=== PATIENT | male | born 1970 | race Caucasian/White ===

== ENCOUNTER 2024-02-18 14:27 | Outpatient (AMB) | payer OTHER, SELFPAY ==
--- NOTE | 2024-02-18 14:19 | A.OFFPC_ITS ---
Vital Signs 02/18/24 14:37 02/18/24 15:03 Height 5 ft 11.5 in Weight 210 lb BMI 28.9 BP 156/88 H 124/80 Blood Pressure Location Lt brachial Lt brachial Position Sitting Sitting Respiration 16 Pulse 65 Pulse Source Pulse Oximeter Pulse Oximetry (%) 99 Oxygen Delivery Method Room Air Intake Visit Reasons: Est. Care / Needs a new provider Intake Note: New patient visit Allergies No Known Allergies Allergy (Verified 02/18/24 14:19) Medication List - Last Reconciled 02/18/24 by Abbie Ayala PA-C amlodipine 5 mg PO DAILY atorvastatin 40 mg PO DAILY metformin ER 750 mg PO DAILY metoprolol succinate ER 50 mg PO DAILY olmesartan 40 mg PO DAILY omeprazole 40 mg PO DAILY ropinirole 4 mg PO sildenafil mg PO valacyclovir 1,000 mg PO DAILY Tobacco use date assessed: 02/18/24 Dental Screening Dental Screen Date: 02/18/24 Did you have a dental visit in the last 12 months?: Yes Did you have a dental problem in the last 6 months where you did not have access to dental care?: No Was dental information given to patient?: Patient has dentist HPI Est. Care / Needs a new provider HPI Details Patient is a 53-year-old male with a significant past medical history of hypertension, hyperlipidemia, GERD, diabetes, SEE with cpap, erectile dysfunction, herpes virus, ckd is presenting today to establish care from [facility]. General: Feels tired all the time. Has sleep apnea but does not use CPAP machine. Does not tolerate it. States that he struggles falling asleep and staying asleep. His legs are always restless. He does endorse study drinks alcohol at night and that this maybe contributing somewhat but he has had a longstanding history of insomnia since childhood. He is wondering what his testosterone is. He has taken it in the past prescribed and not prescribed. CV: Blood pressure today in the office is 156/88. He is on olmesartan 40 mg, metoprolol 50 mg daily and amlodipine 5 mg daily. Cholesterol has been controlled with atorvastatin 40 mg. He just started amlodipine yesterday by his 1st pressman Nephro: following with Dr. Martínez and seeing him in 3 months. Endo: His last A1c was 9. He is overdue for an A1c. Does not check his blood sugars at home as the lancets do not seem to work for him. He would be interested in a [employer]. He was diagnosed with diabetes about 5 years ago. No family history of diabetes. He is not sure if he is a type 2 or type 1. He is currently on metformin 750 mg daily. -jardiance in the past but it was too ex pensive. 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 How often do you have a drink containing alcohol?: 4 or more times a week 2. How many drinks containing alcohol do you have on a typical day when you are drinking?: 5 or 6 3. How often do you have six or more drinks on one occasion?: Weekly Total Score: 9 Physical exam (Primary Care) Vital Signs: Last Vital Signs Pulse 65 02/18/24 14:37 Resp 16 02/18/24 14:37 BP 156/88 H 02/18/24 14:37 Pulse Ox 99 02/18/24 14:37 Oxygen Delivery Method Room Air 02/18/24 14:37 BMI result Body Mass Index 28.9 Tobacco/Smoking Status: Tobacco use Status Tobacco use date assessed 02/18/24 02/18/24 14:21 Patient Tobacco Use Status Never used Tobacco 02/18/24 14:21 e-Cigarette/Vaping Use Never Used 02/18/24 14:21 Const Orientation/consciousness: patient oriented x3 HENMT Ears: hearing grossly normal bilaterally Neck Thyroid: Thyroid normal Lymphatic: no lymphadenopathy noted Resp Auscultation: clear to auscultation bilaterally Cardio Rate: regular rate Rhythm: regular rhythm Heart sounds: S1 normal heart sound present and S2 normal heart sound present GI Inspection: Yes normal to inspection Palpation (GI): Soft to palpation and Other GI palpation findings present (nontender, no cva tenderness) Auscultation: normoactive bowel sounds Rectal Exam - Male: Yes deferred Skin General skin exam: no rashes or lesions noted Neuro General: patient oriented x3, gait normal and no focal motor deficits Coding Level of Care Code New Pt Level 5 (03021) Complex EM visit Add On G2211 Diagnoses SEE on CPAP G47.33 Restless leg syndrome G25.81 Fatigue R53.83 Low testosterone R79.89 Uncontrolled diabetes mellitus with hyperglycemia E11.65 Hypertension I10 CKD stage 3a, GFR 45-59 ml/min N18.31 Dyslipidemia E78.5 Assessment & Plan Assessment & Plan (1) SEE on CPAP: Code(s): G47.33 - Obstructive sleep apnea (adult) (pediatric) Category: Medical Plan: Advised to follow up with sleep medicine as he is noncompliant with the CPAP machine. He states it is very difficult to use. He is going to follow up to figure out a way to make it work (2) Restless leg syndrome: Code(s): G25.81 - Restless legs syndrome Category: Medical Plan: On Requip (3) Fatigue: Code(s): R53.83 - Other fatigue Category: Medical Plan: Labs ordered. Discussed that he has untreated sleep apnea and this is likely contributing. We also discussed healthy lifestyle such as avoidance/reduction of alcohol (4) Low testosterone: Code(s): R79.89 - Other specified abnormal findings of blood chemistry Category: Medical Plan: Labs ordered (5) Uncontrolled diabetes mellitus with hyperglycemia: Code(s): E11.65 - Type 2 diabetes mellitus with hyperglycemia Category: Medical Plan: Diabetic labs ordered. We will check antibodies and C-peptide as well. Advised to get this done in the morning. We spent more than 1 hour in madf-sp-otil time today discussing the pathophysiology of diabetes, the differences of type 1 and type 2 diabetes, complications associated with diabetes including blindness, heart disease, stroke, [place], kidney damage etc.. Freestyle Giorgio ordered. Continue metformin. We will follow up pending test results and adjust medications (6) Hypertension: Code(s): I10 - Essential (primary) hypertension Category: Medical Plan: Blood pressure better today at 124/80. Continue current regimen (7) CKD stage 3a, GFR 45-59 ml/min: Code(s): N18.31 - Chronic kidney disease, stage 3a Category: Medical Plan: Following with Nephrology (8) Dyslipidemia: Code(s): E78.5 - Hyperlipidemia, unspecified Category: Medical Plan: Lipids and LFTs ordered Orders: Orders Complete Blood Count Auto Diff Today E11.65 - Type 2 diabetes mellitus with hyperglycemia, E78.5 - Hyperlipidemia, unspecified, G25.81 - Restless legs syndrome, I10 - Essential (primary) hypertension, N18.31 - Chronic kidney disease, stage 3a, R53.83 - Other fatigue, R79.89 - Other specified abnormal findings of blood chemistry Hemoglobin A1c Today E11.65 - Type 2 diabetes mellitus with hyperglycemia, E78.5 - Hyperlipidemia, unspecified, G25.81 - Restless legs syndrome, I10 - Essential (primary) hypertension, N18.31 - Chronic kidney disease, stage 3a, R53.83 - Other fatigue, R79.89 - Other specified abnormal findings of blood chemistry Ferritin Today E11.65 - Type 2 diabetes mellitus with hyperglycemia, E78.5 - Hyperlipidemia, unspecified, G25.81 - Restless legs syndrome, I10 - Essential (primary) hypertension, N18.31 - Chronic kidney disease, stage 3a, R53.83 - Other fatigue, R79.89 - Other specified abnormal findings of blood chemistry Vitamin B12 and Folate Today E11.65 - Type 2 diabetes mellitus with hyperglycemia, E78.5 - Hyperlipidemia, unspecified, G25.81 - Restless legs syndrome, I10 - Essential (primary) hypertension, N18.31 - Chronic kidney disease, stage 3a, R53.83 - Other fatigue, R79.89 - Other specified abnormal findings of blood chemistry Magnesium Today E11.65 - Type 2 diabetes mellitus with hyperglycemia, E78.5 - Hyperlipidemia, unspecified, G25.81 - Restless legs syndrome, I10 - Essential (primary) hypertension, N18.31 - Chronic kidney disease, stage 3a, R53.83 - Other fatigue, R79.89 - Other specified abnormal findings of blood chemistry Lipid Panel Today E11.65 - Type 2 diabetes mellitus with hyperglycemia, E78.5 - Hyperlipidemia, unspecified, G25.81 - Restless legs syndrome, I10 - Essential (primary) hypertension, N18.31 - Chronic kidney disease, stage 3a, R53.83 - Other fatigue, R79.89 - Other specified abnormal findings of blood chemistry Glutamic acid decarboxylase Ab Today E11.65 - Type 2 diabetes mellitus with hyperglycemia, E78.5 - Hyperlipidemia, unspecified, G25.81 - Restless legs syndrome, I10 - Essential (primary) hypertension, N18.31 - Chronic kidney disease, stage 3a, R53.83 - Other fatigue, R79.89 - Other specified abnormal findings of blood chemistry C Peptide Today E11.65 - Type 2 diabetes mellitus with hyperglycemia, E78.5 - Hyperlipidemia, unspecified, G25.81 - Restless legs syndrome, I10 - Essential (primary) hypertension, N18.31 - Chronic kidney disease, stage 3a, R53.83 - Other fatigue, R79.89 - Other specified abnormal findings of blood chemistry B Type Natriuretic Peptide Today E11.65 - Type 2 diabetes mellitus with hyperglycemia, E78.5 - Hyperlipidemia, unspecified, G25.81 - Restless legs syndrome, I10 - Essential (primary) hypertension, N18.31 - Chronic kidney disease, stage 3a, R53.83 - Other fatigue, R79.89 - Other specified abnormal findings of blood chemistry Comprehensive [place]. Panel Fast Today E11.65 - Type 2 diabetes mellitus with hyperglycemia, E78.5 - Hyperlipidemia, unspecified, G25.81 - Restless legs syndrome, I10 - Essential (primary) hypertension, N18.31 - Chronic kidney disease, stage 3a, R53.83 - Other fatigue, R79.89 - Other specified abnormal findings of blood chemistry IRON PROFILE Today E11.65 - Type 2 diabetes mellitus with hyperglycemia, E78.5 - Hyperlipidemia, unspecified, G25.81 - Restless legs syndrome, I10 - Essential (primary) hypertension, N18.31 - Chronic kidney disease, stage 3a, R53.83 - Other fatigue, R79.89 - Other specified abnormal findings of blood chemistry TSH reflex Free T4 Today E11.65 - Type 2 diabetes mellitus with hyperglycemia, E78.5 - Hyperlipidemia, unspecified, G25.81 - Restless legs syndrome, I10 - Essential (primary) hypertension, N18.31 - Chronic kidney disease, stage 3a, R53.83 - Other fatigue, R79.89 - Other specified abnormal findings of blood chemistry Prostate Specific Antigen Scr Today E11.65 - Type 2 diabetes mellitus with hyperglycemia, E78.5 - Hyperlipidemia, unspecified, G25.81 - Restless legs syndrome, I10 - Essential (primary) hypertension, N18.31 - Chronic kidney disease, stage 3a, R53.83 - Other fatigue, R79.89 - Other specified abnormal findings of blood chemistry, Z01.89 - Encounter for other specified special examinations Lyme IgG/IgM w/reflex to WB Today E11.65 - Type 2 diabetes mellitus with hyperglycemia, E78.5 - Hyperlipidemia, unspecified, G25.81 - Restless legs syndrome, I10 - Essential (primary) hypertension, N18.31 - Chronic kidney disease, stage 3a, R53.83 - Other fatigue, R79.89 - Other specified abnormal findings of blood chemistry Testosterone, Free/Total Today E11.65 - Type 2 diabetes mellitus with hyperglycemia, E78.5 - Hyperlipidemia, unspecified, G25.81 - Restless legs syndrome, I10 - Essential (primary) hypertension, N18.31 - Chronic kidney disease, stage 3a, R53.83 - Other fatigue, R79.89 - Other specified abnormal findings of blood chemistry Islet Cell Antibody Scrn/Titer Today E11.65 - Type 2 diabetes mellitus with hyperglycemia, E78.5 - Hyperlipidemia, unspecified, G25.81 - Restless legs syndrome, I10 - Essential (primary) hypertension, N18.31 - Chronic kidney disease, stage 3a, R53.83 - Other fatigue, R79.89 - Other specified abnormal findings of blood chemistry Referrals Sleep Medicine Referral G25.81 - Restless legs syndrome, G47.33 - Obstructive sleep apnea (adult) (pediatric) Dermatology Referral Z12.83 - Encounter for screening for malignant neoplasm of skin Open Access Screening Colonoscopy Referral Z12.11 - Encounter for screening for malignant neoplasm of colon Medications: New blood-glucose sensor (FreeStyle Giorgio 3 Sensor device) Apply every 14 days As directed to monitor blood glucose 2 ea 11RF E11.9 - Type 2 diabetes mellitus without complications, Z79.4 - senior care (current) use of insulin valacyclovir (Valtrex) 500 mg PO DAILY 90 tabs 3RF
[2024-02-18 14:37] VITALS: BP 156/88; PULSE 65; RESP 16; O2SAT 99; BMI 28.9
[2024-02-18 15:03] VITALS: BP 124/80
== END 2024-02-18 15:42 | disposition home or self-care (01) ==
PROVIDERS: PCP Internal Medicine; Visit Provider Physician Assistant
DX: I12.9 Hypertensive chronic kidney disease with stage 1 through stage 4 chronic kidney disease, or unspecified chronic kidney disease (principal); E11.65 Type 2 diabetes mellitus with hyperglycemia; N18.31 Chronic kidney disease, stage 3a; G47.33 Obstructive sleep apnea (adult) (pediatric); G25.81 Restless legs syndrome; R53.83 Other fatigue; E78.5 Hyperlipidemia, unspecified

== ENCOUNTER → 2024-02-18 14:27 | Outpatient (BNVA) | payer OTHER, SELFPAY | PROVIDERS: PCP Internal Medicine; Visit Provider Physician Assistant ==

== ENCOUNTER 2024-02-19 07:52 | Outpatient (REF) | payer OTHER, SELFPAY ==
[2024-02-19 11:00] LABS: MANUAL DIFF FLAG NO
[2024-02-19 11:13] LABS: Basophils Absolute Auto 0.1 X10*3/uL (0.0-0.2); Basophils Percent Auto 0.8 % (0-2); Eosinophils Absolute Auto 0.2 X10*3/uL (0.0-0.4); Eosinophils Percent Auto 2.8 % (0-4); Hematocrit 45.2 % (42.0-52.0); Hemoglobin 15.7 g/dl (14.0-18.0); Imm Gran Abs Auto 0.03 X10*3/uL (0.00-0.03); Imm Gran Pct Auto 0.4 % (0.0-0.4); Lymphocytes Absolute Auto 0.9 X10*3/uL (1.2-4.9); Mean Corpuscular HGB Conc 34.7 g/dl (31.0-36.0); Mean Corpuscular Hemoglobin 29.7 pg (27.0-33.0); Mean Corpuscular Volume 85.6 fL (80.0-98.0); Mean Platelet Volume 11.6 fL (9.4-12.4); Monocytes Absolute Auto 0.7 X10*3/uL (0.1-1.2); Monocytes Percent Auto 8.7 % (2-11); Neutrophils Percent Auto 76.3 % (45-73); Platelet Count 143 X10*3/uL (160-400); Red Blood Count 5.28 X10*6/uL (4.60-5.80); Red Cell Distribution Width 13.5 % (11.0-16.0); White Blood Count 7.9 X10*3/uL (4.8-10.8)
[2024-02-19 11:20] LABS: B Type Natriuretic Peptide 18 pg/mL (<100)
[2024-02-19 11:37] LABS: Estimated Average Glucose 151 mg/dL; Hemoglobin A1C 190.1161 umol/L; Hemoglobin A1c % 6.9 % (<6.0); Total Hemoglobin (HGBA1C) 3696.8471 umol/L
[2024-02-19 12:04] LABS: Alanine Aminotransferase 114 U/L (0-40); Albumin Level 4.2 g/dL (3.5-5.0); Alkaline Phosphatase 71 U/L (39-117); Anion Gap 13 (12-20); Aspartate Amino Transferase 86 U/L (5-37); Bilirubin Total 0.7 mg/dL (0.0-1.0); Blood Urea Nitrogen 13 mg/dL (9-16); Calcium 9.3 mg/dL (8.4-10.2); Carbon Dioxide 25 mmol/L (22-29); Chloride 103 mmol/L (96-108); Cholesterol 134 mg/dL (<200); Estimated Glomerular Filt Rate 48; Ferritin 169 ng/mL (20-250); Glucose Fasting 114 mg/dL (60-99); HDL Cholesterol 34 mg/dL (>40); Iron 91 mcg/dL (45-160); LDL Cholesterol Calculated 71 mg/dL (<100); Percent Iron Saturation 26 % (15-50); Potassium 3.8 mmol/L (3.3-5.1); Sodium 137 mmol/L (135-145); TSH reflex Free T4 2.04 uIU/mL (0.32-4.0); Total Iron Binding Capacity 354 mcg/dL (228-428); Total Protein 7.3 g/dL (6.5-8.0); Triglycerides 147 mg/dL (<150); Unsaturated Iron Binding 263 ug/dL
[2024-02-19 12:08] LABS: Folate 10.5 ng/mL (> or = 4.0); Prostate Specific Antigen Scr 0.56 ng/mL (<0.05-4.0); Vitamin B12 491 pg/mL (200-900)
[2024-02-19 13:32] LABS: Magnesium 1.4 mg/dL (1.6-2.6)
[2024-02-20 10:29] LABS: C Peptide 4.13 ng/mL (0.80-3.85)
[2024-02-20 13:14] LABS: Lyme Abs Screen <0.90 index
[2024-02-23 21:14] LABS: Glutamic acid decarboxylase Ab <5 IU/mL (<5)
[2024-02-24 20:34] LABS: Testosterone, Free 409.8 pg/mL (35.0-155.0); Testosterone, Total 1305 ng/dL (250-1100)
[2024-02-29 07:13] LABS: Islet Cell Antibody Screen NEGATIVE (NEGATIVE)
== END 2024-02-19 07:53 | disposition home or self-care (01) ==
LOC: HO.WFDLDS 07:52
PROVIDERS: Visit Provider Physician Assistant
DX: R53.83 Other fatigue (principal); G25.81 Restless legs syndrome; R79.89 Other specified abnormal findings of blood chemistry; E11.65 Type 2 diabetes mellitus with hyperglycemia; I10 Essential (primary) hypertension; N18.31 Chronic kidney disease, stage 3a; E78.5 Hyperlipidemia, unspecified; Z01.89 Encounter for other specified special examinations; Z12.5 Encounter for screening for malignant neoplasm of prostate
CPT/HCPCS: 36415; 80053; 80061; 82607; 82728; 82746; 83036; 83540; 83735; 83880; 84153; 84402; 84403; 84443; 84681; 85025; 86341; 86617; 86618

== ENCOUNTER 2024-03-04 10:07 | Outpatient (REF) | payer OTHER, SELFPAY | END 2024-03-04 10:08 | disposition home or self-care (01) | LOC: HO.US 10:07 | PROVIDERS: PCP Physician Assistant; Visit Provider Physician Assistant | DX: R79.89 Other specified abnormal findings of blood chemistry (principal); D69.6 Thrombocytopenia, unspecified; E11.65 Type 2 diabetes mellitus with hyperglycemia; Z78.9 Other specified health status | CPT/HCPCS: 76700; 76981 ==

== ENCOUNTER 2024-03-18 09:26 | Outpatient (AMB) | payer OTHER, SELFPAY ==
--- NOTE | 2024-03-18 09:46 | A.OFFVIS_ITS ---
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
--- NOTE | 2024-03-18 09:50 | MHC.PC.OV ---
Vital Signs 03/18/24 09:56 BP 118/72 Blood Pressure Location Rt brachial Position Sitting Pulse 81 Pulse Source Pulse Oximeter Pulse Oximetry (%) 98 Oxygen Delivery Method Room Air Intake Visit Reasons: dm Intake Note: Follow up diabetes. Never got his magnesium prescription due to the pharmacy not getting it. He would like to try to send it to [facility] [place]. Allergies No Known Allergies Allergy (Verified 03/18/24 09:48) Medication List - Last Reconciled 03/18/24 by Abbie Ayala PA-C amlodipine 5 mg PO DAILY atorvastatin 40 mg PO DAILY blood-glucose sensor (EntomoStyle Giorgio 3 Sensor device) Apply every 14 days As directed to monitor blood glucose magnesium oxide 250 mg PO BID metformin ER 750 mg PO DAILY metoprolol succinate ER 50 mg PO DAILY olmesartan 40 mg PO DAILY omeprazole 40 mg PO DAILY ropinirole 4 mg PO sildenafil mg PO valacyclovir (Valtrex) 500 mg PO DAILY Tobacco use date assessed: 02/18/24 Dental Screening Dental Screen Date: 02/18/24 HPI dm HPI Details Patient is a 53-year-old male with a significant past medical history of hypertension, hyperlipidemia, GERD, diabetes, SEE with cpap, erectile dysfunction, herpes virus, ckd is presenting today to establish care from [facility]. General: Feels tired all the time. Has sleep apnea but does not use CPAP machine. Does not tolerate it. States that he struggles falling asleep and staying asleep. His legs are always restless. He does endorse study drinks alcohol at night and that this maybe contributing somewhat but he has had a longstanding history of insomnia since childhood. He is wondering what his testosterone is. He has taken it in the past prescribed and not prescribed. Psych: Has ADD and wants to restart Adderall as that has always helped his energy focused. CV: Blood pressure today in the office is 118/72 He is on olmesartan 40 mg, metoprolol 50 mg daily and amlodipine 5 mg daily. Cholesterol has been controlled with atorvastatin 40 mg. Nephro: following with Dr. Martínez and seeing him in 3 months. Endo: His last A1c was 6.9. He is on metformin 750 mg twice a day. -jardiance in the past but it was too expensive. 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 [place] Current occupational exposures/hazards: Yes (smoke inhalation ) Cognitive needs: No Hearing needs: No Vision needs: Yes Questionnaire Thrive Questionnaire Date Thrive assessed: 02/18/24 I am a: Patient What is your living situation today?: I have a steady place to live Within the past 12 months, did the food you bought not last and you didn't have the money to get more?: Never true Within the past 12 months, did you worry whether your food would run out before you got money to buy more?: Never true Do you have trouble paying for medicines?: No Do you have trouble getting transportation to medical appointments?: No Do you have trouble paying your heating and electricity bill?: No Do you have trouble taking care of your child, family member or friend?: No Do you have trouble with day-to-day activities such as bathing, preparing meals, shopping, managing finances, etc.?: No Are you currently unemployed and looking for a job?: No Are you interested in more education?: Yes Please select the resources that you would like help with: None Currently or been in a relationship where the following occur: No concerns reported THRIVE Score: 0 [place]-7 AMB Questionnaire [place]-7 Becoming easily annoyed or irritable: 2 = More than half the days Source: Developed by Drs. Bryce Vazquez, Genny Colin, Mal Rasumssen and colleagues, with an educational dot from [employer]. Physical exam (Primary Care) Vital Signs: Last Vital Signs Pulse 81 03/18/24 09:56 BP 118/72 03/18/24 09:56 Pulse Ox 98 03/18/24 09:56 Oxygen Delivery Method Room Air 03/18/24 09:56 Tobacco/Smoking Status: Tobacco use Status Tobacco use date assessed 02/18/24 03/18/24 09:56 Patient Tobacco Use Status Never used Tobacco 03/18/24 09:56 e-Cigarette/Vaping Use Never Used 03/18/24 09:56 Thrive Assessment: Date of Thrive Assessment Date Thrive assessed 02/18/24 03/18/24 09:56 Currently or been in a relationship where the following occur: No concerns reported Const Orientation/consciousness: patient oriented x3 HENMT Ears: hearing grossly normal bilaterally Neck Thyroid: Thyroid normal Lymphatic: no lymphadenopathy noted Resp Auscultation: clear to auscultation bilaterally Cardio Rate: regular rate Rhythm: regular rhythm Heart sounds: S1 normal heart sound present and S2 normal heart sound present GI Inspection: Yes normal to inspection Palpation (GI): Soft to palpation and Other GI palpation findings present (nontender, no cva tenderness) Auscultation: normoactive bowel sounds Rectal Exam - Male: Yes deferred Skin General skin exam: no rashes or lesions noted Neuro General: patient oriented x3, gait normal and no focal motor deficits Coding Level of Care Code Est Pt Level 4 (51147) Complex EM visit Add On G2211 Diagnoses Hypomagnesemia E83.42 Elevated LFTs R79.89 Hypertension I10 Uncontrolled diabetes mellitus with hyperglycemia E11.65 CKD stage 3a, GFR 45-59 ml/min N18.31 ADD (attention deficit disorder) F98.8 Assessment & Plan Assessment & Plan (1) Hypomagnesemia: Code(s): E83.42 - Hypomagnesemia Category: Medical Plan: Advised to continue with supplement and repeat lab (2) Elevated LFTs: Code(s): R79.89 - Other specified abnormal findings of blood chemistry Category: Medical Plan: Ultrasound pending. We will review (3) Hypertension: Code(s): I10 - Essential (primary) hypertension Category: Medical Plan: Better today since starting amlodipine (4) Uncontrolled diabetes mellitus with hyperglycemia: Code(s): E11.65 - Type 2 diabetes mellitus with hyperglycemia Category: Medical Plan: Currently controlled. Continue current regimen (5) CKD stage 3a, GFR 45-59 ml/min: Code(s): N18.31 - Chronic kidney disease, stage 3a Category: Medical Plan: Stable. (6) ADD (attention deficit disorder): Code(s): F98.8 - Other specified behavioral and emotional disorders with onset usually occurring in childhood and adolescence Category: Medical Plan: We will start Adderall. We discussed risks and benefits and adverse effects of this medication including addiction. He has taken this in the past and tolerated it well. Medications: New dextroamphetamine-amphetamine 15 mg ER (Adderall XR) Partial Fill upon patient request. 15 mg PO QAM 30 days 30 caps 0RF
[2024-03-18 09:56] VITALS: BP 118/72; PULSE 81; O2SAT 98
== END 2024-03-18 10:26 | disposition home or self-care (01) ==
PROVIDERS: PCP Physician Assistant; Visit Provider Physician Assistant
DX: I12.9 Hypertensive chronic kidney disease with stage 1 through stage 4 chronic kidney disease, or unspecified chronic kidney disease (principal); E11.65 Type 2 diabetes mellitus with hyperglycemia; N18.31 Chronic kidney disease, stage 3a; E83.42 Hypomagnesemia; R79.89 Other specified abnormal findings of blood chemistry; F98.8 Other specified behavioral and emotional disorders with onset usually occurring in childhood and adolescence

== ENCOUNTER → 2024-03-18 09:26 | Outpatient (BNVA) | payer OTHER, SELFPAY | PROVIDERS: PCP Physician Assistant; Visit Provider Physician Assistant ==

== ENCOUNTER 2024-04-29 08:26 | Outpatient (AMB) | payer OTHER, SELFPAY ==
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
[2024-04-29 08:35] VITALS: BP 126/72; PULSE 87; O2SAT 98; BMI 36.5
== END 2024-04-29 08:54 | disposition home or self-care (01) ==
PROVIDERS: PCP Physician Assistant; Visit Provider Physician Assistant
DX: M25.511 Pain in right shoulder (principal); E11.65 Type 2 diabetes mellitus with hyperglycemia; N18.31 Chronic kidney disease, stage 3a

== ENCOUNTER → 2024-04-29 08:26 | Outpatient (BNVA) | payer OTHER, SELFPAY | PROVIDERS: PCP Physician Assistant; Visit Provider Physician Assistant | DX: M25.511 Pain in right shoulder (principal); E11.65 Type 2 diabetes mellitus with hyperglycemia; E11.22 Type 2 diabetes mellitus with diabetic chronic kidney disease; N18.31 Chronic kidney disease, stage 3a; Z79.84 Long term (current) use of oral hypoglycemic drugs; Z79.899 Other long term (current) drug therapy | CPT/HCPCS: 96127 ==

== ENCOUNTER 2024-04-29 08:57 | Outpatient (REF) | payer OTHER, SELFPAY ==
[2024-04-29 10:46] LABS: MANUAL DIFF FLAG NO
[2024-04-29 11:04] LABS: Basophils Absolute Auto 0.1 X10*3/uL (0.0-0.2); Basophils Percent Auto 0.9 % (0-2); Eosinophils Absolute Auto 0.2 X10*3/uL (0.0-0.4); Hematocrit 42.8 % (42.0-52.0); Hemoglobin 14.5 g/dl (14.0-18.0); Imm Gran Abs Auto 0.04 X10*3/uL (0.00-0.03); Imm Gran Pct Auto 0.8 % (0.0-0.4); Lymphocytes Absolute Auto 0.7 X10*3/uL (1.2-4.9); Lymphocytes Percent Auto 13.2 % (20-40); Mean Corpuscular HGB Conc 33.9 g/dl (31.0-36.0); Mean Corpuscular Hemoglobin 29.1 pg (27.0-33.0); Mean Corpuscular Volume 85.9 fL (80.0-98.0); Mean Platelet Volume 10.2 fL (9.4-12.4); Monocytes Absolute Auto 0.6 X10*3/uL (0.1-1.2); Monocytes Percent Auto 10.7 % (2-11); Neutrophils Absolute Auto 3.8 x10*3/uL (2.0-8.3); Neutrophils Percent Auto 71.4 % (45-73); Platelet Count 196 X10*3/uL (160-400); Red Blood Count 4.98 X10*6/uL (4.60-5.80); Red Cell Distribution Width 13.9 % (11.0-16.0); White Blood Count 5.3 X10*3/uL (4.8-10.8)
[2024-04-29 11:08] LABS: Albumin Level 4.2 g/dL (3.5-5.0); Alkaline Phosphatase 75 U/L (39-117); Anion Gap 12 (12-20); Aspartate Amino Transferase 66 U/L (5-37); Bilirubin Total 0.6 mg/dL (0.0-1.0); Blood Urea Nitrogen 12 mg/dL (9-16); Calcium 9.4 mg/dL (8.4-10.2); Carbon Dioxide 25 mmol/L (22-29); Chloride 103 mmol/L (96-108); Estimated Glomerular Filt Rate 45; Glucose Fasting 120 mg/dL (60-99); Magnesium 1.5 mg/dL (1.6-2.6); Potassium 4.4 mmol/L (3.3-5.1); Sodium 136 mmol/L (135-145); Total Protein 7.2 g/dL (6.5-8.0)
[2024-04-29 11:15] LABS: Estimated Average Glucose 143 mg/dL; Hemoglobin A1C 179.4918 umol/L; Hemoglobin A1c % 6.6 % (<6.0); Total Hemoglobin (HGBA1C) 3721.7935 umol/L
[2024-04-29 11:26] LABS: Creatinine Urine 349.77 mg/dL
[2024-04-29 11:26] LABS: Alanine Aminotransferase 99 U/L (0-40)
== END 2024-04-29 08:58 | disposition home or self-care (01) ==
LOC: HO.WFDLDS 08:57
PROVIDERS: Visit Provider Physician Assistant
DX: D69.6 Thrombocytopenia, unspecified (principal); N18.31 Chronic kidney disease, stage 3a; E11.65 Type 2 diabetes mellitus with hyperglycemia; E83.42 Hypomagnesemia
CPT/HCPCS: 36415; 80053; 82043; 82570; 83036; 83735; 85025

== ENCOUNTER 2024-05-12 07:46 | Outpatient (AMB) | payer OTHER, SELFPAY ==
[2024-05-12 07:54] VITALS: BMI 36.5
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
== END 2024-05-12 08:23 | disposition home or self-care (01) ==
PROVIDERS: PCP Physician Assistant; Visit Provider Orthopaedic Surgery
DX: M25.311 Other instability, right shoulder (principal)
CPT/HCPCS: 99203; G2211

== ENCOUNTER → 2024-05-12 07:50 | Outpatient (BNV) | payer OTHER, SELFPAY | PROVIDERS: Visit Provider Radiology Diagnostic Radiology | DX: M25.511 Pain in right shoulder (principal) | CPT/HCPCS: 73030 ==

== ENCOUNTER 2024-05-12 13:00 | Outpatient (REF) | payer OTHER, SELFPAY ==
--- NOTE | ~2024-05-12 | XR_ITS ---
CLINICAL HISTORY: M25.511 - Pain in right shoulder 2 view right shoulder Comparison: None Findings: No acute fracture. AC joint hypertrophy. There is a foreshortened appearance of the acromion which is somewhat irregular appearance. This could be a congenital finding or possibly related to some sort of erosive arthropathy. Irregularity of the greater tuberosity can be seen in the setting of rotator cuff disease. Mild glenohumeral joint space loss. IMPRESSION: 1. No acute fracture or dislocation. 2. Irregular appearance of the acromion, nonspecific. AC joint hypertrophy and possible rotator cuff disease. This document has been electronically signed by: Delores Monaco MD on 05/13/2024 06:12:24
== END 2024-05-12 13:01 | disposition home or self-care (01) ==
LOC: HO.HOSX 13:00
PROVIDERS: Visit Provider Orthopaedic Surgery
DX: M25.511 Pain in right shoulder (principal); M25.311 Other instability, right shoulder
CPT/HCPCS: 73030; 99202

== ENCOUNTER → 2024-05-21 07:15 | Outpatient (BNV) | payer OTHER, SELFPAY | PROVIDERS: PCP Physician Assistant; Visit Provider Specialist | DX: M75.121 Complete rotator cuff tear or rupture of right shoulder, not specified as traumatic (principal); M19.011 Primary osteoarthritis, right shoulder | CPT/HCPCS: 73221 ==

== ENCOUNTER 2024-05-21 07:23 | Outpatient (REF) | payer OTHER, SELFPAY ==
--- NOTE | ~2024-05-21 | MR_ITS ---
CLINICAL HISTORY: M25.311 - Other instability, right shoulder MR right shoulder without gadolinium Comparison: 05/12/2024 Findings: No acute fracture or pathologic bone lesion. Arthritic changes in the acromioclavicular joint with inferior distal clavicular osteophyte. Type II acromion without downsloping. Is a small glenohumeral joint effusion and subdeltoid bursal effusion. There is a partially retracted full-thickness supraspinatus tendon tear. The infraspinatus, subscapularis, and teres minor tendons are intact. No tears of the long head of biceps tendon. No tears of the glenoid labrum. IMPRESSION: 1. Retracted full-thickness supraspinatus tendon tear. 2. AC joint degenerative/arthritic changes This document has been electronically signed by: Rk Daigle MD on 05/22/2024 08:15:57
== END 2024-05-21 07:24 | disposition home or self-care (01) ==
LOC: HO.MRI 07:23
PROVIDERS: PCP Physician Assistant; Visit Provider Orthopaedic Surgery
DX: M25.311 Other instability, right shoulder (principal)
CPT/HCPCS: 73221

== ENCOUNTER → 2024-05-26 13:59 | Outpatient (BNVA) | payer OTHER, SELFPAY | PROVIDERS: PCP Physician Assistant; Visit Provider Orthopaedic Surgery | DX: M25.311 Other instability, right shoulder (principal); M75.101 Unspecified rotator cuff tear or rupture of right shoulder, not specified as traumatic; M75.41 Impingement syndrome of right shoulder; M19.011 Primary osteoarthritis, right shoulder | CPT/HCPCS: 99212 ==

== ENCOUNTER 2024-06-23 10:45 | Outpatient (AMB) | payer OTHER, SELFPAY ==
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
[2024-06-23 11:23] VITALS: BP 108/66; PULSE 75; RESP 16; O2SAT 98; BMI 35.5
--- OUTSIDE RECORDS SUMMARY | 2024-06-23 13:21 | XMS_ITS | Clinical Summary ---
Author Organization [facility] ity Address [address] [place] [address] Care Team Providers Care Body Piercer Name Role Phone Unavailable Primary Care Provider Unavailabl e Social History Tobacco Use Types Packs/Day Years Used Date Smoking Tobacco: Never Assessed Sex and Gender Information Value Date Recorded Sex Assigned at Not on file Legal Sex Male 7:11 AM EST Gender Identity Not on file Sexual Orientation Not on file Plan of Treatment Health Maintenance Due Date Last Done Comments DTaP,Tdap,and Td Vaccines (1 - Tdap) 1989 Hepatitis B Vaccines (1 of 3 - 19+ 3-dose series) 1989 Pneumococcal Vaccine: 50+ Ye ars (1 of 1 - PCV) 2020 Zoster Vaccines (1 of 2) 2020 COVID-19 Vaccine (1 - 2023-2 5 season) 2023 Influenza Vaccine (#1) 2023 HIB Vaccines Aged Out No longer eligi ble based on patient's age to complete this topic HPV Vaccines Aged Out No longer eligi ble based on patient's age to complete this topic Hepatitis A Vaccines Aged Out No long er eligible based on patient's age to complete this topic IPV Vaccines Aged Out No longer eligi ble based on patient's age to complete this topic MMR Vaccines Aged Out No longer eligi ble based on patient's age to complete this topic Meningococcal ACWY Vaccine Aged Out N o longer eligible based on patient's age to complete this topic Meningococcal B Vacine Aged Out No lo nger eligible based on patient's age to complete this topic Pneumococcal Vaccine: Pediat rics (0 to 5 Years) and At-Risk Patients (6 to 64 Years) Aged Out No longer eligible b ased on patient's age to complete this topic RSV Immunization Patients Un jeison 20 months Aged Out No longer eligible b ased on patient's age to complete this topic Varicella Vaccines Aged Out No longer eligible based on patient's age to complete this topic
--- OUTSIDE RECORDS SUMMARY | 2024-06-23 13:21 | XMS_ITS | Clinical Summary ---
Author Organization [facility] Address [address] [place] [phone] Phone Care Team Providers Care Ela Teacher Name Role Phone Abbie Ayala PA-C Primary Care Provider + Allergies No known active allergies Medications atorvastatin (LIPITOR) 40 MG tablet Take 40 mg by mouth 1 (one) time each day Active Metoprolol Succinate 50 MG capsule extended-releas e 24 hour sprinkle Take 50 mg by mouth 1 (one) time each day Active sildenafil (VIAGRA) 100 MG tablet Take 100 mg by mouth 1 (one) time each day if needed for erectile dysfunction Active omeprazole (PriLOSEC) [address] capsule Take 40 mg by mouth 1 (one) time each day Do not crush or chew. Active valACYclovir (VALTREX) 1 g tablet Take 1,000 mg by mouth 1 (one) time each day Active metFORMIN XR (GLUCOPHAGE-XR) 750 MG 24 hr tablet Take 750 mg by mouth 1 (one) time each day with dinner Do not crush, chew, or split. Active rOPINIRole (REQUIP) 2 MG tablet Take 4 mg by mouth every night Active olmesartan (BENICAR) 40 MG tablet TAKE 1 TABLET(40 MG) BY MOUTH 1 TIME EACH DAY 90 tablet 3 4 Active SITagliptin (JANUVIA) 50 MG tablet Take 50 mg by mouth 1 (one) time each day Active amLODIPine (NORVASC) 5 MG tablet Take 1 tablet (5 mg total) by mouth 1 (one) time each day 30 tablet 11 4 02/16/20 25 Active Magnesium Oxide -Mg Supplement 250 MG tablet Take 1 tablet by mouth in the morning and 1 tablet in the evening. Active Active Problems Problem Noted Date Diagnosed Date Dyslipidemia 02/16/2024 Type 2 diabetes mellitus wit h diabetic chronic kidney disease 02/16/2024 Hypertensive chronic kidney disease 01/15/2023 Hypertension 12/25/2021 Stage 3a chronic kidney disease 12/25/2021 Proteinuria, not otherwise specified 12/25/2021 Full thickness rotator cuff tear 05/02/2015 01/15/2023 Encounters Date Type Department Care Team Description 05/20/2024 9:45 AM EST Office [facility] [address] [phone] Treasure Day ARNP Stage 3a chronic kidney disease (HCC) (Primary Dx); Hypertensive chronic kidney disease; Proteinuria, not otherwise specified from Last 3 Months Family History Medical History Relation Comments Stroke Father Cancer Mother Relation Status Comments Father Mother Social History Tobacco Use Types Packs/Day Years Used Date Smoking Tobacco: Never Smokeless Tobacco: Never Tobacco Cessation:Counseling Given: Not Answered Alcohol Use Standard Drinks/Week Comments Yes 0 (1 standard drink = 0.6 oz pur e alcohol) Sex and Gender Information Value Date Recorded Sex Assigned at Not on file Legal Sex Male 5:23 PM EST Gender Identity Not on file Sexual Orientation Not on file Last Filed Vital Signs Vital Sign Reading Time Taken Comments Blood Pressure 140/98 05/20/2024 9:44 AM EST Pulse 88 05/20/2024 9:44 AM EST Temperature - - Respiratory Rate - - Oxygen Saturation 98% 05/20/2024 9:44 AM EST Inhaled Oxygen Concentration - - Weight 119 kg (262 lb) 05/20/2024 9:44 AM EST Height 185.4 cm (6' 1 ) 01/15/2023 10:33 AM EDT Body Mass Index 34.57 01/15/2023 10:33 AM EDT Plan of Treatment Upcoming Encounters Date Type Department Care Team (Late st Contact Info) Description 11/15/2024 2:45 PM EDT Office [facility] [address] [phone] Chad Martínez MD [address] [phone] Health Maintenance Due Date Last Done Comments Hepatitis B Vaccine (1 of 3 - 19+ 3-dose series) 1989 Pneumococcal Vaccine: Pediat rics (0 to 5 Years) and At-Risk Patients (6 to 64 Years) (2 of 2 - PCV) 10/13/2013 10/13/2012 Colorectal Cancer Screening: Annual FOBT 09/19/2019 Colorectal Cancer Screening: Colonoscopy 09/19/2019 Colorectal Cancer Screening: Sigmoidoscopy 09/19/2019 Influenza Vaccine (#1) 2023 8, 12/02/2016, 12/26/2015, Additional history exists Diabetes: Hemoglobin A1C 02/16/2024 Diabetes: Ophthalmology Exam 02/16/2024 Diabetes: Pedal Pulse Checked 02/16/2024 Diabetes: Sensory Foot Exam 02/16/2024 Diabetes: Visual Foot Exam 02/16/2024 Procedures Procedure Name Priority Date/Time Associated Diagnosis Comments EXT RESULT ENTRY Routine 04/29/2024 from Last 3 Months Results * (ABNORMAL) EXT RESULT ENTRY (04/29/2024) WBC 5.3 3.3 - 10.0 10*3/ML Red Blood Cell Count 4.98 Hemoglobin 14.5 13.5 - 17.5 Hematocrit 42.8 41.0 - 53.0 Platelets 196 150 - 399 10*3/UL Sodium 136(A) 137 - 147 Potassium 4.4 3.4 - 5.5 Carbon Dioxide 25 mmol/L Anion Gap 12 <=30 MMOL/L Glucose 120 60 - 200 BUN 12 4 - 21 mg/dL Creatinine 1.60(A) 0.60 - 1.30 mg/dL Calcium 9.4 8.7 - 10.7 mg/dL eGFR Non-Afr Brazilian 45 04/29/2024 Historical Provider LAB BLOOD ORDERABLES Lupis vivas Result from Last 3 Months Insurance UNICARE UNICARE Care Teams Ela Teacher Relationship Specialty Start Date End Date Abbie Ayala PA-C [address] [place] [phone] PCP - General Physician Architectural Modeler 05/20/24
== END 2024-06-23 16:13 | disposition home or self-care (01) ==
PROVIDERS: PCP Physician Assistant; Visit Provider Physician Assistant
DX: F98.8 Other specified behavioral and emotional disorders with onset usually occurring in childhood and adolescence (principal); R79.89 Other specified abnormal findings of blood chemistry; I10 Essential (primary) hypertension; E11.65 Type 2 diabetes mellitus with hyperglycemia

== ENCOUNTER → 2024-06-23 10:45 | Outpatient (BNVA) | payer OTHER, SELFPAY | PROVIDERS: PCP Physician Assistant; Visit Provider Physician Assistant ==

== ENCOUNTER 2024-07-01 09:10 | Outpatient (AMB) | payer OTHER, SELFPAY ==
[2024-07-01 09:22] VITALS: BMI 35.5
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
--- OUTSIDE RECORDS SUMMARY | 2024-07-01 10:09 | XMS_ITS | Data Portability ---
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 Office visit was 30 minutes and patient counseled re: management of acute on chronic musculoskeletal back pain as well as ongoing shoulder pain. We reviewed the report from the [place] pharmacy monitoring that shows Konrad has filled #262 pills for narcotics (hydrocodone and oxycodone) over the past 6 weeks. He has gotten scripts from multiple providers here, in the ED, at work comp, and from [facility]. ? ? ?We reviewed concerns about use of opioids and risk for addiction. He states that he knows how it looks and would like to try using non-narcotic pain medications for the time being.? ? ? Konrad was asked to give a urine for UTOX screening today but stated that he had just voided and could not give us a sample. He understands that he would need to sign a contract for use of narcotics and would need to submit to testing if he is to receive any further narcotics here.? ? ? He will see [facility] as planned. We will try to get an MRI of the LS spine in advance of that visit.? ? ? phelmuth Not available 04/11/2015 18:12:13 07/12/2015 07/12/2015 Reviewed options for treatment of LBP with radicular symptoms. He agrees to trial of long-acting NSAID and TCA for sleep/pain. Follow up with [facility] after shoulder injury improved. ? ? ?Recommended that he seek consultation with sleep medicine given reports that ropinirole is no longer effective for RLS. 100% of time spent counseling patient re comprehensive review of prognosis/plan/ris ks and benefits of current treatment. Office visit was 30 minutes and patient counseled re: management of leg pain, HTN, sleep problems.? ? ? betty Not available 07/12/2015 21:16:16 12/26/2015 12/26/2015 Konrad seems go be doing well. REports that he is using testosterone replacement through Dr. Dacosta only (and not other anabolic steroids). Notes some cough, so we will try changing off of ACEI to ARB. Add low dose HCTZ because of his contined high BP. He did have hypokalemia in the past in the context of rhabdo when he was using steroids regularly. Should probably see Sleep [facility] for consult, which we tried to arrange this past Spring. He does not remember reeiving a call about seeing them. betty Not available 12/26/2015 13:40:51 01/06/2017 01/06/2017 Greater than 50% of time spent counseling patient re comprehensive review of prognosis/plan/ris ks and benefits of current treatment. Office visit was 30 minutes and patient counseled re: management of anxiety and depression in the context of prior anabolic steroid abuse (continued use of high-dose prescription testosterone) and longstanding alcohol dependence. Now 2 weeks of abstinence. Will add beta patricia and hydroxysine for anxiety (and BP). He is interested in taking benzos for anxiety, but I recommended against it strongly. Will start SSRI and follow up in3-4 weeks. Needs to review testosterone replacement iwht Dr. Praneeth hernández Not available 01/07/2017 08:39:36 Plan of Treatment Reminders Order Date Submit Date Provider Last Modified By Organization Details Last Modified Time Details Appointments None record ed. Lab BMP, serum or plasma 2015 016 bsolivanmattos Not available 7 10:56:45 iron + TIBC + ferrit in, serum 2015 016 abigby Not available 6 13:35:30 TSH, serum or plasma 2015 016 ANAND Not available 6 23:35:15 BMP, serum or plasma 2015 016 ANAND Not available 6 22:28:16 Referral sleep medici ne referr al 2016 017 [facility], [address] [place] [address], [id number], 7 11:41:11 sleep medici ne referr al 2016 017 [facility] Sleep Medicine [facility], [address] [place] [address], [id number], 7 10:33:10 ophtha lmolog ist referr al 2015 016 [facility] Skinny Trinh MD, [address] [place] [address], [id number], 7 11:51:20 sleep medici ne referr al 2015 016 [facility] Sleep Medicine [facility], [address] [place] [address], [id number], 6 11:23:29 Procedures None record ed. Surgeries None record ed. Imaging polyso mnogra m - hx restle ss legs, insomn ia, snorin g, not feelig n rested . 2016 017 [facility], [address] [place] [address], [id number], 7 13:18:46 Medication Orders sertra line 100 mg tablet 2016 017 INTERFACE Not available 7 15:05:24 hydrox yzine HCl 50 mg tablet 2016 017 INTERFACE Not available 7 15:04:19 propra nolol ER 60 mg capsul e,24 hr,ext ended releas e 2016 017 INTERFACE Not available 7 15:04:22 ropini role 3 mg tablet 2016 017 bsolivanmattos Not available 8 09:09:08 losart an 100 mg-hyd rochlo rothia zide 12.5 mg tablet 2015 016 Not available 6 04:31:35 meloxi cam 15 mg tablet 2015 016 bsolivanmattos Not available 6 09:54:07 ropini role 2 mg tablet 2015 016 phelmuth Not available 6 21:16:16 trazod one 50 mg tablet 2015 016 jthabet Not available 7 08:57:45 enalap ril maleat e 10 mg tablet 2015 016 phelmuth Not available 6 10:49:14 gabape ntin 600 mg tablet 2014 015 bsolivanmattos Not available 6 11:07:42 Patient TargetsNo targets recorded. Patient Instructions Encounter Date Encounter Id Patient Instructions Last Modified By Organization Details Last Modified Time 04/11/2015 [id number] Medications were reviewed at this visit and reconciled. Changes in the active medications are reflected in the current medication list and discussed with patient (or caregiver) with instructions for follow up as needed. Printed medication list provided to the patient as part of the visit summary. [facility] Not available 04/11/2015 18:12:13 07/12/2015 [id number] restless legs syndrome: [facility] Not [facility] 07/12/2015 21:16:16 insomnia: [facility] Not available 07/12/2015 21:16:16 high blood pressure: [facility] Not available 07/12/2015 21:16:16 learning about high blood pressure pheuth Not available 07/12/2015 21:16:16 12/26/2015 [id number] high blood pressure: care instructions ckrym Not available 12/26/2015 10:54:01 learning about high blood pressure ckrym Not available 12/26/2015 10:54:01 Medications (OTC, herbal therapies, supplements) reviewed and reconciled with patient and or caregiver, including potential side effects, drug interactions, instructions, and the consequences of not taking medication. Reviewed potential barriers to medication adherence, such as side effects from medication or cost of medication. phelmuth Not available 12/26/2015 13:40:17 05/02/2016 [id number] Call or return for worsening or concerns. jthabet Not available 05/02/2016 09:05:43 I have reviewed the note and agree with the assessment and plan of care. mdalessandro Not available 05/02/2016 13:04:29 01/06/2017 [id number] alcohol counseling* bsolivanmattos Not available 01/14/2017 11:34:43 Preventing Depression From Coming Back: Care Instructions Not available 01/06/2017 16:13:55 anxiety disorder: care instructions Not available 01/06/2017 16:13:55 high blood pressure: care instructions Not available 01/06/2017 16:13:55 learning about high blood pressure Not available 01/06/2017 16:13:55 Reason for Referral Referring Physician: Marvin sanders, Internal Medicine, Encounter Date: 07/12/2015 [employer] Referral for Adult health examination Referring Physician: Marvin Lam, Internal Medicine, Encounter Date: 12/26/2015 Referring Physician: Mazin Berger, Family Medicine, Encounter Date: 05/02/2016 Referring Physician: Marvin sanders, Internal Medicine, Encounter Date: 01/06/2017 Results Created Date Observation Date Name Description Value Unit Range Abnormal Flag Note LastModifiedBy Organization Detail LastModifiedTime 08/07/1908/07/2015 BMP, serum or plasm a glucose 107 mg/dL (70-99 ) high Not Available [facility] (Centralized Electronic Ordering - All Locations) Patient Can Go To The Location Of Their Choice, [id number] 08/07/2015 22:28:16 08/07/1908/07/2015 BMP, serum or plasm a BUN 21 mg/dL (6-20) high Not Available [facility] (Centralized Electronic Ordering - All Locations) Patient Can Go To The Location Of Their Choice, 08/07/2015 22:28:08/07/1908/07/2015 BMP, serum or plasm a creatinine 1.2 mg/dL (0.7-1 .2) Not Available [facility] (Centralized Electronic Ordering - All Locations) Patient Can Go To The Location Of Their Choice, 08/07/2015 22:28:08/07/1908/07/2015 BMP, serum or plasm a sodium 135 mmol/ L (133-1 45) Not Available [facility] (Centralized Electronic Ordering - All Locations) Patient Can Go To The Location Of Their Choice, 08/07/2015 22:28:08/07/1908/07/2015 BMP, serum or plasm a potassium 4.1 mmol/ L (3.6-5 .2) Not Available [facility] (Centralized Electronic Ordering - All Locations) Patient Can Go To The Location Of Their Choice, 08/07/2015 22:28:08/07/1908/07/2015 BMP, serum or plasm a chloride 97 mmol/ L (98-10 7) low Not Available [facility] (Centralized Electronic Ordering - All Locations) Patient Can Go To The Location Of Their Choice, 08/07/2015 22:28:08/07/1908/07/2015 BMP, serum or plasm a bicarbonate 22 mmol/ L (22-29 ) Not Available [facility] (Centralized Electronic Ordering - All Locations) Patient Can Go To The Location Of Their Choice, 08/07/2015 22:28:08/07/1908/07/2015 BMP, serum or plasm a anion gap 16 (4-17) Not Available [facility] (Centralized Electronic Ordering - All Locations) Patient Can Go To The Location Of Their Choice, 08/07/2015 22:28:08/07/1908/07/2015 BMP, serum or plasm a calcium 9.9 mg/dL (8.6-1 0.5) Not Available [facility] (Centralized Electronic Ordering - All Locations) Patient Can Go To The Location Of Their Choice, 08/07/2015 22:28:16 08/07/1908/07/2015 BMP, serum or plasm a est GFR non >60 mL/mi n/1.7 3_M2 THE MDRD STUDY 'S ESTIM ATED GFR EQUAT ION HAS NOT BEEN VALID ATED IN CHILD VALENTE (<18 YRS), PREGN ANT WOMEN , THE ELDER LY (AGE >70 YRS), RACIA L OR ETHNI C SUBGR OUPS OTHER THAN CAUCA SIANS AND AFRIC AN AMERI CANS. Not Available [facility] (Centralized Electronic Ordering - All Locations) Patient Can Go To The Location Of Their Choice, 08/07/2015 22:28:16 08/07/1908/07/2015 BMP, serum or plasm a est GFR >60 mL/mi n/1.7 3_M2 THE MDRD STUDY 'S ESTIM ATED GFR EQUAT ION HAS NOT BEEN VALID ATED IN CHILD VALENTE (<18 YRS), PREGN ANT WOMEN , THE ELDER LY (AGE >70 YRS), RACIA L OR ETHNI C SUBGR OUPS OTHER THAN [place] SIANS AND AFRIC AN AMERI CANS. Not Available [facility] (Centralized Electronic Ordering - All Locations) Patient Can Go To The Location Of Their Choice, 08/07/2015 22:28:16 08/07/1908/07/2015 iron + total iron- russell ng capac ity (TIBC ), serum iron 97 mcg/d L (45-16 0) Not Available [facility] (Centralized Electronic Ordering - All Locations) Patient Can Go To The Location Of Their Choice, 08/07/2015 23:06:05 08/07/1908/07/2015 iron + total iron- russell ng capac ity (TIBC ), serum unsaturated iron binding capac 237 mcg/d L (110-3 70) Not Available [facility] (Centralized Electronic Ordering - All Locations) Patient Can Go To The Location Of Their Choice, 08/07/2015 23:06:05 08/07/1908/07/2015 iron + total iron- russell ng capac ity (TIBC ), serum est T. iron bind capacity 334 mcg/d L (155-5 30) Not Available [facility] (Centralized Electronic Ordering - All Locations) Patient Can Go To The Location Of Their Choice, 08/07/2015 23:06:05 08/07/1908/07/2015 iron + total iron- russell ng capac ity (TIBC ), serum % iron saturation 29 % (20-55 ) Not Available [facility] (Centralized Electronic Ordering - All Locations) Patient Can Go To The Location Of Their Choice, 08/07/2015 23:06:05 08/07/19 16 08/07/2015 TSH, serum or plasm a TSH 1.55 mIU/m L (0.40- 4.00) Not Available [facility] (Centralized Electronic Ordering - All Locations) Patient Can Go To The Location Of Their Choice, 08/07/2015 23:35:14 08/07/19 16 08/08/2015 sowmya tin, serum or plasm a ferritin 553 NG/mL (16-29 4) high Not Available [facility] (Centralized Electronic Ordering - All Locations) Patient Can Go To The Location Of Their Choice, 08/08/2015 05:08:15 11/19/1911/18/2016 CBC w/ auto diff results Dupli olimpia order cance lled via inter face Not Available [facility] (Centralized Electronic Ordering - All Locations) Patient Can Go To The Location Of Their Choice, 11/18/2016 08:35:17 11/19/1911/18/2016 CBC w/ auto diff WBC 7.2 K/mm3 (4.0-1 1.0) Not Available [facility] (Centralized Electronic Ordering - All Locations) Patient Can Go To The Location Of Their Choice, 11/18/2016 15:23:57 11/19/1911/18/2016 CBC w/ auto diff RBC 5.23 M/mm3 (4.70- 6.10) Not Available [facility] (Centralized Electronic Ordering - All Locations) Patient Can Go To The Location Of Their Choice, 11/18/2016 15:23:57 11/19/1911/18/2016 CBC w/ auto diff HGB 14.9 gm/dL (14.0- 18.0) Not Available [facility] (Centralized Electronic Ordering - All Locations) Patient Can Go To The Location Of Their Choice, 11/18/2016 15:23:57 11/19/1911/18/2016 CBC w/ auto diff HCT 45.8 % (42.0- 52.0) Not Available [facility] (Centralized Electronic Ordering - All Locations) Patient Can Go To The Location Of Their Choice, 11/18/2016 15:23:57 11/19/1911/18/2016 CBC w/ auto diff MCV 87.6 fL (80.0- 94.0) Not Available [facility] (Centralized Electronic Ordering - All Locations) Patient Can Go To The Location Of Their Choice, 11/18/2016 15:23:57 11/19/1911/18/2016 CBC w/ auto diff MCH 28.5 pg (27.0- 34.0) Not Available [facility] (Centralized Electronic Ordering - All Locations) Patient Can Go To The Location Of Their Choice, 11/18/2016 15:23:57 11/19/1911/18/2016 CBC w/ auto diff MCHC 32.5 g/dL (33.0- 37.0) low Not Available [facility] (Centralized Electronic Ordering - All Locations) Patient Can Go To The Location Of Their Choice, 11/18/2016 15:23:57 11/19/1911/18/2016 CBC w/ auto diff plt 292 K/mm3 (150-4 60) Not Available [facility] (Centralized Electronic Ordering - All Locations) Patient Can Go To The Location Of Their Choice, 11/18/2016 15:23:57 11/19/1911/18/2016 CBC w/ auto diff RDW-SD 49.7 fL (<47.0 ) high Not Available [facility] (Centralized Electronic Ordering - All Locations) Patient Can Go To The Location Of Their Choice, 11/18/2016 15:23:57 11/19/1911/18/2016 CBC w/ auto diff MPV 11.2 fL (9.4-1 2.4) Not Available [facility] (Centralized Electronic Ordering - All Locations) Patient Can Go To The Location Of Their Choice, 11/18/2016 15:23:57 11/19/1911/18/2016 CBC w/ auto diff automated NRBC 0.0 #/100 _WBC' s Not Available [facility] (Centralized Electronic Ordering - All Locations) Patient Can Go To The Location Of Their Choice, 11/18/2016 15:23:57 11/19/1911/18/2016 CBC w/ auto diff abs. NRBC 0.0 K/mm3 Not Available [facility] (Centralized Electronic Ordering - All Locations) Patient Can Go To The Location Of Their Choice, 11/18/2016 15:23:57 11/19/1911/18/2016 CBC w/ auto diff neut # 5.1 K/mm3 (1.3-7 .0) Not Available [facility] (Centralized Electronic Ordering - All Locations) Patient Can Go To The Location Of Their Choice, 11/18/2016 15:23:57 11/19/19 17 11/18/2016 CBC w/ auto diff lymph # 1.0 K/mm3 (0.8-3 .1) Not Available [facility] (Centralized Electronic Ordering - All Locations) Patient Can Go To The Location Of Their Choice, 11/18/2016 15:23:57 11/19/1911/18/2016 CBC w/ auto diff mono# 0.9 K/mm3 (0.4-1 .3) Not Available [facility] (Centralized Electronic Ordering - All Locations) Patient Can Go To The Location Of Their Choice, 11/18/2016 15:23:57 11/19/1911/18/2016 CBC w/ auto diff eo # 0.1 K/mm3 (0.0-0 .4) Not Available [facility] (Centralized Electronic Ordering - All Locations) Patient Can Go To The Location Of Their Choice, 11/18/2016 15:23:57 11/19/1911/18/2016 CBC w/ auto diff baso # 0.1 K/mm3 (0.0-0 .1) Not Available [facility] (Centralized Electronic Ordering - All Locations) Patient Can Go To The Location Of Their Choice, 11/18/2016 15:23:57 11/19/1911/18/2016 CBC w/ auto diff abs. imm gran 0.1 K/mm3 Not Available [facility] (Centralized Electronic Ordering - All Locations) Patient Can Go To The Location Of Their Choice, 11/18/2016 15:23:57 11/19/1911/18/2016 CBC w/ auto diff neut 70.4 % (44-76 ) Not Available [facility] (Centralized Electronic Ordering - All Locations) Patient Can Go To The Location Of Their Choice, 11/18/2016 15:23:57 11/19/1911/18/2016 CBC w/ auto diff lymph 14.0 % (15-43 ) low Not Available [facility] (Centralized Electronic Ordering - All Locations) Patient Can Go To The Location Of Their Choice, 11/18/2016 15:23:57 11/19/1911/18/2016 CBC w/ auto diff monocyte 11.9 % (4.5-1 0.5) high Not Available [facility] (Centralized Electronic Ordering - All Locations) Patient Can Go To The Location Of Their Choice, 11/18/2016 15:23:57 11/19/1911/18/2016 CBC w/ auto diff eo 1.9 % (0-6) Not Available [facility] (Centralized Electronic Ordering - All Locations) Patient Can Go To The Location Of Their Choice, 11/18/2016 15:23:57 11/19/1911/18/2016 CBC w/ auto diff baso 1.1 % (0-2) Not Available [facility] (Centralized Electronic Ordering - All Locations) Patient Can Go To The Location Of Their Choice, 11/18/2016 15:23:57 11/19/1911/18/2016 CBC w/ auto diff imm gran 0.7 % (0.0-0 .6) high Not Available [facility] (Centralized Electronic Ordering - All Locations) Patient Can Go To The Location Of Their Choice, 11/18/2016 15:23:57 11/19/1911/18/2016 sowmya tin, serum or plasm a ferritin 342 NG/mL (16-29 4) high Not Available [facility] (Centralized Electronic Ordering - All Locations) Patient Can Go To The Location Of Their Choice, 11/18/2016 16:04:57 11/19/1911/18/2016 TSH, serum or plasm a TSH 1.38 mIU/m L (0.40- 4.00) Not Available [facility] (Centralized Electronic Ordering - All Locations) Patient Can Go To The Location Of Their Choice, 11/18/2016 16:04:58 11/19/1911/18/2016 BMP, serum or plasm a glucose 91 mg/dL (70-99 ) Not Available [facility] (Centralized Electronic Ordering - All Locations) Patient Can Go To The Location Of Their Choice, 11/18/2016 16:21:39 11/19/1911/18/2016 BMP, serum or plasm a BUN 18 mg/dL (6-20) Not Available [facility] (Centralized Electronic Ordering - All Locations) Patient Can Go To The Location Of Their Choice, 11/18/2016 16:21:39 11/19/1911/18/2016 BMP, serum or plasm a creatinine 1.4 mg/dL (0.7-1 .2) high Not Available [facility] (Centralized Electronic Ordering - All Locations) Patient Can Go To The Location Of Their Choice, 11/18/2016 16:21:39 11/19/19 17 11/18/2016 BMP, serum or plasm a sodium 138 mmol/ L (133-1 45) Not Available [facility] (Centralized Electronic Ordering - All Locations) Patient Can Go To The Location Of Their Choice, 11/18/2016 16:21:39 11/19/1911/18/2016 BMP, serum or plasm a potassium 4.2 mmol/ L (3.6-5 .2) Not Available [facility] (Centralized Electronic Ordering - All Locations) Patient Can Go To The Location Of Their Choice, 11/18/2016 16:21:39 11/19/1911/18/2016 BMP, serum or plasm a chloride 94 mmol/ L (98-10 7) low Not Available [facility] (Centralized Electronic Ordering - All Locations) Patient Can Go To The Location Of Their Choice, 11/18/2016 16:21:39 11/19/1911/18/2016 BMP, serum or plasm a bicarbonate 30 mmol/ L (22-29 ) high Not Available [facility] (Centralized Electronic Ordering - All Locations) Patient Can Go To The Location Of Their Choice, 11/18/2016 16:21:39 11/19/19 17 11/18/2016 BMP, serum or plasm a anion gap 14 (4-17) Not Available [facility] (Centralized Electronic Ordering - All Locations) Patient Can Go To The Location Of Their Choice, 11/18/2016 16:21:39 11/19/1911/18/2016 BMP, serum or plasm a calcium 9.2 mg/dL (8.6-1 0.5) Not Available [facility] (Centralized Electronic Ordering - All Locations) Patient Can Go To The Location Of Their Choice, 11/18/2016 16:21:39 11/19/1911/18/2016 BMP, serum or plasm a est GFR non 60 mL/mi n/1.7 3_M2 The CKD-E PI creat inine equat ion has not been valid ated in child valente (<18 years ), pregn ant women , in some racia l or ethni c subgr oups other than Cauca sians and Afric an Ameri cans. Not Available [facility] (Centralized Electronic Ordering - All Locations) Patient Can Go To The Location Of Their Choice, 11/18/2016 16:21:39 11/19/1911/18/2016 BMP, serum or plasm a est GFR 69 mL/mi n/1.7 3_M2 The CKD-E PI creat inine equat ion has not been valid ated in child valente (<18 years ), pregn ant women , in some racia l or ethni c subgr oups other than Cauca sians and Afric an Ameri cans. Not Available [facility] (Centralized Electronic Ordering - All Locations) Patient Can Go To The Location Of Their Choice, 11/18/2016 16:21:39 11/19/1911/18/2016 hepat ic funct ion panel , serum bilirubin,to joseph 0.7 mg/dL (0-1.2 ) Not Available [facility] (Centralized Electronic Ordering - All Locations) Patient Can Go To The Location Of Their Choice, 11/18/2016 16:21:40 11/19/1911/18/2016 hepat ic funct ion panel , serum bilirubin, direct 0.2 mg/dL (0-0.3 ) Not Available [facility] (Centralized Electronic Ordering - All Locations) Patient Can Go To The Location Of Their Choice, 11/18/2016 16:21:40 11/19/1911/18/2016 hepat ic funct ion panel , serum indirect bilirubin 0.5 mg/dL (0.0-0 .7) Not Available [facility] (Centralized Electronic Ordering - All Locations) Patient Can Go To The Location Of Their Choice, 11/18/2016 16:21:40 11/19/1911/18/2016 hepat ic funct ion panel , serum albumin 4.4 gm/dL (3.4-4 .8) Not Available [facility] (Centralized Electronic Ordering - All Locations) Patient Can Go To The Location Of Their Choice, 11/18/2016 16:21:40 11/19/1911/18/2016 hepat ic funct ion panel , serum AST 46 U/L (0-38) high Not Available [facility] (Centralized Electronic Ordering - All Locations) Patient Can Go To The Location Of Their Choice, 11/18/2016 16:21:40 11/19/1911/18/2016 hepat ic funct ion panel , serum ALT 41 U/L (0-41) Not Available [facility] (Centralized Electronic Ordering - All Locations) Patient Can Go To The Location Of Their Choice, 11/18/2016 16:21:40 11/19/19 17 11/18/2016 hepat ic funct ion panel , serum alk phos 63 U/L (40-12 9) Not Available [facility] (Centralized Electronic Ordering - All Locations) Patient Can Go To The Location Of Their Choice, 11/18/2016 16:21:40 11/19/19 17 11/18/2016 hepat ic funct ion panel , serum total protein 7.3 gm/dL (6.2-8 .2) Not Available [facility] (Centralized Electronic Ordering - All Locations) Patient Can Go To The Location Of Their Choice, 11/18/2016 16:21:40 11/19/1911/18/2016 lipid panel , serum cholesterol, total 216 mg/dL (<200) high Not Available [facility] ([facility] Ordering - All Locations) Patient Can Go To The Location Of Their Choice, 11/18/2016 16:21:40 11/19/1911/18/2016 lipid panel , serum triglyceride 162 mg/dL (<150) high Not Available [facility] ([facility] - All Locations) Patient Can Go To The Location Of Their Choice, 11/18/2016 16:21:40 11/19/1911/18/2016 lipid panel , serum HDL chol 18 mg/dL (>39) low Not Available [facility] (Centralized Electronic Ordering - All Locations) Patient Can Go To The Location Of Their Choice, 11/18/2016 16:21:40 11/19/1911/18/2016 lipid panel , serum LDL cholesterol, calculated 166 mg/dL (0-130 ) high Not Available [facility] (Centralized Electronic Ordering - All Locations) Patient Can Go To The Location Of Their Choice, 11/18/2016 16:21:40 11/19/1911/18/2016 lipid panel , serum non HDL cholesterol (calc) 198 mg/dL (<160) high Not Available [facility] ([facility] Ordering - All Locations) Patient Can Go To The Location Of Their Choice, 11/18/2016 16:21:40 11/19/1911/18/2016 gamma -glut amyl trans feras e (ggt) , serum ggtp 32 U/L (8-61) Not Available [facility] (Centralized Electronic Ordering - All Locations) Patient Can Go To The Location Of Their Choice, 11/18/2016 16:21:41 11/19/19 17 11/18/2016 CK (crea jami kinas e), total , serum CK,total only 1103 U/L (0-310 ) high Not Available [facility] (Centralized Electronic Ordering - All Locations) Patient Can Go To The Location Of Their Choice, 11/18/2016 16:21:42 11/19/1911/18/2016 testo stero ne, free, serum testosterone >1500 NG/dL (280-8 00) high Not Available [facility] (Centralized Electronic Ordering - All Locations) Patient Can Go To The Location Of Their Choice, 11/19/2016 15:16:29 11/19/1911/19/2016 testo stero ne, free, serum shbg 5.0 nmol/ L (10-57 ) low Not Available [facility] (Centralized Electronic Ordering - All Locations) Patient Can Go To The Location Of Their Choice, 11/19/2016 15:16:29 11/19/19 17 11/19/2016 testo stero ne, free, serum free testosterone , estimated >52.90 NG/dL (3.7-1 4.7) high Not Available [facility] (Centralized Electronic Ordering - All Locations) Patient Can Go To The Location Of Their Choice, [address] 11/19/2016 15:16:29 12/04/19 17 10/11/2012 MRI, lumba r spine , w/wo contr ast No observ ation record ed. [facility] Not Available 2016 15:12:18 05/16/19 18 05/03/2017 sleep study , diagn ostic * No observ ation record ed. [facility] [address] [place], [address], 05/20/2017 09:49:24 10/12/19 19 10/11/2018 CT, abdom en + pelvi s, w/ contr ast No observ ation record ed. [facility] [address] [place], [address], 10/12/2018 07:13:33 11/10/19 20 11/10/2019 CT, abdom en + pelvi s, w/o contr ast No observ ation record ed. [facility] [address] [place], [address], 11/10/2019 16:13:04 Result Notes None recorded. Problems Name Problem SNOMED Code Status Onset Date Resolution Date Notes Provider Name and Address Organization Details Recorded Time Epigastr ic pain [id number] Completed 201211/09/2013 RECORDED 03/24/20 13 9:55AM BY ROX HERNANDEZ MA, BOO ON/SANDHYA Vegas PA-C [address] [facility] [address], [place], [address], [facility] 5 10:13:30 Left lower quadrant pain 863872445 Completed 201111/09/2013 RECORDED 11/28/19 12 2:07PM BY MELODIE SCANLON MA, MEHNAZATI ON/ADDEN DUM Dawna Vegas PA-C [address] [facility] [facility] [address], [place], [address], [facility] 5 10:13:30 Mucopuru lent conjunct ivitis 710525844 Completed 201211/09/2013 RECORDED 09/17/19 13 10:18AM BY MELODIE SCANLON MA, ANNOTATI ON/ADDEN DUM Dawna Evangelist [facility] [address], [place], [address], [facility] 5 10:13:29 Acute sinusiti s 52820048 Completed 201311/09/2013 RECORDED 06/01/19 14 7:53AM BY ELENA VALLADARES MA, ANNOTATI ON/ADDEN DUM MADDIE Gomez, [facility] 7 14:17:11 Alcohol abuse 18122455 Active 2013 MADDIE Gomez, [facility] 6 09:49:25 Drug abuse 36133535 Active 2013 MADDIE Gomez, [facility] 6 09:49:35 Adult health examinat ion Completed 201211/09/2013 RECORDED 09/24/19 13 2:48PM BY MELODIE SCANLON MA, ANNOTATI ON/ADDEN DUM Dawna Evangelist [place] [address] [facility] [address], [place], [address], [facility] 5 10:13:30 Anxiety disorder 122334992 Active 2013 MADDIE Gomez, [facility] 6 09:49:28 Exposure to organism Completed 201111/09/2013 RECORDED 11/28/19 12 2:07PM BY MELODIE SCANLON MA, ANNOTATI ON/ADDEN DUM Dawna Evangelist PARRAC [address] [facility] [address], [place], [address], [facility] 5 10:13:30 Cough [id number] Completed 201305/20/2017 IMPRESSI ON: SUSPECT PERTUSSI S. TOO LATE FOR TREATMEN T. ONLY TEST THAT CAN BE DONE AT THIS POINT IS SERUM. CXR TO R/O PNEUMONI A. SPIROMET RY SHOWS NO EVIDENCE OF OBSTRUCT ION SO DOUBT PREDNISO NE WOULD HELP; RECORDED 06/01/19 14 8:45PM BY MADDIE ABRAMS, OFFICE VISIT Melodie baltazar MA null, [facility] 8 09:48:50 Diarrhea 07505229 Completed 201111/09/2013 RECORDED 11/28/19 12 2:07PM BY MELODIE SCANLON MA, ANNOTATI ON/ADDEN DUM Dawna Evangelist [facility] [address] [facility] [address], [place], [address], [facility] 5 10:13:30 Inflamma tory disease of liver 396536871 Completed 201211/09/2013 RECORDED 02/05/20 13 2:54PM BY MELODIE SCANLON MA, BOO ON/ADDEN DUM Dawnawendy PERKINS-C [address] [facility] [address], [place], [address], [facility] 5 10:13:29 Blood chemistr y outside referenc e range 911904344 Completed 201211/09/2013 RECORDED 02/05/20 13 2:54PM BY MELODIE SCANLON MA, ANNOTATI ON/ADDEN DUM Dawna Evangelist [facility] [address] [facility] [address], [place], [address], [facility] 5 10:13:30 Follow-u p encounte r Completed 201311/09/2013 RECORDED 05/11/19 14 7:19AM BY MEHNAZ ELIASATI ON/ADDEN DUM Dawna [facility] [address] [facility] [address], [place], [address], [facility] 5 10:13:30 Essentia l hyperten juan 19352534 Completed 200911/09/2013 RECORDED 08/25/19 10 7:44AM BY MELODIE SCANLON MA, ANNOTATI ON/ADDEN DUM MADDIE Gomez, [facility] 7 14:17:23 Malaise and fatigue 718234601 Completed 201211/09/2013 RECORDED 09/24/19 13 2:48PM BY MELODIE SCANLON MA, ANNOTATI ON/ADDEN DUM Dawna Vegas [facility] [address] [facility] [address], [place], [address], [facility] 5 10:13:29 Influenz a vaccine needed [id number] 06 Completed 201211/09/2013 RECORDED 03/08/20 13 11:28AM BY MELODIE SCANLON MA, OFFICE VISIT Dawna Vegas [facility] [address] [facility] [address], [place], [address], [facility] 5 10:13:30 Gastroes ophageal reflux disease 730081581 Active 2013 MADDIE Gomez, [facility] 6 09:49:31 Hyperlip idemia 17713201 Active 2013 MADDIE Gomez, [facility] 7 14:17:20 Essentia l hyperten juan 32304294 Active 2013 MADDIE Gomez, [facility] 7 14:17:23 Hypokale prince 56172643 Active 2013 MADDIE Gomez, [facility] 6 09:50:02 Knee pain Active 2013 Melodie baltazar MA null, [facility] 6 09:49:46 Laborato ry procedur e performe d 269242899 Completed 201211/09/2013 RECORDED 02/05/20 13 2:54PM BY MELODIE SCANLON MA, ANNOTATI ON/ADDEN DUM Dawna Evangelist PA-C [address], [place], [address], [facility] 5 10:13:30 Musculos keletal symptom 04995094 Completed 201111/09/2013 STORY: UNCONTRO LLED HTN WITH NEW-ONSE T SIGNIFIC ANT LEFT ARM WEAKNESS OF EXTENSIO N/FLEXIO N AT THE ELBOW.; RECORDED 11/28/19 12 2:07PM BY MELODIE SCANLON MA, ANNOTATI ON/ADDEN DUM Dawna Evangelist [facility] [address], [place], [address], [facility] 5 10:13:29 Pain in elbow 51433291 Completed 201211/09/2013 RECORDED 09/24/19 13 2:48PM BY MELODIE SCANLON MA, ANNOTROSIE ON/ADDEN DUM Dawna Evangelist PA-C [address], [place], [address], [facility] 5 10:13:29 Shoulder joint pain 354928728 Completed 201211/09/2013 RECORDED 09/24/19 13 2:48PM BY MELODIE SCANLON MA, ANNOTROSIE ON/ADDEN DUM Dawna Evangelist PA-C [address], [place], [address], [facility] 5 10:13:29 Lipoma 21854085 Active 2013 Melodie baltazar [place] null, [facility] 7 14:17:27 Localize d superfic ial swelling of skin 146753134 Completed 200811/09/2013 RECORDED 12/06/19 09 2:18PM BY MELODIE SCANLON MA, ANNOTATI ON/ADDEN DUM Dawna Vegas ME-C [address], [place], [address], [facility] 5 10:13:29 Nausea 308866716 Completed 201111/09/2013 RECORDED 11/28/19 12 2:07PM BY MELODIE SCANLON MA, ANNOTATI ON/ADDEN DUM Dawna Vegas PA-C [address] [facility] [address], [place], [address], [facility] 5 10:13:30 Patient status finding [id number] Completed 201312/26/2015 MADDIE Gomez, [facility] 6 09:49:19 Acute pancreat itis 149504697 Completed 201211/09/2013 RECORDED 02/05/20 13 2:54PM BY MELODIE SCANLON MA, ANNOTATI ON/ADDEN DUM Dawna [facility] [address] [facility] [address], [place], [address], [facility] 5 10:13:29 Skin sensatio n disturba nce 24794280 Completed 201305/20/2017 MADDIE Gomez, [facility] 8 09:49:12 Psychose xual dysfunct ion associat ed with inhibite d libido 482871071 Active 2013 MADDIE Gomez, [facility] 6 09:50:08 Restless legs 82874171 Active 2013 MADDIE Gomez, [facility] 6 09:49:58 Rhabdomy olysis 735956030 Active 2013 MADDIE Gomez, [facility] 6 09:49:33 Sprain of wrist 75180309 Completed 201211/09/2013 RECORDED 02/05/20 13 2:54PM BY MELODIE SCANLON MA, BOO ON/ADDEN DUM Dawnawendy PARRAC [address], [place], [address], [facility] 5 10:13:30 Epidermo id cyst of skin 623287370 Completed 201311/09/2013 IMPRESSI ON: REASSURA NCE. IF BOTHERS HIM, CAN REFER TO GENERAL SURGEON. AT THIS POINT HE DOES NOT WANT TO DO THAT.; RECORDED 05/11/19 14 7:19AM BY BOO ELIAS ON/ADDEN DUM Dawnawendy PERKINS-C [address], [place], [address], [facility] 5 10:13:29 Injury of ulnar nerve 91448532 Completed 199705/20/2017 DATE: 1997; ; RIGHT WRIST MADDIE Gomez, [facility] 8 09:49:09 Verruca vulgaris 31987533 Completed 201111/09/2013 RECORDED 11/28/19 12 2:07PM BY MELODIE SCANLON MA, BOO ON/ADDEN DUM Dawna [facility] [address], [place], [address], [facility] 5 10:13:29 Wheezing 23032337 Completed 201311/09/2013 RECORDED 06/01/19 14 7:53AM BY ELENA VLALADARES MA, ANNOTATI ON/ADDEN DUM Dawna Vegas PA-C [address], [place], [address], [facility] 5 10:13:29 Epigastr ic pain 84449508 Completed 201212/02/2013 RECORDED 03/24/20 13 9:55AM BY ROX HERNANDEZ MA, ANNOTATI ON/ADDEN DUM Dawna Vegas PA-C [address], [place], [address], [facility] 5 10:13:30 Left lower quadrant pain 194480259 Completed 201112/02/2013 RECORDED 11/28/19 12 2:07PM BY MELODIE SCANLON MA, ANNOTATI ON/ADDEN DUM Dawna Vegas PA-C [address], [place], [address], [facility] 5 10:13:30 Mucopuru lent conjunct ivitis 767579462 Completed 201212/02/2013 RECORDED 09/17/19 13 10:18AM BY MELODIE SCANLON MA, ANNOTATI ON/ADDEN DUM Dawna Vegas PA-C [address], [place], [address], [facility] 5 10:13:29 Acute sinusiti s 36333372 Completed 201312/02/2013 RECORDED 06/01/19 14 7:53AM BY ELENA VALLADARES MA, ANNOTATI ON/ADDEN DUM Melodie baltazar MA [facility] 7 14:17:11 Adult health examinat ion Completed 201212/02/2013 RECORDED 09/24/19 13 2:48PM BY MELODIE SCANLON MA, ANNOTATI ON/ADDEN DUM Dawna Vegas PA-C [address], [place], [address], [facility] 5 10:13:30 Exposure to organism Completed 201112/02/2013 RECORDED 11/28/19 12 2:07PM BY MELODIE SCANLON MA, BOO ON/ADDEN DUM Dawna Vegas PA-C [address], [place], [address], [facility] 5 10:13:30 Cough [id number] Completed 201312/02/2013 IMPRESSI ON: SUSPECT PERTUSSI S. TOO LATE FOR TREATMEN T. ONLY TEST THAT CAN BE DONE AT THIS POINT IS SERUM. CXR TO R/O PNEUMONI A. SPIROMET RY SHOWS NO EVIDENCE OF OBSTRUCT ION SO DOUBT PREDNISO NE WOULD HELP; RECORDED 11/06/19 14 8:05AM BY MELODIE SCANLON MA, BOO ON/ADDEN DUM Melodie baltazar MA null, [facility] 8 09:48:50 Diarrhea 54104674 Completed 201112/02/2013 RECORDED 11/28/19 12 2:07PM BY MELODIE SCANLON MA, ANNOTATI ON/ADDEN DUM Dawna Vegas PA-C [address] [facility] [address], [place], [address], [facility] 5 10:13:30 Inflamma tory disease of liver 406304682 Completed 201212/02/2013 RECORDED 02/05/20 13 2:54PM BY MELODIE SCANLON MA, ANNOTATI ON/ADDEN DUM Dawna Vegas PA-C [address], [place], [address], [facility] 5 10:13:29 Blood chemistr y outside referenc e range 533161336 Completed 201212/02/2013 RECORDED 02/05/20 13 2:54PM BY MELODIE SCANLON MA, ANNOTATI ON/ADDEN DUM Dawna [facility] [address], [place], [address], [facility] 5 10:13:30 Follow-u angela encounte r Completed 201312/02/2013 RECORDED 05/11/19 14 7:19AM BY JM CAI I ANNOTATI ON/ADDEN DUM Dawna [facility] [address], [place], [address], [facility] 5 10:13:30 Essentia l hyperten juan 60712858 Completed 200912/02/2013 RECORDED 08/25/19 10 7:44AM BY MELODIE SCANLON MA, ANNOTATI ON/ADDEN DUM MADDIE Gomez, [facility] 7 14:17:23 Malaise and fatigue 050693388 Completed 201212/02/2013 RECORDED 09/24/19 13 2:48PM BY MELODIE SCANLON MA, ANNOTATI ON/ADDEN DUM Dawna [facility] [address] [facility] [address], [place], [address], [facility] 5 10:13:29 Influenz a vaccine needed 34429260827 06 Completed 201212/02/2013 RECORDED 03/08/20 13 11:28AM BY MELDOIE SCANLON MA, OFFICE VISIT Dawna Vegas ME-C [address], [place], [address], [facility] 5 10:13:30 Flatulen ce, eructati on and gas pain 694897012 Completed 201305/20/2017 MADDIE Gomez, [facility] 8 09:49:18 Laborato ry procedur e performe d 801644507 Completed 201212/02/2013 RECORDED 02/05/20 13 2:54PM BY MELODIE SCANLON MA, ANNOTATI ON/ADDEN DUM Dawna Evangelist PA-C [address], [place], [address], [facility] 5 10:13:30 Musculos keletal symptom 66899639 Completed 201112/02/2013 STORY: UNCONTRO LLED HTN WITH NEW-ONSE T SIGNIFIC ANT LEFT ARM WEAKNESS OF EXTENSIO N/FLEXIO N AT THE ELBOW.; RECORDED 11/28/19 12 2:07PM BY MELODIE SCANLON MA, ANNOTROSIE ON/ADDEN DUM Dawna Evangelist PA-C [address], [place], [address], [facility] 5 10:13:29 Pain in elbow 82747673 Completed 201212/02/2013 RECORDED 09/24/19 13 2:48PM BY MELODIE SCANLON MA, ANNOTROSIE ON/ADDEN DUM Dawna Evangelist PA-C [address] [facility] [address], [place], [address], [facility] 5 10:13:29 Shoulder joint pain 698317089 Completed 201212/02/2013 RECORDED 09/24/19 13 2:48PM BY MELODIE SCANLON MA, ANNOTATI ON/ADDEN DUM Dawna Evangelist PA-C [address] [facility] [address], [place], [address], [facility] 5 10:13:29 Localize d superfic ial swelling of skin 571297489 Completed 200812/02/2013 RECORDED 12/06/19 09 2:18PM BY MELODIE SCANLON MA, ANNOTROSIE ON/ADDEN DUM Dawna Evangelist [facility]-C [address] [facility] [address], [place], [address], [facility] 5 10:13:29 Nausea 244441589 Completed 201112/02/2013 RECORDED 11/28/19 12 2:07PM BY MEOLDIE SCANLON MA, ANNOTATI ON/ADDEN DUM Dawna Vegas PA-C [address], [place], [address], [facility] 5 10:13:30 Acute pancreat itis 471685405 Completed 201212/02/2013 RECORDED 02/05/20 13 2:54PM BY MELODIE SCANLON MA, ANNOTATI ON/ADDEN DUM Dawna Vegas PA-C [address], [place], [address], [facility] 5 10:13:29 Sprain of wrist 89367076 Completed 201212/02/2013 RECORDED 02/05/20 13 2:54PM BY MELODIE SCANLON MA, MEHNAZATI ON/ADDEN DUM Dawna Vegas PA-C [address], [place], [address], [facility] 5 10:13:30 Epidermo id cyst of skin 263588415 Completed 201312/02/2013 IMPRESSI ON: REASSURA NCE. IF BOTHERS HIM, CAN REFER TO GENERAL SURGEON. AT THIS POINT HE DOES NOT WANT TO DO THAT.; RECORDED 05/11/19 14 7:19AM BY BOO ELIAS ON/ADDEN DUM Dawna Vegas PA-C [address], [place], [address], [facility] 5 10:13:29 Verruca vulgaris 33066989 Completed 201112/02/2013 RECORDED 11/28/19 12 2:07PM BY MELODIE SCANLON MA, ANNOTATI ON/ADDEN DUM Dawna Vegas PA-C [address], [place], [address], [facility] 5 10:13:29 Wheezing 55461355 Completed 201312/02/2013 RECORDED 06/01/19 14 7:53AM BY ELENA VALLADARES MA, ANNOTATI ON/ADDEN DUM Dawna Vegas PA-C [address], [place], [address], [facility] 5 10:13:29 Epigastr ic pain 77644771 Completed 201212/03/2013 RECORDED 03/24/20 13 9:55AM BY ROX HERNANDEZ MA, ANNOTATI ON/ADDEN DUM Dawna Vegas PA-C [address], [place], [address], [facility] 5 10:13:30 Left lower quadrant pain 567592751 Completed 201112/03/2013 RECORDED 11/28/19 12 2:07PM BY MELODIE SCANLON MA, ANNOTATI ON/ADDEN DUM Dawna Vegas PA-C [address], [place], [address], [facility] 5 10:13:30 Mucopuru lent conjunct ivitis 997921366 Completed 201212/03/2013 RECORDED 09/17/19 13 10:18AM BY MELODIE SCANLON MA, ANNOTATI ON/ADDEN DUM Dawna Vegas PA-C [address], [place], [address], [facility] 5 10:13:29 Acute sinusiti s 18919233 Completed 201312/03/2013 RECORDED 06/01/19 14 7:53AM BY ELENA VALLADARES MA, ANNOTATI ON/ADDEN DUM Melodie baltazar MA null, [facility] 7 14:17:11 Adult health examinat ion Completed 201212/03/2013 RECORDED 09/24/19 13 2:48PM BY MELODIE SCANLON MA, BOO ON/ADDEN DUM Dawna Evangelist PA-C [address], [place], [address], [facility] 5 10:13:30 Exposure to organism Completed 201112/03/2013 RECORDED 11/28/19 12 2:07PM BY MELODIE SCANLON MA, BOO ON/ADDEN DUM Dawna Vegas PA-C [address], [place], [address], [facility] 5 10:13:30 Cough 04454433 Completed 201312/03/2013 IMPRESSI ON: SUSPECT PERTUSSI S. TOO LATE FOR TREATMEN T. ONLY TEST THAT CAN BE DONE AT THIS POINT IS SERUM. CXR TO R/O PNEUMONI A. SPIROMET RY SHOWS NO EVIDENCE OF OBSTRUCT ION SO DOUBT PREDNISO NE WOULD HELP; RECORDED 11/06/19 14 8:05AM BY MELODIE SCANLON MA, BOO ON/ADDEN DUM Melodie baltazar MA null, [facility] 8 09:48:50 Diarrhea 47250340 Completed 201112/03/2013 RECORDED 11/28/19 12 2:07PM BY MELODIE SCANLON MA, BOO ON/ADDEN DUM Dawna [facility] [address], [place], [address], [facility] 5 10:13:30 Inflamma tory disease of liver 831183438 Completed 201212/03/2013 RECORDED 02/05/20 13 2:54PM BY MELODIE SCANLON MA, BOO ON/ADDEN DUM Dawna [facility] [address], [place], [address], [facility] 5 10:13:29 Blood chemistr y outside referenc e range 290246546 Completed 201212/03/2013 RECORDED 02/05/20 13 2:54PM BY MELODIE SCANLON MA, ANNOTATI ON/ADDEN DUM Dawna [facility] [address], [place], [address], [facility] 5 10:13:30 Follow-u p encounte r Completed 201312/03/2013 RECORDED 05/11/19 14 7:19AM BY JM CAI I, ANNOTATI ON/ADDEN DUM [facility] [address] [facility] [address], [place], [address], [facility] 5 10:13:30 Essentia l hyperten juan 27519985 Completed 200912/03/2013 RECORDED 08/25/19 10 7:44AM BY MELODIE SCANLON MA, ANNOTATI ON/ADDEN DUM Melodie baltazar MA [facility] 7 14:17:23 Malaise and fatigue 023718656 Completed 201212/03/2013 RECORDED 09/24/19 13 2:48PM BY MELODIE SCANLON MA, ANNOTATI ON/ADDEN DUM [facility] [address] [facility] [address], [place], [address], [facility] 5 10:13:29 Influenz a vaccine needed 39111988280 06 Completed 201212/03/2013 RECORDED 03/08/20 13 11:28AM BY MELODIE SCANLON MA, OFFICE VISIT Dawna [facility] [address] [facility] [address], [place], [address], [facility] 5 10:13:30 Laborato ry procedur e performe d 650468787 Completed 201212/03/2013 RECORDED 02/05/20 13 2:54PM BY MELODIE SCANLON MA, ANNOTATI ON/ADDEN DUM Dawna Evangelist PA-C [address], [place], [address], [facility] 5 10:13:30 Musculos keletal symptom 84138043 Completed 201112/03/2013 STORY: UNCONTRO LLED HTN WITH NEW-ONSE T SIGNIFIC ANT LEFT ARM WEAKNESS OF EXTENSIO N/FLEXIO N AT THE ELBOW.; RECORDED 11/28/19 12 2:07PM BY MELODIE SCANLON MA, ANNOTATI ON/ADDEN DUM Dawna Evangelist PA-C [address] [facility] [address], [place], [address], [facility] 5 10:13:29 Pain in elbow 15956768 Completed 201212/03/2013 RECORDED 09/24/19 13 2:48PM BY MELODIE SCANLON MA, BOO ON/ADDEN DUM Dawna Evangelist [facility] [address] [facility] [address], [place], [address], [facility] 5 10:13:29 Shoulder joint pain 581166744 Completed 201212/03/2013 RECORDED 09/24/19 13 2:48PM BY MELODIE SCANLON MA, ANNOTATI ON/ADDEN DUM Dawna Evangelist PA-C [address] [facility] [address], [place], [address], [facility] 5 10:13:29 Localize d superfic ial swelling of skin 942137474 Completed 200812/03/2013 RECORDED 12/06/19 09 2:18PM BY MELODIE SCANLON MA, ANNOTATI ON/ADDEN DUM Dawna Vegas PA-C [address], [place], [address], [facility] 5 10:13:29 Nausea 381160948 Completed 201112/03/2013 RECORDED 11/28/19 12 2:07PM BY MELODIE SCANLON MA, ANNOTROSIE ON/ADDEN DUM Dawna Vegas PA-C [address], [place], [address], [facility] 5 10:13:30 Acute pancreat itis 020226111 Completed 201212/03/2013 RECORDED 02/05/20 13 2:54PM BY MELODIE SCANLON MA, BOO ON/ADDEN DUM Dawna Vegas PA-C [address], [place], [address], [facility] 5 10:13:29 Sprain of wrist 64994237 Completed 201212/03/2013 RECORDED 02/05/20 13 2:54PM BY MELODIE SCANLON MA, BOO ON/ADDEN DUM Dawna Vegas PA-C [address], [place], [address], [facility] 5 10:13:30 Epidermo id cyst of skin 615332305 Completed 201312/03/2013 IMPRESSI ON: REASSURA NCE. IF BOTHERS HIM, CAN REFER TO GENERAL SURGEON. AT THIS POINT HE DOES NOT WANT TO DO THAT.; RECORDED 05/11/19 14 7:19AM BY BOO ELIAS ON/ADDEN DUM Dawna Vegas PA-C [address], [place], [address], [facility] 5 10:13:29 Verruca vulgaris 00667222 Completed 201112/03/2013 RECORDED 11/28/19 12 2:07PM BY MELODIEAUGUSTINE SCANLON MA, ANNOTATI ON/ADDEN DUM Dawna Vegas PA-C [address], [place], [address], [facility] 5 10:13:29 Wheezing [id number] Completed 201312/03/2013 RECORDED 06/01/19 14 7:53AM BY ELENA VALLADARES MA, ANNOTATI ON/ADDEN DUM Dawna Vegas PA-C [address], [place], [address], [facility] 5 10:13:29 Shoulder tendinit is Active Dawna Vegas PA-C [address] [facility] [address], [place], [address], [facility] 5 10:13:29 Fatigue [id number] Active Dawna Vegas PA-C [address] [facility] [address], [place], [address], [facility] 5 10:13:29 Degenera tion of lumbar interver tebral disc [id number] Active 2013 MADDIE Gomez, [facility] 6 09:49:39 Acute sinusiti s [id number] Completed 01/06/2017 MADDIE Gomez, [facility] 7 14:17:11 Impotenc e Active Dawna Vegas PA-C [address] [facility] [address], [place], [address], [facility] 5 10:13:29 Abdomina l pain [id number] Completed 01/06/2017 MADDIE Gomez, [facility] 7 14:17:15 Inflamma tion of rotator cuff tendon 273813345 Active Dawna Vegas PA-C [address] [facility] [address], [place], [address], [facility] 5 10:13:29 Lumbago with sciatica 438412764 Active Marvin Lam MD [address], [place], [address], [facility] 5 12:17:43 Anabolic steroids adverse reaction 839616050 Active Marvin Lam MD [address], [place], [address], [facility] 5 12:08:12 Lumbar radiculo zahira 230541475 Active Marvin Lam MD [address], [place], [address], [facility] 6 21:16:15 Insomnia 823327461 Active Marvin Lam MD [address], [place], [address], [facility] 6 21:16:15 Obstruct gila sleep apnea syndrome 61648786 [facility] 09[facility] Dependen ce on continuo us positive airway pressure ventilat ion 763004975 Active 2017 6-16 cm H2O [facility] 8 09:48:34 Problem Notes None recorded. Procedures Surgical History Date Name Laterality Status Provider Name and Address Organization Details Recorded Time 05/29/19 16 Unlisted procedure shoulder completed Melodie green MA [facility] 12/26/2015 09:56:11 03/28/20 15 Unlisted procedure shoulder completed Melodie green MA [facility] 12/26/2015 09:56:16 03/07/20 15 Joint Injection completed Marvin Lam MD [address], [place], [address], [facility] 03/07/2015 11:04:20 02/02/20 14 Corticosteroid Injection completed Marvin Lam MD [address] [facility] [address], [place], [address], [facility] 02/03/2014 20:18:14 04/07/20 07 Osteot dsc ant 1vrt sgm lmbr completed Melodie Alcazar-Teo green, [facility] 02/01/2014 13:52:13 Colonoscopy completed Melodie Merino os, [facility] 01/06/2017 14:00:58 Imaging Results Imaging Date Name Status LastModified by Organiz ation Details LastModified Time 10/11/2012 MRI, lumbar spine, w/wo contrast completed [facility] Information not available 12/03/2016 15:12:18 05/03/2017 sleep study, diagnostic* completed [facility] [address] [place], [address], 05/20/2017 09:49:24 10/11/2018 CT, abdomen + pelvis, w/ contrast completed [facility] [address] [place] [address], [address], 10/12/2018 07:13:33 11/10/2019 CT, abdomen + pelvis, w/o contrast completed [facility] [address] [place] [address], [address], 11/10/2019 16:13:04 Procedure Notes None recorded. Medical Equipment None Reported. Allergies Allergen ID Allergen Name Allergen Category Reaction Reaction Severity Criticality Documentation Date Start Date Code Code System Note Provider Name and Address Organization Details Recorded Time 59339 enalapril Not available cough Not available Not available 12/26/2015 9183 RxNorm Marvin Lam MD [address] [facility] [address], [place], [address], [facility] 6 10:53:29 Medications Name Sig Start Date Stop Date Status Note LastModified by Organization Details LastModified Time carisopro dol 350 mg tablet Q 6HRS PRN SPASM 02/26 completed RECORDED 03/09/20 07 5:42PM BY AFSANEH Calderon MD, MEDICATI ON AUTO-LUCINA CTIVATIO N; Not Available Not Available Not Available BD Luer-Shira Syringe 3 mL 23 x 1 active Not Available Not Available Not Available cyclobenz aprine 10 mg tablet Take 1 tablet 3 times a day by oral route as needed for 10 days. 01/06 completed Not Available Not Available Not Available amoxicill in 500 mg capsule active Not Available Not Available Not Available methocarb kavita 500 mg tablet active Not Available Not Available No t Available prednison e 10 mg tablet Take 5 tablets by oral route for 10 days. active Not Available Not Available No t Available gabapenti n 600 mg tablet Take 1 tablet 4 times a day by oral route for 30 days. active Not Available Not Available No t Available nabumeton e 750 mg tablet active Not Available Not Available Not Available enalapril maleate 10 mg tablet Take 1 tablet every day by oral route for 90 days. 12/25 completed cough Not Available Not Available Not Available citalopra m 40 mg tablet DAILY 2007 active RECORDED 01/28/20 08 9:04AM BY MARVIN LAM MD, ANNOTATI ON/ADDEN DUM; Not Available Not Available Not Available trazodone 50 mg tablet Take 2 tablet(s ) every day by oral route at bedtime for 30 days. active Not Available Not Available No t Available ibuprofen 800 mg tablet FOUR TIMES DAILY X 10 DAYS 03/08 completed RECORDED 03/08/20 13 11:28AM BY MELODIE SCANLON MA, OFFICE VISIT; Not Available Not Available Not Available benzonata te 200 mg capsule active Not Available Not Available Not Available valacyclo vir 1 gram tablet Take 1 tablet every day by oral route for 30 days. active Not Available Not Available No t Available hydrocodo ne 5 mg-acetam inophen 325 mg tablet EVERY 4 HOURS PRN active Not Available Not Available No t Available meloxicam 15 mg tablet Take 1 tablet every day by oral route for 30 days. 12/25 completed Not Available Not Available Not Available ondansetr on HCl 4 mg tablet active Not Available Not Available No t Available ropinirol e 3 mg tablet Take 1 tablet(s ) every day by oral route at bedtime for 30 days. 11/10 completed Not Available Not Available Not Available propranol ol ER 60 mg capsule,2 4 hr,extend ed release Take 1 capsule( s) every day by oral route for 30 days. active Not Available Not Available No t Available Viagra 50 mg tablet take 1 tablet by mouth if needed 30 MIN PRIOR TO INTERCOU RSE 2015 active Not Available Not Available Not Avai lable sertralin e 100 mg tablet Take 1 tablet every day by oral route for 30 days. active Not Available Not Available No t Available prednison e 5 mg tablet active Not Available Not Available Not Available hydroxyzi ne HCl 50 mg tablet Take 1 tablet(s ) 3 times a day by oral route as needed. active Not Available Not Available No t Available phentermi ne 37.5 mg tablet active Not Available Not Available No t Available chlorthal idone 50 mg tablet DAILY 10/14 completed RECORDED 10/15/19 13 4:12PM BY MELODIE SCANLON MA, TRANSITI ON OF CARE; Not Available Not Available Not Available omeprazol e 40 mg capsule,d elayed release take 1 capsule by mouth once daily active Not Available Not Available No t Available tramadol 50 mg tablet 12/25 completed Not Available Not Available Not Available enalapril 10 mg-hydroc hlorothia zide 25 mg tablet QD 2007 active RECORDED 01/28/20 08 9:04AM BY MARVIN LAM MD, ANNOTATI ON/ADDEN DUM; Not Available Not Available Not Available oxycodone -acetamin ophen 5 mg-325 mg tablet Q 6HRS PRN PAIN active Not Available Not Available No t Available amoxicill in 875 mg tablet TWO TIMES DAILY X 10 DAYS 06/01 completed RECORDED 06/01/19 14 8:42AM BY ELENA VALLADARES MA, OFFICE VISIT; Not Available Not Available Not Available imiquimod 5 % topical cream packet 3 TIMES A WEEK PRIOR TO BEDTIME TO TREAT EXTERNAL 01/06 completed Not Available Not Available Not Available amlodipin e 10 mg tablet take 1 tablet by mouth once daily active Not Available Not Available No t Available benzonata te 100 mg capsule THREE TIMES DAILY, NEEDED COUGH 06/11 completed RECORDED 06/17/19 14 7:51AM BY MADDIE ABRAMS, MEDICATI ON AUTO-LUCINA CTIVATIO N; Not Available Not Available Not Available ropinirol e 2 mg tablet take 2 tablets by mouth at bedtime active Not Available Not Available No t Available mirtazapi ne 30 mg tablet QHS / HS 06/16 completed RECORDED 06/16/19 08 1:57PM BY NAYLEI Bowman NP, ANNOTATI ON/ADDEN DUM; Not Available Not Available Not Available Guaifenes in AC 10 mg-100 mg/5 mL oral liquid 11/26 completed Not Available Not Available Not Available Condylox 0.5 % topical gel Apply 1 applicat ion every day by topical route for 30 days. active Not Available Not Available No t Available BD Luer-Shira Syringe 3 mL 25 gauge x 1 active Not Available Not Available Not Available diclofena c potassium 50 mg tablet 05/02 completed Not Available Not Available Not Available lisinopri l 20 mg-hydroc hlorothia zide 25 mg tablet DAILY 01/27 completed RECORDED 01/28/20 08 3:20PM BY MARVIN LAM MD, OFFICE VISIT; Not Available Not Available Not Available diclofena c sodium 75 mg tablet,de layed release 12/25 completed Not Available Not Available Not Available hydrocodo ne 5 mg-acetam inophen 500 mg tablet FOUR TIMES DAILY 09/26 completed RECORDED 09/29/19 13 11:25AM BY MARVIN LAM MD, MEDICATI ON AUTO-LUCINA CTIVATIO N; Not Available Not Available Not Available mirtazapi ne 15 mg tablet QHS / HS 2007 active RECORDED 01/28/20 08 9:04AM BY MARVIN LAM MD, ANNOTATI ON/ADDEN DUM; DIRECTED Not Available Not Available Not Available gabapenti n 100 mg capsule THREE TIMES DAILY 2012 active RECORDED 06/01/19 14 8:42AM BY ELENA VALLADARES MA, OFFICE VISIT; Not Available Not Available Not Available lorazepam 1 mg tablet take 1 tablet by mouth at bedtime if needed active Not Available Not Available No t Available testoster one cypionate 200 mg/mL intramusc ular oil Inject 1 mL every week by intramus c. route for 28 days. active Not Available Not Available No t Available levofloxa rach 500 mg tablet DAILY 05/21 completed RECORDED 05/31/19 14 2:31PM BY MARVIN LAM MD, MEDICATI ON AUTO-LUCINA CTIVATIO N; Not Available Not Available Not Available zolpidem 10 mg tablet Take 1 tablet every day by oral route at bedtime for 30 days. 01/06 completed Not Available Not Available Not Available fluticaso ne propionat e 50 mcg/actua tion nasal spray,skylar pension active Not Available Not Available Not Available loratadin e 10 mg tablet QD 08/24 completed RECORDED 08/25/19 10 7:46AM BY MELODIE SCANLON MA, OFFICE VISIT; Not Available Not Available Not Available naproxen 500 mg tablet active Not Available Not Available Not Available diazepam 5 mg tablet 03/08 completed RECORDED 03/08/20 13 11:29AM BY MELODIE SCANLON MA, OFFICE VISIT; Not Available Not Available Not Available amoxicill in 875 mg-potass ium clavulana te 125 mg tablet Take 1 tablet every 12 hours by oral route for 10 days. active Not Available Not Available No t Available oxycodone -acetamin ophen 7.5 mg-500 mg tablet EVERY FOUR HOURS, NEEDED 08/13 completed RECORDED 08/15/19 13 10:49AM BY ALEK BAXTER MD, MEDICATI ON AUTO-LUCINA CTIVATIO N; Not Available Not Available Not Available oxycodone 5 mg tablet Take 1 tablet 4 times a day by oral route as needed for 1 day. 05/02 completed Not Available Not Available Not Available albuterol (refill) 90 mcg/actua tion aerosol inhaler EVERY 4 HRS PRN COUGH 07/01 completed RECORDED 07/24/19 14 12:52PM BY MADDIE ABRAMS, MEDICATI ON AUTO-LUCINA CTIVATIO N; Not Available Not Available Not Available escitalop ronni 10 mg tablet DAILY 06/11 completed RECORDED 06/16/19 08 1:24PM BY NAYELI Bowman NP, MEDICATI ON AUTO-LUCINA CTIVATIO N; Not Available Not Available Not Available Vigamox 0.5 % eye drops THREE TIMES DAILY X 7 DAYS 08/04 completed RECORDED 08/05/19 13 10:09AM BY MILO GALO, OFFICE VISIT; Not Available Not Available Not Available zolpidem ER 12.5 mg tablet,ex tended release,m ultiphase Take 1 tablet every day by oral route at bedtime for 30 days. 11/10 completed Not Available Not Available Not Available losartan 100 mg-hydroc hlorothia zide 12.5 mg tablet take 1 tablet by mouth once daily active Not Available Not Available No t Available clonidine BID 05/23 completed RECORDED 05/23/19 10 7:45AM BY MARVIN LAM MD, ANNOTATI ON/ADDEN DUM; Not Available Not Available Not Available Flonase QD 09/24 completed RECORDED 10/15/19 09 7:03AM BY KAYLEN VELOZ, PARoloC, MEDICATI ON AUTO-LUCINA CTIVATIO N; Not Available Not Available Not Available promethaz ine EVERY SIX HOURS FOR NAUSEA 05/28 completed RECORDED 06/07/19 10 2:17PM BY MARVIN LAM MD, MEDICATI ON AUTO-LUCINA CTIVATIO N; Not Available Not Available Not Available multivita min 1 tablet po daily active Not Available Not Available No t Available blood pressure monitor DAILY MONITORI NG OF BP FOR HTN 05/31 completed RECORDED 05/31/19 14 2:37PM BY GRANT AVILES, MEHNAZATI ON/ADDEN DUM; Not Available Not Available Not Available Veregen 15 % topical ointment 12/25 completed Not Available Not Available Not Available Fluarix Quad 8209-5032 (PF) 60 mcg (15 mcg x 4)/0.5 mL IM syringe 01/06 completed Not Available Not Available Not Available Vitals Date Recorded Body height Body weight Body mass index (BMI) Body temperature Oxygen saturation Oxygen saturation in Arterial blood by Pulse oximetry Heart rate Systolic blood pressure Diastolic blood pressure Provider Name and Address Organization Details Last Updated DateTime 7 185.42 cm 398123. 53 g 35.8 kg/m2 97.4 [degF] 96 % 96 % 80 /min 142 mm[Hg] 86 mm[Hg] Elena Valladares MA [facility] 7 08:42:58 Date Recorded Body height Body mass index (BMI) Body weight Body temperature Oxygen saturation Oxygen saturation in Arterial blood by Pulse oximetry Heart rate Systolic blood pressure Diastolic blood pressure Provider Name and Address Organization Details Last Updated DateTime 7 185.42 cm 31.8 kg/m2 827873. 76 g 98.1 [degF] 97 % 97 % 108 /min 152 mm[Hg] 76 mm[Hg] Melodie baltazar MA [facility] 7 14:14:10 Date Recorded Heart rate Body temperature Oxygen saturation Oxygen saturation in Arterial blood by Pulse oximetry Body height Body weight Body mass index (BMI) Systolic blood pressure Diastolic blood pressure Provider Name and Address Organization Details Last Updated DateTime 5 107 /min 97.4 [degF] 97 % 97 % 185.42 cm 049878. 13334 g 33.8 kg/m2 144 mm[Hg] 94 mm[Hg] Melodie baltazar MA [facility] 5 09:44:27 Date Recorded Body height Oxygen saturation Oxygen saturation in Arterial blood by Pulse oximetry Heart rate Body temperature Body mass index (BMI) Body weight Systolic blood pressure Diastolic blood pressure Provider Name and Address Organization Details Last Updated DateTime 6 185.42 cm 100 % 100 % 92 /min 97.2 [degF] 33.5 kg/m2 212096. 30895 g 128 mm[Hg] 88 mm[Hg] Melodie baltazar MA [facility] 6 11:07:43 Date Recorded Body height Body temperature Oxygen saturation Oxygen saturation in Arterial blood by Pulse oximetry Heart rate Body weight Body mass index (BMI) Systolic blood pressure Diastolic blood pressure Provider Name and Address Organization Details Last Updated DateTime 6 185.42 cm 98.1 [degF] 97 % 97 % 100 /min 754160. 15 g 33.4 kg/m2 138 mm[Hg] 90 mm[Hg] Melodie baltazar MA [facility] 6 09:58:33 Social History Question Answer Notes LastModified by Organizat ion Details LastModified Time Tobacco Smoking Status Never Smoker MADDIE Gutierrez [facility] 02/01/2014 13:51:48 Do You Have An Advance Directive? No Declined Information not available 04/11/2015 What Is Your Level Of Alcohol Consumption? Occasional Information not available 04/11/2015 Is Blood Transfusion Acceptable In An Emergency? Yes [email or web address] Information not available 11/23/2014 What Is Your Level Of Caffeine Consumption? Moderate 1 Energy Drink Daily Information not available 02/01/2014 How Much Tobacco Do You Chew? None Information not available 04/11/2015 Are You Currently Employed? Yes Full-time Information not available 02/01/2014 What Type Of Diet Are You Following? SPECIFIC High Protein Information not available 02/01/2014 Which Illicit Or Recreational Drugs Have You Used? 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 With Others Girlfriend, Son, Step-child Information not available 02/01/2014 Do You Take Precautions To Prevent Distracted Driving? Yes Information not available 11/23/2014 How Often Do You Need To Have Someone Help You When You Read Instructions, Pamphlets, Or Other Written Material From Your Doctor Or Pharmacy? Sometimes [email or web address] Information not available 11/23/2014 Have You Served In The ? No Information not available 01/06/2017 What Was The Date Of Your Most Recent Tobacco Screening? 01/06/2017 Information not available 11/19/2018 How Many Children Do You Have? 1 Information not available 02/01/2014 Do You Use Protection During Sex? No Information not available 04/11/2015 What Is Your Relationship Status? [email or web address] Information not available 11/23/2014 Seat Belts Used Routinely Yes Information not available 04/11/2015 Are You Sexually Active? Yes Information not available 04/11/2015 Smoke Alarm In Home Yes Information not available 02/01/2014 At What Age Did You Start Smoking Tobacco? 0 Information not available 04/11/2015 Are You Passively Exposed To Smoke? No Information not available 04/11/2015 How Much Tobacco Do You Smoke? No Information not available 02/01/2014 Do You Use Sunscreen Routinely? Yes Information not available 04/11/2015 How Many Years Have You Smoked Tobacco? 0 Information not available 04/11/2015 Sex: Unknown Functional Status Question Answer Note LastModified by Organizat ion Details LastModified Time Are you able to care for yourself? Yes Information not available 02/01/2014 What is your exercise level? Moderate 5x week, cardio, weights Information not available 02/01/2014 Mental Status None recorded. Family History Relationship Description Onset Age of this Age Resolved Age Notes LastModified by Organization Details LastModified Time Father Chronic back pain [email or web address] Not available 09:16:01 Mother Malignant tumor of cervix [email or web address] Not available 2015 10:28:22 Medical History No medical history recorded. Immunizations Vaccine Type Date Status Note Provider Nam e and Address Organization Details Recorded Time Influenza, split virus, quadrivalent, preservative 7 completed Heidi mcmahon [facility] 12/03/2016 16:01:55 Influenza, split virus, quadrivalent, preservative 8 completed Alla mcmahon [facility] 01/13/2018 15:22:21 Influenza, split virus, quadrivalent, PF 5 completed Not Available [facility] 05/15/2019 02:22:02 Influenza, split virus, quadrivalent, PF 6 completed Not Available [facility] 05/15/2019 02:22:04 Tdap 6 completed Not Available [facility] 05/15/2019 02:21:45 Influenza, split virus, trivalent, PF 4 completed Not Available [facility] 05/15/2019 02:21:57 Td (adult), 2 Lf tetanus toxoid, preservative free, adsorbed 6 completed Not Available [facility] 11/09/2013 13:23:19 varicella 6 completed Not Available [facility] 11/09/2013 13:23:19 pneumococcal polysaccharide PPV23 3 completed Not Available [facility] 11/09/2013 13:23:19 Influenza, split virus, trivalent, preservative 3 completed Not Available [facility] 11/09/2013 13:23:19 Past Encounters Encounter ID Performer Location Encounter Start Date Encounter Closed Date Diagnosis/Indication Diagnosis SNOMED-CT Code Diagnosis ICD10 Code Diagnosis Note [id number] autoEComm erce [address] [facility] [place] [address] 11/12/2006 00:00:00 [id number] autoEComm erce [address] [facility] [place] [address] 02/12/2007 00:00:00 [id number] autoEComm erce [address] [facility] [place] [address] 05/12/2007 00:00:00 [id number] autoEComm erce [address] [facility] [place] [address] 06/16/2007 00:00:00 [id number] autoEComm erce [address] [facility] [place] [address] 01/28/2008 00:00:00 [id number] autoEComm erce [address] [facility] [place] [address] 08/25/2008 00:00:00 [id number] autoEComm erce [address] [facility] [place] [address] 12/05/2008 00:00:00 [id number] [address]Comm [address] [place] [address] 05/23/2009 00:00:00 [id number] autoEComm erce [address] [place] [address] 06/08/2009 00:00:00 [id number] auto[address]Comm [address] [place] [address] 08/24/2009 00:00:00 [id number] autoEComm erce [address] [place] [address] 11/28/2009 00:00:00 [id number] autoEComm erce [address] [place] [address] 05/08/2010 00:00:00 [id number] autoEComm erce [address] [facility] [place] [address] 08/04/2012 00:00:00 [id number] autoEComm erce [address] [facility] [place] [address] 09/16/2012 00:00:00 [id number] autoEComm erce [address] [facility] [place] [address] 09/23/2012 00:00:00 [id number] autoEComm erce [address] [facility] [place] [address] 03/08/2013 00:00:00 [id number] autoEComm erce [address] [facility] [place] [address] 03/24/2013 00:00:00 [id number] autoEComm erce [address] [place] [place] [address] 05/11/2013 00:00:00 [id number] autoEComm erce [address] [facility] [place] [address] 06/01/2013 00:00:00 [id number] Main Office [address] [place] [address] 02/01/2014 13:42:42 02/01/2014 14:48:36 Needs influenza immunization 247080364 Anxiety disorder 473144409 Shoulder tendinitis 094274211 Hyperlipidemia 17107598 Fatigue 20874158 [id number] Milo Galo MA Main Office [address] [place] [address] 06/22/2014 11:14:24 06/22/2014 12:22:10 Adult health examination 972709649 Essential hypertension 24404215 Restless legs 81850831 Cough 80303458 Acute sinusitis 01888097 Impotence 299182361 [id number] Main Office [address] [place] [address] 11/23/2014 12:44:46 11/23/2014 13:28:21 Abdominal pain 16942963 ? of resolving pancreatit is due to excessive alcohol use, hx of alcohol induced pancreatit is, pt will get labs, looks well, is hydrated, pain resolved, he knows to abstain from alcohol and return for eval if any return of pain [id number] Marvin Lam MD Main Office [address] [address] 03/07/2015 10:20:59 03/07/2015 10:58:46 Needs influenza immunization 364230591 Z23 Inflammati on of rotator cuff tendon 688049945 M65.812 [id number] Alek Lindsay MD Main Office [address] [address] 03/24/2015 09:13:11 03/24/2015 09:40:19 Lumbago with sciatica 311324322 M54.42 Lumbar disc disease exacerbati on L. with sciatica. Start Prednisone taper as directed. Cyclobenza prone if tolerated TID for 5 days and Oxycodone PRN. F/u with PCP if symptoms persist or worsen. [id number] Marvin Lam MD Main Office [address] [address] 04/11/2015 09:37:04 04/11/2015 10:44:16 Degeneration of lumbar intervertebral disc 24296519 M51.36 Anabolic s teroids adverse reaction 852439755 T38.7X5S Jail use of anabolic steroids. Now on testostero ne replacemen t with Dr. 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 [id number] Marvin Lam MD Main Office [address] [place] [address] [place] [address] 07/12/2015 10:52:20 07/12/2015 11:59:17 Restless legs 55643693 G25.81 Essential hypertension 66145723 I10 Lumbar radiculopathy 128 312280 M54.16 Insomnia 575066144 G47.0 0 [id number] Marvin Lam MD Main Office [address] [place] [address] [place] [address] 12/26/2015 09:43:17 12/26/2015 10:55:17 Adult health examination 719312795 Z00.00 Essential hypertension 98034278 I10 Needs infl uenza immunization 137043547 Z23 Administra tion of diphtheria, pertussis, and tetanus vaccine 146147700 Z23 [id number] Mansoor luna Main Office [address] [place], [place] [address] [address] 05/02/2016 08:26:46 05/02/2016 09:13:28 Snoring 86836197 R06.83 Patient understand s he needs to have sleep study done as I suspect his sleep problems are multifacto rial and not just restless leg related. We will schedule the appointmen t for him. Continue ambien as prescribed . He states he has been diagnosed with sleep apnea in the past- this needs to be treated as it is a likely a major contributi ng factor to his feeling of unrest. Restless legs 20010330 G 25.81 Will increase requip to 3mg at night, however, we did discuss his sleep problems likely being more than just related to restless legs. I will give him only 30days worth in the meantime he should have sleep study and sleep med eval done, if increased dose is not helpful he should go back to 2mg daily. F/u in 1 month for recheck. Essential hypertension [id number] I10 Bp not greatly controlled on current meds, possibilit y of sleep apnea likely a contributi ng factor, I stressed the importance of having sleep study and getting sleep apnea treated. [id number] Marvin Lam MD Main Office [address] [place], [place] [address]FIE MADDIE PIERSON [phone] 01/06/2017 13:51:55 01/06/2017 15:08:02 Essential hypertension 63175329 I10 Anxiety state 808039413 F41.1 Restless legs 77736545 G 25.81 Major depr essive disorder [id number] F32.9 Chronic al coholism in remission 025610979 F10.21 Recently stopped drinking Health Concerns Section Related Observation LastModified by Organization Detai ls LastModified Time None Recorded Concern Status LastModified by Organization Details LastModified Time None Recorded Advance Directives Directive N: declined Payers Encounter Date Sequence Insurance Name Policy Number Policy Correia Covered Member ID Correia Member ID Guarantor Name 04/11/2015 1 [facility] [id number] Konrad Jonas Sperlonga [id number] Konrad Sperlonga 07/12/2015 1 [facility] [id number] Konrad Jonas Sperlonga [id number] Konrad Sperlonga 12/26/2015 1 [facility] [id number] Konrad Jonas Sperlonga [id number] Konrad Sperlonga 05/02/2016 1 [facility] [id number] 3 Konrad Jonas Sperlonga [id number] Konrad Sperlonga 01/06/2017 1 [facility] [id number] 3 Konrad Jonas Sperlonga [id number] Konrad Sperlonga Notes Date Note Type Note Provider Name and Address Organization Details Recorded Time 04/11/2015 text/html Konrad presents to day with concern about severe low back and leg pain. Has had symptoms of severe pain in the left leg starting 3 weeks ago. No obvious injury. Has known prior history of lumbar disc disease. Has had concomitant problems with complex shoulder injury and rotator cuff tear. He is hoping to have his shoulder fixed by ortho in [facility]. Local orthopedics ([facility]) do not wish to attempt repair. Konrad states that severe pain has been disrupting sleep. He did not have benefit from use steroids by tapering dose. He plans to see [facility] on May 02 for evaluation of lumbar radiculopathy. Presently he is not working ([employer]) because of shoulder problems. Marvin Lam MD [address] [address], [place], [phone], [facility] 04/17/2015 12:08:27 07/12/2015 text/html Hypertension F/UReported bypatient.Associated Symptoms:no dizziness; no lightheadedness; no chest pain; no shortness of breath; no palpitations; no edema; no calf pain with exertion Lifestyle:limiting/brittany iding salt;not exercising regularly Medications:no side effects from medicationNotes:Has not been taking RUBI -- states that pharmacy told him it is not a covered drug. i spoke with pharmacy today, and they do not have record of the script being declined/denied by insurance. Still taking amlodipine.Musculoskel etal PainReported bypatient.Location:darrin n radiating to the legs left;pain radiating to the foot left; lumbar spine Quality:aching;tinglin g Severity:worsening Duration:present for 1-6 months Associated Symptoms:no fever; on incontinence;tingling; numbness of the legs/feetNotes:Seen by [facility] for lumbar radiculopathy. States taht they will not touch me until my shoulder is healed (after rotator cuff repair). Wants me to treat his back and leg pain I have to do something!! 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 Never had sleep test. Now states that the medication is no longer effective. Marvin Lam MD [address] [address], [place], [address], [facility] [place] 07/12/2015 21:16:22 12/26/2015 text/html Hypertension F/UReported bypatient.Associated Symptoms:no dizziness; no lightheadedness; no chest pain Lifestyle:regular exercise Medications:taking medications as directed; no side effects from medication; checks blood pressure at home, range: (greater than 140)Notes:Reports that home BP has been good (checking mostly at work). Here for PE visit. Reviewed recent health history of and recommendations for screening. History of use of anabolic steroids for bodybuilding. States that he is now getting only testosterone replacement from Dr. Dacosta. Marvin Lam MD [address] [facility] [address], [place], [phone], [facility] [place] 12/26/2015 13:42:19 05/02/2016 text/html Hypertension F/UReported bypatient.Associated Symptoms:no dizziness; no lightheadedness; no chest pain; no shortness of breath; no palpitations; no edema; no calf pain with exertion Lifestyle:limiting/brittany iding salt;not exercising regularly Medications:no side effects from medicationNotes:He is taking his meds but always a bit high, in 140s/80s, he checks BP at work.Sleep ProblemsReported bypatient.General Sleep:insomnia: difficulty falling asleep;insomnia: awakening in the middle of the night;insomnia: it account manager awakening;unrefreshing sleep Onset/Timing:chronic; worsening problems over the past 1 mos Severity:difficulty getting going in the morning Quality:loud snoring;frequent breathing through the mouth Restless leg syndrome:legs feel restless: disturbing sleep;legs feel restless: relieved by movement Prescribed sleep medications:currently taking medication to help sleep Associated Symptoms:sleep problems for years, sleep problems are getting worse and the patient has problems both getting to sleep and staying asleep;hypertensionNot es:Has been using ropinirole for RLS for many years with good effects. Never had sleep test. Now states that the medication is no longer effective, he is having diff falling and staying asleep. He states he is also having daytime symptoms as well- of restless legs. He states he has never had a sleep study. Mansoor mcmahon, [facility] [place] 05/02/2016 13:04:37 01/06/2017 text/html Anxiety/Depressi onRepo rted bypatient.Quality:mood worse;increased anxiety;panic symptoms Severity:denies suicidal ideations;interference with sleep Duration:Longstanding anxiety. Worse since he quit drinking 2 weeks ago Context:major life stressors;ETOH use; ongoing use of testosterone with toxic levels. Multiple concerns today. Notes that he had GI virus last week and felt weak and dizzy. Had single episode of syncope which he attributes to dehydration and illness. Now feels better without futher symptoms or GI distress. Discussed longstanding problem with alcoholism. He stopped drinking 2 weeks ago and has been going to AA. Feels that he is doing better with being able to stay away from drinking, but is having increased anxiety. Discussed options for care at length. Sill seeing Dr. Dacosta for weight management. Has been taking testosterone injections and noted to have completely suppressed FSH/LH and toxic levels with last lab draw. Reviewed risks of high dose testosterone use as well as concerns about contribution to mood symptoms and anxiety. Again, he complains of RLS and insomnia. Has not been to sleep medicine despite multiple referrals and my refusal to refill his RLS meds. Marvin Lam MD [address] [address], [place], [address], [facility] 01/07/2017 08:40:40
--- OUTSIDE RECORDS SUMMARY | 2024-07-01 10:09 | XMS_ITS | Clinical Summary ---
Author Organization [facility] ity Address [address] [place] [address] Care Team Providers Care Casino Duty Manager Name Role Phone Unavailable Primary Care Provider [...]
--- OUTSIDE RECORDS SUMMARY | 2024-07-01 10:09 | XMS_ITS | Clinical Summary ---
Author Organization [facility] P. Address [address] [place] [phone] Phone Care Team Providers Care Health Insurance Agent Name Role Phone Abbie Ayala PA-C Primary [...] Office Visit [facility] [address] [address] [facility] Stage 3a [...] Office Visit [facility] [address] [address] Chad Martínez MD [address] [address] Health Maintenance Due Date Last Done Comments [...] 9.4 8.7 - 10.7 mg/dL eGFR Non-Afr Italian 45 04/29/2024 Historical Provider LAB BLOOD ORDERABLES Lupis vivas Result from Last 3 Months Insurance UNICARE UNICARE Care Teams Health Insurance Agent Relationship Specialty Start Date End Date Abbie Ayala PA-C [address] [place] [id number] PCP - General Physician Barber Or Beauty Shop Manager 05/20/24
== END 2024-07-01 11:43 | disposition home or self-care (01) ==
PROVIDERS: PCP Physician Assistant; Visit Provider Orthopaedic Surgery
DX: M75.101 Unspecified rotator cuff tear or rupture of right shoulder, not specified as traumatic (principal); Z04.2 Encounter for examination and observation following work accident
CPT/HCPCS: 99214

== ENCOUNTER → 2024-07-01 09:10 | Outpatient (BNVA) | payer OTHER, SELFPAY | PROVIDERS: PCP Physician Assistant; Visit Provider Orthopaedic Surgery | DX: M75.101 Unspecified rotator cuff tear or rupture of right shoulder, not specified as traumatic (principal) | CPT/HCPCS: 99212 ==

== ENCOUNTER 2024-08-05 09:33 | Outpatient (AMB) | payer OTHER, SELFPAY ==
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
[2024-08-05 09:47] VITALS: BMI 36.0
--- OUTSIDE RECORDS SUMMARY | 2024-08-05 10:36 | XMS_ITS | Clinical Summary ---
Author Organization [facility] ity Address [address] [place] [address] Care Team Providers Care Street Light Wirer Name Role Phone Unavailable Primary Care Provider [...] age to complete this topic Meningococcal B Vaccine Aged Out No l onger eligible based on patient's age to complete [...]
--- OUTSIDE RECORDS SUMMARY | 2024-08-05 10:36 | XMS_ITS | Clinical Summary ---
Author Organization [facility]. Address [address] [place] [phone] Phone Care Team Providers Care Specimen Transporter Name Role Phone Abbie Ayala PA-C Primary [...] Office Visit [facility] [address] [address] [facility] Stage 3a [...] Office Visit [facility] [address] [address] Chad Martínez MD [address] [address] Health Maintenance Due Date Last Done Comments Hepatitis B Vaccine (1 of 3 - 19+ 3-dose series) 1989 Pneumococcal Vaccine: Peds ( 0 to 5 Years) and At-Risk Patients (6 to 49 Years) (2 of 2 - PCV) 10/13/2013 10/13/2012 Colorectal Cancer Screening: Annual FOBT 09/19/2019 Colorectal Cancer Screening: Colonoscopy 09/19/2019 Colorectal Cancer Screening: Sigmoidoscopy 09/19/2019 Diabetes: Hemoglobin A1C 02/16/2024 Diabetes: Ophthalmology Exam 02/16/2024 Diabetes: Pedal Pulse Checked 02/16/2024 Diabetes: Sensory Foot Exam 02/16/2024 Diabetes: Visual Foot Exam 02/16/2024 Influenza Vaccine (Season Ended) 2024 01/12/2018, 12/02/2016, 12/26/2015, Additional history exists Insurance [facility] Care Teams Specimen Transporter Relationship Specialty Start Date End Date Abbie Ayala PA-C [address] [facility] MADDIE LEON [id number] PCP - General Physician Director Of Corporate Strategy 05/20/24
--- OUTSIDE RECORDS SUMMARY | 2024-08-05 10:36 | XMS_ITS | Data Portability ---
Author Organization [facility] Office Address [address] [place] [address] Care Team Providers Care It Support Analyst Name Role Phone MARVIN LAM Primary Care Provider [facility] WE[facility] LOSS OTHER [facility] Sleep Medi cine IVETH VEGAS Primary Care [...] pain. We reviewed the report from the [place] pharmacy monitoring that shows Konrad has filled [...] sleep medici ne referr al 2016 017 [facility], [address] [place] [address], [address], 7 11:41:11 sleep medici ne referr al 2016 017 [facility], [address] [place] [address], [address], 7 10:33:10 ophtha lmolog ist referr al 2015 016 [facility] Skinny Trinh MD, [address] [place] [address], [address], 7 11:51:20 sleep medici ne referr al 2015 016 [facility], [address] [place] [address], [address], 6 11:23:29 Procedures None record ed. Surgeries None record ed. Imaging polyso mnogra m - hx restle ss legs, insomn ia, snorin g, not feelig n rested . 2016 017 [facility], [address] [place] [address], [address], 7 13:18:46 Medication Orders sertra line 100 [...] By Organization Details Last Modified Time 04/11/2015 [id number] Medications were reviewed at this visit and reconciled. Changes in the active medications are reflected in the current medication list and discussed with patient (or caregiver) with instructions for follow up as needed. Printed medication list provided to the patient as part of the visit summary. [facility] Not available 04/11/2015 18:12:13 07/12/2015 [id number] restless legs syndrome: care instructions [facility] Not available 07/12/2015 21:16:16 insomnia: care instructions [facility] Not available 07/12/2015 21:16:16 high blood pressure: care instructions [facility] Not available 07/12/2015 21:16:16 learning about high blood pressure [facility] Not available 07/12/2015 21:16:16 12/26/2015 [id number] high blood pressure: care instructions ckrym Not [...] medication. phelmuth Not available 12/26/2015 13:40:17 05/02/2016 [id number] Call or return for worsening or concerns. jthabet Not available 05/02/2016 09:05:43 I have reviewed the note and agree with the assessment and plan of care. 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 [facility] Not Available 2016 15:12:18 05/16/19 18 05/03/2017 sleep study , diagn ostic * No observ ation record ed. [facility] [address] [place], [address], 05/20/2017 09:49:24 10/12/19 19 10/11/2018 CT, abdom en + pelvi s, w/ contr ast No observ ation record ed. [facility] [address] [place], [address], 10/12/2018 07:13:33 11/10/19 20 11/10/2019 CT, abdom en + pelvi s, w/o contr ast No observ ation record ed. [facility] [address] [place], [address], 11/10/2019 16:13:04 Result Notes None recorded. Problems Name Problem SNOMED Code Status Onset Date Resolution Date Notes Provider Name and Address Organization Details Recorded Time Epigastr ic pain 06895951 Completed 201211/09/2013 RECORDED 03/24/20 13 9:55AM BY ROX HERNANDEZ MA, BOO ON/SANDHYA Vegas PA-C [address], [place], [address], [facility] 5 10:13:30 Left lower quadrant pain 532299011 Completed 201111/09/2013 RECORDED 11/28/19 12 2:07PM BY MELODIE SCANLON MA, MEHNAZATI ON/ADDEN DUM Dawna Vegas PA-C [address], [place], [address], [facility] 5 10:13:30 Mucopuru lent conjunct ivitis 097708087 Completed 201211/09/2013 RECORDED 09/17/19 13 10:18AM BY MELODIE SCANLON MA, ANNOTATI ON/ADDEN DUM Dawna Evangelist PERKINS-C [address], [place], [address], [facility] 5 10:13:29 Acute sinusiti s 49660118 Completed 201311/09/2013 RECORDED 06/01/19 14 7:53AM BY ELENA VALLADARES MA, ANNOTATI ON/ADDEN DUM MADDIE Gomez, [facility] 7 14:17:11 Alcohol abuse 75592346 Active 2013 MADDIE Gomez, [facility] 6 09:49:25 Drug abuse 29415791 Active 2013 MADDIE Gomez, [facility] 6 09:49:35 Adult health examinat ion Completed 201211/09/2013 RECORDED 09/24/19 13 2:48PM BY MELODIE SCANLON MA, ANNOTATI ON/ADDEN DUM Dawna Evangelist MCCORMACK [address], [place], [address], [facility] 5 10:13:30 Anxiety disorder 366742600 Active 2013 MADDIE Gomez, [facility] 6 09:49:28 Exposure to organism Completed 201111/09/2013 RECORDED 11/28/19 12 2:07PM BY MELODIE SCANLON MA, ANNOTATI ON/ADDEN DUM Dawna Evangelist PARRAC [address], [place], [address], [facility] 5 10:13:30 Cough [id number] Completed 201305/20/2017 IMPRESSI ON: SUSPECT PERTUSSI S. TOO LATE FOR TREATMEN T. ONLY TEST THAT CAN BE DONE AT THIS POINT IS SERUM. CXR TO R/O PNEUMONI A. SPIROMET RY SHOWS NO EVIDENCE OF OBSTRUCT ION SO DOUBT PREDNISO NE WOULD HELP; RECORDED 06/01/19 14 8:45PM BY MADDIE ABRAMS, OFFICE VISIT Melodie baltazar MA null, [facility] 8 09:48:50 Diarrhea 41753143 Completed 201111/09/2013 RECORDED 11/28/19 12 2:07PM BY MELODIE SCANLON MA, ANNOTATI ON/ADDEN DUM Dawna Evangelist PERKINS-C [address], [place], [address], [facility] 5 10:13:30 Inflamma tory disease of liver 425488040 Completed 201211/09/2013 RECORDED 02/05/20 13 2:54PM BY MELODIE SCANLON MA, BOO ON/ADDEN DUM Dawnawendy PERKINS-C [address], [place], [address], [facility] 5 10:13:29 Blood chemistr y outside referenc e range 853220256 Completed 201211/09/2013 RECORDED 02/05/20 13 2:54PM BY MELODIE SCANLON MA, ANNOTATI ON/ADDEN DUM Dawna Evangelist PER[facility]INS-C [address], [place], [address], [facility] 5 10:13:30 Follow-u p encounte r Completed 201311/09/2013 RECORDED 05/11/19 14 7:19AM BY MEHNAZ ELIASATI ON/ADDEN DUM Dawna [facility] [address], [place], [address], [facility] 5 10:13:30 [facility] hyperten juan 63059506 Completed 200911/09/2013 RECORDED 08/25/19 10 7:44AM BY MELODIE SCANLON MA, ANNOTATI ON/ADDEN DUM MADDIE Gomez, [facility] 7 14:17:23 Malaise and fatigue 000737985 Completed 201211/09/2013 RECORDED 09/24/19 13 2:48PM BY MELODIE SCANLON MA, ANNOTATI ON/ADDEN DUM Dawna Vegas [facility] [address], [place], [address], [facility] 5 10:13:29 Influenz a vaccine needed 14982692713 06 Completed 201211/09/2013 RECORDED 03/08/20 13 11:28AM BY MELODIE SCANLON MA, OFFICE VISIT Dawna Vegas [facility] [address], [place], [address], [facility] 5 10:13:30 Gastroes ophageal reflux disease 128127984 Active 2013 MADDIE Gomez, [facility] 6 09:49:31 Hyperlip idemia 00688044 Active 2013 MADDIE Gomez, [facility] 7 14:17:20 Essentia l hyperten juan 37349699 Active 2013 MADDIE Gomez, [facility] 7 14:17:23 Hypokale prince 41178914 Active 2013 MADDIE Gomez, [facility] 6 09:50:02 Knee pain Active 2013 Melodie baltazar [place] null, [facility] 6 09:49:46 Laborato ry procedur e performe d 261317002 Completed 201211/09/2013 RECORDED 02/05/20 13 2:54PM BY MELODIE SCNALON MA, ANNOTATI ON/ADDEN DUM Dawna Evangelist PA-C [address], [place], [address], [facility] 5 10:13:30 Musculos keletal symptom 77725067 Completed 201111/09/2013 STORY: UNCONTRO LLED HTN WITH NEW-ONSE T SIGNIFIC ANT LEFT ARM WEAKNESS OF EXTENSIO N/FLEXIO N AT THE ELBOW.; RECORDED 11/28/19 12 2:07PM BY MELODIE SCANLON MA, ANNOTATI ON/ADDEN DUM Dawna Evangelist [facility]KINS-C [address], [place], [address], [facility] 5 10:13:29 Pain in elbow 49870580 Completed 201211/09/2013 RECORDED 09/24/19 13 2:48PM BY MELODIE SCANLON MA, ANNOTROSIE ON/ADDEN DUM Dawna Evangelist PA-C [address], [place], [address], [facility] 5 10:13:29 Shoulder joint pain 922397888 Completed 201211/09/2013 RECORDED 09/24/19 13 2:48PM BY MELODIE SCANLON MA, ANNOTROSIE ON/ADDEN DUM Dawna Evangelist PA-C [address], [place], [address], [facility] 5 10:13:29 Lipoma 49720647 Active 2013 Melodie baltazar [place] null, [facility] 7 14:17:27 Localize d superfic ial swelling of skin 815780475 Completed 200811/09/2013 RECORDED 12/06/19 09 2:18PM BY MELODIE SCANLON MA, ANNOTATI ON/ADDEN DUM Dawna Vegas SC-C [address], [place], [address], [facility] 5 10:13:29 Nausea 898161878 Completed 201111/09/2013 RECORDED 11/28/19 12 2:07PM BY MELODIE SCANLON MA, ANNOTATI ON/ADDEN DUM Dawna Vegas PA-C [address], [place], [address], [facility] 5 10:13:30 Patient status finding 339061010 Completed 201312/26/2015 MADDIE Gomez, [facility] 6 09:49:19 Acute pancreat itis 211284576 Completed 201211/09/2013 RECORDED 02/05/20 13 2:54PM BY MELODIE SCANLON MA, ANNOTATI ON/ADDEN DUM Dawna [facility] [address], [place], [address], [facility] 5 10:13:29 Skin sensatio n disturba nce 58044673 Completed 201305/20/2017 MADDIE Gomez, [facility] 8 09:49:12 Psychose xual dysfunct ion associat ed with inhibite d libido 222839057 Active 2013 MADDIE Gomez, [facility] 6 09:50:08 Restless legs 55010818 Active 2013 MADDIE Gomez, [facility] 6 09:49:58 Rhabdomy olysis 625026371 Active 2013 MADDIE Gomez, [facility] 6 09:49:33 Sprain of wrist 49155341 Completed 201211/09/2013 RECORDED 02/05/20 13 2:54PM BY MELODIE SCANLON MA, BOO ON/ADDEN DUM Dawnawendy PARRAC [address], [place], [address], [facility] 5 10:13:30 Epidermo id cyst of skin 916818882 Completed 201311/09/2013 IMPRESSI ON: REASSURA NCE. IF BOTHERS HIM, CAN REFER TO GENERAL SURGEON. AT THIS POINT HE DOES NOT WANT TO DO THAT.; RECORDED 05/11/19 14 7:19AM BY BOO ELIAS ON/ADDEN DUM Dawnawendy PERKINS-C [address], [place], [address], [facility] 5 10:13:29 Injury of ulnar nerve 00398778 Completed 199705/20/2017 DATE: 1997; ; RIGHT WRIST MADDIE Gomez, [facility] 8 09:49:09 Verruca vulgaris 35310842 Completed 201111/09/2013 RECORDED 11/28/19 12 2:07PM BY MELODIE SCANLON MA, BOO ON/ADDEN DUM Dawna [facility] [address], [place], [address], [facility] 5 10:13:29 Wheezing 13009895 Completed 201311/09/2013 RECORDED 06/01/19 14 7:53AM BY ELENA VALLADARES MA, ANNOTATI ON/ADDEN DUM Dawna Vegas PA-C [address], [place], [address], [facility] 5 10:13:29 Epigastr ic pain 81091737 Completed 201212/02/2013 RECORDED 03/24/20 13 9:55AM BY ROX HERNANDEZ MA, ANNOTATI ON/ADDEN DUM Dawna Vegas PA-C [address], [place], [address], [facility] 5 10:13:30 Left lower quadrant pain 700969543 Completed 201112/02/2013 RECORDED 11/28/19 12 2:07PM BY MELODIE SCANLON MA, ANNOTATI ON/ADDEN DUM Dawna Vegas PA-C [address], [place], [address], [facility] 5 10:13:30 Mucopuru lent conjunct ivitis 413802053 Completed 201212/02/2013 RECORDED 09/17/19 13 10:18AM BY MELODIE SCANLON MA, ANNOTATI ON/ADDEN DUM Dawna Vegas PA-C [address], [place], [address], [facility] 5 10:13:29 Acute sinusiti s 40682486 Completed 201312/02/2013 RECORDED 06/01/19 14 7:53AM BY ELENA VALLADARES MA, ANNOTATI ON/ADDEN DUM Melodie baltazar MA [facility] 7 14:17:11 Adult health examinat ion Completed 201212/02/2013 RECORDED 09/24/19 13 2:48PM BY MELODIE SCANLON MA, ANNOTATI ON/ADDEN DUM Dawna Vegas PA-C [address], [place], [address], [facility] 5 10:13:30 Exposure to organism Completed 201112/02/2013 RECORDED 11/28/19 12 2:07PM BY MELODIE SCANLON MA, BOO ON/ADDEN DUM Dawna Vegas PA-C [address], [place], [address], [facility] 5 10:13:30 Cough 56185593 Completed 201312/02/2013 IMPRESSI ON: SUSPECT PERTUSSI S. TOO LATE FOR TREATMEN T. ONLY TEST THAT CAN BE DONE AT THIS POINT IS SERUM. CXR TO R/O PNEUMONI A. SPIROMET RY SHOWS NO EVIDENCE OF OBSTRUCT ION SO DOUBT PREDNISO NE WOULD HELP; RECORDED 11/06/19 14 8:05AM BY MELODIE SCANLON MA, BOO ON/ADDEN DUM Melodie baltazar MA null, [facility] 8 09:48:50 Diarrhea 31719825 Completed 201112/02/2013 RECORDED 11/28/19 12 2:07PM BY MELODIE SCANLON MA, ANNOTATI ON/ADDEN DUM Dawna Vegas PA-C [address], [place], [address], [facility] 5 10:13:30 Inflamma tory disease of liver 474270495 Completed 201212/02/2013 RECORDED 02/05/20 13 2:54PM BY MELODIE SCANLON MA, ANNOTATI ON/ADDEN DUM Dawna Vegas PA-C [address], [place], [address], [facility] 5 10:13:29 Blood chemistr y outside referenc e range 750171276 Completed 201212/02/2013 RECORDED 02/05/20 13 2:54PM BY MELODIE SCANLON MA, ANNOTATI ON/ADDEN DUM Dawna [facility] [address], [place], [address], [facility] 5 10:13:30 Follow-u angela encounte r Completed 201312/02/2013 RECORDED 05/11/19 14 7:19AM BY JM CAI I ANNOTATI ON/ADDEN DUM Dawna [facility] [address], [place], [address], [facility] 5 10:13:30 Essentia l hyperten juan 27253186 Completed 200912/02/2013 RECORDED 08/25/19 10 7:44AM BY MELODIE SCANLON MA, ANNOTATI ON/ADDEN DUM MADDIE Gomez, [facility] 7 14:17:23 Malaise and fatigue 241864304 Completed 201212/02/2013 RECORDED 09/24/19 13 2:48PM BY MELODIE SCANLON MA, ANNOTATI ON/ADDEN DUM Dawna [facility] [address], [place], [address], [facility] 5 10:13:29 Influenz a vaccine needed 66767798005 06 Completed 201212/02/2013 RECORDED 03/08/20 13 11:28AM BY MELODIE SCANLON MA, OFFICE VISIT Dawna Vegas SC-C [address], [place], [address], [facility] 5 10:13:30 Flatulen ce, eructati on and gas pain 485635746 Completed 201305/20/2017 MADDIE Gomez, [facility] 8 09:49:18 Laborato ry procedur e performe d 964573434 Completed 201212/02/2013 RECORDED 02/05/20 13 2:54PM BY MELODIE SCANLON MA, ANNOTATI ON/ADDEN DUM Dawna Evangelist PA-C [address], [place], [address], [facility] 5 10:13:30 Musculos keletal symptom 99089388 Completed 201112/02/2013 STORY: UNCONTRO LLED HTN WITH NEW-ONSE T SIGNIFIC ANT LEFT ARM WEAKNESS OF EXTENSIO N/FLEXIO N AT THE ELBOW.; RECORDED 11/28/19 12 2:07PM BY MELODIE SCANLON MA, ANNOTROSIE ON/ADDEN DUM Dawna Evangelist PA-C [address], [place], [address], [facility] 5 10:13:29 Pain in elbow 23338378 Completed 201212/02/2013 RECORDED 09/24/19 13 2:48PM BY MELODIE SCANLON MA, ANNOTROSIE ON/ADDEN DUM Dawna Evangelist PA-C [address], [place], [address], [facility] 5 10:13:29 Shoulder joint pain 365967913 Completed 201212/02/2013 RECORDED 09/24/19 13 2:48PM BY MELODIE SCANLON MA, ANNOTATI ON/ADDEN DUM Dawna Evangelist PA-C [address], [place], [address], [facility] 5 10:13:29 Localize d superfic ial swelling of skin 508664668 Completed 200812/02/2013 RECORDED 12/06/19 09 2:18PM BY MELODIE SCANLON MA, ANNOTROSIE ON/ADDEN DUM Dawna Evangelist PERKINS-C [address], [place], [address], [facility] 5 10:13:29 Nausea 539674507 Completed 201112/02/2013 RECORDED 11/28/19 12 2:07PM BY MELODIE SCANLON MA, ANNOTATI ON/ADDEN DUM Dawna Vegas PA-C [address], [place], [address], [facility] 5 10:13:30 Acute pancreat itis 598280849 Completed 201212/02/2013 RECORDED 02/05/20 13 2:54PM BY MELODIE SCANLON MA, ANNOTATI ON/ADDEN DUM Dawna Vegas PA-C [address], [place], [address], [facility] 5 10:13:29 Sprain of wrist 42216609 Completed 201212/02/2013 RECORDED 02/05/20 13 2:54PM BY MELODIE SCANLON MA, MEHNAZATI ON/ADDEN DUM Dawna Vegas PA-C [address], [place], [address], [facility] 5 10:13:30 Epidermo id cyst of skin 814811145 Completed 201312/02/2013 IMPRESSI ON: REASSURA NCE. IF BOTHERS HIM, CAN REFER TO GENERAL SURGEON. AT THIS POINT HE DOES NOT WANT TO DO THAT.; RECORDED 05/11/19 14 7:19AM BY BOO ELIAS ON/ADDEN DUM Dawna Vegas PA-C [address], [place], [address], [facility] 5 10:13:29 Verruca vulgaris 02710563 Completed 201112/02/2013 RECORDED 11/28/19 12 2:07PM BY MELODIE SCANLON MA, ANNOTATI ON/ADDEN DUM Dawna Vegas PA-C [address], [place], [address], [facility] 5 10:13:29 Wheezing 38482516 Completed 201312/02/2013 RECORDED 06/01/19 14 7:53AM BY ELENA VALLADARES MA, ANNOTATI ON/ADDEN DUM Dawna Vegas PA-C [address], [place], [address], [facility] 5 10:13:29 Epigastr ic pain 66659212 Completed 201212/03/2013 RECORDED 03/24/20 13 9:55AM BY ROX HERNANDEZ MA, ANNOTATI ON/ADDEN DUM Dawna Vegas PA-C [address], [place], [address], [facility] 5 10:13:30 Left lower quadrant pain 676607610 Completed 201112/03/2013 RECORDED 11/28/19 12 2:07PM BY MELODIE SCANLON MA, ANNOTATI ON/ADDEN DUM Dawna Vegas PA-C [address], [place], [address], [facility] 5 10:13:30 Mucopuru lent conjunct ivitis 975824586 Completed 201212/03/2013 RECORDED 09/17/19 13 10:18AM BY MELODIE SCANLON MA, ANNOTATI ON/ADDEN DUM Dawna Vegas PA-C [address], [place], [address], [facility] 5 10:13:29 Acute sinusiti s 80808789 Completed 201312/03/2013 RECORDED 06/01/19 14 7:53AM BY ELENA VALLADARES MA, ANNOTATI ON/ADDEN DUM Melodie baltazar MA null, [facility] 7 14:17:11 Adult health examinat ion Completed 201212/03/2013 RECORDED 09/24/19 13 2:48PM BY MELODIE SCANLON MA, BOO ON/ADDEN DUM Dawna Evangelist PA-C [address], [place], [address], [facility] 5 10:13:30 Exposure to organism Completed 201112/03/2013 RECORDED 11/28/19 12 2:07PM BY MELODIE SCANLON MA, BOO ON/ADDEN DUM Dawna Vegas PA-C [address], [place], [address], [facility] 5 10:13:30 Cough [id number] Completed 201312/03/2013 IMPRESSI ON: SUSPECT PERTUSSI S. TOO LATE FOR TREATMEN T. ONLY TEST THAT CAN BE DONE AT THIS POINT IS SERUM. CXR TO R/O PNEUMONI A. SPIROMET RY SHOWS NO EVIDENCE OF OBSTRUCT ION SO DOUBT PREDNISO NE WOULD HELP; RECORDED 11/06/19 14 8:05AM BY MELODIE SCANLON MA, BOO ON/ADDEN DUM Melodie baltazar MA null, [facility] 8 09:48:50 Diarrhea 40071033 Completed 201112/03/2013 RECORDED 11/28/19 12 2:07PM BY MELODIE SCANLON MA, BOO ON/ADDEN DUM Dawna [facility] [address], [place], [address], [facility] 5 10:13:30 Inflamma tory disease of liver 339124385 Completed 201212/03/2013 RECORDED 02/05/20 13 2:54PM BY MELODIE SCANLON MA, BOO ON/ADDEN DUM Dawna [facility] [address], [place], [address], [facility] 5 10:13:29 Blood chemistr y outside referenc e range 307423507 Completed 201212/03/2013 RECORDED 02/05/20 13 2:54PM BY MELODIE SCANLON MA, ANNOTATI ON/ADDEN DUM Dawna [facility] [address], [place], [address], [facility] 5 10:13:30 Follow-u p encounte r Completed 201312/03/2013 RECORDED 05/11/19 14 7:19AM BY JM CAI I, [facility]I [facility] [address], [place], [address], [facility] 5 10:13:30 Essentia l hyperten juan 83950837 Completed 200912/03/2013 RECORDED 08/25/19 10 7:44AM BY MELODIE SCANLON MA, ANNOTATI ON/ADDEN DUM Melodie baltazar MA [facility] 7 14:17:23 Malaise and fatigue 362835039 Completed 201212/03/2013 RECORDED 09/24/19 13 2:48PM BY MELODIE SCANLON MA, ANNOTATI ON/ADD[facility] [address], [place], [address], [facility] 5 10:13:29 Influenz a vaccine needed 64373763145 06 Completed 201212/03/2013 RECORDED 03/08/20 13 11:28AM BY MELODIE SCANLON MA, OFFICE VISIT Dawna [facility] [address], [place], [address], [facility] 5 10:13:30 Laborato ry procedur e performe d 596126803 Completed 201212/03/2013 RECORDED 02/05/20 13 2:54PM BY MELODIE SCANLON MA, ANNOTATI ON/ADDEN DUM Dawna Evangelist PA-C [address], [place], [address], [facility] 5 10:13:30 Musculos keletal symptom 02830106 Completed 201112/03/2013 STORY: UNCONTRO LLED HTN WITH NEW-ONSE T SIGNIFIC ANT LEFT ARM WEAKNESS OF EXTENSIO N/FLEXIO N AT THE ELBOW.; RECORDED 11/28/19 12 2:07PM BY MELODIE SCANLON MA, ANNOTATI ON/ADDEN DUM Dawna Evangelist PA-C [address], [place], [address], [facility] 5 10:13:29 Pain in elbow 12355383 Completed 201212/03/2013 RECORDED 09/24/19 13 2:48PM BY MELODIE SCANLON MA, BOO ON/ADDEN DUM Dawna Evangelist [facility] [address], [place], [address], [facility] 5 10:13:29 Shoulder joint pain 662025642 Completed 201212/03/2013 RECORDED 09/24/19 13 2:48PM BY MELODIE SCANLON MA, ANNOTATI ON/ADDEN DUM Dawna Evangelist PA-C [address], [place], [address], [facility] 5 10:13:29 Localize d superfic ial swelling of skin 288755461 Completed 200812/03/2013 RECORDED 12/06/19 09 2:18PM BY MELODIE SCANLON MA, ANNOTATI ON/ADDEN DUM Dawna Vegas PA-C [address], [place], [address], [facility] 5 10:13:29 Nausea 729079127 Completed 201112/03/2013 RECORDED 11/28/19 12 2:07PM BY MELODIE SCANLON MA, ANNOTROSIE ON/ADDEN DUM Dawna Vegas PA-C [address], [place], [address], [facility] 5 10:13:30 Acute pancreat itis 141663706 Completed 201212/03/2013 RECORDED 02/05/20 13 2:54PM BY MELODIE SCANLON MA, BOO ON/ADDEN DUM Dawna Vegas PA-C [address], [place], [phone], [facility] 5 10:13:29 Sprain of wrist [id number] Completed 201212/03/2013 RECORDED 02/05/20 13 2:54PM BY MELODIE SCANLON MA, BOO ON/ADDEN DUM Dawna Vegas PA-C [address], [place], [phone], [facility] 5 10:13:30 Epidermo id cyst of skin [id number] Completed 201312/03/2013 IMPRESSI ON: REASSURA NCE. IF BOTHERS HIM, CAN REFER TO GENERAL SURGEON. AT THIS POINT HE DOES NOT WANT TO DO THAT.; RECORDED 05/11/19 14 7:19AM BY BOO ELIAS ON/ADDEN DUM Dawna Vegas PA-C [address], [place], [address], [facility] 5 10:13:29 Verruca vulgaris [id number] Completed 201112/03/2013 RECORDED 11/28/19 12 2:07PM BY MELODIEAUGUSTINE SCANLON MA, ANNOTATI ON/ADDEN DUM Dawna Vegas PA-C [address], [place], [address], [facility] 5 10:13:29 Wheezing [id number] Completed 201312/03/2013 RECORDED 06/01/19 14 7:53AM BY ELENA VALLADARES MA, ANNOTATI ON/ADDEN DUM Dawna Vegas PA-C [address], [place], [address], [facility] 5 10:13:29 Shoulder tendinit is Active Dawna Vegas PA-C [address] [facility] [address], [place], [address], [facility] 5 10:13:29 Fatigue 98664979 Active Dawna Vegas PA-C [address] [facility] [address], [place], [address], [facility] 5 10:13:29 Degenera tion of lumbar interver tebral disc 09180760 Active 2013 MADDIE Gomez, [facility] 6 09:49:39 Acute sinusiti s 88643516 Completed 01/06/2017 MADDIE Gomez, [facility] 7 14:17:11 Impotenc e Active Dawna Vegas PA-C [address] [facility] [address], [place], [address], [facility] 5 10:13:29 Abdomina l pain 88731370 Completed 01/06/2017 MADDIE Gomez, [facility] 7 14:17:15 Inflamma tion of rotator cuff tendon 138942056 Active Dawna Vegas PA-C [address] [facility] [address], [place], [address], [facility] 5 10:13:29 Lumbago with sciatica 029247634 Active Marvin Lam MD [address], [place], [address], [facility] 5 12:17:43 Anabolic steroids adverse reaction 148418962 Active Marvin Lam MD [address], [place], [address], [facility] 5 12:08:12 Lumbar radiculo zahira 751681903 Active Marvin Lam MD [address], [place], [address], [facility] 6 21:16:15 Insomnia 486038162 Active Marvin Lam MD [address], [place], [address], [facility] 6 21:16:15 Obstruct gila sleep apnea syndrome 36145571 [facility] 09:[facility] Dependen ce on continuo us positive airway pressure ventilat ion 161399108 Active 2017 6-16 cm H2O [facility] 8 09:48:34 Problem Notes None recorded. Procedures Surgical History Date Name Laterality Status Provider Name and Address Organization Details Recorded Time 05/29/19 16 Unlisted procedure shoulder completed Melodie green MA [facility] 12/26/2015 09:56:11 03/28/20 15 Unlisted procedure shoulder completed Melodie green MA [facility] 12/26/2015 09:56:16 03/07/20 15 Joint Injection completed Marvin Lam MD [address], [place], [address], [facility] 03/07/2015 11:04:20 02/02/20 14 Corticosteroid Injection completed Marvin Lam MD [address] [facility] [address], [place], [address], [facility] 02/03/2014 20:18:14 04/07/20 07 Osteot dsc ant 1vrt sgm lmbr completed Melodie Alcazar-Teo green, [facility] 02/01/2014 13:52:13 Colonoscopy completed Melodie Merino os, [facility] 01/06/2017 14:00:58 Imaging Results Imaging Date Name Status LastModified by Organiz ation Details LastModified Time 10/11/2012 MRI, lumbar spine, w/wo contrast completed [facility] Information not available 12/03/2016 15:12:18 05/03/2017 sleep study, diagnostic* completed [facility] [address] [place], [address], 05/20/2017 09:49:24 10/11/2018 CT, abdomen + pelvis, w/ contrast completed [facility] [address] [place] [address], [address], 10/12/2018 07:13:33 11/10/2019 CT, abdomen + pelvis, w/o contrast completed [facility] [address] [place] [address], [address], 11/10/2019 16:13:04 Procedure Notes None recorded. Medical Equipment None Reported. Allergies Allergen ID Allergen Name Allergen Category Reaction Reaction Severity Criticality Documentation Date Start Date Code Code System Note Provider Name and Address Organization Details Recorded Time 46019 enalapril Not available cough Not available Not available 12/26/2015 2051 RxNorm Marvin Lam MD [address] [facility] [address], [place], [address], [facility] 6 10:53:29 Medications Name Sig Start Date [...] 06/16 completed RECORDED 06/16/19 08 1:57PM BY NAYELI Bowman NP, ANNOTATI ON/ADDEN DUM; Not Available [...] Available Not Available Not Available Fluarix Quad 1249-4416 (PF) 60 mcg (15 mcg x 4)/0.5 mL IM syringe 01/06 completed Not Available Not Available Not Available Vitals Date Recorded Body height Body weight Body mass index (BMI) Body temperature Oxygen saturation Oxygen saturation in Arterial blood by Pulse oximetry Heart rate Systolic blood pressure Diastolic blood pressure Provider Name and Address Organization Details Last Updated DateTime 7 185.42 cm 931203. 53 g 35.8 kg/m2 97.4 [degF] 96 % 96 % 80 /min 142 mm[Hg] 86 mm[Hg] Elena Valladares MA [facility] 7 08:42:58 Date Recorded Body height Body mass index (BMI) Body weight Body temperature Oxygen saturation Oxygen saturation in Arterial blood by Pulse oximetry Heart rate Systolic blood pressure Diastolic blood pressure Provider Name and Address Organization Details Last Updated DateTime 7 185.42 cm 31.8 kg/m2 555241. 76 g 98.1 [degF] 97 % 97 % 108 /min 152 mm[Hg] 76 mm[Hg] Melodie baltazar MA [facility] 7 14:14:10 Date Recorded Heart rate Body temperature Oxygen saturation Oxygen saturation in Arterial blood by Pulse oximetry Body height Body weight Body mass index (BMI) Systolic blood pressure Diastolic blood pressure Provider Name and Address Organization Details Last Updated DateTime 5 107 /min 97.4 [degF] 97 % 97 % 185.42 cm 846522. 25033 g 33.8 kg/m2 144 mm[Hg] 94 mm[Hg] Melodie baltazar MA [facility] 5 09:44:27 Date Recorded Body height Oxygen saturation Oxygen saturation in Arterial blood by Pulse oximetry Heart rate Body temperature Body mass index (BMI) Body weight Systolic blood pressure Diastolic blood pressure Provider Name and Address Organization Details Last Updated DateTime 6 185.42 cm 100 % 100 % 92 /min 97.2 [degF] 33.5 kg/m2 451198. 74290 g 128 mm[Hg] 88 mm[Hg] Melodie baltazar MA [facility] 6 11:07:43 Date Recorded Body height Body temperature Oxygen saturation Oxygen saturation in Arterial blood by Pulse oximetry Heart rate Body weight Body mass index (BMI) Systolic blood pressure Diastolic blood pressure Provider Name and Address Organization Details Last Updated DateTime 6 185.42 cm 98.1 [degF] 97 % 97 % 100 /min 248809. 15 g 33.4 kg/m2 138 mm[Hg] 90 mm[Hg] Melodie baltazar MA [facility] 6 09:58:33 Social History Question Answer Notes LastModified by Organizat ion Details LastModified Time Tobacco Smoking Status Never Smoker MADDIE Gutierrez [facility] 02/01/2014 13:51:48 Do You Have An Advance Directive? No Declined Information not available 04/11/2015 What Is Your Level Of Alcohol Consumption? Occasional Information not available 04/11/2015 Is Blood Transfusion Acceptable In An Emergency? 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 With Others Girlfriend, Son, Step-child Information not available 02/01/2014 Do You Take Precautions To Prevent Distracted Driving? Yes [email or web address] Information not available 11/23/2014 How Often Do You Need To Have Someone Help You When You Read Instructions, Pamphlets, Or Other Written Material From Your Doctor Or Pharmacy? Sometimes [email or web address] Information not available 11/23/2014 Have You Served In The ? No Information not available 01/06/2017 What Was The Date Of Your Most Recent Tobacco Screening? 01/06/2017 Information not available 11/19/2018 How Many Children Do You Have? 1 Information not available 02/01/2014 Do You Use Protection During Sex? No Information not available 04/11/2015 What Is Your Relationship Status? [email or web address] Information not available 11/23/2014 Seat Belts Used [...] virus, quadrivalent, preservative [address] [facility] 12/03/2016 16:01:55 Influenza, split virus, quadrivalent, preservative [address] [facility] 01/13/2018 15:22:21 Influenza, split virus, quadrivalent, PF 5 completed Not Available [facility] 05/15/2019 02:22:02 Influenza, split virus, quadrivalent, PF 6 completed Not Available [facility] 05/15/2019 02:22:04 Tdap 6 completed Not Available [facility] 05/15/2019 02:21:45 Influenza, split virus, trivalent, PF 4 completed Not Available [facility] 05/15/2019 02:21:57 Td (adult), 2 Lf tetanus toxoid, preservative free, adsorbed 6 completed Not Available [facility] 11/09/2013 13:23:19 varicella 6 completed Not Available [facility] 11/09/2013 13:23:19 pneumococcal polysaccharide PPV23 3 completed Not Available [facility] 11/09/2013 13:23:19 Influenza, split virus, trivalent, preservative 3 completed Not Available [facility] 11/09/2013 13:23:19 Past Encounters Encounter ID Performer Location Encounter Start Date Encounter Closed Date Diagnosis/Indication Diagnosis SNOMED-CT Code Diagnosis ICD10 Code Diagnosis Note [id number] autoEComm erce [address] [facility] [place] [address] 11/12/2006 00:00:00 [id number] autoEComm erce [address] [facility] [place] [address] 02/12/2007 00:00:00 [id number] autoEComm erce [address] [facility] [place] [address] 05/12/2007 00:00:00 [id number] autoEComm erce [address] [facility] [place] [address] 06/16/2007 00:00:00 [id number] autoEComm erce [address] [facility] [place] [address] 01/28/2008 00:00:00 [id number] autoEComm erce [address] [facility] [place] [address] 08/25/2008 00:00:00 [id number] autoEComm erce [address] [facility] [place] [address] 12/05/2008 00:00:00 [id number] autoEComm erce [address] [place] [address] 05/23/2009 00:00:00 [id number] autoEComm erce [address] [place] [address] 06/08/2009 00:00:00 [id number] autoEComm erce [address] [place] [address] 08/24/2009 00:00:00 [id number] autoEComm erce [address] [place] [address] 11/28/2009 00:00:00 [id number] autoEComm erce [address] [place] [address] 05/08/2010 00:00:00 [id number] autoEComm erce [address] [facility] [place] [address] 08/04/2012 00:00:00 [id number] autoEComm erce [address] [facility] [place] [address] 09/16/2012 00:00:00 [id number] autoEComm erce [address] [facility] [place] [address] 09/23/2012 00:00:00 [id number] autoEComm erce [address] [facility] [place] [address] 03/08/2013 00:00:00 [id number] autoEComm erce [address] [facility] [place] [address] 03/24/2013 00:00:00 [id number] autoEComm erce [address] [place] [address] 05/11/2013 00:00:00 [id number] autoEComm erce [address] [facility] [place] [address] 06/01/2013 00:00:00 [id number] Main Office [address] [place] [address] 02/01/2014 13:42:42 02/01/2014 14:48:36 Needs influenza immunization 783875125 Anxiety disorder 295442053 Shoulder tendinitis 861039817 Hyperlipidemia 98164985 Fatigue 03445469 [id number] Milo Galo [place] Main Office [address] [place] [address] 06/22/2014 11:14:24 06/22/2014 12:22:10 Adult health examination 187580766 Essential hypertension 40632550 Restless legs 76022658 Cough 35307406 Acute sinusitis 95295619 Impotence 283380758 [id number] Main Office [address] [place] [address] 11/23/2014 12:44:46 11/23/2014 13:28:21 Abdominal pain 77421851 ? of resolving pancreatit is due to excessive alcohol use, hx of alcohol induced pancreatit is, pt will get labs, looks well, is hydrated, pain resolved, he knows to abstain from alcohol and return for eval if any return of pain [id number] Marvin Lam MD Main Office [address] [address] 03/07/2015 10:20:59 03/07/2015 10:58:46 Needs influenza immunization 852966567 Z23 Inflammati on of rotator cuff tendon 043906736 M65.812 [id number] Alek Lindsay MD Main Office [address] [address] 03/24/2015 09:13:11 03/24/2015 09:40:19 Lumbago with sciatica 383559335 M54.42 Lumbar disc disease exacerbati on L. with sciatica. Start Prednisone taper as directed. Cyclobenza prone if tolerated TID for 5 days and Oxycodone PRN. F/u with PCP if symptoms persist or worsen. [id number] Marvin Lam MD Main Office [address] [address] 04/11/2015 09:37:04 04/11/2015 10:44:16 Degeneration of lumbar intervertebral disc 97200204 M51.36 Anabolic s teroids adverse reaction 884626569 T38.7X5S Penitentiary use of anabolic steroids. Now on testostero ne replacemen t with Dr. 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 [id number] Marvin Lam MD Main Office [address] [place] [address] [place] [address] 07/12/2015 10:52:20 07/12/2015 11:59:17 Restless legs 86203468 G25.81 Essential hypertension 68842913 I10 Lumbar radiculopathy 128 896335 M54.16 Insomnia 728603351 G47.0 0 [id number] Marvin Lam MD Main Office [address] [place] [address] [place] [address] 12/26/2015 09:43:17 12/26/2015 10:55:17 Adult health examination 180513077 Z00.00 Essential hypertension 07754111 I10 Needs infl uenza immunization 088958964 Z23 Administra tion of diphtheria, pertussis, and tetanus vaccine 584127383 Z23 [id number] Mansoor luna Main Office [address] [place], [place] [address] [address] 05/02/2016 08:26:46 05/02/2016 09:13:28 Snoring 71734615 R06.83 Patient understand s he needs to [...] to his feeling of unrest. Restless legs 03991517 G 25.81 Will increase requip to 3mg [...] in 1 month for recheck. Essential hypertension 57374458 I10 Bp not greatly controlled on current meds, possibilit y of sleep apnea likely a contributi ng factor, I stressed the importance of having sleep study and getting sleep apnea treated. [id number] Marvin Lam MD Main Office [address] [place], [place] [address] [address] 01/06/2017 13:51:55 01/06/2017 15:08:02 Essential hypertension 02812226 I10 Anxiety state 708167320 F41.1 Restless legs 35865094 G 25.81 Major depr essive disorder 963485631 F32.9 Chronic al coholism in remission 383467144 F10.21 Recently stopped drinking Health Concerns Section Related Observation LastModified by Organization Detai ls LastModified Time None Recorded Concern Status LastModified by Organization Details LastModified Time None Recorded Advance Directives Directive N: declined Payers Encounter Date Sequence Insurance Name Policy Number Policy Correia Covered Member ID Correia Member ID Guarantor Name 04/11/2015 1 [facility] [id number] 3 Konrad Jonas Sperlonga [id number] Konrad Sperlonga 07/12/2015 1 [facility] [id number] Konrad Jonas Sperlonga [id number] Konrad Sperlonga 12/26/2015 1 [facility] [id number] Konrad Jonas Sperlonga [id number] Konrad Sperlonga 05/02/2016 1 [facility] [id number] 3 Konrad Jonas Sperlonga [id number] Konrad Sperlonga 01/06/2017 1 [facility] [id number] 3 Konrad Jonas Sperlonga [id number] Konrad Sperlonga Notes Date Note Type Note [...] have his shoulder fixed by ortho in [facility]. Local orthopedics ([facility]) do not wish to attempt repair. Konrad states that severe pain has been disrupting sleep. He did not have benefit from use steroids by tapering dose. He plans to see [facility] on May 02 for evaluation of lumbar radiculopathy. 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 Never had sleep test. Now states that the medication is no longer effective. Marvin Lam MD [address] [address], [place], [address], [facility] [place] 07/12/2015 21:16:22 12/26/2015 text/html Hypertension F/UReported [...] from Dr. Dacosta. 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 Mansoor mcmahon, [facility] [place] 05/02/2016 13:04:37 01/06/2017 text/html Anxiety/Depressi onRepo [...] refill his RLS meds. Marvin Lam MD [address] [address], [place], [address], [facility] 01/07/2017 08:40:40
== END 2024-08-05 09:56 | disposition home or self-care (01) ==
LOC: HO.HOS 09:33
PROVIDERS: PCP Physician Assistant; Visit Provider Physician Assistant
DX: M75.101 Unspecified rotator cuff tear or rupture of right shoulder, not specified as traumatic (principal)
CPT/HCPCS: 99024

== ENCOUNTER → 2024-08-05 09:33 | Outpatient (BNVA) | payer OTHER, SELFPAY | PROVIDERS: PCP Physician Assistant; Visit Provider Physician Assistant | DX: Z47.89 Encounter for other orthopedic aftercare (principal); Z98.890 Other specified postprocedural states | CPT/HCPCS: 99212 ==

== ENCOUNTER 2024-08-11 09:04 | Day surgery (SDC) | payer OTHER, SELFPAY ==
[2024-08-09 07:43] VITALS: BMI 35.5
[2024-08-11] VITALS (12 sets, daily range): BP systolic 108–132; BP diastolic 55–76; PULSE 63–79; RESP 15–20; TEMP 36.3; O2SAT 92–97; BMI 33.2
--- NOTE | 2024-08-11 09:12 | PC.NURSE ---
Patient in preop. No repeat lab work needed prior to surgery per anesthesia Dr. Cabello.
[2024-08-11] MEDS: Lactated Ringers 1,000 ML 50 ML IVCONT (09:30)
[2024-08-11 09:37] LABS: Glucose, Whole Blood 132 mg/dL (60-115)
--- NOTE | 2024-08-11 10:18 | P.CONAN_ITS ---
HPI - Anesthesia Eval Consult details Narrative: right rot cuff PMFSH Active Problems Active Problems: All Active Problems Rotator cuff tear, right (Acute) Rotator cuff insufficiency of right shoulder (Acute) Fatty liver (Acute) Right shoulder pain (Acute) ADD (attention deficit disorder) (Acute) History of anabolic steroid use (Acute) Hypomagnesemia (Acute) Thrombocytopenia (Acute) Elevated LFTs (Acute) Dyslipidemia (Acute) CKD stage 3a, GFR 45-59 ml/min (Acute) Hypertension (Acute) Uncontrolled diabetes mellitus with hyperglycemia (Acute) Low testosterone (Acute) Fatigue (Acute) Restless leg syndrome (Acute) SEE on CPAP (Acute) Past Medical History Medical History Restless leg syndrome ADD (attention deficit disorder) Dyslipidemia CKD (chronic kidney disease) Sleep apnea Diabetes HTN (hypertension) Family History Family history of problems with anesthesia: No Surgical History Surgical History History of surgery on arm Hx of repair of rotator cuff History of back surgery Hx of elbow surgery Hx of hernia repair History of Problems with Anesthesia: No Social History Social History Housing: House Are you a primary career services coordinator to a significant other at home: No Do you presently have visiting nurse or other home services: No Alcohol intake: current Alcohol intake frequency: a few times a week Patient Tobacco Use Status: Never used Tobacco e-Cigarette/Vaping Use: Never Used Second Hand Smoke Exposure: No Use of substances other than those prescribed or required for medical reasons: No Have you been hit, kicked, punched, or otherwise hurt by someone within the past year? 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 Current occupational exposures/hazards: Yes (smoke inhalation ) Cognitive needs: No Hearing needs: No Vision needs: Yes Meds Allergies Allergy/AdvReac Type Severity Reaction Status Date / Time No Known Allergies Allergy Verified 08/11/24 09:10 Active Medications: Current Medications Lactated Ringer's (Lr) 1,000 mls @ 50 mls/hr IVCONT .Q20H ONOFRE Last Admin: 08/11/24 09:30 Dose: 50 mls/hr Home Medications ?Medication ?Instructions ?Recorded ?Confirmed ?Last Taken ?Type amlodipine 5 mg tablet 5 mg PO DAILY 02/18/24 08/11/24 08/11/24 History metoprolol succinate 50 mg 50 mg PO DAILY 02/18/24 08/11/24 08/11/24 History tablet,extended release 24 hr olmesartan 40 mg tablet 40 mg PO DAILY 02/18/24 08/11/24 Unknown History Exam Height,Weight and Vital Signs: Height 6 ft 1 in Weight 114 kg Last Vital Signs Temp 97.3 F 08/11/24 09:18 Pulse 79 08/11/24 09:18 Resp 16 08/11/24 09:18 BP 127/76 08/11/24 09:18 Pulse Ox 96 08/11/24 09:18 O2 Del Method Room Air 08/11/24 09:18 Pertinent Lab Results Pertinent Lab Results: Laboratory Tests 08/11/24 09:32 POC Glucose 132 H Airway Mallampati Class: II TM Dist: >3cm Neck ROM: Full Heart: rrr Lungs: cta Assessment and Plan Assessment Anesthesia Assessment: Anesthesia Plan Discussed and Chart Reviewed Final Anesthetic Review Family History of Problems with Anesthesia: No History of Problems with Anesthesia: No NPO: Yes ASA Class: III Final Preanesthetic Review: No Changes in Pt Med Stat, Meds/Allgs Chart Reviewed, Consent Obtained/Reviewed and Anes Risks/Benef Reviewed Patient Risk: Intermediate Procedure Risk: Intermediate Anesthetic Plan Anesthetic Plan: GA, Regional Block and Agree w/ Assess. and Plan Disposition: Standard PACU
--- NOTE | 2024-08-11 11:37 | MHC.SHP ---
Pre-Procedural Eval Section A - 24 Hr Update-Section A only Date of Service: 08/11/24 The patient is an INPATIENT: No Changes since office visit: No Cold of Flu in the past 2 weeks, No New Medical Problems, No Changes in Medication and No Patient answered all questions The patient has been examined within 24 hours of the surgical procedure. The History & Physical has been completed within 30 days and I have reviewed it.: Yes Section B - Complete if H&P > 30 days Chief Complaint: Complete rotator cuff tear or rupture of right Allergies: Allergies Allergy/AdvReac Type Severity Reaction Status Date / Time No Known Allergies Allergy Verified 08/11/24 09:10 Plan I have reviewed the history and physical and performed a pertinent physical examination on my patient. No changes have occurred unless specified. Time Spent With Patient Time: Total time managing care of this patient today ____ minutes.
[2024-08-11] MEDS: ceFAZolin Sodium/Dextrose,Iso 2 GM/50 ML PIGGYBACK IV (12:12)
--- NOTE | 2024-08-11 13:41 | P.BOP_ITS ---
Brief Operative Note Date of Service: 08/11/24 Pre-op diagnosis: Right shoulder RTC tear, massive Post-op diagnosis: same Procedure: Right shoulder RTC repair + subscapularis Implants: [employer]domo [employer] Nephew double loaded Helacoil x 3, 5.5 knotless Helacoil x 2, Large Regeneten collagen bioinductive patch Surgeon: Manjit Fischer MD Anesthesia: GETA and regional Was an Envelope Patternmaker used for this Procedure?: Yes Envelope Patternmaker: Leticia Baldwin Estimated blood loss (mL): 25 IV fluids (mL): 1,200 Pathology: none sent Condition: stable Disposition: PACU
[2024-08-11] MEDS: fentaNYL citrate/PF 100 MCG/2 ML VIAL 25 MCG IVPUSH ×4 (14:37→14:53)
[2024-08-11] MEDS: oxyCODONE HCl Immed Release 5 MG TABLET PO (15:18)
--- NOTE | 2024-08-12 16:48 | P.OP_ITS ---
Operative Note Operative Note Date of Service: 08/11/24 Narrative: Date of Service: 08/11/24 Pre-op diagnosis: Right shoulder RTC tear, massive Post-op diagnosis: same Procedure: Right shoulder RTC repair + subscapularis Implants: [employer] double loaded Helacoil x 3, 5.5 knotless Helacoil x 2, Large Regeneten collagen bioinductive patch Surgeon: Manjit Fischer MD Anesthesia: GETA and regional Was an Ur Coordinator used for this Procedure?: Yes Ur Coordinator: Leticia Baldwin Estimated blood loss (mL): 25 IV fluids (mL): 1,200 Pathology: none sent Condition: stable Disposition: PACU Procedure in detail: Patient was brought to the operating room and placed the the beach chair position. All bony prominences were well padded and the limb was prepped and draped in standard sterile fashion. A time out was called to identify proper site, proper procedure and proper surgeon. IV antibiotics per weight were administered. I began by making a posterolateral stab incision with a 15 blade. A blunt trochar was placed into the glenohumeral joint and I insufflated the joint with saline and a 30 degree arthroscope was placed. I established an outside- in anterior portal just distal to the biceps tendon. I then began my inspection of the glenohumeral joint. There was a large degenerative SLAP tear at the biceps anchor as well as a high-grade partial tear of the biceps tendon just proximal to the bicipital groove.. There were minimal cartilage changes at the inferior glenoid without humeral head changes. There was a full thickness undersurface RTC tear. The subcapularis was torn over the proximal 3rd at the humeral attachment site. I debrided the loose cartilage of the glenoid and the degenerative labral tearing and performed a biceps tenotomy. I then placed 2 loop sutures through the superior 3rd of the subscapularis tendon just medial to the insertion site and then debrided the footprint down with a bur. I placed 5.0 knotless anchor into the bare area reapproximating the normal anatomy of the subscapularis. I then removed the trochar and entered the subacromial space. A direct lateral portal was then established and I performed a bursectomy. The cuff was then examined. There was a full thickness tear of the supra and infraspinatus with retraction. Surprisingly the tear was mobile. I placed three medial row double loaded anchors after using a tap just adjacent to the articular cartilage and then brought the suture limbs (12) through the medial cuff. I then debrided the bare area down to bleeding bone and, using a cross bridge configuration, brought 6 limbs to each of two lateral 5.5 anchors. This re-approximated the cuff anatomy anatomically. Because of the severity of the tear a large [employer] implant was inserted via a lateral portal and held in place with soft tissue mitch medially and bone mitch lateral. Once I was satisfied with the repair final images were captured and I removed all instrumentation. Portals were closed with nylon. Patient was placed in an abduction sling, extubated and brought to the recovery room in stable condition. There were no known complications.
== END 2024-08-11 16:07 | disposition home or self-care (01) ==
LOC: HO.SSS 09:05
PROVIDERS: PCP Physician Assistant; Visit Provider Orthopaedic Surgery
PROC: (CPT 29827; principal; 2024-08-11 11:10)
DX: S46.011A Strain of muscle(s) and tendon(s) of the rotator cuff of right shoulder, initial encounter (principal); S46.211A Strain of muscle, fascia and tendon of other parts of biceps, right arm, initial encounter; S43.431A Superior glenoid labrum lesion of right shoulder, initial encounter; W19.XXXA Unspecified fall, initial encounter; Y93.89 Activity, other specified; Y92.9 Unspecified place or not applicable; Y99.0 Civilian activity done for income or pay; E11.22 Type 2 diabetes mellitus with diabetic chronic kidney disease; I12.9 Hypertensive chronic kidney disease with stage 1 through stage 4 chronic kidney disease, or unspecified chronic kidney disease; N18.31 Chronic kidney disease, stage 3a; Z79.85 Long-term (current) use of injectable non-insulin antidiabetic drugs; Z79.84 Long term (current) use of oral hypoglycemic drugs; Z79.899 Other long term (current) drug therapy; Z98.890 Other specified postprocedural states
CPT/HCPCS: 29827; 29822; 82947; C1713; C1763; J0131; J0171; J0665; J0690; J1100; J1885; J2250; J2371; J2405; J2704; J3010

== ENCOUNTER → 2024-08-11 09:04 | Outpatient (BNV) | payer OTHER, SELFPAY | PROVIDERS: PCP Physician Assistant; Visit Provider Orthopaedic Surgery | DX: S46.011A Strain of muscle(s) and tendon(s) of the rotator cuff of right shoulder, initial encounter (principal); S43.431A Superior glenoid labrum lesion of right shoulder, initial encounter | CPT/HCPCS: 29827 ==

== ENCOUNTER 2024-08-19 13:30 | Outpatient (AMB) | payer OTHER, SELFPAY ==
--- NOTE | 2024-08-19 13:35 | A.OFFVIS_ITS ---
Vital Signs 08/19/24 13:40 Height 6 ft 1 in Weight 250 lb BMI 33.0 Handedness Right Intake Visit Reasons: PO RT RTC repair 08/11/24 NE Intake Note: Konrad is a 53 year old right hand dominant male who presents today for a post op appointment for his right shoulder RTC repair 08/11/24 NE. Patient reports he is having throbbing pain that is radiating to the posterior part of his right shoulder and his bicep. At night his symptoms are exacerbated more in the back and bicep so he is unable to get a full night of rest. He was prescribed 6 tablets of Morphine however they only provided him with 4 due to it not being processed through workers comp patient says. He refilled his oxycodone- acetaminophen prescription however he says this is not touching the pain. Allergies No Known Allergies Allergy (Verified 08/19/24 13:40) HPI HPI PO RT RTC repair 08/11/24 NE: Details: Mr. Beckham this is a 53-year-old male who presents to the office today status post right shoulder large rotator cuff repair performed on 08/11/[address] Fischer. He presents to the office today with his . He is wearing the sling appropriately. He reports that he has had a great deal of pain after surgery and difficulty sleeping. At his preoperative appointment he wanted to attend physical therapy at an outside facility in a physical therapy order was provided to him. Unfortunately, he does not have any physical therapy appointment set up at this time. FORMERLY [facility], [facility]1983 Medical History Restless leg syndrome ADD (attention deficit disorder) Dyslipidemia CKD (chronic kidney disease) Sleep apnea Diabetes HTN (hypertension) Surgical History History of surgery on arm Hx of repair of rotator cuff History of back surgery Hx of elbow surgery Hx of hernia repair Social History Housing: House Are you a primary healthcare applications analyst to a significant other at home: No Do you presently have visiting nurse or other home services: No Alcohol intake: current Alcohol intake frequency: a few times a week Patient Tobacco Use Status: Never used Tobacco e-Cigarette/Vaping Use: Never Used Second Hand Smoke Exposure: No service: No Current occupational status: employed 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 Sutures intact. Forward flexion abduction to 45 degrees. External rotation at neutral. NVI. Assessment & Plan Assessment & Plan (1) S/P right rotator cuff repair: Code(s): Z98.890 - Other specified postprocedural states Category: Surgical Plan Mr. Beckham this is a 53-year-old male who presents to the office today status post right shoulder large rotator cuff repair performed on 08/11/[address] Fischer. He presents to the office today with his . He is wearing the sling appropriately. He reports that he has had a great deal of pain after surgery and difficulty sleeping. At his preoperative appointment he wanted to attend physical therapy at an outside facility in a physical therapy order was provided to him. Unfortunately, he does not have any physical therapy appointment set up at this time. On the office today, patient's sutures removed and Steri-Strips were applied. He will remain in the sling for a total of 6 weeks postoperatively. I reiterated the importance of attending physical therapy and offered to reprint the prescription however the patient states he has it at home. I also offered to assist with scheduling physical therapy here at [facility] [place] but the patient declined. He will follow up in [address] Fischer, sooner if needed. Coding Level of Care Code Global (52388) Diagnoses S/P right rotator cuff repair Z98.890
[2024-08-19 13:40] VITALS: BMI 33.0
--- OUTSIDE RECORDS SUMMARY | 2024-08-19 15:52 | XMS_ITS | Clinical Summary ---
Author Organization [facility] ity Address [address] [place] [address] Care Team Providers Care Table Games Dual Rate Supervisor Name Role Phone Unavailable Primary Care Provider [...] - 2023-2 5 season) 2023 Influenza Vaccine (Season Ended) 2024 HIB Vaccines Aged Out No longer eligi [...]
--- OUTSIDE RECORDS SUMMARY | 2024-08-19 15:53 | XMS_ITS | Data Portability ---
Author Organization [facility] Office Address [address] [place] [address] Care Team Providers Care Certified Orthotist/Pedorthist Name Role Phone MARVIN LAM Primary Care Provider [facility] OTHER [facility] [...] pain. We reviewed the report from the [place] pharmacy monitoring that shows Konrad has filled [...] sleep medici ne referr al 2016 017 [facility], [address] [place] [address], [address], 7 11:41:11 sleep medici ne referr al 2016 017 [facility] Sleep Medicine [facility], [address] [place] [address], [address], 7 10:33:10 ophtha lmolog ist referr al 2015 016 [facility] Skinny Trinh MD, [address] [place] [address], [address], 7 11:51:20 sleep medici ne referr al 2015 016 [facility], [address] [place] [address], [address], 6 11:23:29 Procedures None record ed. Surgeries None record ed. Imaging polyso mnogra m - hx restle ss legs, insomn ia, snorin g, not feelig n rested . 2016 017 [facility], [address] [place] [address], [address], 7 13:18:46 Medication Orders sertra line 100 [...] By Organization Details Last Modified Time 04/11/2015 [id number] Medications were reviewed at this visit and reconciled. Changes in the active medications are reflected in the current medication list and discussed with patient (or caregiver) with instructions for follow up as needed. Printed medication list provided to the patient as part of the visit summary. [facility] Not available 04/11/2015 18:12:13 07/12/2015 [id number] restless legs syndrome: care instructions [facility] Not available 07/12/2015 21:16:16 insomnia: care instructions [facility] Not available 07/12/2015 21:16:16 high blood pressure: care instructions [facility] Not available 07/12/2015 21:16:16 learning about high blood pressure [facility] Not available 07/12/2015 21:16:16 12/26/2015 [id number] high blood pressure: care instructions ckrym Not [...] medication. phelmuth Not available 12/26/2015 13:40:17 05/02/2016 [id number] Call or return for worsening or concerns. jthabet Not available 05/02/2016 09:05:43 I have reviewed the note and agree with the assessment and plan of care. 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 [facility] Not Available 2016 15:12:18 05/16/19 18 05/03/2017 sleep study , diagn ostic * No observ ation record ed. [facility] [address] [place], [address], 05/20/2017 09:49:24 10/12/19 19 10/11/2018 CT, abdom en + pelvi s, w/ contr ast No observ ation record ed. [facility] [address] [place], [address], 10/12/2018 07:13:33 11/10/19 20 11/10/2019 CT, abdom en + pelvi s, w/o contr ast No observ ation record ed. [facility] [address] [place], [address], 11/10/2019 16:13:04 Result Notes None recorded. Problems Name Problem SNOMED Code Status Onset Date Resolution Date Notes Provider Name and Address Organization Details Recorded Time Epigastr ic pain 02392780 Completed 201211/09/2013 RECORDED 03/24/20 13 9:55AM BY ROX HERNANDEZ MA, BOO ON/SANDHYA Vegas PA-C [address], [place], [address], [facility] 5 10:13:30 Left lower quadrant pain 241322379 Completed 201111/09/2013 RECORDED 11/28/19 12 2:07PM BY MELODIE SCANLON MA, MEHNAZATI ON/ADDEN DUM Dawna Vegas PA-C [address], [place], [address], [facility] 5 10:13:30 Mucopuru lent conjunct ivitis 896447896 Completed 201211/09/2013 RECORDED 09/17/19 13 10:18AM BY MELODIE SCANLON MA, ANNOTATI ON/ADDEN DUM Dawna Evangelist PERKINS-C [address], [place], [address], [facility] 5 10:13:29 Acute sinusiti s 23717395 Completed 201311/09/2013 RECORDED 06/01/19 14 7:53AM BY ELENA VALLADARES MA, ANNOTATI ON/ADDEN DUM MADDIE Gomez, [facility] 7 14:17:11 Alcohol abuse 94451487 Active 2013 MADDIE Gomez, [facility] 6 09:49:25 Drug abuse 83802819 Active 2013 MADDIE Gomez, [facility] 6 09:49:35 Adult health examinat ion Completed 201211/09/2013 RECORDED 09/24/19 13 2:48PM BY MELODIE SCANLON MA, ANNOTATI ON/ADDEN DUM Dawna Evangelist MCCORMACK [address], [place], [address], [facility] 5 10:13:30 Anxiety disorder 160709982 Active 2013 MADDIE Gomez, [facility] 6 09:49:28 Exposure to organism Completed 201111/09/2013 RECORDED 11/28/19 12 2:07PM BY MELODIE SCANLON MA, ANNOTATI ON/ADDEN DUM Dawna Evangelist PARRAC [address], [place], [address], [facility] 5 10:13:30 Cough [id number] Completed 201305/20/2017 IMPRESSI ON: SUSPECT PERTUSSI S. TOO LATE FOR TREATMEN T. ONLY TEST THAT CAN BE DONE AT THIS POINT IS SERUM. CXR TO R/O PNEUMONI A. SPIROMET RY SHOWS NO EVIDENCE OF OBSTRUCT ION SO DOUBT PREDNISO NE WOULD HELP; RECORDED 06/01/19 14 8:45PM BY MADDIE ABRAMS, OFFICE VISIT Melodie baltazar MA null, [facility] 8 09:48:50 Diarrhea 93259339 Completed 201111/09/2013 RECORDED 11/28/19 12 2:07PM BY MELODIE SCANLON MA, ANNOTATI ON/ADDEN DUM Dawna Evangelist [facility] [address] [facility] [address] [address], [place], [address], [facility] 5 10:13:30 Inflamma tory disease of liver 720436446 Completed 201211/09/2013 RECORDED 02/05/20 13 2:54PM BY MELODIE SCANLON MA, BOO ON/ADDEN DUM Dawnawendy [facility]KINS-C [address], [place], [address], [facility] 5 10:13:29 Blood chemistr y outside referenc e range 411816681 Completed 201211/09/2013 RECORDED 02/05/20 13 2:54PM BY MELODIE SCANLON MA, ANNOTATI ON/ADDEN DUM Dawna Evangelist [facility] [address], [place], [address], [facility] 5 10:13:30 Follow-u p encounte r Completed 201311/09/2013 RECORDED 05/11/19 14 7:19AM BY MEHNAZ ELIASATI ON/ADDEN DUM Dawna [facility] [address], [place], [address], [facility] 5 10:13:30 [facility] hyperten juan 25756323 Completed 200911/09/2013 RECORDED 08/25/19 10 7:44AM BY MELODIE SCANLON MA, ANNOTATI ON/ADDEN DUM MADDIE Gomez, [facility] 7 14:17:23 Malaise and fatigue 985101003 Completed 201211/09/2013 RECORDED 09/24/19 13 2:48PM BY EMLODIE SCANLON MA, ANNOTATI ON/ADDEN DUM Dawna Vegas [facility] [address], [place], [address], [facility] 5 10:13:29 Influenz a vaccine needed 75659955240 06 Completed 201211/09/2013 RECORDED 03/08/20 13 11:28AM BY MELODIE SCANLON MA, OFFICE VISIT Dawna Vegas [facility] [address], [place], [address], [facility] 5 10:13:30 Gastroes ophageal reflux disease 147435675 Active 2013 MADDIE Gomez, [facility] 6 09:49:31 Hyperlip idemia 02087722 Active 2013 MADDIE Gomez, [facility] 7 14:17:20 [facility]ia [facility] hyperten juan 81890427 Active 2013 MADDIE Gomez, [facility] 7 14:17:23 Hypokale prince 93974634 Active 2013 MADDIE Gomez, [facility] 6 09:50:02 Knee pain Active 2013 Melodie baltazar [place] null, [facility] 6 09:49:46 Laborato ry procedur e performe d 043014000 Completed 201211/09/2013 RECORDED 02/05/20 13 2:54PM BY MELODIE SCANLON MA, ANNOTATI ON/ADDEN DUM Dawna Evangelist PA-C [address], [place], [address], [facility] 5 10:13:30 Musculos keletal symptom 21766530 Completed 201111/09/2013 STORY: UNCONTRO LLED HTN WITH NEW-ONSE T SIGNIFIC ANT LEFT ARM WEAKNESS OF EXTENSIO N/FLEXIO N AT THE ELBOW.; RECORDED 11/28/19 12 2:07PM BY MELODIE SCANLON MA, ANNOTATI ON/ADDEN DUM Dawna Evangelist [facility] [address], [place], [address], [facility] 5 10:13:29 Pain in elbow 63500012 Completed 201211/09/2013 RECORDED 09/24/19 13 2:48PM BY MELODIE SCANLON MA, ANNOTROSIE ON/ADDEN DUM Dawna Evangelist PA-C [address], [place], [address], [facility] 5 10:13:29 Shoulder joint pain 779497893 Completed 201211/09/2013 RECORDED 09/24/19 13 2:48PM BY MELODIE SCANLON MA, ANNOTROSIE ON/ADDEN DUM Dawna Evangelist PA-C [address], [place], [address], [facility] 5 10:13:29 Lipoma 73340809 Active 2013 Melodie baltazar [place] null, [facility] 7 14:17:27 Localize d superfic ial swelling of skin 105837258 Completed 200811/09/2013 RECORDED 12/06/19 09 2:18PM BY MELODIE SCANLON MA, ANNOTATI ON/ADDEN DUM Dawna Vegas CO-C [address], [place], [address], [facility] 5 10:13:29 Nausea 596489785 Completed 201111/09/2013 RECORDED 11/28/19 12 2:07PM BY MELODIE SCANLON MA, ANNOTATI ON/ADDEN DUM Dawna Vegas PA-C [address], [place], [address], [facility] 5 10:13:30 Patient status finding 435418253 Completed 201312/26/2015 MADDIE Gomez, [facility] 6 09:49:19 Acute pancreat itis 204714874 Completed 201211/09/2013 RECORDED 02/05/20 13 2:54PM BY MELODIE SCANLON MA, ANNOTATI ON/ADDEN DUM Dawna [facility] [address], [place], [address], [facility] 5 10:13:29 Skin sensatio n disturba nce 64423543 Completed 201305/20/2017 MADDIE Gomez, [facility] 8 09:49:12 Psychose xual dysfunct ion associat ed with inhibite d libido 511529491 Active 2013 MADDIE Gomez, [facility] 6 09:50:08 Restless legs 13248420 Active 2013 MADDIE Gomez, [facility] 6 09:49:58 Rhabdomy olysis 054727087 Active 2013 MADDIE Gomez, [facility] 6 09:49:33 Sprain of wrist 07195149 Completed 201211/09/2013 RECORDED 02/05/20 13 2:54PM BY MELODIE SCANLON MA, BOO ON/ADDEN DUM Dawnawendy PARRAC [address], [place], [address], [facility] 5 10:13:30 Epidermo id cyst of skin 672910416 Completed 201311/09/2013 IMPRESSI ON: REASSURA NCE. IF BOTHERS HIM, CAN REFER TO GENERAL SURGEON. AT THIS POINT HE DOES NOT WANT TO DO THAT.; RECORDED 05/11/19 14 7:19AM BY BOO ELIAS ON/ADDEN DUM Dawnawendy PERKINS-C [address], [place], [address], [facility] 5 10:13:29 Injury of ulnar nerve 07372734 Completed 199705/20/2017 DATE: 1997; ; RIGHT WRIST MADDIE Gomez, [facility] 8 09:49:09 Verruca vulgaris 27085442 Completed 201111/09/2013 RECORDED 11/28/19 12 2:07PM BY MELODIE SCANLON MA, BOO ON/ADDEN DUM Dawna [facility] [address], [place], [address], [facility] 5 10:13:29 Wheezing 25480794 Completed 201311/09/2013 RECORDED 06/01/19 14 7:53AM BY ELENA VALLADARES MA, ANNOTATI ON/ADDEN DUM Dawna Vegas PA-C [address], [place], [address], [facility] 5 10:13:29 Epigastr ic pain 22588058 Completed 201212/02/2013 RECORDED 03/24/20 13 9:55AM BY ROX HERNANDEZ MA, ANNOTATI ON/ADDEN DUM Dawna Vegas PA-C [address], [place], [address], [facility] 5 10:13:30 Left lower quadrant pain 769302754 Completed 201112/02/2013 RECORDED 11/28/19 12 2:07PM BY MELODIE SCANLON MA, ANNOTATI ON/ADDEN DUM Dawna Vegas PA-C [address], [place], [address], [facility] 5 10:13:30 Mucopuru lent conjunct ivitis 691395565 Completed 201212/02/2013 RECORDED 09/17/19 13 10:18AM BY MELODIE SCANLON MA, ANNOTATI ON/ADDEN DUM Dawna Vegas PA-C [address], [place], [address], [facility] 5 10:13:29 Acute sinusiti s 56500340 Completed 201312/02/2013 RECORDED 06/01/19 14 7:53AM BY ELENA VALLADARES MA, ANNOTATI ON/ADDEN DUM Melodie baltazar MA [facility] 7 14:17:11 Adult health examinat ion Completed 201212/02/2013 RECORDED 09/24/19 13 2:48PM BY MELODIE SCANLON MA, ANNOTATI ON/ADDEN DUM Dawna Vegas PA-C [address], [place], [address], [facility] 5 10:13:30 Exposure to organism Completed 201112/02/2013 RECORDED 11/28/19 12 2:07PM BY MELODIE SCANLON MA, BOO ON/ADDEN DUM Dawna Vegas PA-C [address], [place], [address], [facility] 5 10:13:30 Cough 44018927 Completed 201312/02/2013 IMPRESSI ON: SUSPECT PERTUSSI S. TOO LATE FOR TREATMEN T. ONLY TEST THAT CAN BE DONE AT THIS POINT IS SERUM. CXR TO R/O PNEUMONI A. SPIROMET RY SHOWS NO EVIDENCE OF OBSTRUCT ION SO DOUBT PREDNISO NE WOULD HELP; RECORDED 11/06/19 14 8:05AM BY MELODIE SCANLON MA, BOO ON/ADDEN DUM Melodie baltazar MA null, [facility] 8 09:48:50 Diarrhea 41355945 Completed 201112/02/2013 RECORDED 11/28/19 12 2:07PM BY MELODIE SCANLON MA, ANNOTATI ON/ADDEN DUM Dawna Vegas PA-C [address], [place], [address], [facility] 5 10:13:30 Inflamma tory disease of liver 235948513 Completed 201212/02/2013 RECORDED 02/05/20 13 2:54PM BY MELODIE SCANLON MA, ANNOTATI ON/ADDEN DUM Dawna Vegas PA-C [address], [place], [address], [facility] 5 10:13:29 Blood chemistr y outside referenc e range 222781766 Completed 201212/02/2013 RECORDED 02/05/20 13 2:54PM BY MELODIE SCANLON MA, ANNOTATI ON/ADDEN DUM Dawna [facility] [address], [place], [address], [facility] 5 10:13:30 Follow-u angela encounte r Completed 201312/02/2013 RECORDED 05/11/19 14 7:19AM BY JM CAI I ANNOTATI ON/ADDEN DUM Dawna [facility] [address], [place], [address], [facility] 5 10:13:30 Essentia l hyperten juan 50014417 Completed 200912/02/2013 RECORDED 08/25/19 10 7:44AM BY MELODIE SCANLON MA, ANNOTATI ON/ADDEN DUM MADDIE Gomez, [facility] 7 14:17:23 Malaise and fatigue 878620761 Completed 201212/02/2013 RECORDED 09/24/19 13 2:48PM BY MELODIE SCANLON MA, ANNOTATI ON/ADDEN DUM Dawna [facility] [address], [place], [address], [facility] 5 10:13:29 Influenz a vaccine needed 00424170529 06 Completed 201212/02/2013 RECORDED 03/08/20 13 11:28AM BY MELODIE SCANLON MA, OFFICE VISIT Dawna Vegas CO-C [address], [place], [address], [facility] 5 10:13:30 Flatulen ce, eructati on and gas pain 329340824 Completed 201305/20/2017 MADDIE Gomez, [facility] 8 09:49:18 Laborato ry procedur e performe d 689667415 Completed 201212/02/2013 RECORDED 02/05/20 13 2:54PM BY MELODIE SCANLON MA, ANNOTATI ON/ADDEN DUM Dawna Evangelist PA-C [address], [place], [address], [facility] 5 10:13:30 Musculos keletal symptom 15525718 Completed 201112/02/2013 STORY: UNCONTRO LLED HTN WITH NEW-ONSE T SIGNIFIC ANT LEFT ARM WEAKNESS OF EXTENSIO N/FLEXIO N AT THE ELBOW.; RECORDED 11/28/19 12 2:07PM BY MELODIE SCANLON MA, ANNOTROSIE ON/ADDEN DUM Dawna Evangelist PA-C [address], [place], [address], [facility] 5 10:13:29 Pain in elbow 35967697 Completed 201212/02/2013 RECORDED 09/24/19 13 2:48PM BY MELODIE SCANLON MA, ANNOTROSIE ON/ADDEN DUM Dawna Evangelist PA-C [address], [place], [address], [facility] 5 10:13:29 Shoulder joint pain 000296720 Completed 201212/02/2013 RECORDED 09/24/19 13 2:48PM BY MELODIE SCANLON MA, ANNOTATI ON/ADDEN DUM Dawna Evangelist PA-C [address], [place], [address], [facility] 5 10:13:29 Localize d superfic ial swelling of skin 154014119 Completed 200812/02/2013 RECORDED 12/06/19 09 2:18PM BY MELODIE SCANLON MA, ANNOTROSIE ON/ADDEN DUM Dawna Evangelist [facility] [address], [place], [address], [facility] 5 10:13:29 Nausea 683760642 Completed 201112/02/2013 RECORDED 11/28/19 12 2:07PM BY MELODIE SCANLON MA, ANNOTATI ON/ADDEN DUM Dawna Vegas PA-C [address], [place], [address], [facility] 5 10:13:30 Acute pancreat itis 954464935 Completed 201212/02/2013 RECORDED 02/05/20 13 2:54PM BY MELODIE SCANLON MA, ANNOTATI ON/ADDEN DUM Dawna Vegas PA-C [address], [place], [address], [facility] 5 10:13:29 Sprain of wrist 56430202 Completed 201212/02/2013 RECORDED 02/05/20 13 2:54PM BY MELODIE SCANLON MA, MEHNAZATI ON/ADDEN DUM Dawna Vegas PA-C [address], [place], [address], [facility] 5 10:13:30 Epidermo id cyst of skin 295406777 Completed 201312/02/2013 IMPRESSI ON: REASSURA NCE. IF BOTHERS HIM, CAN REFER TO GENERAL SURGEON. AT THIS POINT HE DOES NOT WANT TO DO THAT.; RECORDED 05/11/19 14 7:19AM BY BOO ELIAS ON/ADDEN DUM Dawna Vegas PA-C [address], [place], [address], [facility] 5 10:13:29 Verruca vulgaris 27649810 Completed 201112/02/2013 RECORDED 11/28/19 12 2:07PM BY MELODIE SCANLON MA, ANNOTATI ON/ADDEN DUM Dawna Vegas PA-C [address], [place], [address], [facility] 5 10:13:29 Wheezing 57572215 Completed 201312/02/2013 RECORDED 06/01/19 14 7:53AM BY ELENA VALLADARES MA, ANNOTATI ON/ADDEN DUM Dawna Vegas PA-C [address], [place], [address], [facility] 5 10:13:29 Epigastr ic pain 31053746 Completed 201212/03/2013 RECORDED 03/24/20 13 9:55AM BY ROX HERNANDEZ MA, ANNOTATI ON/ADDEN DUM Dawna Vegas PA-C [address], [place], [address], [facility] 5 10:13:30 Left lower quadrant pain 357767984 Completed 201112/03/2013 RECORDED 11/28/19 12 2:07PM BY MELODIE SCANLON MA, ANNOTATI ON/ADDEN DUM Dawna Vegas PA-C [address], [place], [address], [facility] 5 10:13:30 Mucopuru lent conjunct ivitis 687859063 Completed 201212/03/2013 RECORDED 09/17/19 13 10:18AM BY MELODIE SCANLON MA, ANNOTATI ON/ADDEN DUM Dawna Vegas PA-C [address], [place], [address], [facility] 5 10:13:29 Acute sinusiti s 22328154 Completed 201312/03/2013 RECORDED 06/01/19 14 7:53AM BY ELENA VALLADARES MA, ANNOTATI ON/ADDEN DUM Melodie baltazar MA null, [facility] 7 14:17:11 Adult health examinat ion Completed 201212/03/2013 RECORDED 09/24/19 13 2:48PM BY MELODIE SCANLON MA, BOO ON/ADDEN DUM Dawna Evangelist PA-C [address], [place], [address], [facility] 5 10:13:30 Exposure to organism Completed 201112/03/2013 RECORDED 11/28/19 12 2:07PM BY MELODIE SCANLON MA, BOO ON/ADDEN DUM Dawna Vegas PA-C [address], [place], [address], [facility] 5 10:13:30 Cough 45250946 Completed 201312/03/2013 IMPRESSI ON: SUSPECT PERTUSSI S. TOO LATE FOR TREATMEN T. ONLY TEST THAT CAN BE DONE AT THIS POINT IS SERUM. CXR TO R/O PNEUMONI A. SPIROMET RY SHOWS NO EVIDENCE OF OBSTRUCT ION SO DOUBT PREDNISO NE WOULD HELP; RECORDED 11/06/19 14 8:05AM BY MELODIE SCANLON MA, BOO ON/ADDEN DUM Melodie baltazar MA null, [facility] 8 09:48:50 Diarrhea 69324911 Completed 201112/03/2013 RECORDED 11/28/19 12 2:07PM BY MELODIE SCANLON MA, BOO ON/ADDEN DUM Dawna PERKINS-C [address], [place], [address], [facility] 5 10:13:30 Inflamma tory disease of liver 412838991 Completed 201212/03/2013 RECORDED 02/05/20 13 2:54PM BY MELODIE SCANLON MA, BOO ON/ADDEN DUM Dawna [facility] [address], [place], [address], [facility] 5 10:13:29 Blood chemistr y outside referenc e range 280621781 Completed 201212/03/2013 RECORDED 02/05/20 13 2:54PM BY MELODIE SCANLON MA, ANNOTATI ON/ADDEN DUM Dawna [facility] [address], [place], [address], [facility] 5 10:13:30 Follow-u p encounte r Completed 201312/03/2013 RECORDED 05/11/19 14 7:19AM BY JM CAI I, ANNOTATI ON/ADDEN DUM [facility] [address], [place], [address], [facility] 5 10:13:30 Essentia l hyperten juan 86849635 Completed 200912/03/2013 RECORDED 08/25/19 10 7:44AM BY MELODIE SCANLON MA, ANNOTATI ON/ADDEN DUM Melodie baltazar MA [facility] 7 14:17:23 Malaise and fatigue 661781635 Completed 201212/03/2013 RECORDED 09/24/19 13 2:48PM BY MELODIE SCANLON MA, ANNOTATI ON/ADDEN DUM [facility] [address], [place], [address], [facility] 5 10:13:29 Influenz a vaccine needed 90606086428 06 Completed 201212/03/2013 RECORDED 03/08/20 13 11:28AM BY MELODIE SCANLON MA, OFFICE VISIT Dawna [facility] [address], [place], [address], [facility] 5 10:13:30 Laborato ry procedur e performe d 127653908 Completed 201212/03/2013 RECORDED 02/05/20 13 2:54PM BY MELODIE SCANLON MA, ANNOTATI ON/ADDEN DUM Dawna Evangelist PA-C [address], [place], [address], [facility] 5 10:13:30 Musculos keletal symptom 19682892 Completed 201112/03/2013 STORY: UNCONTRO LLED HTN WITH NEW-ONSE T SIGNIFIC ANT LEFT ARM WEAKNESS OF EXTENSIO N/FLEXIO N AT THE ELBOW.; RECORDED 11/28/19 12 2:07PM BY MELODIE SCANLON MA, ANNOTATI ON/ADDEN DUM Dawna Evangelist PA-C [address], [place], [address], [facility] 5 10:13:29 Pain in elbow 41978473 Completed 201212/03/2013 RECORDED 09/24/19 13 2:48PM BY MELODIE SCANLON MA, BOO ON/ADDEN DUM Dawna Evangelist [facility] [address], [place], [address], [facility] 5 10:13:29 Shoulder joint pain 239937888 Completed 201212/03/2013 RECORDED 09/24/19 13 2:48PM BY MELODIE SCANLON MA, ANNOTATI ON/ADDEN DUM Dawna Evangelist PA-C [address], [place], [phone], [facility] 5 10:13:29 Localize d superfic ial swelling of skin [id number] Completed 200812/03/2013 RECORDED 12/06/19 09 2:18PM BY MELODIE SCANLON MA, ANNOTATI ON/ADDEN DUM Dawna Vegas PA-C [address], [place], [address], [facility] 5 10:13:29 Nausea [id number] Completed 201112/03/2013 RECORDED 11/28/19 12 2:07PM BY MELODIE SCANLON MA, ANNOTROSIE ON/ADDEN DUM Dawna Vegas PA-C [address], [place], [phone], [facility] 5 10:13:30 Acute pancreat itis [id number] Completed 201212/03/2013 RECORDED 02/05/20 13 2:54PM BY MELODIE SCANLON MA, BOO ON/ADDEN DUM Dawna Vegas PA-C [address], [place], [address], [facility] 5 10:13:29 Sprain of wrist 98028848 Completed 201212/03/2013 RECORDED 02/05/20 13 2:54PM BY MELODIE SCANLON MA, BOO ON/ADDEN DUM Dawna Vegas PA-C [address], [place], [address], [facility] 5 10:13:30 Epidermo id cyst of skin 397470609 Completed 201312/03/2013 IMPRESSI ON: REASSURA NCE. IF BOTHERS HIM, CAN REFER TO GENERAL SURGEON. AT THIS POINT HE DOES NOT WANT TO DO THAT.; RECORDED 05/11/19 14 7:19AM BY BOO ELIAS ON/ADDEN DUM Dawna Vegas PA-C [address], [place], [address], [facility] 5 10:13:29 Verruca vulgaris 06288323 Completed 201112/03/2013 RECORDED 11/28/19 12 2:07PM BY MELODIEAUGUSTINE SCANLON MA, ANNOTATI ON/ADDEN DUM Dawna Vegas PA-C [address], [place], [address], [facility] 5 10:13:29 Wheezing 68319360 Completed 201312/03/2013 RECORDED 06/01/19 14 7:53AM BY ELENA VALLADARES MA, ANNOTATI ON/ADDEN DUM Dawna Vegas PA-C [address], [place], [address], [facility] 5 10:13:29 Shoulder tendinit is Active Dawna Vegas PA-C [address] [facility] [address], [place], [address], [facility] 5 10:13:29 Fatigue 48774847 Active Dawna Vegas PA-C [address] [facility] [address], [place], [address], [facility] 5 10:13:29 Degenera tion of lumbar interver tebral disc 75590018 Active 2013 MADDIE Gomez, [facility] 6 09:49:39 Acute sinusiti s 56507310 Completed 01/06/2017 MADDIE Gomez, [facility] 7 14:17:11 Impotenc e Active Dawna Vegas PA-C [address] [facility] [address], [place], [address], [facility] 5 10:13:29 Abdomina l pain 98098702 Completed 01/06/2017 MADDIE Gomez, [facility] 7 14:17:15 Inflamma tion of rotator cuff tendon 848669546 Active Dawna Vegas PA-C [address] [facility] [address], [place], [address], [facility] 5 10:13:29 Lumbago with sciatica 304125325 Active Marvin Lam MD [address], [place], [address], [facility] 5 12:17:43 Anabolic steroids adverse reaction 591162489 Active Marvin Lam MD [address], [place], [address], [facility] 5 12:08:12 Lumbar radiculo zahira 555308943 Active Marvin Lam MD [address], [place], [address], [facility] 6 21:16:15 Insomnia 188191476 Active Marvin Lam MD [address], [place], [address], [facility] 6 21:16:15 Obstruct gila sleep apnea syndrome 83092434 [facility] 09:[facility]:56 Dependen ce on continuo us positive airway pressure ventilat ion 365900091 Active 2017 6-16 cm H2O [facility] 09:48:34 Problem Notes None recorded. Procedures Surgical History Date Name Laterality Status Provider Name and Address Organization Details Recorded Time 05/29/19 16 Unlisted procedure shoulder completed Melodie green MA [facility] 12/26/2015 09:56:11 03/28/20 15 Unlisted procedure shoulder completed Melodie green MA [facility] 12/26/2015 09:56:16 03/07/20 15 Joint Injection completed Marvin Lam MD [address], [place], [address], [facility] 03/07/2015 11:04:20 02/02/20 14 Corticosteroid Injection completed Marvin Lam MD [address] [facility] [address], [place], [address], [facility] 02/03/2014 20:18:14 04/07/20 07 Osteot dsc ant 1vrt sgm lmbr completed Melodie Alcazar-Teo green, [facility] 02/01/2014 13:52:13 Colonoscopy completed Melodie Merino os, [facility] 01/06/2017 14:00:58 Imaging Results Imaging Date Name Status LastModified by Organiz ation Details LastModified Time 10/11/2012 MRI, lumbar spine, w/wo contrast completed [facility] Information not available 12/03/2016 15:12:18 05/03/2017 sleep study, diagnostic* completed [facility] [address] [place], [address], 05/20/2017 09:49:24 10/11/2018 CT, abdomen + pelvis, w/ contrast completed [facility] [address] [place] [address], [address], 10/12/2018 07:13:33 11/10/2019 CT, abdomen + pelvis, w/o contrast completed [facility] [address] [place] [address], [address], 11/10/2019 16:13:04 Procedure Notes None recorded. Medical Equipment None Reported. Allergies Allergen ID Allergen Name Allergen Category Reaction Reaction Severity Criticality Documentation Date Start Date Code Code System Note Provider Name and Address Organization Details Recorded Time 29808 enalapril Not available cough Not available Not available 12/26/2015 2042 RxNorm Marvin Lam MD [address] [facility] [address], [place], [address], [facility] 6 [...] Not Available Not Available Not Available escitalop ronin 10 mg tablet DAILY 06/11 completed RECORDED [...] Available Not Available Not Available Fluarix Quad 2629-5991 (PF) 60 mcg (15 mcg x 4)/0.5 mL IM syringe 01/06 completed Not Available Not Available Not Available Vitals Date Recorded Body height Body weight Body mass index (BMI) Body temperature Oxygen saturation Oxygen saturation in Arterial blood by Pulse oximetry Heart rate Systolic blood pressure Diastolic blood pressure Provider Name and Address Organization Details Last Updated DateTime 7 185.42 cm 908848. 53 g 35.8 kg/m2 97.4 [degF] 96 % 96 % 80 /min 142 mm[Hg] 86 mm[Hg] Elena Valladares MA [facility] 7 08:42:58 Date Recorded Body height Body mass index (BMI) Body weight Body temperature Oxygen saturation Oxygen saturation in Arterial blood by Pulse oximetry Heart rate Systolic blood pressure Diastolic blood pressure Provider Name and Address Organization Details Last Updated DateTime 7 185.42 cm 31.8 kg/m2 037871. 76 g 98.1 [degF] 97 % 97 % 108 /min 152 mm[Hg] 76 mm[Hg] Melodie baltazar MA [facility] 7 14:14:10 Date Recorded Heart rate Body temperature Oxygen saturation Oxygen saturation in Arterial blood by Pulse oximetry Body height Body weight Body mass index (BMI) Systolic blood pressure Diastolic blood pressure Provider Name and Address Organization Details Last Updated DateTime 5 107 /min 97.4 [degF] 97 % 97 % 185.42 cm 596490. 37485 g 33.8 kg/m2 144 mm[Hg] 94 mm[Hg] Melodie baltazar MA [facility] 5 09:44:27 Date Recorded Body height Oxygen saturation Oxygen saturation in Arterial blood by Pulse oximetry Heart rate Body temperature Body mass index (BMI) Body weight Systolic blood pressure Diastolic blood pressure Provider Name and Address Organization Details Last Updated DateTime 6 185.42 cm 100 % 100 % 92 /min 97.2 [degF] 33.5 kg/m2 654075. 08531 g 128 mm[Hg] 88 mm[Hg] Melodie baltazar MA [facility] 6 11:07:43 Date Recorded Body height Body temperature Oxygen saturation Oxygen saturation in Arterial blood by Pulse oximetry Heart rate Body weight Body mass index (BMI) Systolic blood pressure Diastolic blood pressure Provider Name and Address Organization Details Last Updated DateTime 6 185.42 cm 98.1 [degF] 97 % 97 % 100 /min 717241. 15 g 33.4 kg/m2 138 mm[Hg] 90 mm[Hg] Melodie baltazar MA [facility] 6 09:58:33 Social History Question Answer Notes LastModified by Organizat ion Details LastModified Time Tobacco Smoking Status Never Smoker MADDIE Gutierrez [facility] 02/01/2014 13:51:48 Do You Have An Advance Directive? No Declined Information not available 04/11/2015 What Is Your Level Of Alcohol Consumption? Occasional Information not available 04/11/2015 Is Blood Transfusion Acceptable In An Emergency? Yes [email or web address] Information not available 11/23/2014 What Is Your [...] not available 02/01/2014 What Is Your Occupation? [employer] Information not available 02/01/2014 Live Alone Or With Others? With Others Girlfriend, Son, Step-child Information not available 02/01/2014 Do You Take Precautions To Prevent Distracted Driving? Yes [email or web address] Information not available 11/23/2014 How Often Do You Need To Have Someone Help You When You Read Instructions, Pamphlets, Or Other Written Material From Your Doctor Or Pharmacy? Sometimes [email or web address] Information not available 11/23/2014 Have You Served In The ? No Information not available 01/06/2017 What Was The Date Of Your Most Recent Tobacco Screening? 01/06/2017 Information not available 11/19/2018 How Many Children Do You Have? 1 Information not available 02/01/2014 Do You Use Protection During Sex? No Information not available 04/11/2015 What Is Your Relationship Status? [email or web address] Information not available 11/23/2014 Seat Belts Used [...] quadrivalent, preservative [address] [facility] 12/03/2016 16:01:55 Influenza, split virus, quadrivalent, preservative [address] [facility] 01/13/2018 15:22:21 Influenza, split virus, quadrivalent, PF 5 completed Not Available [facility] 05/15/2019 02:22:02 Influenza, split virus, quadrivalent, PF 6 completed Not Available [facility] 05/15/2019 02:22:04 Tdap 6 completed Not Available [facility] 05/15/2019 02:21:45 Influenza, split virus, trivalent, PF 4 completed Not Available [facility] 05/15/2019 02:21:57 Td (adult), 2 Lf tetanus toxoid, preservative free, adsorbed 6 completed Not Available [facility] 11/09/2013 13:23:19 varicella 6 completed Not Available [facility] 11/09/2013 13:23:19 pneumococcal polysaccharide PPV23 3 completed Not Available [facility] 11/09/2013 13:23:19 Influenza, split virus, trivalent, preservative 3 completed Not Available [facility] 11/09/2013 13:23:19 Past Encounters Encounter ID Performer Location Encounter Start Date Encounter Closed Date Diagnosis/Indication Diagnosis SNOMED-CT Code Diagnosis ICD10 Code Diagnosis Note [id number] autoEComm erce [address] [facility] [place] [address] 11/12/2006 00:00:00 [id number] autoEComm erce [address] [facility] [place] [address] 02/12/2007 00:00:00 [id number] autoEComm erce [address] [facility] [place] [address] 05/12/2007 00:00:00 [id number] autoEComm erce [address] [facility] [place] [address] 06/16/2007 00:00:00 [id number] autoEComm erce [address] [facility] [place] [address] 01/28/2008 00:00:00 [id number] autoEComm erce [address] [facility] [place] [address] 08/25/2008 00:00:00 [id number] autoEComm erce [address] [facility] [place] [address] 12/05/2008 00:00:00 [id number] autoEComm erce [address] [place] [address] 05/23/2009 00:00:00 [id number] autoEComm erce [address] [place] [address] 06/08/2009 00:00:00 [id number] autoEComm erce [address] [place] [address] 08/24/2009 00:00:00 [id number] autoEComm erce [address] [place] [address] 11/28/2009 00:00:00 [id number] autoEComm erce [address] [place] [address] 05/08/2010 00:00:00 [id number] autoEComm erce [address] [facility] [place] [address] 08/04/2012 00:00:00 [id number] autoEComm erce [address] [facility] [place] [address] 09/16/2012 00:00:00 [id number] autoEComm erce [address] [facility] [place] [address] 09/23/2012 00:00:00 [id number] autoEComm erce [address] [facility] [place] [address] 03/08/2013 00:00:00 [id number] autoEComm erce [address] [facility] [place] [address] 03/24/2013 00:00:00 [id number] autoEComm erce [address] [place] [address] 05/11/2013 00:00:00 [id number] autoEComm erce [address] [facility] [place] [address] 06/01/2013 00:00:00 [id number] Main Office [address] [place] [address] 02/01/2014 13:42:42 02/01/2014 14:48:36 Needs influenza immunization 430012555 Anxiety disorder 349565128 Shoulder tendinitis 163139017 Hyperlipidemia 53993877 Fatigue 04426732 [id number] Milo Galo MA Main Office [address] [place] [address] 06/22/2014 11:14:24 06/22/2014 12:22:10 Adult health examination 127107060 Essential hypertension 16956127 Restless legs 63182101 Cough 81424594 Acute sinusitis 67048648 Impotence 258517410 [id number] Main Office [address] [place] [address] 11/23/2014 12:44:46 11/23/2014 13:28:21 Abdominal pain 66236362 ? of resolving pancreatit is due to excessive alcohol use, hx of alcohol induced pancreatit is, pt will get labs, looks well, is hydrated, pain resolved, he knows to abstain from alcohol and return for eval if any return of pain [id number] Marvin Lam MD Main Office [address] [address] 03/07/2015 10:20:59 03/07/2015 10:58:46 Needs influenza immunization 205497751 Z23 Inflammati on of rotator cuff tendon 272762626 M65.812 [id number] Alek Lindsay MD Main Office [address] [address] 03/24/2015 09:13:11 03/24/2015 09:40:19 Lumbago with sciatica 802733011 M54.42 Lumbar disc disease exacerbati on L. with sciatica. Start Prednisone taper as directed. Cyclobenza prone if tolerated TID for 5 days and Oxycodone PRN. F/u with PCP if symptoms persist or worsen. [id number] Marvin Lam MD Main Office [address] [address] 04/11/2015 09:37:04 04/11/2015 10:44:16 Degeneration of lumbar intervertebral disc 46050845 M51.36 Anabolic s teroids adverse reaction 487145521 T38.7X5S Correction use of anabolic steroids. Now on testostero ne replacemen t with Dr. 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 [id number] Marvin Lam MD Main Office [address] [place] [address] [place] [address] 07/12/2015 10:52:20 07/12/2015 11:59:17 Restless legs 25367387 G25.81 Essential hypertension 62554730 I10 Lumbar radiculopathy 128 226055 M54.16 Insomnia 505057291 G47.0 0 [id number] Marvin Lam MD Main Office [address] [place] [address] [place] [address] 12/26/2015 09:43:17 12/26/2015 10:55:17 Adult health examination 737327616 Z00.00 Essential hypertension 34199997 I10 Needs infl uenza immunization 882698041 Z23 Administra tion of diphtheria, pertussis, and tetanus vaccine 315917243 Z23 [id number] Mansoor luna Main Office [address] [place], [place] [address] [address] 05/02/2016 08:26:46 05/02/2016 09:13:28 Snoring 15029346 R06.83 Patient understand s he needs to [...] to his feeling of unrest. Restless legs 63763851 G 25.81 Will increase requip to 3mg [...] in 1 month for recheck. Essential hypertension 99784566 I10 Bp not greatly controlled on current meds, possibilit y of sleep apnea likely a contributi ng factor, I stressed the importance of having sleep study and getting sleep apnea treated. [id number] Marvin Lam MD Main Office [address] [place], [place] [address] [address] 01/06/2017 13:51:55 01/06/2017 15:08:02 Essential hypertension 36564322 I10 Anxiety state 171941609 F41.1 Restless legs 36774605 G 25.81 Major depr essive disorder 343895609 F32.9 Chronic al coholism in remission 515310000 F10.21 Recently stopped drinking Health Concerns Section Related Observation LastModified by Organization Detai ls LastModified Time None Recorded Concern Status LastModified by Organization Details LastModified Time None Recorded Advance Directives Directive N: declined Payers Encounter Date Sequence Insurance Name Policy Number Policy Correia Covered Member ID Correia Member ID Guarantor Name 04/11/2015 1 [facility] [id number] 3 Konrad Jonas Sperlonga [id number] Konrad Sperlonga 07/12/2015 1 [facility] [id number] Konrad Jonas Sperlonga [id number] Konrad Sperlonga 12/26/2015 1 [facility] [id number] Konrad Jonas Sperlonga [id number] Konrad Sperlonga 05/02/2016 1 [facility] [id number] 3 Konrad Jonas Sperlonga [id number] Konrad Sperlonga 01/06/2017 1 [facility] [id number] Konrad Jonas Sperlonga [id number] Konrad Sperlonga Notes Date Note Type Note [...] have his shoulder fixed by ortho in [facility]. Local orthopedics ([facility]) do not wish to attempt repair. Konrad states that severe pain has been disrupting sleep. He did not have benefit from use steroids by tapering dose. He plans to see [facility] on May 02 for evaluation of lumbar radiculopathy. Presently he is not working ([employer]) because of shoulder problems. Marvin Lam MD [address] [address], [place], [address], [facility] 04/17/2015 12:08:27 07/12/2015 text/html Hypertension F/UReported [...] awakening in the middle of the night;insomnia: director property awakening;unrefreshing sleep Onset/Timing:chronic; worsening problems over the past 2-3 mos Pain disturbing sleep:chronic shoulder pain and recent rotator cuff surgery Restless leg syndrome:legs feel restless: disturbing sleep;legs feel restless: relieved by movementNotes:Has been using ropininrole for RLS for many years with good effects. Never had sleep test. Now states that the medication is no longer effective. Marvin Lam MD [address] [address], [place], [address], [facility] 07/12/2015 21:16:22 12/26/2015 text/html Hypertension F/UReported [...] from Dr. Dacosta. Marvin Lam MD [address] [facility] [address], [place], [address], [facility] [place] 12/26/2015 13:42:19 05/02/2016 text/html Hypertension F/UReported [...] awakening in the middle of the night;insomnia: director property awakening;unrefreshing sleep Onset/Timing:chronic; worsening problems over the [...] never had a sleep study. Mansoor mcmahon, [facility] [place] 05/02/2016 13:04:37 01/06/2017 text/html Anxiety/Depressi [...] refill his RLS meds. Marvin Lam MD [address] [address], [place], [address], [facility] 01/07/2017 08:40:40
--- OUTSIDE RECORDS SUMMARY | 2024-08-19 15:53 | XMS_ITS | Clinical Summary ---
Author Organization [facility] Address [address] [place] [address] Phone Care Team Providers Care Die Storage Clerk Name Role Phone Abbie Ayala PA-C Primary [...] Full thickness rotator cuff tear 05/02/2015 01/15/2023 Family History Medical History Relation Comments Stroke [...] Office Visit [facility] [address] [address] Chad Martínez MD [address] [phone] Health Maintenance Due Date Last Done Comments Hepatitis B Vaccine (1 of 3 - 19+ 3-dose series) 1989 Pneumococcal Vaccine: 50+ Ye ars (2 of 2 - PCV) 10/13/2013 10/13/2012 Colorectal Cancer Screening: Annual FOBT 09/19/2019 Colorectal Cancer Screening: Colonoscopy 09/19/2019 Colorectal Cancer Screening: Sigmoidoscopy 09/19/2019 Diabetes: Hemoglobin A1C 02/16/2024 Diabetes: Ophthalmology Exam 02/16/2024 Diabetes: Pedal Pulse Checked 02/16/2024 Diabetes: Sensory Foot Exam 02/16/2024 Diabetes: Visual Foot Exam 02/16/2024 Influenza Vaccine (Season Ended) 2024 01/12/2018, 12/02/2016, 12/26/2015, Additional history exists Pneumococcal Vaccine: Peds ( 0 to 5 Years) and At-Risk Patients (6 to 49 Years) Discontinued 10/13/2012 Insurance [facility] Care Teams Die Storage Clerk Relationship Specialty Start Date End Date Abbie Ayala PA-C [address] [place] [id number] PCP - General Physician Anode Crew Supervisor 05/20/24
== END 2024-08-19 14:04 | disposition home or self-care (01) ==
LOC: HO.HOS 13:31
PROVIDERS: PCP Physician Assistant; Visit Provider Physician Assistant
DX: Z98.890 Other specified postprocedural states (principal)
CPT/HCPCS: 99024

== ENCOUNTER → 2024-08-19 13:30 | Outpatient (BNVA) | payer OTHER, SELFPAY | PROVIDERS: PCP Physician Assistant; Visit Provider Physician Assistant | DX: Z47.89 Encounter for other orthopedic aftercare (principal) | CPT/HCPCS: 99212 ==

== ENCOUNTER → 2024-09-10 14:04 | Outpatient (AMB) | payer OTHER, SELFPAY ==
--- NOTE | 2024-09-10 14:05 | MHC.OFFVIS ---
Intake Visit Reasons: Fatty liver, abnormal findings of blood chemistry Intake Note: Konrad presents as a new patient telehealth today for fatty liver and elevated LFTs. CC: states that he does not many concerns other than the urge to go to the bathroom. Sheriff'S Officer Required: No Allergies No Known Allergies Allergy (Verified 09/10/24 14:05) HPI Comments Details: 53 y.o M with PMH of HTn, CKD, recent rotator cuff injury who is establishing care for elevated LFTs Ptseen as video visit. No acute GI sx including abd pain, N,V, D. Has had elevated LFTs since last year. Reports drinking 4-5 drinks of vodka per sitting, and has previously had higher intake of up to 6 drinks a day. No current or previous IVDU. Remote hx of exogenous steroids and supplements almost 3-5 years ago for body building. Was also on prescription T therapy. No tobacco or marijuana. No fam hx of auto immune disease in family. No fam hx of liver disease. [facility] Medical History Restless leg syndrome ADD (attention deficit disorder) Dyslipidemia CKD (chronic kidney disease) Sleep apnea Diabetes HTN (hypertension) Surgical History History of surgery on arm Hx of repair of rotator cuff History of back surgery Hx of elbow surgery Hx of hernia repair Family History (Updated 09/10/24 @ 14:05 by HUSAM Salvador) Mother Ovarian cancer Social History Housing: House Are you a primary director of career services to a significant other at home: No Do you presently have visiting nurse or other home services: No Alcohol intake: current Alcohol intake frequency: a few times a week Patient Tobacco Use Status: Never used Tobacco e-Cigarette/Vaping Use: Never Used Second Hand Smoke Exposure: No service: No Current occupational status: employed 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 Current occupational exposures/hazards: Yes (smoke inhalation ) Cognitive needs: No Hearing needs: No Vision needs: Yes Review of Systems Const All systems reviewed & are unremarkable except as noted in HPI and below Physical Exam Vital Signs: Video visit: No acute distress No icterus noted No facial asymmetry Speaking in full sentences Telehealth Telehealth Telehealth Platform: D[employer]imity Location of provider rendering services: practice address Location of patient: address on file Patient Identification confirmed using: Name, : Yes Telehealth method: video Patient verbally consented to treatment: Yes Patient verbally consented to billing insurance company: Yes Patient informed of any privacy concerns related to visit: Yes Minutes spent on Phone/Video with Pt.: 12 Assessment & Plan Assessment & Plan (1) Elevated LFTs: Code(s): R79.89 - Other specified abnormal findings of blood chemistry Category: Medical Plan Labs and imaging reviewed. Suspicious for advanced fibrosis versus early cirrhosis. Will need updated labs as well as workup for etiology of chronic liver disease. Patient was also counseled on cutting not alcohol. 1-2 drinks per day acceptable for men, however given ongoing KATE complete abstinence is ideal. Plan: -labs as below -ultrasound abdomen -alcohol abstinence -follow-up in 3 months Orders: Orders Complete Blood Count no Diff Today . - Other specified abnormal findings of blood chemistry Comprehensive Met. Panel Today - Other specified abnormal findings of blood chemistry Prothrombin Time INR Today . - Other specified abnormal findings of blood chemistry GERALD Reflex Titer and Pattern Today . - Other specified abnormal findings of blood chemistry Ceruloplasmin Today R7. - Other specified abnormal findings of blood chemistry Gamma Glutamyl Transpeptidase Today R7. - Other specified abnormal findings of blood chemistry Hepatitis A IgG Today . - Other specified abnormal findings of blood chemistry Hepatitis C Antibody Today . - Other specified abnormal findings of blood chemistry HIV Ab/Ag Today . - Other specified abnormal findings of blood chemistry Immunoglobulin A Today R7. - Other specified abnormal findings of blood chemistry Lipid Panel Today . - Other specified abnormal findings of blood chemistry Smooth Muscle Antibody Today . - Other specified abnormal findings of blood chemistry Transglutaminase IgA Today R7. - Other specified abnormal findings of blood chemistry TSH reflex Free T4 Today R7. - Other specified abnormal findings of blood chemistry Phosphatidylethanol, Blood Today R7. - Other specified abnormal findings of blood chemistry Alpha 1 Anti-trypsin Today . - Other specified abnormal findings of blood chemistry Alpha Fetoprotein Today R7. - Other specified abnormal findings of blood chemistry Ferritin Today . - Other specified abnormal findings of blood chemistry Hemoglobin A1c Today R7 - Other specified abnormal findings of blood chemistry Hepatitis B Core Antibody Today R7 - Other specified abnormal findings of blood chemistry Hepatitis B Surface Antibody Today R7 - Other specified abnormal findings of blood chemistry Hepatitis B Surface Antigen Today R7 - Other specified abnormal findings of blood chemistry Immunoglobulin G Today R7 - Other specified abnormal findings of blood chemistry IRON PROFILE Today - Other specified abnormal findings of blood chemistry Liver Kidney Microsomal Ab Today - Other specified abnormal findings of blood chemistry Mitochondrial Antibody Today R7 - Other specified abnormal findings of blood chemistry US abdomen complete Today R7 - Other specified abnormal findings of blood chemistry Coding Level of Care Code Tele New Pt Level 4 (88890) Diagnoses Elevated LFTs
--- OUTSIDE RECORDS SUMMARY | 2024-09-10 14:07 | XMS_ITS | Clinical Summary ---
Author Organization [facility] ity Address [address] [place] [address] Care Team Providers Care Manager Graphic Name Role Phone Unavailable Primary Care Provider [...]
--- OUTSIDE RECORDS SUMMARY | 2024-09-10 14:07 | XMS_ITS | Clinical Summary ---
Author Organization [facility] Address [address] [place] [phone] Phone Care Team Providers Care Direct Entry Midwife Name Role Phone Abbie Ayala PA-C Primary [...] Visit [facility] [address] [id number] Chad Martínez MD [address] [id number] Health Maintenance Due Date Last Done Comments [...] (6 to 49 Years) Discontinued 10/13/2012 Insurance [facility] Care Teams Direct Entry Midwife Relationship Specialty Start Date End Date Abbie Ayala PA-C [address] [place] [id number] PCP - General Physician Machine Molder 05/20/24
--- OUTSIDE RECORDS SUMMARY | 2024-09-10 14:07 | XMS_ITS | Data Portability ---
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 We reviewed the report from the [place] pharmacy monitoring that shows Konrad has filled [...] sleep medici ne referr al 2016 017 [facility], [address] [place] [address], [id number], 7 11:41:11 sleep medici ne referr al 2016 017 [facility] Sleep Medicine [facility], [address] [place] [address], [address], 7 10:33:10 ophtha lmolog ist referr al 2015 016 [facility] Skinny Trinh MD, [address] [place] [address], [id number], 7 11:51:20 sleep medici ne referr al 2015 016 [facility] Sleep [facility], [address] [place] [address], [address], 6 11:23:29 Procedures None record ed. Surgeries None record ed. Imaging polyso mnogra m - hx restle ss legs, insomn ia, snorin g, not feelig n rested . 2016 017 [facility], [address] [place] [address], [address], 7 13:18:46 Medication Orders sertra line 100 [...] By Organization Details Last Modified Time 04/11/2015 [id number] Medications were reviewed at this visit and reconciled. Changes in the active medications are reflected in the current medication list and discussed with patient (or caregiver) with instructions for follow up as needed. Printed medication list provided to the patient as part of the visit summary. [facility] Not available 04/11/2015 18:12:13 07/12/2015 [id number] restless legs syndrome: [facility] Not available 07/12/2015 21:16:16 insomnia: [facility] Not available 07/12/2015 21:16:16 high blood pressure: [facility] Not available 07/12/2015 21:16:16 learning about high blood pressure pheuth Not available 07/12/2015 21:16:16 12/26/2015 [id number] high blood pressure: care instructions ckrym Not [...] medication. phelmuth Not available 12/26/2015 13:40:17 05/02/2016 [id number] Call or return for worsening or concerns. jthabet Not available 05/02/2016 09:05:43 I have reviewed the note and agree with the assessment and plan of care. 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 [facility] Not Available 2016 15:12:18 05/16/19 18 05/03/2017 sleep study , diagn ostic * No observ ation record ed. [facility] [address] [place], [address], 05/20/2017 09:49:24 10/12/19 19 10/11/2018 CT, abdom en + pelvi s, w/ contr ast No observ ation record ed. [facility] [address] [place], [address], 10/12/2018 07:13:33 11/10/19 20 11/10/2019 CT, abdom en + pelvi s, w/o contr ast No observ ation record ed. [facility] [address] [place], [address], 11/10/2019 16:13:04 Result Notes None recorded. Problems Name Problem SNOMED Code Status Onset Date Resolution Date Notes Provider Name and Address Organization Details Recorded Time Epigastr ic pain 40683467 Completed 201211/09/2013 RECORDED 03/24/20 13 9:55AM BY ROX HERNANDEZ MA, BOO ON/SANDHYA Vegas PA-C [address] [facility] [address], [place], [address], [facility] 5 10:13:30 Left lower quadrant pain 678951914 Completed 201111/09/2013 RECORDED 11/28/19 12 2:07PM BY MELODIE SCANLON MA, MEHNZAATI ON/ADDEN DUM Dawna Vegas PA-C [address] [facility] [address], [place], [address], [facility] 5 10:13:30 Mucopuru lent conjunct ivitis 082612358 Completed 201211/09/2013 RECORDED 09/17/19 13 10:18AM BY MELODIE SCANLON MA, ANNOTATI ON/ADDEN DUM Dawna Evangelist PARRAC [address], [place], [address], [facility] 5 10:13:29 Acute sinusiti s 20849189 Completed 201311/09/2013 RECORDED 06/01/19 14 7:53AM BY ELENA VALLADARES MA, ANNOTATI ON/ADDEN DUM MADDIE Gomez, [facility] 7 14:17:11 Harmful pattern of use of alcohol 52234931 Active 2013 MADDIE Gomez, [facility] 6 09:49:25 Drug abuse 20929457 Active 2013 MADDIE Gomez, [facility] 6 09:49:35 Adult health examinat ion Completed 201211/09/2013 RECORDED 09/24/19 13 2:48PM BY MELODIE SCANLON MA, ANNOTATI ON/ADDEN DUM Dawna Evangelist MCCORMACK [address] [facility] [address], [place], [address], [facility] 5 10:13:30 Anxiety disorder 167009042 Active 2013 MADDIE Gomez, [facility] 6 09:49:28 Exposure to organism Completed 201111/09/2013 RECORDED 11/28/19 12 2:07PM BY MELODIE SCANLON MA, ANNOTATI ON/ADDEN DUM Dawna Evangelist MCCORMACK [address] [facility] [address], [place], [address], [facility] 5 10:13:30 Cough [id number] Completed 201305/20/2017 IMPRESSI ON: SUSPECT PERTUSSI S. TOO LATE FOR TREATMEN T. ONLY TEST THAT CAN BE DONE AT THIS POINT IS SERUM. CXR TO R/O PNEUMONI A. SPIROMET RY SHOWS NO EVIDENCE OF OBSTRUCT ION SO DOUBT PREDNISO NE WOULD HELP; RECORDED 06/01/19 14 8:45PM BY MADDIE ABRAMS, OFFICE VISIT Melodie baltazar MA null, [facility] 8 09:48:50 Diarrhea 22291948 Completed 201111/09/2013 RECORDED 11/28/19 12 2:07PM BY MELODIE SCANLON MA, BOO ON/ADDEN DUM Dawnaartis Vegas PA-C [address] [facility] [address], [place], [address], [facility] 5 10:13:30 Inflamma tory disease of liver 975023849 Completed 201211/09/2013 RECORDED 02/05/20 13 2:54PM BY MELODIE SCANLON MA, ANNOTATI ON/ADDEN DUM Dawna Vegas PA-C [address] [facility] [address], [place], [address], [facility] 5 10:13:29 Blood chemistr y outside referenc e range 368379956 Completed 201211/09/2013 RECORDED 02/05/20 13 2:54PM BY MELODIE SCANLON MA, ANNOTROSIE ON/ADDEN DUM Dawnawendy PARRAC [address] [facility] [address], [place], [address], [facility] 5 10:13:30 Follow-u p encounte r Completed 201311/09/2013 RECORDED 05/11/19 14 7:19AM BY BOO ELIAS ON/ADDEN DUM [facility] [address] [facility] [address], [place], [address], [facility] 5 10:13:30 Essentia l hyperten juan 42044659 Completed 200911/09/2013 RECORDED 08/25/19 10 7:44AM BY MELODIE SCANLON MA, ANNOTATI ON/ADDEN DUM MADDIE Gomez, [facility] 7 14:17:23 Malaise and fatigue 842920674 Completed 201211/09/2013 RECORDED 09/24/19 13 2:48PM BY MELODIE SCANLON MA, ANNOTATI ON/ADDEN [facility] [address] [facility] [address], [place], [address], [facility] 5 10:13:29 Influenz a vaccine needed [id number] 06 Completed 201211/09/2013 RECORDED 03/08/20 13 11:28AM BY MELODIE SCANLON MA, OFFICE VISIT [facility] [address] [facility] [address], [place], [address], [facility] 5 10:13:30 Gastroes ophageal reflux disease 099060049 Active 2013 MADDIE Gomez, [facility] 6 09:49:31 Hyperlip idemia 26539376 Active 2013 MADDIE Gomez, [facility] 7 14:17:20 Essentia l hyperten juan 54174737 Active 2013 MADDIE Gomez, [facility] 7 14:17:23 Hypokale prince 12171921 Active 2013 MADDIE Gomez, [facility] 6 09:50:02 Knee pain Active 2013 Melodie baltazar MA null, [facility] 6 09:49:46 Laborato ry procedur e performe d 642874169 Completed 201211/09/2013 RECORDED 02/05/20 13 2:54PM BY MELODIE SCANLON MA, ANNOTATI ON/ADDEN DUM Dawnawendy PERKINS-C [address], [place], [address], [facility] 5 10:13:30 Musculos keletal symptom 79329794 Completed 201111/09/2013 STORY: UNCONTRO LLED HTN WITH NEW-ONSE T SIGNIFIC ANT LEFT ARM WEAKNESS OF EXTENSIO N/FLEXIO N AT THE ELBOW.; RECORDED 11/28/19 12 2:07PM BY MELODIE SCANLON MA, ANNOTATI ON/ADDEN DUM Dawnawendy PERKINS-C [address], [place], [address], [facility] 5 10:13:29 Pain of elbow region 04935795 Completed 201211/09/2013 RECORDED 09/24/19 13 2:48PM BY MELODIE SCANLON MA, ANNOTROSIE ON/ADDEN DUM Dawna PERKINS-C [address], [place], [address], [facility] 5 10:13:29 Shoulder joint pain 618472644 Completed 201211/09/2013 RECORDED 09/24/19 13 2:48PM BY MELODIE SCANLON MA, ANNOTATI ON/ADDEN DUM Dawnawendy PERKINS-C [address], [place], [address], [facility] 5 10:13:29 Lipoma 31825884 Active 2013 MADDIE Gomez, [facility] 7 14:17:27 Localize d superfic ial swelling of skin 584243265 Completed 200811/09/2013 RECORDED 12/06/19 09 2:18PM BY MELODIE SCANLON MA, ANNOTATI ON/ADDEN DUM Dawna Vegas PA-C [address], [place], [address], [facility] 5 10:13:29 Nausea 227174993 Completed 201111/09/2013 RECORDED 11/28/19 12 2:07PM BY MELODIE SCANLON MA, ANNOTATI ON/ADDEN DUM Dawna Vegas PA-C [address], [place], [address], [facility] 5 10:13:30 Patient status finding 009474508 Completed 201312/26/2015 MADDIE Gomez, [facility] 6 09:49:19 Acute pancreat itis 381611985 Completed 201211/09/2013 RECORDED 02/05/20 13 2:54PM BY MELODIE SCANLON MA, ANNOTATI ON/ADDEN DUM Dawna [facility] [address] [facility] [address], [place], [address], [facility] 5 10:13:29 Skin sensatio n disturba nce 88379783 Completed 201305/20/2017 MADDIE Gomez, [facility] 8 09:49:12 Psychose xual dysfunct ion associat ed with inhibite d libido 736117193 Active 2013 MADDIE Gomez, [facility] 6 09:50:08 Restless legs 17302003 Active 2013 MADDIE Gomez, [facility] 6 09:49:58 Rhabdomy olysis 866707016 Active 2013 MADDIE Gomez, [facility] 6 09:49:33 Sprain of wrist 44310779 Completed 201211/09/2013 RECORDED 02/05/20 13 2:54PM BY MELODIE SCANLON MA, BOO ON/ADDEN DUM Dawna PERKINS-C [address], [place], [address], [facility] 5 10:13:30 Epidermo id cyst of skin 864514009 Completed 201311/09/2013 IMPRESSI ON: REASSURA NCE. IF BOTHERS HIM, CAN REFER TO GENERAL SURGEON. AT THIS POINT HE DOES NOT WANT TO DO THAT.; RECORDED 05/11/19 14 7:19AM BY BOO ELIAS ON/ADDEN DUM Dawnawendy PERKINS-C [address], [place], [address], [facility] 5 10:13:29 Injury of ulnar nerve 28894970 Completed 199705/20/2017 DATE: 1997; ; RIGHT WRIST MADDIE Gomez, [facility] 8 09:49:09 Verruca vulgaris 28979871 Completed 201111/09/2013 RECORDED 11/28/19 12 2:07PM BY MELODIE SCANLON MA, BOO ON/ADDEN DUM Dawnawendy PERKINS-C [address], [place], [address], [facility] 5 10:13:29 Wheezing 88037735 Completed 201311/09/2013 RECORDED 06/01/19 14 7:53AM BY ELENA VALLADARES MA, ANNOTATI ON/ADDEN DUM Dawna Vegas PA-C [address], [place], [address], [facility] 5 10:13:29 Epigastr ic pain 67690328 Completed 201212/02/2013 RECORDED 03/24/20 13 9:55AM BY ROX HERNANDEZ MA, ANNOTATI ON/ADDEN DUM Dawna Vegas PA-C [address], [place], [address], [facility] 5 10:13:30 Left lower quadrant pain 726890917 Completed 201112/02/2013 RECORDED 11/28/19 12 2:07PM BY MELODIE SCANLON MA, ANNOTATI ON/ADDEN DUM Dawna Vegas PA-C [address], [place], [address], [facility] 5 10:13:30 Mucopuru lent conjunct ivitis 067084312 Completed 201212/02/2013 RECORDED 09/17/19 13 10:18AM BY MELODIE SCANLON MA, ANNOTATI ON/ADDEN DUM Dawna Vegas PA-C [address], [place], [address], [facility] 5 10:13:29 Acute sinusiti s 84588675 Completed 201312/02/2013 RECORDED 06/01/19 14 7:53AM BY ELENA VALLADARES MA, ANNOTATI ON/ADDEN DUM Melodie baltazar MA [facility] 7 14:17:11 Adult health examinat ion Completed 201212/02/2013 RECORDED 09/24/19 13 2:48PM BY MELODIE SCANLON MA, ANNOTATI ON/ADDEN DUM Dawna Vegas PA-C [address], [place], [address], [facility] 5 10:13:30 Exposure to organism Completed 201112/02/2013 RECORDED 11/28/19 12 2:07PM BY MELODIE SCANLON MA, BOO ON/ADDEN DUM Dawnawendy Vegas ME-C [address], [place], [address], [facility] 5 10:13:30 Cough [id number] Completed 201312/02/2013 IMPRESSI ON: SUSPECT PERTUSSI S. TOO LATE FOR TREATMEN T. ONLY TEST THAT CAN BE DONE AT THIS POINT IS SERUM. CXR TO R/O PNEUMONI A. SPIROMET RY SHOWS NO EVIDENCE OF OBSTRUCT ION SO DOUBT PREDNISO NE WOULD HELP; RECORDED 11/06/19 14 8:05AM BY MELODIE SCANLON MA, BOO ON/ADDEN DUM Melodie baltazar MA null, [facility] 8 09:48:50 Diarrhea 44109022 Completed 201112/02/2013 RECORDED 11/28/19 12 2:07PM BY MELODIE SCANLON MA, ANNOTATI ON/ADDEN DUM Dawna PERKINS-C [address] [facility] [address], [place], [address], [facility] 5 10:13:30 Inflamma tory disease of liver 883339934 Completed 201212/02/2013 RECORDED 02/05/20 13 2:54PM BY MELODIE SCANLON MA, BOO ON/ADDEN DUM Dawna PERKINS-C [address], [place], [address], [facility] 5 10:13:29 Blood chemistr y outside referenc e range 944318790 Completed 201212/02/2013 RECORDED 02/05/20 13 2:54PM BY MELODIE SCANLON MA, ANNOTATI ON/ADDEN DUM Dawna [facility] [address], [place], [address], [facility] 5 10:13:30 Follow-u p encounte r Completed 201312/02/2013 RECORDED 05/11/19 14 7:19AM BY JM CAI I ANNOTATI ON/ADDEN DUM Dawna [facility] [address], [place], [address], [facility] 5 10:13:30 Essentia l hyperten juan 42260935 Completed 200912/02/2013 RECORDED 08/25/19 10 7:44AM BY MELODIE SCANLON MA, ANNOTATI ON/ADDEN DUM Melodie baltazar MA null, [facility] 7 14:17:23 Malaise and fatigue 698422250 Completed 201212/02/2013 RECORDED 09/24/19 13 2:48PM BY MELODIE SCANLON MA, ANNOTATI ON/ADDEN DUM Dawna [facility] [address], [place], [address], [facility] 5 10:13:29 Influenz a vaccine needed 64952995163 06 Completed 201212/02/2013 RECORDED 03/08/20 13 11:28AM BY MELODIE SCANLON MA, OFFICE VISIT [facility] [address], [place], [address], [facility] 5 10:13:30 Flatulen ce, eructati on and gas pain 463858323 Completed 201305/20/2017 Melodie baltazar MA null, [facility] 8 09:49:18 Laborato ry procedur e performe d 460409896 Completed 201212/02/2013 RECORDED 02/05/20 13 2:54PM BY MELODIE SCANLON MA, ANNOTROSIE ON/ADDEN DUM Dawna Evangelist PA-C [address], [place], [address], [facility] 5 10:13:30 Musculos keletal symptom 78945000 Completed 201112/02/2013 STORY: UNCONTRO LLED HTN WITH NEW-ONSE T SIGNIFIC ANT LEFT ARM WEAKNESS OF EXTENSIO N/FLEXIO N AT THE ELBOW.; RECORDED 11/28/19 12 2:07PM BY MELODIE SCANLON MA, BOO ON/ADDEN DUM Dawna Evangelist PA-C [address], [place], [address], [facility] 5 10:13:29 Pain of elbow region 14631159 Completed 201212/02/2013 RECORDED 09/24/19 13 2:48PM BY MELODIE SCANLON MA, ANNOTROSIE ON/ADDEN DUM Dawna Evangelist PERKINS-C [address], [place], [address], [facility] 5 10:13:29 Shoulder joint pain 450650828 Completed 201212/02/2013 RECORDED 09/24/19 13 2:48PM BY MELODIE SCANLON MA, BOO ON/ADDEN DUM Dawna Evangelist PA-C [address], [place], [address], [facility] 5 10:13:29 Localize d superfic ial swelling of skin 504616680 Completed 200812/02/2013 RECORDED 12/06/19 09 2:18PM BY MELODIE SCANLON MA, BOO ON/ADDEN DUM Dawna Evangelist PERKINS-C [address], [place], [address], [facility] 5 10:13:29 Nausea 059706012 Completed 201112/02/2013 RECORDED 11/28/19 12 2:07PM BY MELODIE SCANLON MA, ANNOTATI ON/ADDEN DUM Dawna Vegas PA-C [address], [place], [address], [facility] 5 10:13:30 Acute pancreat itis 307327901 Completed 201212/02/2013 RECORDED 02/05/20 13 2:54PM BY MELODIE SCANLON MA, ANNOTATI ON/ADDEN DUM Dawna Vegas PA-C [address], [place], [address], [facility] 5 10:13:29 Sprain of wrist 40209318 Completed 201212/02/2013 RECORDED 02/05/20 13 2:54PM BY MELODIE SCANLON MA, ANNOTATI ON/ADDEN DUM Dawna Vegas PA-C [address], [place], [address], [facility] 5 10:13:30 Epidermo id cyst of skin 186208464 Completed 201312/02/2013 IMPRESSI ON: REASSURA NCE. IF BOTHERS HIM, CAN REFER TO GENERAL SURGEON. AT THIS POINT HE DOES NOT WANT TO DO THAT.; RECORDED 05/11/19 14 7:19AM BY BOO ELIAS ON/ADDEN DUM Dawna Vegas PA-C [address], [place], [address], [facility] 5 10:13:29 Verruca vulgaris 83919440 Completed 201112/02/2013 RECORDED 11/28/19 12 2:07PM BY MELODIE SCANLON MA, ANNOTATI ON/ADDEN DUM Dawna Vegas PA-C [address], [place], [address], [facility] 5 10:13:29 Wheezing 35726839 Completed 201312/02/2013 RECORDED 06/01/19 14 7:53AM BY ELENA VALLADARES MA, ANNOTATI ON/ADDEN DUM Dawna Vegas PA-C [address], [place], [address], [facility] 5 10:13:29 Epigastr ic pain 32268122 Completed 201212/03/2013 RECORDED 03/24/20 13 9:55AM BY ROX HERNANDEZ MA, ANNOTATI ON/ADDEN DUM Dawna Vegas PA-C [address], [place], [address], [facility] 5 10:13:30 Left lower quadrant pain 453511659 Completed 201112/03/2013 RECORDED 11/28/19 12 2:07PM BY MELODIE SCANLON MA, ANNOTATI ON/ADDEN DUM Dawna Vegas PA-C [address], [place], [address], [facility] 5 10:13:30 Mucopuru lent conjunct ivitis 373672355 Completed 201212/03/2013 RECORDED 09/17/19 13 10:18AM BY MELODIE SCANLON MA, ANNOTATI ON/ADDEN DUM Dawna Vegas PA-C [address], [place], [address], [facility] 5 10:13:29 Acute sinusiti s 65696036 Completed 201312/03/2013 RECORDED 06/01/19 14 7:53AM BY ELENA VALLADARES MA, ANNOTATI ON/ADDEN DUM [facility] 14:[facility] Adult health examinat ion Completed 201212/03/2013 RECORDED 09/24/19 13 2:48PM BY MELODIE SCANLON MA, BOO ON/ADDEN DUM Dawnaartis PERKINS-C [address] [facility] [address], [place], [address], [facility] 5 10:13:30 Exposure to organism Completed 201112/03/2013 RECORDED 11/28/19 12 2:07PM BY MELODIE SCANLON MA, BOO ON/ADDEN DUM Dawnaartis PERKINS-C [address] [facility] [address], [place], [address], [facility] 5 10:13:30 Cough [id number] Completed 201312/03/2013 IMPRESSI ON: SUSPECT PERTUSSI S. TOO LATE FOR TREATMEN T. ONLY TEST THAT CAN BE DONE AT THIS POINT IS SERUM. CXR TO R/O PNEUMONI A. SPIROMET RY SHOWS NO EVIDENCE OF OBSTRUCT ION SO DOUBT PREDNISO NE WOULD HELP; RECORDED 11/06/19 14 8:05AM BY MELODIE SCANLON MA, BOO ON/ADDEN DUM Melodie baltazar MA null, [facility] 8 09:48:50 Diarrhea 50400804 Completed 201112/03/2013 RECORDED 11/28/19 12 2:07PM BY MELODIE SCANLON MA, BOO ON/ADDEN DUM Dawnawendy PERKINS-C [address] [facility] [address], [place], [address], [facility] 5 10:13:30 Inflamma tory disease of liver 086044552 Completed 201212/03/2013 RECORDED 02/05/20 13 2:54PM BY MELODIE SCANLON MA, MEHNAZATI ON/ADDEN DUM Dawna PERKINS-C [address], [place], [address], [facility] 5 10:13:29 Blood chemistr y outside referenc e range 106088525 Completed 201212/03/2013 RECORDED 02/05/20 13 2:54PM BY MELODIE SCANLON MA, ANNOTATI ON/ADDEN DUM Dawnawendy Vegas PA-C [address], [place], [address], [facility] 5 10:13:30 Follow-u p encounte r Completed 201312/03/2013 RECORDED 05/11/19 14 7:19AM BY JM CAI I, ANNOTATI ON/ADDEN DUM Dawna Vegas PA-C [address] [facility] [address], [place], [address], [facility] 5 10:13:30 Essentia l hyperten juan 14528445 Completed 200912/03/2013 RECORDED 08/25/19 10 7:44AM BY MELODIE SCANLON MA, ANNOTATI ON/ADDEN DUM Melodie baltazar MA null, [facility] 7 14:17:23 Malaise and fatigue 703828253 Completed 201212/03/2013 RECORDED 09/24/19 13 2:48PM BY MELODIE SCANLON MA, ANNOTATI ON/ADDEN DUM Dawna Vegas PA-C [address], [place], [address], [facility] 5 10:13:29 Influenz a vaccine needed [id number] 06 Completed 201212/03/2013 RECORDED 03/08/20 13 11:28AM BY MELODIE SCANLON MA, OFFICE VISIT Dawna Vegas PA-C [address], [place], [address], [facility] 5 10:13:30 Laborato ry procedur e performe d 420810291 Completed 201212/03/2013 RECORDED 02/05/20 13 2:54PM BY MELODIE SCANLON MA, ANNOTATI ON/ADDEN DUM Dawna Evangelist PERKINS-C [address], [place], [address], [facility] 5 10:13:30 Musculos keletal symptom 88793646 Completed 201112/03/2013 STORY: UNCONTRO LLED HTN WITH NEW-ONSE T SIGNIFIC ANT LEFT ARM WEAKNESS OF EXTENSIO N/FLEXIO N AT THE ELBOW.; RECORDED 11/28/19 12 2:07PM BY MELODIE SCANLON MA, ANNOTROSIE ON/ADDEN DUM Dawna Evangelist PERKINS-C [address], [place], [address], [facility] 5 10:13:29 Pain of elbow region 89949357 Completed 201212/03/2013 RECORDED 09/24/19 13 2:48PM BY MELODIE SCANLON MA, ANNOTROSIE ON/ADDEN DUM Dawnawendy PERKINS-C [address] [facility] [address], [place], [address], [facility] 5 10:13:29 Shoulder joint pain 924133618 Completed 201212/03/2013 RECORDED 09/24/19 13 2:48PM BY MELODIE SCANLON MA, ANNOTATI ON/ADDEN DUM Dawna Evangelist PERKINS-C [address], [place], [address], [facility] 5 10:13:29 Localize d superfic ial swelling of skin 159206703 Completed 200812/03/2013 RECORDED 12/06/19 09 2:18PM BY MELODIE SCANLON MA, ANNOTATI ON/ADDEN DUM Dawna Vegas PA-C [address], [place], [address], [facility] 5 10:13:29 Nausea 399226343 Completed 201112/03/2013 RECORDED 11/28/19 12 2:07PM BY MELODIE SCANLON MA, ANNOTATI ON/ADDEN DUM Adwna Vegas PA-C [address], [place], [address], [facility] 5 10:13:30 Acute pancreat itis 208260452 Completed 201212/03/2013 RECORDED 02/05/20 13 2:54PM BY MELODIE SCANLON MA, ANNOTATI ON/ADDEN DUM Dawna Vegas PA-C [address], [place], [address], [facility] 5 10:13:29 Sprain of wrist 19616540 Completed 201212/03/2013 RECORDED 02/05/20 13 2:54PM BY MELODIE SCANLON MA, ANNOTATI ON/ADDEN DUM Dawna Vegas PA-C [address], [place], [address], [facility] 5 10:13:30 Epidermo id cyst of skin 963191586 Completed 201312/03/2013 IMPRESSI ON: REASSURA NCE. IF BOTHERS HIM, CAN REFER TO GENERAL SURGEON. AT THIS POINT HE DOES NOT WANT TO DO THAT.; RECORDED 05/11/19 14 7:19AM BY BOO ELIAS ON/ADDEN DUM Dawna Vegas PA-C [address], [place], [address], [facility] 5 10:13:29 Verruca vulgaris 48060864 Completed 201112/03/2013 RECORDED 11/28/19 12 2:07PM BY MELODIE SCANLON MA, ANNOTATI ON/ADDEN DUM Dawna Vegas PA-C [address], [place], [address], [facility] 5 10:13:29 Wheezing 69661905 Completed 201312/03/2013 RECORDED 06/01/19 14 7:53AM BY ELENA VALLADARES MA, ANNOTROSIE ON/ADDEN DUM Dawna Vegas PA-C [address], [place], [address], [facility] 5 10:13:29 Shoulder tendinit is Active Dawna Vegas PA-C [address] [facility] [address], [place], [address], [facility] 5 10:13:29 Fatigue 63568117 Active Dawna Vegas PA-C [address] [facility] [address], [place], [address], [facility] 5 10:13:29 Degenera tion of lumbar interver tebral disc 76728658 Active 2013 MADDIE Gomez, [facility] 6 09:49:39 Acute sinusiti s 89694165 Completed 01/06/2017 MADDIE Gomez, [facility] 7 14:17:11 Impotenc e Active Dawna Vegas PA-C [address] [facility] [address], [place], [address], [facility] 5 10:13:29 Abdomina l pain 28827012 Completed 01/06/2017 MADDIE Gomez, [facility] 7 14:17:15 Inflamma tion of rotator cuff tendon 647448771 Active Dawna Vegas PA-C [address] [facility] [address], [place], [address], [facility] 5 10:13:29 Lumbago with sciatica 888373360 Active Marvin Lam MD [address], [place], [address], [facility] 5 12:17:43 Anabolic steroids adverse reaction 421367548 Active Marvin Lam MD [address], [place], [address], [facility] 5 12:08:12 Lumbar radiculo zahira 771455104 Active Marvin Lam MD [address], [place], [address], [facility] 6 21:16:15 Insomnia 247453790 Active Marvin Lam MD [address], [place], [address], [facility] 6 21:16:15 Obstruct gila sleep apnea syndrome 33352136 [facility] 09:[facility] Dependen ce on continuo us positive airway pressure ventilat ion 446575809 Active 2017 6-16 cm H2O [facility] 09:48:34 Problem Notes None recorded. Procedures Surgical History Date Name Laterality Status Provider Name and Address Organization Details Recorded Time 05/29/19 16 Unlisted procedure shoulder completed Melodie green MA [facility] 12/26/2015 09:56:11 03/28/20 15 Unlisted procedure shoulder completed Melodie green MA [facility] 12/26/2015 09:56:16 03/07/20 15 Joint Injection completed Marvin aLm MD [address], [place], [address], [facility] 03/07/2015 11:04:20 02/02/20 14 Corticosteroid Injection completed Marvin Lam MD [address] [address], [place], [address], [facility] 02/03/2014 20:18:14 04/07/20 07 Osteot dsc ant 1vrt sgm lmbr completed Melodie Alcazar-Teo os, [facility] 02/01/2014 13:52:13 Colonoscopy completed Melodie Alcazar-Teo , [facility] 01/06/2017 14:00:58 Imaging Results Imaging Date Name Status LastModified by Organiz ation Details LastModified Time 10/11/2012 MRI, lumbar spine, w/wo contrast completed [facility] Information not available 12/03/2016 15:12:18 05/03/2017 sleep study, diagnostic* completed [facility] [address] [place], [address], 05/20/2017 09:49:24 10/11/2018 CT, abdomen + pelvis, w/ contrast completed [facility] [address] [place] [address], [address], 10/12/2018 07:13:33 11/10/2019 CT, abdomen + pelvis, w/o contrast completed [facility] [address] [place] [address], [address], 11/10/2019 16:13:04 Procedure Notes None recorded. Medical Equipment None Reported. Allergies Allergen ID Allergen Name Allergen Category Reaction Reaction Severity Criticality Documentation Date Start Date Code Code System Note Provider Name and Address Organization Details Recorded Time 28140 enalapril Not available cough Not available Not available 12/26/2015 8617 RxNorm Marvin Lam MD [address] [facility] [address], [place], [address], [facility] 6 10:53:29 Medications Name Sig Start Date Stop Date Status Note LastModified by Organization Details LastModified Time carisopro dol 350 mg tablet Q 6HRS PRN SPASM 10/18/ 2007 11/01 /2007 completed RECORDED 03/09/20 07 5:42PM BY VICKI Calderon MD, MEDICATI ON AUTO-LUCINA CTIVATIO N; [...] 08 9:04AM BY MARVIN LAM MD, ANNOTATI ON/ADDFLAVIA DUM; Not Available Not Available Not Available [...] 08/13 completed RECORDED 08/15/19 13 10:49AM BY ISELA BAXTER MD, MEDICATI ON AUTO-LUCINA CTIVATIO N; [...] completed RECORDED 10/15/19 09 7:03AM BY KAYLEN DAWSON CZ, PARoloC, MEDICATI ON AUTO-LUCINA CTIVATIO N; Not [...] RECORDED 05/31/19 14 2:37PM BY GRANT AVILES, BOO ON/ADDEN DUM; Not Available Not Available Not Available Veregen 15 % topical ointment 12/25 completed Not Available Not Available Not Available Fluarix Quad 8948-9685 (PF) 60 mcg (15 mcg x 4)/0.5 mL IM syringe 01/06 completed Not Available Not Available Not Available Vitals Date Recorded Body height Body weight Body mass index (BMI) Body temperature Oxygen saturation Oxygen saturation in Arterial blood by Pulse oximetry Heart rate Systolic blood pressure Diastolic blood pressure Provider Name and Address Organization Details Last Updated DateTime 7 185.42 cm 291475. 53 g 35.8 kg/m2 97.4 [degF] 96 % 96 % 80 /min 142 mm[Hg] 86 mm[Hg] Elena Valladares MA [facility] 7 08:42:58 Date Recorded Body height Body mass index (BMI) Body weight Body temperature Oxygen saturation Oxygen saturation in Arterial blood by Pulse oximetry Heart rate Systolic blood pressure Diastolic blood pressure Provider Name and Address Organization Details Last Updated DateTime 7 185.42 cm 31.8 kg/m2 612165. 76 g 98.1 [degF] 97 % 97 % 108 /min 152 mm[Hg] 76 mm[Hg] Melodie baltazar MA [facility] 7 14:14:10 Date Recorded Heart rate Body temperature Oxygen saturation Oxygen saturation in Arterial blood by Pulse oximetry Body height Body weight Body mass index (BMI) Systolic blood pressure Diastolic blood pressure Provider Name and Address Organization Details Last Updated DateTime 5 107 /min 97.4 [degF] 97 % 97 % 185.42 cm 816308. 30963 g 33.8 kg/m2 144 mm[Hg] 94 mm[Hg] Melodie baltazar MA [facility] 5 09:44:27 Date Recorded Body height Oxygen saturation Oxygen saturation in Arterial blood by Pulse oximetry Heart rate Body temperature Body mass index (BMI) Body weight Systolic blood pressure Diastolic blood pressure Provider Name and Address Organization Details Last Updated DateTime 6 185.42 cm 100 % 100 % 92 /min 97.2 [degF] 33.5 kg/m2 856072. 23518 g 128 mm[Hg] 88 mm[Hg] Melodie baltazar MA [facility] 6 11:07:43 Date Recorded Body height Body temperature Oxygen saturation Oxygen saturation in Arterial blood by Pulse oximetry Heart rate Body weight Body mass index (BMI) Systolic blood pressure Diastolic blood pressure Provider Name and Address Organization Details Last Updated DateTime 6 185.42 cm 98.1 [degF] 97 % 97 % 100 /min 209436. 15 g 33.4 kg/m2 138 mm[Hg] 90 mm[Hg] Melodie baltazar MA [facility] 6 09:58:33 Social History Question Answer Notes LastModified by Organizat ion Details LastModified Time Tobacco Smoking Status Never Smoker MADDIE Gutierrez [facility] 02/01/2014 13:51:48 Do You Have An Advance Directive? No Declined Information not available 04/11/2015 Is Blood Transfusion Acceptable In An Emergency? Yes [email or web address] Information not available 11/23/2014 What Is Your Level Of Caffeine Consumption? Moderate 1 Energy Drink Daily Information not available 02/01/2014 How Much Tobacco Do You Chew? None Information not available 04/11/2015 What Type Of Diet Are You Following? SPECIFIC High Protein Information not available 02/01/2014 Which Illicit Or Recreational Drugs Have You Used? Anabolic Steroids Information not available 02/01/2014 Live Alone Or With Others? With Others Girlfriend, Son, Step-child Information not available 02/01/2014 Do You Take Precautions To Prevent Distracted Driving? Yes [email or web address] Information not available 11/23/2014 How Often Do You Need To Have Someone Help You When You Read Instructions, Pamphlets, Or Other Written Material From Your Doctor Or Pharmacy? Sometimes [email or web address] Information not available 11/23/2014 Have You Served In The ? No Information not available 01/06/2017 What Was The Date Of Your Most Recent Tobacco Screening? 01/06/2017 Information not available 11/19/2018 How Many Children Do You Have? 1 Information not available 02/01/2014 Do You Use Protection During Sex? No Information not available 04/11/2015 What Is Your Relationship Status? Information not available 11/23/2014 Seat Belts Used [...] LastModified by Organizat ion Details LastModified Time What is your level of alcohol consumption? Occasional Information not available 04/11/2015 Are you currently employed? Yes full-time Information not available 02/01/2014 Are you able to care for yourself? 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 Information not available 02/01/2014 What is your [...] virus, quadrivalent, preservative 7 completed Heidi mcmahon [facility] 12/03/2016 16:01:55 Influenza, split virus, quadrivalent, preservative 8 completed Alla mcmahon [facility] 01/13/2018 15:22:21 Influenza, split virus, quadrivalent, PF 5 completed Not Available [facility] 05/15/2019 02:22:02 Influenza, split virus, quadrivalent, PF 6 completed Not Available [facility] 05/15/2019 02:22:04 Tdap 6 completed Not Available [facility] 05/15/2019 02:21:45 Influenza, split virus, trivalent, PF 4 completed Not Available [facility] 05/15/2019 02:21:57 Td (adult), 2 Lf tetanus toxoid, preservative free, adsorbed 6 completed Not Available [facility] 11/09/2013 13:23:19 varicella 6 completed Not Available [facility] 11/09/2013 13:23:19 pneumococcal polysaccharide PPV23 3 completed Not Available [facility] 11/09/2013 13:23:19 Influenza, split virus, trivalent, preservative 3 completed Not Available [facility] 11/09/2013 13:23:19 Past Encounters Encounter ID Performer Location Encounter Start Date Encounter Closed Date Diagnosis/Indication Diagnosis SNOMED-CT Code Diagnosis ICD10 Code Diagnosis Note [id number] autoEComm erce [address] [facility] [place] [address] 11/12/2006 00:00:00 [id number] autoEComm erce [address] [facility] [place] [address] 02/12/2007 00:00:00 [id number] autoEComm erce [address] [facility] [place] [address] 05/12/2007 00:00:00 [id number] autoEComm erce [address] [facility] [place] [address] 06/16/2007 00:00:00 [id number] autoEComm erce [address] [facility] [place] [address] 01/28/2008 00:00:00 [id number] autoEComm erce [address] [facility] [place] [address] 08/25/2008 00:00:00 [id number] autoEComm erce [address] [facility] [place] [address] 12/05/2008 00:00:00 [id number] autoEComm erce [address] [facility] [place] [address] 05/23/2009 00:00:00 [id number]Comm erce [address] [place] [address] 06/08/2009 00:00:00 [id number] autoEComm erce [address] [facility] [address] [place] [address] 08/24/2009 00:00:00 [id number] autoEComm erce [address] [facility] [place] [address] 11/28/2009 00:00:00 [id number] autoEComm erce [address] [facility] [place] [address] 05/08/2010 00:00:00 [id number] autoEComm erce [address] [facility] [place] [address] 08/04/2012 00:00:00 [id number] autoEComm erce [address] [facility] [place] [address] 09/16/2012 00:00:00 [id number] autoEComm erce [address] [facility] [place] [address] 09/23/2012 00:00:00 [id number] autoEComm erce [address] [facility] [place] [address] 03/08/2013 00:00:00 [id number] autoEComm erce [address] [facility] [place] [address] 03/24/2013 00:00:00 [id number] autoEComm erce [address] [facility] [place] [address] 05/11/2013 00:00:00 [id number] autoEComm erce [address] [facility] [place] [address] 06/01/2013 00:00:00 [id number] Marvin Lam MD Main Office [address] [facility] [address] [place] [address] 02/01/2014 13:42:42 02/01/2014 14:48:36 Needs influenza immunization 525837141 Anxiety disorder 420644966 Shoulder tendinitis 267421837 Hyperlipidemia 40716982 Fatigue 88924356 [id number] Marvin Lam MD Main Office [address] [address] [place] [address] 06/22/2014 11:14:24 06/22/2014 12:22:10 Adult health examination 837926368 Essential hypertension 07597637 Restless legs 88092029 Cough 49361480 Acute sinusitis 00967979 Impotence 582297863 [id number] Vicki dueñas MD Main Office [address] [address] [place] [address] 11/23/2014 12:44:46 11/23/2014 13:28:21 Abdominal pain 62082507 ? of resolving pancreatit is due to excessive alcohol use, hx of alcohol induced pancreatit is, pt will get labs, looks well, is hydrated, pain resolved, he knows to abstain from alcohol and return for eval if any return of pain [id number] Marvin Lam MD Main Office [address] [address] [place] [address] 03/07/2015 10:20:59 03/07/2015 10:58:46 Needs influenza immunization 014918448 Z23 Inflammati on of rotator cuff tendon 887295132 M65.812 [id number] Dawna Vegas PA-C Main Office [address] [address] [place] [address] 03/24/2015 09:13:11 03/24/2015 09:40:19 Lumbago with sciatica 279774517 M54.42 Lumbar disc disease exacerbati on L. with sciatica. Start Prednisone taper as directed. Cyclobenza prone if tolerated TID for 5 days and Oxycodone PRN. F/u with PCP if symptoms persist or worsen. [id number] Marvin Lam MD Main Office [address] [address] [place] [address] 04/11/2015 09:37:04 04/11/2015 10:44:16 Degeneration of lumbar intervertebral disc 63579357 M51.36 Anabolic s teroids adverse reaction 447818606 T38.7X5S Assisted use of anabolic steroids. Now on testostero ne replacemen t with Dr. 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 [id number] Marvin Lam MD Main Office [address] [address] [place] [address] 07/12/2015 10:52:20 07/12/2015 11:59:17 Restless legs 47825038 G25.81 Essential hypertension 80803660 I10 Lumbar radiculopathy 128 694361 M54.16 Insomnia 978341255 G47.0 0 [id number] Marvin Lam MD Main Office [address] [place] [address] 12/26/2015 09:43:17 12/26/2015 10:55:17 Adult health examination 649632390 Z00.00 Essential hypertension 57688372 I10 Needs infl uenza immunization 887799906 Z23 Administra tion of diphtheria, pertussis, and tetanus vaccine 746294325 Z23 [id number] ANTHONY Posey Main Office [address] [place] [address] 05/02/2016 08:26:46 05/02/2016 09:13:28 Snoring 97039526 R06.83 Patient understand s he needs to [...] to his feeling of unrest. Restless legs 26060493 G 25.81 Will increase requip to 3mg [...] in 1 month for recheck. Essential hypertension 35547832 I10 Bp not greatly controlled on current meds, possibilit y of sleep apnea likely a contributi ng factor, I stressed the importance of having sleep study and getting sleep apnea treated. [id number] Marvin Lam MD Main Office [address] [facility] [place] [address] 01/06/2017 13:51:55 01/06/2017 15:08:02 Essential hypertension 58026947 I10 Anxiety state 484959925 F41.1 Restless legs 52895803 G 25.81 Major depr essive disorder 434232588 F32.9 Chronic al coholism in remission 857690576 F10.21 Recently stopped drinking Health Concerns Section Related Observation LastModified by Organization Detai ls LastModified Time None Recorded Concern Status LastModified by Organization Details LastModified Time None Recorded Advance Directives Directive N: declined Payers Encounter Date Sequence Insurance Name Policy Number Policy Correia Covered Member ID Correia Member ID Guarantor Name 04/11/2015 1 [facility] [id number] 3 Konrad Jonas Sperlonga [id number] Konrad Sperlonga 07/12/2015 1 [facility] [id number] Konrad Jonas Sperlonga [id number] Konrad Sperlonga 12/26/2015 1 [facility] [id number] 3 Konrad Jonas Sperlonga [id number] Konrad Sperlonga 05/02/2016 1 [facility] [id number] 3 Konrad Jonas Sperlonga [id number] Konrad Sperlonga 01/06/2017 1 [facility] [id number] Konrad Jonas Sperlonga [id number] Konrad Sperlonga Notes Date Note Type Note [...] have his shoulder fixed by ortho in [place] area. Local orthopedics ([facility]) do not wish to attempt repair. Konrad states that severe pain has been disrupting sleep. He did not have benefit from use steroids by tapering dose. He plans to see [facility] on May 02 for evaluation of lumbar radiculopathy. 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 Never had sleep test. Now states that the medication is no longer effective. Marvin Lam MD [address] [address], [place], [address], [facility] 07/12/2015 21:16:22 12/26/2015 text/html Hypertension F/UReported bypatient.Associated [...] from Dr. Dacosta. 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 Mansoor mcmahon [facility] [place] 05/02/2016 13:04:37 01/06/2017 text/html Anxiety/Depressi [...] refill his RLS meds. Marvin Lam MD [address] [address], [place], [address], [facility] [place] 01/07/2017 08:40:40
== END ==
PROVIDERS: PCP Physician Assistant; Visit Provider Internal Medicine
DX: R74.01 Elevation of levels of liver transaminase levels (principal)
CPT/HCPCS: 99204

== ENCOUNTER 2024-09-16 10:14 | Outpatient (AMB) | payer OTHER, SELFPAY ==
[2024-09-16 10:16] VITALS: BMI 33.0
--- NOTE | 2024-09-16 10:16 | A.OFFVIS_ITS ---
Vital Signs 09/16/24 10:16 Height 6 ft 1 in Weight 250 lb BMI 33.0 Intake Visit Reasons: PO RT RTC repair 08/11/24 NE Intake Note: Konrad is a 53 year old right hand dominant male who presents today for a post operative appointment about 6 weeks s/p Right Rotator Cuff Repair 08/11/24. Patient has not attended physical therapy. He reports that he is having continued soreness, worst at night. He is taking Tylenol at night which is not helping. Denies numbness and tingling. Allergies No Known Allergies Allergy (Verified 09/10/24 14:05) HPI HPI PO RT RTC repair 08/11/24 NE: Details: Konrad is a 53 year old right hand dominant male who presents today for a post operative appointment about 6 weeks s/p Right Rotator Cuff Repair 08/11/24. Patient has not attended physical therapy. He reports that he is having continued soreness, worst at night. He is taking Tylenol at night which is not helping. Denies numbness and tingling. [facility] Medical History Restless leg syndrome ADD (attention deficit disorder) Dyslipidemia CKD (chronic kidney disease) Sleep apnea Diabetes HTN (hypertension) Surgical History History of surgery on arm Hx of repair of rotator cuff History of back surgery Hx of elbow surgery Hx of hernia repair Family History (Updated 09/10/24 @ 14:05 by HUSAM Salvador) Mother Ovarian cancer Social History Housing: House Are you a primary women's health care nurse practitioner to a significant other at home: No Do you presently have visiting nurse or other home services: No Alcohol intake: current Alcohol intake frequency: a few times a week Patient Tobacco Use Status: Never used Tobacco e-Cigarette/Vaping Use: Never Used Second Hand Smoke Exposure: No service: No Current occupational status: employed 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 Good scapular mechanics. No pain with gentle passive range of motion. Assessment & Plan Assessment & Plan (1) S/P right rotator cuff repair: Code(s): Z98.890 - Other specified postprocedural states Category: Surgical Plan: Status post subscap and massive supraspinatus repair. Large repair protocol. He is doing well. I worry slightly about his overdoing it as he is well- developed and seems to have little pain but I counseled him on the importance of maintaining proper scapular mechanics and avoiding excessive motion. Continue out of work status. Follow up 6 weeks. Coding Level of Care Code Global (65388) Diagnoses S/P right rotator cuff repair Z98.890
--- OUTSIDE RECORDS SUMMARY | 2024-09-16 10:43 | XMS_ITS | Clinical Summary ---
Author Organization [facility] ity Address [address] [place] [address] Care Team Providers Care Criminology Teacher Name Role Phone Unavailable Primary Care Provider [...]
--- OUTSIDE RECORDS SUMMARY | 2024-09-16 10:43 | XMS_ITS | Data Portability ---
Author Organization [facility] Office Address [address] [facility] [address] [phone] Care Team Providers Care Conference Organizer Name Role Phone MARVIN LAM Primary Care Provider [facility] WEIGHT LOSS OTHER [phone] [facility] Sleep Medi cine IVETH VEGAS [...] pain. We reviewed the report from the [place] pharmacy monitoring that shows Konrad has filled [...] 13:35:30 TSH, serum or plasma 2015 016 ANADN Not available 6 23:35:15 BMP, serum or plasma 2015 016 ANAND Not available 6 22:28:16 Referral sleep medici ne referr al 2016 017 [facility], [address] [place] [address], [address], 7 11:41:11 sleep medici ne referr al 2016 017 [facility] Sleep Medicine [facility], [address] [place] [address], [address], 7 10:33:10 ophtha lmolog ist referr al 2015 016 [facility] Skinny Trinh MD, [address] [place] [address], [id number], 7 11:51:20 sleep medici ne referr al 2015 016 [facility] Sleep Medicine [facility], [address] [place] [address], [address], 6 11:23:29 Procedures None record ed. Surgeries None record ed. Imaging polyso mnogra m - hx restle ss legs, insomn ia, snorin g, not feelig n rested . 2016 017 [facility], [address] [place] [address], [address], 7 13:18:46 Medication Orders sertra line 100 [...] By Organization Details Last Modified Time 04/11/2015 [id number] Medications were reviewed at this visit and reconciled. Changes in the active medications are reflected in the current medication list and discussed with patient (or caregiver) with instructions for follow up as needed. Printed medication list provided to the patient as part of the visit summary. [facility] Not available 04/11/2015 18:12:13 07/12/2015 [id number] restless legs syndrome: [facility] 07/12/2015 21:16:16 insomnia: [facility] Not available 07/12/2015 21:16:16 high blood pressure: [facility] Not available 07/12/2015 21:16:16 learning about high blood pressure pheuth Not available 07/12/2015 21:16:16 12/26/2015 [id number] high blood pressure: care instructions ckrym Not [...] medication. phelmuth Not available 12/26/2015 13:40:17 05/02/2016 [id number] Call or return for worsening or concerns. jthabet Not available 05/02/2016 09:05:43 I have reviewed the note and agree with the assessment and plan of care. mdalessandro Not available 05/02/2016 13:04:29 01/06/2017 [id number] alcohol counseling* bsolivanmattos Not available 01/14/2017 11:34:43 Preventing Depression From Coming Back: Care Instructions Not available 01/06/2017 16:13:55 anxiety disorder: care instructions Not available 01/06/2017 16:13:55 high blood pressure: care instructions Not available 01/06/2017 16:13:55 learning about high blood pressure Not available 01/06/2017 16:13:55 Reason for Referral Referring Physician: Marvin sanders, Internal Medicine, Encounter Date: 07/12/2015 Board Writer Referral for Adult health examination Referring Physician: [...] Go To The Location Of Their Choice, [address] 08/07/2015 22:28:16 08/07/1908/07/2015 BMP, serum or plasm [...] ic funct ion panel , serum bilirubin,to jsoeph 0.7 mg/dL (0-1.2 ) Not Available [facility] [...] Go To The Location Of Their Choice, [id number] 11/19/2016 15:16:29 12/04/19 17 10/11/2012 MRI, lumba r spine , w/wo contr ast No observ ation record ed. [facility] Not Available 2016 15:12:18 05/16/19 18 05/03/2017 sleep study , diagn ostic * No observ ation record ed. [facility] [address] [place], [address], 05/20/2017 09:49:24 10/12/19 19 10/11/2018 CT, abdom en + pelvi s, w/ contr ast No observ ation record ed. [facility] [address] [place], [address], 10/12/2018 07:13:33 11/10/19 20 11/10/2019 CT, abdom en + pelvi s, w/o contr ast No observ ation record ed. [facility] [address] [place], [address], 11/10/2019 16:13:04 Result Notes None recorded. Problems Name Problem SNOMED Code Status Onset Date Resolution Date Notes Provider Name and Address Organization Details Recorded Time Epigastr ic pain 07358674 Completed 201211/09/2013 RECORDED 03/24/20 13 9:55AM BY ROX HERNANDEZ MA, BOO ON/SANDHYA eVgas PA-C [address] [facility] [address], [place], [address], [facility] 5 10:13:30 Left lower quadrant pain 323745302 Completed 201111/09/2013 RECORDED 11/28/19 12 2:07PM BY MELODIE SCANLON MA, MEHNAZATI ON/ADDEN DUM Dawna Vegas PA-C [address] [facility] [address], [place], [address], [facility] 5 10:13:30 Mucopuru lent conjunct ivitis 521946688 Completed 201211/09/2013 RECORDED 09/17/19 13 10:18AM BY MELODIE SCANLON MA, ANNOTATI ON/ADDEN DUM Dawna Evangelist PARRAC [address], [place], [address], [facility] 5 10:13:29 Acute sinusiti s 01995483 Completed 201311/09/2013 RECORDED 06/01/19 14 7:53AM BY ELENA VALLADARES MA, ANNOTATI ON/ADDEN DUM MADDIE Gomez, [facility] 7 14:17:11 Harmful pattern of use of alcohol 59559141 Active 2013 MADDIE Gomez, [facility] 6 09:49:25 Drug abuse 01108048 Active 2013 MADDIE Gomez, [facility] 6 09:49:35 Adult health examinat ion Completed 201211/09/2013 RECORDED 09/24/19 13 2:48PM BY MELODIE SCANLON MA, ANNOTATI ON/ADDEN DUM Dawna Evangelist MCCORMACK [address] [facility] [address], [place], [address], [facility] 5 10:13:30 Anxiety disorder 085439450 Active 2013 MADDIE Gomez, [facility] 6 09:49:28 Exposure to organism Completed 201111/09/2013 RECORDED 11/28/19 12 2:07PM BY MELODIE SCANLON MA, ANNOTATI ON/ADDEN DUM Dawna Evangelist MCCORMACK [address] [facility] [address], [place], [address], [facility] 5 10:13:30 Cough [id number] Completed 201305/20/2017 IMPRESSI ON: SUSPECT PERTUSSI S. TOO LATE FOR TREATMEN T. ONLY TEST THAT CAN BE DONE AT THIS POINT IS SERUM. CXR TO R/O PNEUMONI A. SPIROMET RY SHOWS NO EVIDENCE OF OBSTRUCT ION SO DOUBT PREDNISO NE WOULD HELP; RECORDED 06/01/19 14 8:45PM BY MADDIE ABRAMS, OFFICE VISIT Melodie baltazar MA null, [facility] 8 09:48:50 Diarrhea 17474577 Completed 201111/09/2013 RECORDED 11/28/19 12 2:07PM BY MELODIE SCANLON MA, BOO ON/ADDEN DUM Dawnaartis Vegas PA-C [address] [facility] [address], [place], [address], [facility] 5 10:13:30 Inflamma tory disease of liver 112620351 Completed 201211/09/2013 RECORDED 02/05/20 13 2:54PM BY MELODIE SCANLON MA, ANNOTATI ON/ADDEN DUM Dawna Vegas PA-C [address] [facility] [address], [place], [address], [facility] 5 10:13:29 Blood chemistr y outside referenc e range 658837083 Completed 201211/09/2013 RECORDED 02/05/20 13 2:54PM BY MELODIE SCANLON MA, ANNOTROSIE ON/ADDEN DUM Dawnawendy PARRAC [address] [facility] [address], [place], [address], [facility] 5 10:13:30 Follow-u p encounte r Completed 201311/09/2013 RECORDED 05/11/19 14 7:19AM BY BOO ELIAS ON/ADDEN DUM [facility] [address] [facility] [address], [place], [address], [facility] 5 10:13:30 Essentia l hyperten juan 30491359 Completed 200911/09/2013 RECORDED 08/25/19 10 7:44AM BY MELODIE SCANLON MA, ANNOTATI ON/ADDEN DUM MADDIE Gomez, [facility] 7 14:17:23 Malaise and fatigue 291613825 Completed 201211/09/2013 RECORDED 09/24/19 13 2:48PM BY MELODIE SCANLON MA, ANNOTATI ON/ADDEN [facility] [address] [facility] [address], [place], [address], [facility] 5 10:13:29 Influenz a vaccine needed [id number] 06 Completed 201211/09/2013 RECORDED 03/08/20 13 11:28AM BY MELODIE SCANLON MA, OFFICE VISIT [facility] [address] [facility] [address], [place], [address], [facility] 5 10:13:30 Gastroes ophageal reflux disease 056422397 Active 2013 MADDIE Gomez, [facility] 6 09:49:31 Hyperlip idemia 88943076 Active 2013 MADDIE Gomez, [facility] 7 14:17:20 Essentia l hyperten juan 28303723 Active 2013 MADDIE Gomez, [facility] 7 14:17:23 Hypokale prince 39748396 Active 2013 MADDIE Gomez, [facility] 6 09:50:02 Knee pain Active 2013 Melodie baltazar MA null, [facility] 6 09:49:46 Laborato ry procedur e performe d 175898663 Completed 201211/09/2013 RECORDED 02/05/20 13 2:54PM BY MELODIE SCANLON MA, ANNOTATI ON/ADDEN DUM Dawnawendy PERKINS-C [address], [place], [address], [facility] 5 10:13:30 Musculos keletal symptom 48691652 Completed 201111/09/2013 STORY: UNCONTRO LLED HTN WITH NEW-ONSE T SIGNIFIC ANT LEFT ARM WEAKNESS OF EXTENSIO N/FLEXIO N AT THE ELBOW.; RECORDED 11/28/19 12 2:07PM BY MELODIE SCANLON MA, ANNOTATI ON/ADDEN DUM Dawnawendy PERKINS-C [address], [place], [address], [facility] 5 10:13:29 Pain of elbow region 70229979 Completed 201211/09/2013 RECORDED 09/24/19 13 2:48PM BY MELODIE SCANLON MA, ANNOTROSIE ON/ADDEN DUM Dawna PERKINS-C [address], [place], [address], [facility] 5 10:13:29 Shoulder joint pain 857676401 Completed 201211/09/2013 RECORDED 09/24/19 13 2:48PM BY MELODIE SCANLON MA, ANNOTATI ON/ADDEN DUM Dawnawendy PERKINS-C [address], [place], [address], [facility] 5 10:13:29 Lipoma 97058817 Active 2013 MADDIE Gomez, [facility] 7 14:17:27 Localize d superfic ial swelling of skin 663961357 Completed 200811/09/2013 RECORDED 12/06/19 09 2:18PM BY MELODIE SCANLON MA, ANNOTATI ON/ADDEN DUM Dawna Vegas PA-C [address], [place], [address], [facility] 5 10:13:29 Nausea 189642271 Completed 201111/09/2013 RECORDED 11/28/19 12 2:07PM BY MELODIE SCANLON MA, ANNOTATI ON/ADDEN DUM Dawna Vegas PA-C [address], [place], [address], [facility] 5 10:13:30 Patient status finding 143914394 Completed 201312/26/2015 MADDIE Gomez, [facility] 6 09:49:19 Acute pancreat itis 780284934 Completed 201211/09/2013 RECORDED 02/05/20 13 2:54PM BY MELODIE SCANLON MA, ANNOTATI ON/ADDEN DUM Dawna [facility] [address] [facility] [address], [place], [address], [facility] 5 10:13:29 Skin sensatio n disturba nce 84661293 Completed 201305/20/2017 MADDIE Gomez, [facility] 8 09:49:12 Psychose xual dysfunct ion associat ed with inhibite d libido 278821028 Active 2013 MADDIE Gomez, [facility] 6 09:50:08 Restless legs 39778384 Active 2013 MADDIE Gomez, [facility] 6 09:49:58 Rhabdomy olysis 923597831 Active 2013 MADDIE Gomez, [facility] 6 09:49:33 Sprain of wrist 87218853 Completed 201211/09/2013 RECORDED 02/05/20 13 2:54PM BY MELODIE SCANLON MA, BOO ON/ADDEN DUM Dawna PERKINS-C [address], [place], [address], [facility] 5 10:13:30 Epidermo id cyst of skin 258053491 Completed 201311/09/2013 IMPRESSI ON: REASSURA NCE. IF BOTHERS HIM, CAN REFER TO GENERAL SURGEON. AT THIS POINT HE DOES NOT WANT TO DO THAT.; RECORDED 05/11/19 14 7:19AM BY BOO ELIAS ON/ADDEN DUM Dawnawendy PERKINS-C [address], [place], [address], [facility] 5 10:13:29 Injury of ulnar nerve 11368570 Completed 199705/20/2017 DATE: 1997; ; RIGHT WRIST MADDIE Gomez, [facility] 8 09:49:09 Verruca vulgaris 69747983 Completed 201111/09/2013 RECORDED 11/28/19 12 2:07PM BY MELODIE SCANLON MA, BOO ON/ADDEN DUM Dawnawendy PERKINS-C [address], [place], [address], [facility] 5 10:13:29 Wheezing 01217203 Completed 201311/09/2013 RECORDED 06/01/19 14 7:53AM BY ELENA VALLADARES MA, ANNOTATI ON/ADDEN DUM Adwna Vegas PA-C [address], [place], [address], [facility] 5 10:13:29 Epigastr ic pain 21002690 Completed 201212/02/2013 RECORDED 03/24/20 13 9:55AM BY ROX HERNANDEZ MA, ANNOTATI ON/ADDEN DUM Dawna Vegas PA-C [address], [place], [address], [facility] 5 10:13:30 Left lower quadrant pain 432945165 Completed 201112/02/2013 RECORDED 11/28/19 12 2:07PM BY MELODIE SCANLON MA, ANNOTATI ON/ADDEN DUM Dawna Vegas PA-C [address], [place], [address], [facility] 5 10:13:30 Mucopuru lent conjunct ivitis 761327423 Completed 201212/02/2013 RECORDED 09/17/19 13 10:18AM BY MELODIE SCANLON MA, ANNOTATI ON/ADDEN DUM Dawna Vegas PA-C [address], [place], [address], [facility] 5 10:13:29 Acute sinusiti s 66844207 Completed 201312/02/2013 RECORDED 06/01/19 14 7:53AM BY ELENA VALLADARES MA, ANNOTATI ON/ADDEN DUM Melodie baltazar MA [facility] 7 14:17:11 Adult health examinat ion Completed 201212/02/2013 RECORDED 09/24/19 13 2:48PM BY MELODIE SCANLON MA, ANNOTATI ON/ADDEN DUM Dawna Vegas PA-C [address], [place], [address], [facility] 5 10:13:30 Exposure to organism Completed 201112/02/2013 RECORDED 11/28/19 12 2:07PM BY MELODIE SCANLON MA, BOO ON/ADDEN DUM Dawnawendy Vegas VT-C [address], [place], [address], [facility] 5 10:13:30 Cough 75260890 Completed 201312/02/2013 IMPRESSI ON: SUSPECT PERTUSSI S. TOO LATE FOR TREATMEN T. ONLY TEST THAT CAN BE DONE AT THIS POINT IS SERUM. CXR TO R/O PNEUMONI A. SPIROMET RY SHOWS NO EVIDENCE OF OBSTRUCT ION SO DOUBT PREDNISO NE WOULD HELP; RECORDED 11/06/19 14 8:05AM BY MELODIE SCANLON MA, BOO ON/ADDEN DUM Melodie baltazar MA null, [facility] 8 09:48:50 Diarrhea 83908865 Completed 201112/02/2013 RECORDED 11/28/19 12 2:07PM BY MELODIE SCANLON MA, ANNOTATI ON/ADDEN DUM Dawna PERKINS-C [address] [facility] [address], [place], [address], [facility] 5 10:13:30 Inflamma tory disease of liver 561071527 Completed 201212/02/2013 RECORDED 02/05/20 13 2:54PM BY MELODIE SCANLON MA, BOO ON/ADDEN DUM Dawna PERKINS-C [address], [place], [address], [facility] 5 10:13:29 Blood chemistr y outside referenc e range 963941080 Completed 201212/02/2013 RECORDED 02/05/20 13 2:54PM BY MELODIE SCANLON MA, ANNOTATI ON/ADDEN DUM Dawna [facility]-C [address], [place], [address], [facility] 5 10:13:30 Follow-u p encounte r Completed 201312/02/2013 RECORDED 05/11/19 14 7:19AM BY JM CAI I ANNOTATI ON/ADDEN DUM Dawna [facility] [address], [place], [address], [facility] 5 10:13:30 Essentia l hyperten juan 72162689 Completed 200912/02/2013 RECORDED 08/25/19 10 7:44AM BY MELODIE SCANLON MA, ANNOTATI ON/ADDEN DUM Melodie baltazar MA null, [facility] 7 14:17:23 Malaise and fatigue 099203711 Completed 201212/02/2013 RECORDED 09/24/19 13 2:48PM BY MELODIE SCANLON MA, ANNOTATI ON/ADDEN DUM Dawna [facility] [address], [place], [address], [facility] 5 10:13:29 Influenz a vaccine needed 49778162428 06 Completed 201212/02/2013 RECORDED 03/08/20 13 11:28AM BY MELODIE SCANLON MA, OFFICE VISIT [facility] [address], [place], [address], [facility] 5 10:13:30 Flatulen ce, eructati on and gas pain 789524257 Completed 201305/20/2017 Melodie baltazar MA null, [facility] 8 09:49:18 Laborato ry procedur e performe d 316946044 Completed 201212/02/2013 RECORDED 02/05/20 13 2:54PM BY MELODIE SCANLON MA, ANNOTROSIE ON/ADDEN DUM Dawna Evangelist PA-C [address], [place], [address], [facility] 5 10:13:30 Musculos keletal symptom 56632884 Completed 201112/02/2013 STORY: UNCONTRO LLED HTN WITH NEW-ONSE T SIGNIFIC ANT LEFT ARM WEAKNESS OF EXTENSIO N/FLEXIO N AT THE ELBOW.; RECORDED 11/28/19 12 2:07PM BY MELODIE SCANLON MA, BOO ON/ADDEN DUM Dawna Evangelist PA-C [address], [place], [address], [facility] 5 10:13:29 Pain of elbow region 10680267 Completed 201212/02/2013 RECORDED 09/24/19 13 2:48PM BY MELODIE SCANLON MA, ANNOTROSIE ON/ADDEN DUM Dawna Evangelist PERKINS-C [address], [place], [address], [facility] 5 10:13:29 Shoulder joint pain 909520871 Completed 201212/02/2013 RECORDED 09/24/19 13 2:48PM BY MELODIE SCANLON MA, BOO ON/ADDEN DUM Dawna Evangelist PA-C [address], [place], [address], [facility] 5 10:13:29 Localize d superfic ial swelling of skin 729818325 Completed 200812/02/2013 RECORDED 12/06/19 09 2:18PM BY MELODIE SCANLON MA, BOO ON/ADDEN DUM Dawna Evangelist PERKINS-C [address], [place], [address], [facility] 5 10:13:29 Nausea 545328442 Completed 201112/02/2013 RECORDED 11/28/19 12 2:07PM BY MELODIE SCANLON MA, ANNOTATI ON/ADDEN DUM Dawna Vegas PA-C [address], [place], [address], [facility] 5 10:13:30 Acute pancreat itis 849459936 Completed 201212/02/2013 RECORDED 02/05/20 13 2:54PM BY MELODIE SCANLON MA, ANNOTATI ON/ADDEN DUM Dawna Vegas PA-C [address], [place], [address], [facility] 5 10:13:29 Sprain of wrist 16389917 Completed 201212/02/2013 RECORDED 02/05/20 13 2:54PM BY MELODIE SCANLON MA, ANNOTATI ON/ADDEN DUM Dawna Vegas PA-C [address], [place], [address], [facility] 5 10:13:30 Epidermo id cyst of skin 676303422 Completed 201312/02/2013 IMPRESSI ON: REASSURA NCE. IF BOTHERS HIM, CAN REFER TO GENERAL SURGEON. AT THIS POINT HE DOES NOT WANT TO DO THAT.; RECORDED 05/11/19 14 7:19AM BY BOO ELIAS ON/ADDEN DUM Dawna Vegas PA-C [address], [place], [address], [facility] 5 10:13:29 Verruca vulgaris 23412929 Completed 201112/02/2013 RECORDED 11/28/19 12 2:07PM BY MELODIE SCANLON MA, ANNOTATI ON/ADDEN DUM Dawan Vegas PA-C [address], [place], [address], [facility] 5 10:13:29 Wheezing 42226584 Completed 201312/02/2013 RECORDED 06/01/19 14 7:53AM BY ELENA VALLADARES MA, ANNOTATI ON/ADDEN DUM Dawna Vegas PA-C [address], [place], [address], [facility] 5 10:13:29 Epigastr ic pain 12212050 Completed 201212/03/2013 RECORDED 03/24/20 13 9:55AM BY ROX HERNANDEZ MA, ANNOTATI ON/ADDEN DUM Dawna Vegas PA-C [address], [place], [address], [facility] 5 10:13:30 Left lower quadrant pain 586865010 Completed 201112/03/2013 RECORDED 11/28/19 12 2:07PM BY MELODIE SCANLON MA, ANNOTATI ON/ADDEN DUM Danwa Vegas PA-C [address] [facility] [address], [place], [address], [facility] 5 10:13:30 Mucopuru lent conjunct ivitis 628141364 Completed 201212/03/2013 RECORDED 09/17/19 13 10:18AM BY MELODIE SCANLON MA, ANNOTATI ON/ADDEN DUM Dawna Vegas PA-C [address], [place], [address], [facility] 5 10:13:29 Acute sinusiti s 36288618 Completed 201312/03/2013 RECORDED 06/01/19 14 7:53AM BY ELENA VALLADARES MA, ANNOTATI ON/ADDEN DUM [facility] 14:[facility]11 Adult health examinat ion Completed 201212/03/2013 RECORDED 09/24/19 13 2:48PM BY MELODIE SCANLON MA, BOO ON/ADDEN DUM Dawnaartis PERKINS-C [address] [facility] [address], [place], [address], [facility] 5 10:13:30 Exposure to organism Completed 201112/03/2013 RECORDED 11/28/19 12 2:07PM BY MELODIE SCANLON MA, BOO ON/ADDEN DUM Dawnaartis PERKINS-C [address] [facility] [address], [place], [address], [facility] 5 10:13:30 Cough [id number] Completed 201312/03/2013 IMPRESSI ON: SUSPECT PERTUSSI S. TOO LATE FOR TREATMEN T. ONLY TEST THAT CAN BE DONE AT THIS POINT IS SERUM. CXR TO R/O PNEUMONI A. SPIROMET RY SHOWS NO EVIDENCE OF OBSTRUCT ION SO DOUBT PREDNISO NE WOULD HELP; RECORDED 11/06/19 14 8:05AM BY MELODIE SCANLON MA, BOO ON/ADDEN DUM Melodie baltazar MA null, [facility] 8 09:48:50 Diarrhea 20513051 Completed 201112/03/2013 RECORDED 11/28/19 12 2:07PM BY MELODIE SCANLON MA, BOO ON/ADDEN DUM Dawnawendy PERKINS-C [address] [facility] [address], [place], [address], [facility] 5 10:13:30 Inflamma tory disease of liver 237133187 Completed 201212/03/2013 RECORDED 02/05/20 13 2:54PM BY MELODIE SCANLON MA, MEHNAZATI ON/ADDEN DUM Dawna PERKINS-C [address], [place], [address], [facility] 5 10:13:29 Blood chemistr y outside referenc e range 946782786 Completed 201212/03/2013 RECORDED 02/05/20 13 2:54PM BY MELODIE SCANLON MA, ANNOTATI ON/ADDEN DUM Dawnawendy Vegas PA-C [address], [place], [address], [facility] 5 10:13:30 Follow-u p encounte r Completed 201312/03/2013 RECORDED 05/11/19 14 7:19AM BY JM CAI I, ANNOTATI ON/ADDEN DUM Dawna Vegas PA-C [address] [facility] [address], [place], [address], [facility] 5 10:13:30 Essentia l hyperten juna 38230608 Completed 200912/03/2013 RECORDED 08/25/19 10 7:44AM BY MELODIE SCANLON MA, ANNOTATI ON/ADDEN DUM Melodie baltazar MA null, [facility] 7 14:17:23 Malaise and fatigue 622015564 Completed 201212/03/2013 RECORDED 09/24/19 13 2:48PM BY MELODIE SCANLON MA, ANNOTATI ON/ADDEN DUM Dawna Vegas PA-C [address], [place], [address], [facility] 5 10:13:29 Influenz a vaccine needed 71139384580 06 Completed 201212/03/2013 RECORDED 03/08/20 13 11:28AM BY MELODIE SCANLON MA, OFFICE VISIT Dawna Vegas PA-C [address], [place], [address], [facility] 5 10:13:30 Laborato ry procedur e performe d 549409656 Completed 201212/03/2013 RECORDED 02/05/20 13 2:54PM BY MELODIE SCANLON MA, ANNOTATI ON/ADDEN DUM Dawna Evangelist PERKINS-C [address], [place], [address], [facility] 5 10:13:30 Musculos keletal symptom 04427073 Completed 201112/03/2013 STORY: UNCONTRO LLED HTN WITH NEW-ONSE T SIGNIFIC ANT LEFT ARM WEAKNESS OF EXTENSIO N/FLEXIO N AT THE ELBOW.; RECORDED 11/28/19 12 2:07PM BY MELODIE SCANLON MA, ANNOTROSIE ON/ADDEN DUM Dawna Evangelist PERKINS-C [address], [place], [address], [facility] 5 10:13:29 Pain of elbow region 43620010 Completed 201212/03/2013 RECORDED 09/24/19 13 2:48PM BY MELODIE SCANLON MA, ANNOTROSIE ON/ADDEN DUM Dawnawendy PERKINS-C [address] [facility] [address], [place], [address], [facility] 5 10:13:29 Shoulder joint pain 126255734 Completed 201212/03/2013 RECORDED 09/24/19 13 2:48PM BY MELODIE SCANLON MA, ANNOTATI ON/ADDEN DUM Dawna Evangelist PERKINS-C [address], [place], [address], [facility] 5 10:13:29 Localize d superfic ial swelling of skin 811099045 Completed 200812/03/2013 RECORDED 12/06/19 09 2:18PM BY MELODIE SCANLON MA, ANNOTATI ON/ADDEN DUM Dawna Vegas PA-C [address], [place], [address], [facility] 5 10:13:29 Nausea 824813731 Completed 201112/03/2013 RECORDED 11/28/19 12 2:07PM BY MELODIE SCANLON MA, ANNOTATI ON/ADDEN DUM Dawna Vegas PA-C [address], [place], [address], [facility] 5 10:13:30 Acute pancreat itis [id number] Completed 201212/03/2013 RECORDED 02/05/20 13 2:54PM BY MELODIE SCANLON MA, ANNOTATI ON/ADDEN DUM Dawna Vegas PA-C [address], [place], [address], [facility] 5 10:13:29 Sprain of wrist 78565660 Completed 201212/03/2013 RECORDED 02/05/20 13 2:54PM BY MELODIE SCANLON MA, ANNOTATI ON/ADDEN DUM Dawna Vegas PA-C [address], [place], [address], [facility] 5 10:13:30 Epidermo id cyst of skin 495025789 Completed 201312/03/2013 IMPRESSI ON: REASSURA NCE. IF BOTHERS HIM, CAN REFER TO GENERAL SURGEON. AT THIS POINT HE DOES NOT WANT TO DO THAT.; RECORDED 05/11/19 14 7:19AM BY BOO ELIAS ON/ADDEN DUM Dawna Vegas PA-C [address], [place], [address], [facility] 5 10:13:29 Verruca vulgaris 37630970 Completed 201112/03/2013 RECORDED 11/28/19 12 2:07PM BY MELODIE SCANLON MA, ANNOTATI ON/ADDEN DUM Dawna Vegas PA-C [address], [place], [address], [facility] 5 10:13:29 Wheezing 28468917 Completed 201312/03/2013 RECORDED 06/01/19 14 7:53AM BY ELENA VALLADARES MA, ANNOTROSIE ON/ADDEN DUM Dawna Vegas PA-C [address], [place], [address], [facility] 5 10:13:29 Shoulder tendinit is Active Dawna Vegas PA-C [address] [facility] [address], [place], [address], [facility] 5 10:13:29 Fatigue 88212707 Active Dawna Vegas PA-C [address] [facility] [address], [place], [address], [facility] 5 10:13:29 Degenera tion of lumbar interver tebral disc 54281369 Active 2013 MADDIE Gomez, [facility] 6 09:49:39 Acute sinusiti s 74229980 Completed 01/06/2017 MADDIE Gomez, [facility] 7 14:17:11 Impotenc e Active Dawna Vegas PA-C [address] [facility] [address], [place], [address], [facility] 5 10:13:29 Abdomina l pain 37263933 Completed 01/06/2017 MADDIE Gomez, [facility] 7 14:17:15 Inflamma tion of rotator cuff tendon 930479930 Active Dawna Vegas PA-C [address] [facility] [address], [place], [address], [facility] 5 10:13:29 Lumbago with sciatica 782921683 Active Marvin Lam MD [address], [place], [address], [facility] 5 12:17:43 Anabolic steroids adverse reaction 127820831 Active Marvin Lam MD [address], [place], [address], [facility] 5 12:08:12 Lumbar radiculo zahira 042923709 Active Marvin Lam MD [address], [place], [address], [facility] 6 21:16:15 Insomnia 412854225 Active Marvin Lam MD [address], [place], [address], [facility] 6 21:16:15 Obstruct gila sleep apnea syndrome 26601286 [facility] 09:47[facility]56 Dependen ce on continuo us positive airway pressure ventilat ion 720636954 Active 2017 6-16 cm H2O [facility] 8 09:48:34 Problem Notes None recorded. Procedures Surgical History Date Name Laterality Status Provider Name and Address Organization Details Recorded Time 05/29/19 16 Unlisted procedure shoulder completed Melodie green MA [facility] 12/26/2015 09:56:11 03/28/20 15 Unlisted procedure shoulder completed Melodie green MA [facility] 12/26/2015 09:56:16 03/07/20 15 Joint Injection completed Marvin aLm MD [address], [place], [address], [facility] 03/07/2015 11:04:20 02/02/20 14 Corticosteroid Injection completed Marvin Lam MD [address] [address], [place], [address], [facility] 02/03/2014 20:18:14 04/07/20 07 Osteot dsc ant 1vrt sgm lmbr completed Melodie Alcazar-Teo os, [facility] 02/01/2014 13:52:13 Colonoscopy completed Melodie Alcazar-Teo , [facility] 01/06/2017 14:00:58 Imaging Results Imaging Date Name Status LastModified by Organiz ation Details LastModified Time 10/11/2012 MRI, lumbar spine, w/wo contrast completed [facility] Information not available 12/03/2016 15:12:18 05/03/2017 sleep study, diagnostic* completed [facility] [address] [place], [address], 05/20/2017 09:49:24 10/11/2018 CT, abdomen + pelvis, w/ contrast completed [facility] [address] [place] [address], [address], 10/12/2018 07:13:33 11/10/2019 CT, abdomen + pelvis, w/o contrast completed [facility] [address] [place] [address], [address], 11/10/2019 16:13:04 Procedure Notes None recorded. Medical Equipment None Reported. Allergies Allergen ID Allergen Name Allergen Category Reaction Reaction Severity Criticality Documentation Date Start Date Code Code System Note Provider Name and Address Organization Details Recorded Time 32715 enalapril Not available cough Not available Not available 12/26/2015 3507 RxNorm Marvin Lam MD [address] [facility] [address], [place], [address], [facility] 6 10:53:29 Medications Name Sig Start Date Stop Date Status Note LastModified by Organization Details LastModified Time carisopro dol 350 mg tablet Q 6HRS PRN SPASM 10/18/ 2007 11/01 /2007 completed RECORDED 03/09/20 07 5:42PM BY VICKI Calderon MD, MEDICATI ON AUTO-LCUINA CTIVATIO N; Not Available Not Available Not [...] Available Not Available Not Available Fluarix Quad 2320-8944 (PF) 60 mcg (15 mcg x 4)/0.5 mL IM syringe 01/06 completed Not Available Not Available Not Available Vitals Date Recorded Body height Body weight Body mass index (BMI) Body temperature Oxygen saturation Oxygen saturation in Arterial blood by Pulse oximetry Heart rate Systolic blood pressure Diastolic blood pressure Provider Name and Address Organization Details Last Updated DateTime 7 185.42 cm 268571. 53 g 35.8 kg/m2 97.4 [degF] 96 % 96 % 80 /min 142 mm[Hg] 86 mm[Hg] Elena Valladares MA [facility] 7 08:42:58 Date Recorded Body height Body mass index (BMI) Body weight Body temperature Oxygen saturation Oxygen saturation in Arterial blood by Pulse oximetry Heart rate Systolic blood pressure Diastolic blood pressure Provider Name and Address Organization Details Last Updated DateTime 7 185.42 cm 31.8 kg/m2 028535. 76 g 98.1 [degF] 97 % 97 % 108 /min 152 mm[Hg] 76 mm[Hg] Melodie baltazar MA [facility] 7 14:14:10 Date Recorded Heart rate Body temperature Oxygen saturation Oxygen saturation in Arterial blood by Pulse oximetry Body height Body weight Body mass index (BMI) Systolic blood pressure Diastolic blood pressure Provider Name and Address Organization Details Last Updated DateTime 5 107 /min 97.4 [degF] 97 % 97 % 185.42 cm 170604. 74743 g 33.8 kg/m2 144 mm[Hg] 94 mm[Hg] Melodie baltazar MA [facility] 5 09:44:27 Date Recorded Body height Oxygen saturation Oxygen saturation in Arterial blood by Pulse oximetry Heart rate Body temperature Body mass index (BMI) Body weight Systolic blood pressure Diastolic blood pressure Provider Name and Address Organization Details Last Updated DateTime 6 185.42 cm 100 % 100 % 92 /min 97.2 [degF] 33.5 kg/m2 009219. 87910 g 128 mm[Hg] 88 mm[Hg] Melodie baltazar MA [facility] 6 11:07:43 Date Recorded Body height Body temperature Oxygen saturation Oxygen saturation in Arterial blood by Pulse oximetry Heart rate Body weight Body mass index (BMI) Systolic blood pressure Diastolic blood pressure Provider Name and Address Organization Details Last Updated DateTime 6 185.42 cm 98.1 [degF] 97 % 97 % 100 /min 958536. 15 g 33.4 kg/m2 138 mm[Hg] 90 mm[Hg] Melodie baltazar MA [facility] 6 09:58:33 Social History Question Answer Notes LastModified by Organizat ion Details LastModified Time Tobacco Smoking Status Never Smoker MADDIE Gutierrez [facility] 02/01/2014 13:51:48 Do You Have An Advance Directive? No Declined Information not available 04/11/2015 Is Blood Transfusion Acceptable In An Emergency? Yes [email or web address] Information not available 11/23/2014 What Is Your [...] Take Precautions To Prevent Distracted Driving? Yes [email or web address] Information not available 11/23/2014 How Often Do You Need To Have Someone Help You When You Read Instructions, Pamphlets, Or Other Written Material From Your Doctor Or Pharmacy? Sometimes Information not available 11/23/2014 Have You Served In The ? No Information not available 01/06/2017 What Was The Date Of Your Most Recent Tobacco Screening? 01/06/2017 Information not available 11/19/2018 How Many Children Do You Have? 1 Information not available 02/01/2014 Do You Use Protection During Sex? No Information not available 04/11/2015 What Is Your Relationship Status? 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 Information not available 02/01/2014 What is your [...] virus, quadrivalent, preservative 7 completed Heidi mcmahon [facility] 12/03/2016 16:01:55 Influenza, split virus, quadrivalent, preservative 8 completed [facility] 01/13/2018 15:22:21 Influenza, split virus, quadrivalent, PF 5 completed Not Available [facility] 05/15/2019 02:22:02 Influenza, split virus, quadrivalent, PF 6 completed Not Available [facility] 05/15/2019 02:22:04 Tdap 6 completed Not Available [facility] 05/15/2019 02:21:45 Influenza, split virus, trivalent, PF 4 completed Not Available [facility] 05/15/2019 02:21:57 Td (adult), 2 Lf tetanus toxoid, preservative free, adsorbed 6 completed Not Available [facility] 11/09/2013 13:23:19 varicella 6 completed Not Available [facility] 11/09/2013 13:23:19 pneumococcal polysaccharide PPV23 3 completed Not Available [facility] 11/09/2013 13:23:19 Influenza, split virus, trivalent, preservative 3 completed Not Available [facility] 11/09/2013 13:23:19 Past Encounters Encounter ID Performer Location Encounter Start Date Encounter Closed Date Diagnosis/Indication Diagnosis SNOMED-CT Code Diagnosis ICD10 Code Diagnosis Note [id number] autoEComm erce [address] [facility] [place] [address] 11/12/2006 00:00:00 [id number] autoEComm erce [address] [facility] [place] [address] 02/12/2007 00:00:00 [id number] autoEComm erce [address] [facility] [place] [address] 05/12/2007 00:00:00 [id number] autoEComm erce [address] [facility] [place] [address] 06/16/2007 00:00:00 [id number] autoEComm erce [address] [facility] [place] [address] 01/28/2008 00:00:00 [id number] autoEComm erce [address] [facility] [place] [address] 08/25/2008 00:00:00 [id number] autoEComm erce [address] [facility] [place] [address] 12/05/2008 00:00:00 [id number] autoEComm erce [address] [facility] [place] [address] 05/23/2009 00:00:00 [id number] [address]Comm erce [address] [place] [address] 06/08/2009 00:00:00 [id number] autoEComm erce [address] [facility] [address] [place] [address] 08/24/2009 00:00:00 [id number] autoEComm erce [address] [facility] [place] [address] 11/28/2009 00:00:00 [id number] autoEComm erce [address] [facility] [place] [address] 05/08/2010 00:00:00 [id number] autoEComm erce [address] [facility] [place] [address] 08/04/2012 00:00:00 [id number] autoEComm erce [address] [facility] [place] [address] 09/16/2012 00:00:00 [id number] autoEComm erce [address] [facility] [place] [address] 09/23/2012 00:00:00 [id number] autoEComm erce [address] [facility] [place] [address] 03/08/2013 00:00:00 [id number] autoEComm erce [address] [facility] [place] [address] 03/24/2013 00:00:00 [id number] autoEComm erce [address] [facility] [place] [address] 05/11/2013 00:00:00 [id number] autoEComm erce [address] [facility] [place] [address] 06/01/2013 00:00:00 [id number] Marvin Lam MD Main Office [address] [facility] [address] [place] [address] 02/01/2014 13:42:42 02/01/2014 14:48:36 Needs influenza immunization 115941932 Anxiety disorder 153549876 Shoulder tendinitis 889275188 Hyperlipidemia 56055918 Fatigue 72691453 [id number] Marvin Lam MD Main Office [address] [address] [place] [address] 06/22/2014 11:14:24 06/22/2014 12:22:10 Adult health examination 933596229 Essential hypertension 93794165 Restless legs 44424150 Cough 72423561 Acute sinusitis 35877120 Impotence 820517839 [id number] Vicki dueñas MD Main Office [address] [address] [place] [address] 11/23/2014 12:44:46 11/23/2014 13:28:21 Abdominal pain 48189089 ? of resolving pancreatit is due to excessive alcohol use, hx of alcohol induced pancreatit is, pt will get labs, looks well, is hydrated, pain resolved, he knows to abstain from alcohol and return for eval if any return of pain [id number] Marvin Lam MD Main Office [address] [address] [place] [address] 03/07/2015 10:20:59 03/07/2015 10:58:46 Needs influenza immunization 046103870 Z23 Inflammati on of rotator cuff tendon 918247767 M65.812 [id number] Dawna Vegas PA-C Main Office [address] [address] [place] [address] 03/24/2015 09:13:11 03/24/2015 09:40:19 Lumbago with sciatica 155490258 M54.42 Lumbar disc disease exacerbati on L. with sciatica. Start Prednisone taper as directed. Cyclobenza prone if tolerated TID for 5 days and Oxycodone PRN. F/u with PCP if symptoms persist or worsen. [id number] Marvin Lam MD Main Office [address] [address] [place] [address] 04/11/2015 09:37:04 04/11/2015 10:44:16 Degeneration of lumbar intervertebral disc 07790023 M51.36 Anabolic s teroids adverse reaction 280864129 T38.7X5S Alf use of anabolic steroids. Now on testostero ne replacemen t with Dr. 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 [id number] Marvin Lam MD Main Office [address] [address] [place] [address] 07/12/2015 10:52:20 07/12/2015 11:59:17 Restless legs 33079022 G25.81 Essential hypertension 56000043 I10 Lumbar radiculopathy 128 449616 M54.16 Insomnia 892276591 G47.0 0 [id number] Marvin Lam MD Main Office [address] [place] [address] 12/26/2015 09:43:17 12/26/2015 10:55:17 Adult health examination 938931442 Z00.00 Essential hypertension 15127033 I10 Needs infl uenza immunization 019831912 Z23 Administra tion of diphtheria, pertussis, and tetanus vaccine 256338206 Z23 [id number] ANTHONY Posey Main Office [address] [place] [address] 05/02/2016 08:26:46 05/02/2016 09:13:28 Snoring 62903835 R06.83 Patient understand s he needs to [...] to his feeling of unrest. Restless legs 45354416 G 25.81 Will increase requip to 3mg [...] in 1 month for recheck. Essential hypertension 36913115 I10 Bp not greatly controlled on current meds, possibilit y of sleep apnea likely a contributi ng factor, I stressed the importance of having sleep study and getting sleep apnea treated. [id number] Marvin Lam MD Main Office [address] [facility] [place] [address] 01/06/2017 13:51:55 01/06/2017 15:08:02 Essential hypertension 74766649 I10 Anxiety state 235701161 F41.1 Restless legs 49477883 G 25.81 Major depr essive disorder 877081952 F32.9 Chronic al coholism in remission 456381036 F10.21 Recently stopped drinking Health Concerns Section Related Observation LastModified by Organization Detai ls LastModified Time None Recorded Concern Status LastModified by Organization Details LastModified Time None Recorded Advance Directives Directive N: declined Payers Encounter Date Sequence Insurance Name Policy Number Policy Correia Covered Member ID Correia Member ID Guarantor Name 04/11/2015 1 [facility] [id number] Konrad Jonas Sperlonga [id number] Konrad Sperlonga 07/12/[address] [facility] [id number] Konrad Jonas Sperlonga [id number] Konrad Sperlonga 12/26/2015 1 [facility] [id number] 3 Konrad Jonas Sperlonga [id number] Konrad Sperlonga 05/02/2016 1 [facility] [id number] 3 Konrad Jonas Sperlonga [id number] Konrad Sperlonga 01/06/2017 1 [facility] [id number] Konrad Jonas Sperlonga [id number] Konrad Sperlonga Notes Date Note Type Note [...] have his shoulder fixed by ortho in [place] area. Local orthopedics ([facility]) do not wish to attempt repair. Konrad states that severe pain has been disrupting sleep. He did not have benefit from use steroids by tapering dose. He plans to see [facility] on May 02 for evaluation of lumbar radiculopathy. Presently he is not working ([employer]) because of shoulder problems. 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 Never had sleep test. Now states that the medication is no longer effective. 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 Mansoor mcmahon [facility] [place] 05/02/2016 13:04:37 01/06/2017 text/html Anxiety/Depressi [...] refill his RLS meds. Marvin Lam MD [address] [address], [place], [address], [facility] [place] 01/07/2017 08:40:40
--- OUTSIDE RECORDS SUMMARY | 2024-09-16 10:43 | XMS_ITS | Clinical Summary ---
Author Organization [facility]. Address [address] [place] [address] Phone Care Team Providers Care Quarry Equipment Operator Name Role Phone Abbie Ayala PA-C Primary [facility] [address] [address] Chad Martínez MD [address] [phone] Health Maintenance Due Date Last Done Comments [...] (6 to 49 Years) Discontinued 10/13/2012 Insurance [facility] Care Teams Quarry Equipment Operator Relationship Specialty Start Date End Date Abbie yAala PA-C [address] [place] [id number] PCP - General Physician Door Closer Mechanic 05/20/24
== END 2024-09-16 10:44 | disposition home or self-care (01) ==
LOC: HO.HOS 10:15
PROVIDERS: PCP Physician Assistant; Visit Provider Orthopaedic Surgery
DX: Z98.890 Other specified postprocedural states (principal)
CPT/HCPCS: 99024

== ENCOUNTER → 2024-09-16 10:14 | Outpatient (BNVA) | payer OTHER, SELFPAY | PROVIDERS: PCP Physician Assistant; Visit Provider Orthopaedic Surgery | DX: Z98.890 Other specified postprocedural states (principal) | CPT/HCPCS: 99212 ==

== ENCOUNTER 2024-10-07 10:32 | Outpatient (REF) | payer OTHER, SELFPAY ==
--- OUTSIDE RECORDS SUMMARY | 2024-10-07 12:17 | XMS_ITS | Data Portability ---
Author Organization [facility], Main Office Address [address] [facility] [address] [place] [address] Care Team Providers Care Automatic Hemmer Name Role Phone MARVIN LAM Primary Care Provider [phone] [facility] Sleep Medi cine IVETH VEGAS Primary [...] pain. We reviewed the report from the [place] pharmacy monitoring that shows Konrad has filled #262 pills for narcotics (hydrocodone and oxycodone) over the past 6 weeks. He has gotten scripts from multiple providers here, in the ED, at work comp, and from [facility] [employer]. We reviewed concerns about use of opioids and risk for addiction. He states that he knows how it looks and would like to try using non-narcotic pain medications for the time being. Konrad was asked to give a urine for UTOX screening today but stated that he had just voided and could not give us a sample. He understands that he would need to sign a contract for use of narcotics and would need to submit to testing if he is to receive any further narcotics here. He will see [facility] as planned. We will try to get an MRI of the LS spine in advance of that visit. betty Not available 04/11/2015 18:12:13 07/12/2015 07/12/2015 Reviewed options for treatment of LBP with radicular symptoms. He agrees to trial of long-acting NSAID and TCA for sleep/pain. Follow up with [facility] after shoulder injury improved. Recommended that he seek consultation with sleep medicine given reports that ropinirole is no longer effective for RLS. 100% of time spent counseling patient re comprehensive review of prognosis/plan/ris ks and benefits of current treatment. Office visit was 30 minutes and patient counseled re: management of leg pain, HTN, sleep problems. betty Not available 07/12/2015 21:16:16 12/26/2015 12/26/2015 [...] in3-4 weeks. Needs to review testosterone replacement iw Dr. Praneeth hernández Not available 01/07/2017 08:39:36 [...] sleep medici ne referr al 2016 017 [facility], [address] [place] [address], [id number], 7 11:41:11 sleep medici ne referr al 2016 017 [facility], [address] [place] [address], [id number], 7 10:33:10 ophtha lmolog ist referr al 2015 016 [facility] Skinny Trinh MD, [address] [place] [address], [id number], 7 11:51:20 sleep medici ne referr al 2015 016 [facility], [address] [place] [address], [id number], 6 11:23:29 Procedures None record ed. Surgeries None record ed. Imaging polyso mnogra m - hx restle ss legs, insomn ia, snorin g, not feelig n rested . 2016 017 [facility], [address] [place] [address], [id number], 7 13:18:46 Medication Orders sertra line 100 [...] By Organization Details Last Modified Time 04/11/2015 [id number] Medications were reviewed at this visit and reconciled. Changes in the active medications are reflected in the current medication list and discussed with patient (or caregiver) with instructions for follow up as needed. Printed medication list provided to the patient as part of the visit summary. phelmuth Not available 04/11/2015 18:12:13 07/12/2015 [id number] restless legs syndrome: care instructions phelmuth Not available 07/12/2015 21:16:16 insomnia: care instructions phelmuth Not available 07/12/2015 21:16:16 high blood pressure: care instructions phelmuth Not available 07/12/2015 21:16:16 learning about high blood pressure phelmuth Not available 07/12/2015 21:16:16 12/26/2015 [id number] high blood pressure: care instructions ckrym Not available 12/26/2015 10:54:01 learning about high blood pressure ckrym Not available 12/26/2015 10:54:01 Medications (OTC, herbal therapies, supplements) reviewed and reconciled with patient and or caregiver, including potential side effects, drug interactions, instructions, and the consequences of not taking medication. Reviewed potential barriers to medication adherence, such as side effects from medication or cost of medication. phedanteuth Not available 12/26/2015 13:40:17 05/02/2016 [id number] Call or return for worsening or concerns. jthabet Not available 05/02/2016 09:05:43 I have reviewed the note and agree with the assessment and plan of care. mdalessandro Not available 05/02/2016 13:04:29 01/06/2017 [id number] alcohol counseling* bsolivanmattos Not available 01/14/2017 11:34:43 Preventing Depression From Coming Back: Care Instructions Not available 01/06/2017 16:13:55 anxiety disorder: care instructions Not available 01/06/2017 16:13:55 high blood pressure: care instructions Not available 01/06/2017 16:13:55 learning about high blood pressure Not available 01/06/2017 16:13:55 Reason for Referral Referring Physician: Marvin sanders, Internal Medicine, Encounter Date: 07/12/2015 Slip Maker Referral for Adult health examination Referring Physician: Marvin Lam, Internal Medicine, Encounter Date: 12/26/2015 Referring Physician: Mazin Berger, Family Medicine, Encounter Date: 05/02/2016 Referring Physician: Marvin sanders, Internal Medicine, Encounter Date: 01/06/2017 Results Created Date Observation Date Name Description Value Unit Range Abnormal Flag Note LastModifiedBy Organization Detail LastModifiedTime 08/07/19 16 08/07/2015 BMP, serum or plasm a glucose 107 mg/dL (70-99 ) high Not Available [facility] (Centralized Electronic Ordering - All Locations) Patient Can Go To The Location Of Their Choice, [id number] 08/07/2015 22:28:16 08/07/19 16 08/07/2015 BMP, serum or plasm a BUN 21 [...] 08/07/2015 22:28:08/07/1908/07/2015 BMP, serum or plasm a est GFR [...] 15:23:57 11/19/1911/18/2016 CBC w/ auto diff lymph # 1.0 [...] 17 11/18/2016 BMP, serum or plasm a BUN 18 mg/dL (6-20) Not Available [facility] (Centralized Electronic Ordering - All Locations) Patient Can Go To The Location Of Their Choice, 11/18/2016 16:21:39 11/19/19 17 11/18/2016 BMP, serum or plasm a creatinine 1.4 [...] 17 11/18/2016 BMP, serum or plasm a potassium 4.2 mmol/ L (3.6-5 .2) Not Available [facility] (Centralized Electronic Ordering - All Locations) Patient Can Go To The Location Of Their Choice, 11/18/2016 16:21:39 11/19/19 17 11/18/2016 BMP, serum or plasm a chloride 94 mmol/ L (98-10 7) low Not Available [facility] (Centralized Electronic Ordering - All Locations) Patient Can Go To The Location Of Their Choice, 11/18/2016 16:21:39 11/19/19 17 11/18/2016 BMP, serum or plasm a bicarbonate 30 [...] 17 11/18/2016 BMP, serum or plasm a calcium 9.2 [...] The Location Of Their Choice, 11/18/2016 16:21:41 11/19/1911/18/2016 CK (crea jami kinas e), total , [...] Go To The Location Of Their Choice, [id number] 11/19/2016 15:16:29 12/04/19 17 10/11/2012 MRI, lumba r spine , w/wo contr ast No observ ation record ed. BAR[facility] Not Available 2016 15:12:18 05/16/19 18 05/03/2017 sleep study , diagn ostic * No observ ation record ed. [facility] [address] [place], [id number], 05/20/2017 09:49:24 10/12/19 19 10/11/2018 CT, abdom en + pelvi s, w/ contr ast No observ ation record ed. [facility] [address] [place] [address], [address], 10/12/2018 07:13:33 11/10/19 20 11/10/2019 CT, abdom en + pelvi s, w/o contr ast No observ ation record ed. [facility] [address] [place] [address], [address], 11/10/2019 16:13:04 Result Notes None recorded. Problems Name Problem SNOMED Code Status Onset Date Resolution Date Notes Provider Name and Address Organization Details Recorded Time Epigastr ic pain 83947218 Completed 201211/09/2013 RECORDED 03/24/20 13 9:55AM BY ROX HERNANDEZ MA, ANNOTATI ON/ADDEN DUM Dawna PARRAC [address] [facility] [address], [place], [address], [facility] 5 10:13:30 Left lower quadrant pain [id number] Completed 201111/09/2013 RECORDED 11/28/19 12 2:07PM BY MELODIE SCANLON MA, ANNOTATI ON/ADDEN DUM Dawna Evangelist PA-C [address] [facility] [address], [place], [address], [facility] 5 10:13:30 Mucopuru lent conjunct ivitis [id number] Completed 201211/09/2013 RECORDED 09/17/19 13 10:18AM BY MELODIE SCANLON MA, ANNOTATI ON/ADDEN DUM Dawna Evangelist PERKINS-C [address] [facility] [address], [place], [address], [facility] 5 10:13:29 Acute sinusiti s 01495010 Completed 201311/09/2013 RECORDED 06/01/19 14 7:53AM BY ELENA VALLADARES MA, ANNOTATI ON/ADDEN DUM MADDIE Gomez, [facility] 7 14:17:11 Harmful pattern of use of alcohol 46553042 Active 2013 MADDIE Gomez, [facility] 6 09:49:25 Drug abuse 36819415 Active 2013 MADDIE Gomez, [facility] 6 09:49:35 Adult health examinat ion Completed 201211/09/2013 RECORDED 09/24/19 13 2:48PM BY MELODIE SCANLON MA, ANNOTATI ON/ADDEN DUM Dawna Evangelist PERKINS-C [address] [facility] [address], [place], [address], [facility] 5 10:13:30 Anxiety disorder 110321123 Active 2013 MADDIE Gomez, [facility] 6 09:49:28 Exposure to organism Completed 201111/09/2013 RECORDED 11/28/19 12 2:07PM BY MELODIE SCANLON MA, ANNOTATI ON/ADDEN DUM Dawna Evangelist PERKINS-C [address] [facility] [address], [place], [address], [facility] 5 10:13:30 Cough 35391332 Completed 201305/20/2017 IMPRESSI ON: SUSPECT PERTUSSI S. TOO LATE FOR TREATMEN T. ONLY TEST THAT CAN BE DONE AT THIS POINT IS SERUM. CXR TO R/O PNEUMONI A. SPIROMET RY SHOWS NO EVIDENCE OF OBSTRUCT ION SO DOUBT PREDNISO NE WOULD HELP; RECORDED 06/01/19 14 8:45PM BY MADDIE ABRAMS, OFFICE VISIT [facility] 8 09:48:50 Diarrhea 97401320 Completed 201111/09/2013 RECORDED 11/28/19 12 2:07PM BY MELODIE SCANLON MA, ANNOTATI ON/ADDEN DUM Dawna PERKINS-C [address], [place], [address], [facility] 5 10:13:30 Inflamma tory disease of liver 415456942 Completed 201211/09/2013 RECORDED 02/05/20 13 2:54PM BY MELODIE SCANLON MA, ANNOTATI ON/ADDEN DUM Dawna PARRAC [address], [place], [address], [facility] 5 10:13:29 Blood chemistr y outside referenc e range 037945453 Completed 201211/09/2013 RECORDED 02/05/20 13 2:54PM BY MELODIE SCANLON MA, ANNOTATI ON/ADDEN DUM Dawna Evangelist PER[facility]INS-C [address], [place], [address], [facility] 5 10:13:30 Follow-u p encounte r Completed 201311/09/2013 RECORDED 05/11/19 14 7:19AM BY BOO ELIAS ON/ADDEN DUM Dawna Evangelist PERKINS-C [address], [place], [address], [facility] 5 10:13:30 Essentia l hyperten juan [id number] Completed 200911/09/2013 RECORDED 08/25/19 10 7:44AM BY MELODIE SCANLON MA, ANNOTATI ON/ADDEN DUM Melodie baltazar MA null, [facility] 7 14:17:23 Malaise and fatigue 972367768 Completed 201211/09/2013 RECORDED 09/24/19 13 2:48PM BY MELODIE SCANLON MA, ANNOTATI ON/ADDEN DUM Dawna Vegas PA-C [address] [facility] [address], [place], [address], [facility] 5 10:13:29 Influenz a vaccine needed [id number] 06 Completed 201211/09/2013 RECORDED 03/08/20 13 11:28AM BY MELODIE SCANLON MA, OFFICE VISIT Dawna Vegas PA-C [address] [facility] [address], [place], [address], [facility] 5 10:13:30 Gastroes ophageal reflux disease 632373104 Active 2013 MADDIE Gomez, [facility] 6 09:49:31 Hyperlip idemia 93308115 Active 2013 MADDIE Gomez, [facility] 7 14:17:20 Essentia l hyperten juan 56356764 Active 2013 MADDIE Gomez, [facility] 7 14:17:23 Hypokale prince 91994543 Active 2013 MADDIE Gomez, [facility] 6 09:50:02 Knee pain Active 2013 Melodie baltazar MA null, [facility] 6 09:49:46 Laborato ry procedur e performe d 850640610 Completed 201211/09/2013 RECORDED 02/05/20 13 2:54PM BY MELODIE SCANLON MA, ANNOTATI ON/ADDEN DUM Dawna Evangelist PA-C [address], [place], [address], [facility] 5 10:13:30 Musculos keletal symptom 75171499 Completed 201111/09/2013 STORY: UNCONTRO LLED HTN WITH NEW-ONSE T SIGNIFIC ANT LEFT ARM WEAKNESS OF EXTENSIO N/FLEXIO N AT THE ELBOW.; RECORDED 11/28/19 12 2:07PM BY MELODIE SCANLON MA, ANNOTATI ON/ADDEN DUM Dawna Evangelist PERKINS-C [address], [place], [address], [facility] 5 10:13:29 Pain of elbow region 21788701 Completed 201211/09/2013 RECORDED 09/24/19 13 2:48PM BY MELODIE SCANLON MA, ANNOTATI ON/ADDEN DUM Dawnawendy Vegas PA-C [address] [facility] [address], [place], [address], [facility] 5 10:13:29 Shoulder joint pain 878799935 Completed 201211/09/2013 RECORDED 09/24/19 13 2:48PM BY MELODIE SCANLON MA, ANNOTATI ON/ADDEN DUM Dawna Evangelist PA-C [address], [place], [address], [facility] 5 10:13:29 Lipoma 70100944 Active 2013 Melodie baltazar [place] null, [place] - [facility] 7 14:17:27 Localize d superfic ial swelling of skin 289216146 Completed 200811/09/2013 RECORDED 12/06/19 09 2:18PM BY MELODIE SCANLON MA, ANNOTATI ON/ADDEN DUM Dawna Evangelist PA-C [address], [place], [address], [facility] 5 10:13:29 Nausea 696165126 Completed 201111/09/2013 RECORDED 11/28/19 12 2:07PM BY MELODIE SCANLON MA, ANNOTATI ON/ADDEN DUM Dawna Evangelist PA-C [address] [facility] [address], [place], [address], [facility] 5 10:13:30 Patient status finding 891043424 Completed 201312/26/2015 MADDIE Gomez, [facility] 6 09:49:19 Acute pancreat itis 280338248 Completed 201211/09/2013 RECORDED 02/05/20 13 2:54PM BY MELODIE SCANLON MA, ANNOTATI ON/ADDEN DUM Dawna Evangelist PA-C [address] [facility] [address], [place], [address], [facility] 5 10:13:29 Skin sensatio n disturba coe 65250757 Completed 201305/20/2017 MADDIE Gomez, [facility] 8 09:49:12 Psychose xual dysfunct ion associat ed with inhibite d libido 410958254 Active 2013 MADDIE Gomez, [facility] 6 09:50:08 Restless legs 28461721 Active 2013 MADDIE Gomez, [facility] 6 09:49:58 Rhabdomy olysis 180949051 Active 2013 MADDIE Gomez, [facility] 6 09:49:33 Sprain of wrist 27009538 Completed 201211/09/2013 RECORDED 02/05/20 13 2:54PM BY MELODIE SCANLON MA, BOO ON/ADDEN DUM Dawnawendy PERKINS-C [address], [place], [address], [facility] 5 10:13:30 Epidermo id cyst of skin 455996691 Completed 201311/09/2013 IMPRESSI ON: REASSURA NCE. IF BOTHERS HIM, CAN REFER TO GENERAL SURGEON. AT THIS POINT HE DOES NOT WANT TO DO THAT.; RECORDED 05/11/19 14 7:19AM BY BOO ELIAS ON/ADDEN DUM Dawnawendy PERKINS-C [address], [place], [address], [facility] 5 10:13:29 Injury of ulnar nerve 87950111 Completed 199705/20/2017 DATE: 1997; ; RIGHT WRIST MADDIE Gomez, [facility] 8 09:49:09 Verruca vulgaris 52865687 Completed 201111/09/2013 RECORDED 11/28/19 12 2:07PM BY MELODIE SCANLON MA, BOO ON/ADDEN DUM Dawnawendy PERKINS-C [address], [place], [address], [facility] 5 10:13:29 Wheezing 62622724 Completed 201311/09/2013 RECORDED 06/01/19 14 7:53AM BY ELENA VALLADARES MA, BOO ON/ADDEN DUM Dawnawendy PERKINS-C [address], [place], [address], [facility] 5 10:13:29 Epigastr ic pain 26320691 Completed 201212/02/2013 RECORDED 03/24/20 13 9:55AM BY ROX HERNANDEZ MA, ANNOTATI ON/ADDEN DUM Dawna Evangelist PA-C [address], [place], [address], [facility] 5 10:13:30 Left lower quadrant pain 475697509 Completed 201112/02/2013 RECORDED 11/28/19 12 2:07PM BY MELODEI SCANLON MA, ANNOTATI ON/ADDEN DUM Dawna Evangelist PERKINS-C [address], [place], [address], [facility] 5 10:13:30 Mucopuru lent conjunct ivitis 055835674 Completed 201212/02/2013 RECORDED 09/17/19 13 10:18AM BY MELODIE SCANLON MA, ANNOTATI ON/ADDEN DUM Dawna Evangelist PERKINS-C [address], [place], [address], [facility] 5 10:13:29 Acute sinusiti s 69369100 Completed 201312/02/2013 RECORDED 06/01/19 14 7:53AM BY ELENA VALLADARES MA, ANNOTATI ON/ADDEN DUM Melodie baltazar MA null, [facility] 7 14:17:11 Adult health examinat ion Completed 201212/02/2013 RECORDED 09/24/19 13 2:48PM BY MELODIE SCANLON MA, ANNOTATI ON/ADDEN DUM Dawna Evangelist PERKINS-C [address], [place], [address], [facility] 5 10:13:30 Exposure to organism Completed 201112/02/2013 RECORDED 11/28/19 12 2:07PM BY MELODIE SCANLON MA, BOO ON/ADDEN DUM Dawna PERKINS-C [address], [place], [address], [facility] 5 10:13:30 Cough 81542043 Completed 201312/02/2013 IMPRESSI ON: SUSPECT PERTUSSI S. TOO LATE FOR TREATMEN T. ONLY TEST THAT CAN BE DONE AT THIS POINT IS SERUM. CXR TO R/O PNEUMONI A. SPIROMET RY SHOWS NO EVIDENCE OF OBSTRUCT ION SO DOUBT PREDNISO NE WOULD HELP; RECORDED 11/06/19 14 8:05AM BY MELODIE SCANLON MA, ANNOTROSIE ON/ADDEN DUM Melodie baltazar MA null, [facility] 8 09:48:50 Diarrhea 75889698 Completed 201112/02/2013 RECORDED 11/28/19 12 2:07PM BY MELODIE SCANLON MA, BOO ON/ADDEN DUM Dawna PERKINS-C [address] [facility] [address], [place], [address], [facility] 5 10:13:30 Inflamma tory disease of liver 232036364 Completed 201212/02/2013 RECORDED 02/05/20 13 2:54PM BY MELODIE SCANLON MA, ANNOTATI ON/ADDEN DUM Dawna PERKINS-C [address], [place], [address], [facility] 5 10:13:29 Blood chemistr y outside referenc e range 146288627 Completed 201212/02/2013 RECORDED 02/05/20 13 2:54PM BY MELODIE SCANLON MA, BOO ON/ADDEN DUM Dawna PERKINS-C [address], [place], [address], [facility] 5 10:13:30 Follow-u p encounte r Completed 201312/02/2013 RECORDED 05/11/19 14 7:19AM BY JM CAI I, ANNOTATI ON/ADDEN DUM Dawna [facility]- [address], [place], [address], [facility] 5 10:13:30 Essentia l hyperten juan 54115642 Completed 200912/02/2013 RECORDED 08/25/19 10 7:44AM BY MELODIE SCANLON MA, ANNOTATI ON/ADDEN DUM MADDIE Gomez, [facility] 7 14:17:23 Malaise and fatigue 652775976 Completed 201212/02/2013 RECORDED 09/24/19 13 2:48PM BY MELODIE SCANLON MA, ANNOTATI ON/[facility] [address], [place], [address], [facility] 5 10:13:29 Influenz a vaccine needed 53753389721 06 Completed 201212/02/2013 RECORDED 03/08/20 13 11:28AM BY MELODIE SCANLON MA, OFFICE VISIT Dawna Vegas PA [address] [facility] [address], [place], [address], [facility] 5 10:13:30 Flatulen ce, eructati on and gas pain 867411286 Completed 201305/20/2017 MADDIE Gomez, [facility] 8 09:49:18 Laborato ry procedur e performe d 387654829 Completed 201212/02/2013 RECORDED 02/05/20 13 2:54PM BY MELODIE SCANLON MA, ANNOTATI ON/ADDEN DUM Dawna Evangelist PA-C [address], [place], [address], [facility] 5 10:13:30 Musculos keletal symptom 86313735 Completed 201112/02/2013 STORY: UNCONTRO LLED HTN WITH NEW-ONSE T SIGNIFIC ANT LEFT ARM WEAKNESS OF EXTENSIO N/FLEXIO N AT THE ELBOW.; RECORDED 11/28/19 12 2:07PM BY MELODIE SCANLON MA, ANNOTATI ON/ADDEN DUM Dawna Evangelist PA-C [address], [place], [address], [facility] 5 10:13:29 Pain of elbow region 88380320 Completed 201212/02/2013 RECORDED 09/24/19 13 2:48PM BY MELODIE SCANLON MA, ANNOTATI ON/ADDEN DUM Dawna Evangelist PA-C [address], [place], [address], [facility] 5 10:13:29 Shoulder joint pain 461103157 Completed 201212/02/2013 RECORDED 09/24/19 13 2:48PM BY MELODIE SCANLON MA, ANNOTROSIE ON/ADDEN DUM Dawna Evangelist PA-C [address] [facility] [address], [place], [address], [facility] 5 10:13:29 Localize d superfic ial swelling of skin 481293752 Completed 200812/02/2013 RECORDED 12/06/19 09 2:18PM BY MELODIE SCANLON MA, ANNOTATI ON/ADDEN DUM Dawna Evangelist PA-C [address] [facility] [address], [place], [address], [facility] 5 10:13:29 Nausea 215196021 Completed 201112/02/2013 RECORDED 11/28/19 12 2:07PM BY MELODIE SCANLON MA, ANNOTATI ON/ADDEN DUM Dawna Vegas PA-C [address], [place], [address], [facility] 5 10:13:30 Acute pancreat itis 554930208 Completed 201212/02/2013 RECORDED 02/05/20 13 2:54PM BY MELODIE SCANLON MA, MEHNAZATI ON/ADDEN DUM Dawna Vegas PA-C [address], [place], [address], [facility] 5 10:13:29 Sprain of wrist 61262003 Completed 201212/02/2013 RECORDED 02/05/20 13 2:54PM BY MELODIE SCANLON MA, BOO ON/ADDEN DUM Dawna Vegas PA-C [address], [place], [address], [facility] 5 10:13:30 Epidermo id cyst of skin 168538812 Completed 201312/02/2013 IMPRESSI ON: REASSURA NCE. IF BOTHERS HIM, CAN REFER TO GENERAL SURGEON. AT THIS POINT HE DOES NOT WANT TO DO THAT.; RECORDED 05/11/19 14 7:19AM BY BOO ELIAS ON/ADDEN DUM Dawna Vegas PA-C [address], [place], [address], [facility] 5 10:13:29 Verruca vulgaris 97791944 Completed 201112/02/2013 RECORDED 11/28/19 12 2:07PM BY MELODIE SCANLON MA, BOO ON/ADDEN DUM Dawna Vegas PA-C [address], [place], [address], [facility] 5 10:13:29 Wheezing 04543870 Completed 201312/02/2013 RECORDED 06/01/19 14 7:53AM BY ELENA VALLADARES MA, ANNOTATI ON/ADDEN DUM Dawna Vegas PA-C [address], [place], [address], [facility] 5 10:13:29 Epigastr ic pain 76692788 Completed 201212/03/2013 RECORDED 03/24/20 13 9:55AM BY ROX HERNANDEZ MA, ANNOTATI ON/ADDEN DUM Dawna Vegas PA-C [address], [place], [address], [facility] 5 10:13:30 Left lower quadrant pain 828215508 Completed 201112/03/2013 RECORDED 11/28/19 12 2:07PM BY MELODIE SCANLON MA, ANNOTATI ON/ADDEN DUM Dawna Vegas PA-C [address], [place], [address], [facility] 5 10:13:30 Mucopuru lent conjunct ivitis 684077662 Completed 201212/03/2013 RECORDED 09/17/19 13 10:18AM BY MELODIE SCANLON MA, ANNOTATI ON/ADDEN DUM Dawna Vegas PA-C [address], [place], [address], [facility] 5 10:13:29 Acute sinusiti s 73502308 Completed 201312/03/2013 RECORDED 06/01/19 14 7:53AM BY ELENA VALLADARES MA, ANNOTATI ON/ADDEN DUM Melodie baltazar MA null, [facility] 7 14:17:11 Adult health examinat ion Completed 201212/03/2013 RECORDED 09/24/19 13 2:48PM BY MELODIE SCANLON MA, BOO ON/ADDEN DUM Dawn[facility] [address], [place], [address], [facility] 5 10:13:30 Exposure to organism Completed 201112/03/2013 RECORDED 11/28/19 12 2:07PM BY MELODIE SCANLON MA, BOO ON/ADDEN DUM Dawna [facility] [address], [place], [address], [facility] 5 10:13:30 Cough 85282842 Completed 201312/03/2013 IMPRESSI ON: SUSPECT PERTUSSI S. TOO LATE FOR TREATMEN T. ONLY TEST THAT CAN BE DONE AT THIS POINT IS SERUM. CXR TO R/O PNEUMONI A. SPIROMET RY SHOWS NO EVIDENCE OF OBSTRUCT ION SO DOUBT PREDNISO NE WOULD HELP; RECORDED 11/06/19 14 8:05AM BY MELODIE SCANLON MA, BOO ON/ADDEN DUM Melodie baltazar MA null, [facility] 8 09:48:50 Diarrhea [id number] Completed 201112/03/2013 RECORDED 11/28/19 12 2:07PM BY MELODIE SCANLON MA, BOO ON/ADDEN DUM [facility] [address], [place], [address], [facility] 5 10:13:30 Inflamma tory disease of liver 234098927 Completed 201212/03/2013 RECORDED 02/05/20 13 2:54PM BY MELODIE SCANLON MA, BOO ON/ADDEN DUM [facility] [address], [place], [address], [facility] 5 10:13:29 Blood chemistr y outside referenc e range 751268317 Completed 201212/03/2013 RECORDED 02/05/20 13 2:54PM BY MELODIE SCANLON MA, ANNOTATI ON/ADDEN DUM Dawnaartis Vegas DE-C [address], [place], [address], [facility] 5 10:13:30 Follow-u p encounte r Completed 201312/03/2013 RECORDED 05/11/19 14 7:19AM BY JM CAI I, ANNOTATI ON/ADDEN DUM Dawna Vegas DE-C [address], [place], [address], [facility] 5 10:13:30 Essentia l hyperten juan [id number] Completed 200912/03/2013 RECORDED 08/25/19 10 7:44AM BY MELODIE SCANLON MA, ANNOTATI ON/ADDEN DUM Melodie baltazar MA null, [facility] 7 14:17:23 Malaise and fatigue 877410369 Completed 201212/03/2013 RECORDED 09/24/19 13 2:48PM BY MELODIE SCANLON MA, ANNOTATI ON/ADDEN DUM Dawna PERKINS-C [address], [place], [address], [facility] 5 10:13:29 Influenz a vaccine needed [id number] 06 Completed 201212/03/2013 RECORDED 03/08/20 13 11:28AM BY MELODIE SCANLON MA, OFFICE VISIT Dawna PERKINS-C [address], [place], [address], [facility] 5 10:13:30 Laborato ry procedur e performe d 386523324 Completed 201212/03/2013 RECORDED 02/05/20 13 2:54PM BY MELODIE SCANLON MA, ANNOTATI ON/ADDEN DUM Dawna Evangelist [facility] [address], [place], [address], [facility] 5 10:13:30 Musculos keletal symptom 56804806 Completed 201112/03/2013 STORY: UNCONTRO LLED HTN WITH NEW-ONSE T SIGNIFIC ANT LEFT ARM WEAKNESS OF EXTENSIO N/FLEXIO N AT THE ELBOW.; RECORDED 11/28/19 12 2:07PM BY MELODIE SCANLON MA, BOO ON/ADDEN DUM Dawna Evangelist [facility] [address] [facility] [address], [place], [address], [facility] 5 10:13:29 Pain of elbow region 86829613 Completed 201212/03/2013 RECORDED 09/24/19 13 2:48PM BY MELODIE SCANLON MA, BOO ON/ADDEN DUM Dawnawendy PERKINS-C [address] [facility] [address], [place], [address], [facility] 5 10:13:29 Shoulder joint pain 519756242 Completed 201212/03/2013 RECORDED 09/24/19 13 2:48PM BY MELODIE SCANLON MA, BOO ON/ADDEN DUM Dawna Evangelist [facility] [address], [place], [address], [facility] 5 10:13:29 Localize d superfic ial swelling of skin 936205829 Completed 200812/03/2013 RECORDED 12/06/19 09 2:18PM BY MELODIE SCANLON MA, BOO ON/ADDEN DUM Dawna Evangelist [facility] [address], [place], [address], [facility] 5 10:13:29 Nausea 477996770 Completed 201112/03/2013 RECORDED 11/28/19 12 2:07PM BY MELODIE SCANLON MA, ANNOTATI ON/ADDEN DUM Dawna Vegas PA-C [address], [place], [address], [facility] 5 10:13:30 Acute pancreat itis 426079008 Completed 201212/03/2013 RECORDED 02/05/20 13 2:54PM BY MELODIE SCANLON MA, ANNOTATI ON/ADDEN DUM Dawna Vegas PA-C [address], [place], [address], [facility] 5 10:13:29 Sprain of wrist 24134052 Completed 201212/03/2013 RECORDED 02/05/20 13 2:54PM BY MELODIE SCANLON MA, ANNOTATI ON/ADDEN DUM Dawna Vegas PA-C [address] [facility] [address], [place], [address], [facility] 5 10:13:30 Epidermo id cyst of skin 479890021 Completed 201312/03/2013 IMPRESSI ON: REASSURA NCE. IF BOTHERS HIM, CAN REFER TO GENERAL SURGEON. AT THIS POINT HE DOES NOT WANT TO DO THAT.; RECORDED 05/11/19 14 7:19AM BY JM CAI I, BOO ON/ADDEN DUM Dawna Vegas PA-C [address], [place], [address], [facility] 5 10:13:29 Verruca vulgaris 24899950 Completed 201112/03/2013 RECORDED 11/28/19 12 2:07PM BY MELODIE SCANLON MA, ANNOTATI ON/ADDEN DUM Dawna Vegas PA-C [address], [place], [address], [facility] 5 10:13:29 Wheezing 71579683 Completed 201312/03/2013 RECORDED 06/01/19 14 7:53AM BY ELENA VALLADARES MA, ANNOTATI ON/ADDEN DUM Dawna Vegas PA-C [address], [place], [address], [facility] 5 10:13:29 Shoulder tendinit is Active Dawna Vegas PA-C [address] [facility] [address], [place], [address], [facility] 5 10:13:29 Fatigue 43817330 Active Dawna Vegas PA-C [address] [facility] [address], [place], [address], [facility] 5 10:13:29 Degenera tion of lumbar interver tebral disc 82565077 Active 2013 MADDIE Gomez, [facility] 6 09:49:39 Acute sinusiti s 41684063 Completed 01/06/2017 MADDIE Gomez, [facility] 7 14:17:11 Impotenc e Active Dawna Vegas PA-C [address], [place], [address], [facility] 5 10:13:29 Abdomina l pain 72222934 Completed 01/06/2017 MADDIE Gomez, [facility] 7 14:17:15 Inflamma tion of rotator cuff tendon 389107160 Active Dawna Vegas PA-C [address] [facility] [address], [place], [address], [facility] 5 10:13:29 Lumbago with sciatica 009345253 Active Marvin Lam MD [address], [place], [address], [facility] 5 12:17:43 Anabolic steroids adverse reaction 779932942 Active Marvin Lam MD [address], [place], [address], [facility] 5 12:08:12 Lumbar radiculo zahira 134775006 Active Marvin Lam MD [address], [place], [address], [facility] 6 21:16:15 Insomnia 224192350 Active Marvin Lam MD [address], [place], [address], [facility] 6 21:16:15 Obstruct gila sleep apnea syndrome 04071571 [facility] 09:[facility]:56 Dependen ce on continuo us positive airway pressure ventilat ion 871602776 Active 2017 6-16 cm H2O [facility] 8 09:48:34 Problem Notes None recorded. Procedures Surgical History Date Name Laterality Status Provider Name and Address Organization Details Recorded Time 05/29/19 16 Unlisted procedure shoulder completed Melodie green MA [facility] 12/26/2015 09:56:11 03/28/20 15 Unlisted procedure shoulder completed Melodie green MA [facility] 12/26/2015 09:56:16 03/07/20 15 Joint Injection completed Marvin Lam MD [address], [place], [address], [facility] 03/07/2015 11:04:20 02/02/20 14 Corticosteroid Injection completed Marvin Lam MD [address] [facility] [address], [place], [address], [facility] 02/03/2014 20:18:14 04/07/20 07 Osteot dsc ant 1vrt sgm lmbr completed Melodie Alcazar-Teo os, [facility] 02/01/2014 13:52:13 Colonoscopy completed Melodie Alcazar-Teo os, [facility] 01/06/2017 14:00:58 Imaging Results None recorded. Procedure Notes None recorded. Medical Equipment None Reported. Allergies Allergen ID Allergen Name Allergen Category Reaction Reaction Severity Criticality Documentation Date Start Date Code Code System Note Provider Name and Address Organization Details Recorded Time 03362 enalapril Not available cough Not available Not available 12/26/2015 3827 RxNorm Marvin Lam MD [address] [address], [place], [address], [facility] 6 10:53:29 Medications Name Sig Start Date Stop Date Status Note LastModified by Organization Details LastModified Time carisopro dol 350 mg tablet Q 6HRS PRN SPASM 02/26 completed RECORDED 03/09/20 07 5:42PM BY VICKI [...] 08 9:04AM BY MARVIN LAM MD, ANNOTATI ON/SANDHYA DUM; Not Available Not Available Not Available [...] completed RECORDED 10/15/19 09 7:03AM BY KAYLEN VELOZ PA-C, MEDICATI ON AUTO-LUCINA CTIVATIO N; Not Available [...] completed RECORDED 05/31/19 14 2:37PM BY GRANT AVILES ANNOTATI ON/SANDHYA DUM; Not Available Not Available Not Available Veregen 15 % topical ointment 12/25 completed Not Available Not Available Not Available Fluarix Quad [id number] (PF) 60 mcg (15 mcg x 4)/0.5 mL IM syringe 01/06 completed Not Available Not Available Not Available Vitals Date Recorded Body height Body weight Body mass index (BMI) Body temperature Oxygen saturation Oxygen saturation in Arterial blood by Pulse oximetry Heart rate Systolic blood pressure Diastolic blood pressure Provider Name and Address Organization Details Last Updated DateTime 7 185.42 cm 893169. 53 g 35.8 kg/m2 97.4 [degF] 96 % 96 % 80 /min 142 mm[Hg] 86 mm[Hg] Elena Valladares [facility] [place] 7 08:42:58 Date Recorded Body height Oxygen saturation Oxygen saturation in Arterial blood by Pulse oximetry Heart rate Body temperature Body mass index (BMI) Body weight Systolic blood pressure Diastolic blood pressure Provider Name and Address Organization Details Last Updated DateTime 6 185.42 cm 100 % 100 % 92 /min 97.2 [degF] 33.5 kg/m2 371382. 25514 g 128 mm[Hg] 88 mm[Hg] Melodie baltazar MA [facility] [place] 6 11:07:43 Date Recorded Body height Body temperature Oxygen saturation Oxygen saturation in Arterial blood by Pulse oximetry Heart rate Body weight Body mass index (BMI) Systolic blood pressure Diastolic blood pressure Provider Name and Address Organization Details Last Updated DateTime 6 185.42 cm 98.1 [degF] 97 % 97 % 100 /min 929137. 15 g 33.4 kg/m2 138 mm[Hg] 90 mm[Hg] Melodie baltazar MA [facility] [place] 6 09:58:33 Date Recorded Body height Body mass index (BMI) Body weight Body temperature Oxygen saturation Oxygen saturation in Arterial blood by Pulse oximetry Heart rate Systolic blood pressure Diastolic blood pressure Provider Name and Address Organization Details Last Updated DateTime 7 185.42 cm 31.8 kg/m2 403102. 76 g 98.1 [degF] 97 % 97 % 108 /min 152 mm[Hg] 76 mm[Hg] [facility] 7 14:14:10 Date Recorded Heart rate Body temperature Oxygen saturation Oxygen saturation in Arterial blood by Pulse oximetry Body height Body weight Body mass index (BMI) Systolic blood pressure Diastolic blood pressure Provider Name and Address Organization Details Last Updated DateTime 5 107 /min 97.4 [degF] 97 % 97 % 185.42 cm 560778. 96342 g 33.8 kg/m2 144 mm[Hg] 94 mm[Hg] Melodie baltazar MA [facility] 5 09:44:27 Social History Question Answer Notes LastModified by Organizat ion Details LastModified Time Tobacco Smoking Status Never Smoker Melodie Chapman MA [facility] 02/01/2014 13:51:48 Do You Have An Advance Directive? No Declined Information not available 04/11/2015 Is Blood Transfusion Acceptable In An Emergency? Yes [email or web address] Information not available 11/23/2014 What Is Your [...] Take Precautions To Prevent Distracted Driving? Yes [email or web address] Information not available 11/23/2014 How Often Do You Need To Have Someone Help You When You Read Instructions, Pamphlets, Or Other Written Material From Your Doctor Or Pharmacy? Sometimes [email or web address] Information not available 11/23/2014 Have You Served In The ? No Information not available 01/06/2017 What Was The Date Of Your Most Recent Tobacco Screening? 01/06/2017 Information not available 11/19/2018 How Many Children Do You Have? 1 Information not available 02/01/2014 Do You Use Protection During Sex? No Information not available 04/11/2015 What Is Your Relationship Status? 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 Information not available 02/01/2014 What is your [...] virus, quadrivalent, preservative 7 completed Heidi mcmahon [facility] 12/03/2016 16:01:55 Influenza, split virus, quadrivalent, preservative 8 completed Alla mcmahon [facility] 01/13/2018 15:22:21 Influenza, split virus, quadrivalent, PF 5 completed Not Available [facility] 05/15/2019 02:22:02 Influenza, split virus, quadrivalent, PF 6 completed Not Available [facility] 05/15/2019 02:22:04 Tdap 6 completed Not Available [facility] 05/15/2019 02:21:45 Influenza, split virus, trivalent, PF 4 completed Not Available [facility] 05/15/2019 02:21:57 Td (adult), 2 Lf tetanus toxoid, preservative free, adsorbed 6 completed Not Available [facility] 11/09/2013 13:23:19 varicella 6 completed Not Available [facility] 11/09/2013 13:23:19 pneumococcal polysaccharide PPV23 3 completed Not Available [facility] 11/09/2013 13:23:19 Influenza, split virus, trivalent, preservative 3 completed Not Available [facility] 11/09/2013 13:23:19 Past Encounters Encounter ID Performer Location Encounter Start Date Encounter Closed Date Diagnosis/Indication Diagnosis SNOMED-CT Code Diagnosis ICD10 Code Diagnosis Note [id number] [place] [address] 11/12/2006 00:00:[id number] [place] [address] 02/12/2007 00:00:00 [id number] autoEComm erce [address] [facility] [place] [address] 05/12/2007 00:00:00 [id number] autoEComm erce [address] [facility] [place] [address] 06/16/2007 00:00:[id number] [place] [address] 01/28/2008 00:00:00 [id number] autoEComm erce [address] [facility] [place] [address] 08/25/2008 00:00:00 [id number] autoEComm erce [address] [facility] [place] [address] 12/05/2008 00:00:00 [id number] autoEComm erce [address] [facility] [place] [address] 05/23/2009 00:00:00 [id number] autoEComm erce [address] [facility] [place] [address] 06/08/2009 00:00:00 [id number] autoEComm erce [address] [facility] [place] [address] 08/24/2009 00:00:00 [id number] autoEComm erce [address] [facility] [place] [address] 11/28/2009 00:00:00 [id number] autoEComm erce [address] [facility] [place] [address] 05/08/2010 00:00:00 [id number] autoEComm erce [address] [facility] [place] [address] 08/04/2012 00:00:00 [id number] autoEComm erce [address] [facility] [place], [place] [address] 09/16/2012 00:00:00 [id number] autoEComm erce [address] [facility] [place], [place] [address] 09/23/2012 00:00:00 [id number] autoEComm erce [address] [facility] [place], [place] [address] 03/08/2013 00:00:00 [id number] autoEComm erce [address] [facility] [place], [place] [address] 03/24/2013 00:00:00 [id number] autoEComm erce [address] [facility] [place], [place] [address] 05/11/2013 00:00:00 [id number] autoEComm erce [address] [facility] [place] [address] 06/01/2013 00:00:00 [id number] Marvin Lam MD Main Office [address] [address] [place], [place] [address] 02/01/2014 13:42:42 02/01/2014 14:48:36 Needs influenza immunization 406837680 Anxiety disorder 808473088 Shoulder tendinitis 605400316 Hyperlipidemia 56660580 Fatigue 92718390 [id number] Marvin Lam MD Main Office [address] [address] [place], [place] [address] 06/22/2014 11:14:24 06/22/2014 12:22:10 Adult health examination 479940395 Essential hypertension 35988345 Restless legs 59254375 Cough 35118960 Acute sinusitis 60861041 Impotence 069065843 [id number] Vicki dueñas MD Main Office [address] [address] [place], [place] [address] 11/23/2014 12:44:46 11/23/2014 13:28:21 Abdominal pain 78581702 ? of resolving pancreatit is due to excessive alcohol use, hx of alcohol induced pancreatit is, pt will get labs, looks well, is hydrated, pain resolved, he knows to abstain from alcohol and return for eval if any return of pain [id number] Marvin Lam MD Main Office [address] [address] [place] [address] 03/07/2015 10:20:59 03/07/2015 10:58:46 Needs influenza immunization 725484091 Z23 Inflammati on of rotator cuff tendon 093475875 M65.812 [id number] Dawna Vegas PA-C Main Office [address] [address] [place] [address] 03/24/2015 09:13:11 03/24/2015 09:40:19 Lumbago with sciatica 065556583 M54.42 Lumbar disc disease exacerbati on L. with sciatica. Start Prednisone taper as directed. Cyclobenza prone if tolerated TID for 5 days and Oxycodone PRN. F/u with PCP if symptoms persist or worsen. [id number] Marvin Lam MD Main Office formerly [facility] [address] [place] [address] 04/11/2015 09:37:04 04/11/2015 10:44:16 Degeneration of lumbar intervertebral disc 16065669 M51.36 Anabolic s teroids adverse reaction 893562287 T38.7X5S Mcfp use of anabolic steroids. Now on testostero ne replacemen t with Dr. 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 [id number] Marvin Lam MD Main Office [address] [address] [place] [address] 07/12/2015 10:52:20 07/12/2015 11:59:17 Restless legs 06529189 G25.81 Essential hypertension 49550305 I10 Lumbar radiculopathy 128 977410 M54.16 Insomnia 380252205 G47.0 0 [id number] Marvin Lam MD Main Office formerly [facility] [address] [place] [address] 12/26/2015 09:43:17 12/26/2015 10:55:17 Adult health examination 255921620 Z00.00 Essential hypertension 85776069 I10 Needs infl uenza immunization 358771253 Z23 Administra tion of diphtheria, pertussis, and tetanus vaccine 498963247 Z23 [id number] ANTHONY Posey Main Office [address] [place] [address] 05/02/2016 08:26:46 05/02/2016 09:13:28 Snoring 45500685 R06.83 Patient understand s he needs to [...] to his feeling of unrest. Restless legs 35632552 G 25.81 Will increase requip to 3mg [...] in 1 month for recheck. Essential hypertension 52466650 I10 Bp not greatly controlled on current meds, possibilit y of sleep apnea likely a contributi ng factor, I stressed the importance of having sleep study and getting sleep apnea treated. [id number] Marvin Lam MD Main Office [address] [place] [address] 01/06/2017 13:51:55 01/06/2017 15:08:02 Essential hypertension 83794256 I10 Anxiety state 389990921 F41.1 Restless legs 04813818 G 25.81 Major depr essive disorder 141229550 F32.9 Chronic al coholism in remission 765005014 F10.21 Recently stopped drinking Health Concerns Section Related Observation LastModified by Organization Detai ls LastModified Time None Recorded Concern Status LastModified by Organization Details LastModified Time None Recorded Advance Directives Directive N: declined Payers Insurance Date Sequence Insurance Name Policy Number Policy Correia Covered Member ID Correia Member ID Guarantor Name 12/03/2016 1 [facility] IN[facility] - [facility] [id number] 3 Konrad Beckham [id number] Konrad Beckham 02/05/[address] [facility] (O) [id number] 3 Konrad Mcdaniel Bhavani [id number] Konrad Bhavani Notes Date Note Type Note Provider Name [...] have his shoulder fixed by ortho in [facility]. Local orthopedics ([facility]) do not wish to attempt repair. Konrad states that severe pain has been disrupting sleep. He did not have benefit from use steroids by tapering dose. He plans to see [facility] on May 02 for evaluation of lumbar radiculopathy. 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 Marvin Lam MD [address], [address], [facility] 04/17/2015 12:08:27 07/12/2015 text/html Hypertension F/UReported bypatient.Associated [...] awakening in the middle of the night;insomnia: second crusher awakening;unrefreshing sleep Onset/Timing:chronic; worsening problems over the past 2-3 mos Pain disturbing sleep:chronic shoulder pain and recent rotator cuff surgery Restless leg syndrome:legs feel restless: disturbing sleep;legs feel restless: relieved by movementNotes:Has been using ropininrole for RLS for many years with good effects. Never had sleep test. Now states that the medication is no longer effective. Marvin Lam MD [address], [address], [facility] 07/12/2015 21:16:22 12/26/2015 text/html Hypertension F/UReported bypatient.Associated [...] from Dr. Dacosta. Marvin Lam MD [address], [address], [facility] 12/26/2015 13:42:19 05/02/2016 text/html Hypertension F/UReported bypatient.Associated [...] awakening in the middle of the night;insomnia: second crusher awakening;unrefreshing sleep Onset/Timing:chronic; worsening problems over the [...] never had a sleep study. Mansoor mcmahon, [facility] [place] 05/02/2016 13:04:37 01/06/2017 text/html Anxiety/Depressi [...] refill his RLS meds. Marvin Lam MD [address] [address], [place], [address], [facility] [place] 01/07/2017 08:40:40
[2024-10-07 14:21] LABS: Hematocrit 40.3 % (42.0-52.0); Hemoglobin 13.7 g/dl (14.0-18.0); Mean Corpuscular Hemoglobin 29.7 pg (27.0-33.0); Mean Corpuscular Volume 87.4 fL (80.0-98.0); Mean Platelet Volume 9.9 fL (9.4-12.4); Platelet Count 167 X10*3/uL (160-400); Red Blood Count 4.61 X10*6/uL (4.60-5.80); Red Cell Distribution Width 14.8 % (11.0-16.0)
[2024-10-07 14:27] LABS: Estimated Average Glucose 160 mg/dL; Hemoglobin A1c % 7.2 % (<6.0)
[2024-10-07 14:33] LABS: Alanine Aminotransferase 64 U/L (0-40); Albumin Level 4.6 g/dL (3.5-5.0); Alkaline Phosphatase 126 U/L (39-117); Anion Gap 16 (12-20); Aspartate Amino Transferase 80 U/L (5-37); Bilirubin Total 0.3 mg/dL (0.0-1.0); Blood Urea Nitrogen 17 mg/dL (9-16); Calcium 9.3 mg/dL (8.4-10.2); Carbon Dioxide 24 mmol/L (22-29); Chloride 101 mmol/L (96-108); Cholesterol 119 mg/dL (<200); Estimated Glomerular Filt Rate 47; Glucose Random 229 mg/dL (60-115); HDL Cholesterol 28 mg/dL (>40); Iron 71 mcg/dL (45-160); LDL Cholesterol Calculated 14 mg/dL (<100); Magnesium 1.5 mg/dL (1.6-2.6); Percent Iron Saturation 24 % (15-50); Potassium 4.1 mmol/L (3.3-5.1); Sodium 137 mmol/L (135-145); Total Iron Binding Capacity 294 mcg/dL (228-428); Total Protein 7.6 g/dL (6.5-8.0); Triglycerides 389 mg/dL (<150); Unsaturated Iron Binding 223 ug/dL
[2024-10-07 14:37] LABS: INTERNATIONAL NORM RATIO 0.9 (0.9-1.1); Prothrombin Time 10.2 SEC (10.9-12.4)
[2024-10-07 14:44] LABS: Gamma Glutamyl Transpeptidase 78 U/L (11-51)
[2024-10-07 14:50] LABS: Ferritin 611 ng/mL (20-250); TSH reflex Free T4 1.11 uIU/mL (0.32-4.0)
[2024-10-08 04:39] LABS: Alpha 1 Anti-trypsin 145 mg/dL (83-199); Ceruloplasmin 20 mg/dL (14-30)
[2024-10-08 08:03] LABS: HBS Num1 > 1000.00 mIU/mL (0-7.99); HBc Num1 0.13 S/CO (0.00-0.79); HBsAGNum1 0.67 S/CO (0.00-0.99); HIV AB/AG Nonreactive (Nonreactive); HIV Num 1 0.05 S/CO (0.00-0.99); Hepatitis B Core Antibody Nonreactive (Nonreactive); Hepatitis B Surface Antigen Negative (Negative); ~HepC Num1 0.15 S/CO (0.00-0.79); ~Hepatitis B Surface Antibody REACTIVE (Nonreactive); ~Hepatitis C Antibody Nonreactive (Nonreactive)
[2024-10-08 08:18] LABS: Hepatitis A Antibody IgG Nonreactive (Nonreactive)
[2024-10-08 09:04] LABS: Immunoglobulin A 246 mg/dL (47-310); Immunoglobulin G 1327 mg/dL (600-1640)
[2024-10-08 10:15] LABS: Alpha Fetoprotein 1.7 ng/mL (<6.1)
[2024-10-08 16:42] LABS: Transglutaminase IgA <1.0 U/mL
[2024-10-10 23:48] LABS: Smooth Muscle Antibody <20 U (<20)
[2024-10-11 11:08] LABS: Mitochondrial Antibodies NEGATIVE (NEGATIVE)
[2024-10-12 09:02] LABS: Phosphatidylethanol 16:0-18:1 123
[2024-10-12 09:03] LABS: Phosphatidylethanol 16:0-18:2 125
[2024-10-12 15:05] LABS: Anti Nuclear Antibody Pattern Nuclear, Speckled; Anti Nuclear Antibody Screen POSITIVE (NEGATIVE); Anti Nuclear Antibody Titer 1:40 titer
[2024-10-13 07:44] LABS: Liver Kidney Microsomal Ab <=20.0 U (<=20.0)
== END 2024-10-07 10:33 | disposition home or self-care (01) ==
LOC: HO.WFDLDS 10:32
PROVIDERS: Referring Provider Physician Assistant Medical; Visit Provider Internal Medicine
DX: R79.0 Abnormal level of blood mineral (principal); R79.89 Other specified abnormal findings of blood chemistry
CPT/HCPCS: 36415; 80053; 80061; 80321; 82103; 82105; 82390; 82728; 82784; 82977; 83036; 83540; 83735; 84443; 85027; 85610; 86015; 86038; 86039; 86364; 86376; 86381; 86704; 86706; 86708; 86803; 87340; 87389

== ENCOUNTER 2024-10-21 11:02 | Outpatient (AMB) | payer OTHER, SELFPAY ==
--- NOTE | 2024-10-21 11:04 | A.OFFVIS_ITS ---
Vital Signs 10/21/24 11:05 Height 6 ft 1 in Weight 250 lb BMI 33.0 Intake Visit Reasons: OV- RT RTC repair 08/11/24 NE Intake Note: Konrad is a 54 year old right hand dominant male who presents today for a post operative appointment about 2 months S/P Right Rotator Cuff Repair 08/11/24. He remains out of work at this time. Patient reports that his right sohulder pain is not improving. He is feeling pain daily and worsened after PT. He has ran out of Oxycodone and does not want to take Tylenol & Ibuprofen as it is not working. Denies numbness and tingling. Allergies No Known Allergies Allergy (Verified 09/10/24 14:05) HPI HPI OV- RT RTC repair 08/11/24 NE: Details: Konrad is now 910 weeks status post right rotator cuff repair. He is doing physical therapy but complains of pain at night. Seven and a hard time with his shoulder and has not been able to get comfortable. He is very frustrated. [facility] Medical History Restless leg syndrome ADD (attention deficit disorder) Dyslipidemia CKD (chronic kidney disease) Sleep apnea Diabetes HTN (hypertension) Surgical History History of surgery on arm Hx of repair of rotator cuff History of back surgery Hx of elbow surgery Hx of hernia repair Family History (Updated 09/10/24 @ 14:05 by HUSAM Salvador) Mother Ovarian cancer Social History Housing: House Are you a primary critical care nurse to a significant other at home: No Do you presently have visiting nurse or other home services: No Alcohol intake: current Alcohol intake frequency: a few times a week Patient Tobacco Use Status: Never used Tobacco e-Cigarette/Vaping Use: Never Used Second Hand Smoke Exposure: No service: No Current occupational status: employed 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 Assessment & Plan Assessment & Plan (1) S/P right rotator cuff repair: Code(s): Z98.890 - Other specified postprocedural states Category: Surgical Plan: Status post rotator cuff repair with objective evidence of good strength and good range of motion but subjectively complains of pain and difficulty sleeping. I recommend activity modification. He does seem to be extremely active and while he states he is careful he has a hard time sitting still and wants to be doing things all the time. This seems to be causing some distress for him. I sent a prescription for Celebrex to his pharmacy. He is diabetic and has GERD but I think Celebrex would be helpful for some of the inflammation. Follow up 6 weeks. Medications: New celecoxib (Celebrex) 200 mg PO DAILY 30 caps 2RF Coding Level of Care Code Global (08866) Diagnoses S/P right rotator cuff repair Z98.890
[2024-10-21 11:05] VITALS: BMI 33.0
--- OUTSIDE RECORDS SUMMARY | 2024-10-21 13:08 | XMS_ITS | Data Portability ---
Author Organization [facility], Main Office Address [address] [place] [address] Care Team Providers Care Events Specialist Name Role Phone MARVIN LAM Primary Care Provider [phone] [facility] WEIGHT LOSS OTHER [phone] [facility] Sleep Medi cine IVETH VEGAS Primary Care Provider [phone] Assessment Encounter Date Assessment Date Assessment LastModified by Organization Details LastModified Time 04/11/2015 04/11/2015 Greater than 50% of time spent counseling patient re comprehensive review of prognosis/plan/ris ks and benefits of current treatment. Office visit was 30 minutes and patient counseled re: management of acute on chronic musculoskeletal back pain as well as ongoing shoulder pain. We reviewed the report from the [place] pharmacy monitoring that shows Konrad has filled #262 pills for narcotics (hydrocodone and oxycodone) over the past 6 weeks. He has gotten scripts from multiple providers here, in the ED, at work comp, and from [facility]. We reviewed concerns about use of opioids [...] LS spine in advance of that visit. [email or web address] Not available 04/11/2015 18:12:13 07/12/2015 07/12/2015 Reviewed [...] sleep medici ne referr al 2016 017 [facility], [address] [place] [address], [address], 7 11:41:11 sleep medici ne referr al 2016 017 [facility], [address] [place] [address], [address], 7 10:33:10 ophtha lmolog ist [facility], [address] [place] [address], [address], 7 11:51:20 sleep medici ne referr al 2015 016 [facility], [address] [place] [address], [address], 6 11:23:29 Procedures None record ed. Surgeries None record ed. Imaging polyso mnogra m - hx restle ss legs, insomn ia, snorin g, not feelig n rested . 2016 017 [facility], [address] [place] [address], [address], 7 13:18:46 Medication Orders sertra line 100 [...] By Organization Details Last Modified Time 04/11/2015 [id number] Medications were reviewed at this visit and reconciled. Changes in the active medications are reflected in the current medication list and discussed with patient (or caregiver) with instructions for follow up as needed. Printed medication list provided to the patient as part of the visit summary. [email or web address] Not available 04/11/2015 18:12:13 07/12/2015 [id number] restless legs syndrome: care instructions phelmuth Not available 07/12/2015 21:16:16 insomnia: care instructions phelmuth Not available 07/12/2015 21:16:16 high blood pressure: care instructions phelmuth Not available 07/12/2015 21:16:16 learning about high blood pressure phelmuth Not available 07/12/2015 21:16:16 12/26/2015 [id number] high blood pressure: care instructions ckrym Not [...] medication. phelmuth Not available 12/26/2015 13:40:17 05/02/2016 [id number] Call or return for worsening or concerns. [email or web address] Not available 05/02/2016 09:05:43 I have reviewed the note and agree with the assessment and plan of care. [email or web address] Not available 05/02/2016 13:04:29 01/06/2017 [id number] alcohol counseling* [email or web address] Not available 01/14/2017 11:34:43 Preventing Depression From Coming Back: Care Instructions Not available 01/06/2017 16:13:55 anxiety disorder: care instructions Not available 01/06/2017 16:13:55 high blood pressure: care instructions Not available 01/06/2017 16:13:55 learning about high blood pressure Not available 01/06/2017 16:13:55 Reason for Referral Referring Physician: Marvin sanders, Internal Medicine, Encounter Date: 07/12/2015 Director Of Business Systems Referral for Adult health examination Referring Physician: [...] Go To The Location Of Their Choice, [id number] 08/07/2015 22:28:16 08/07/19 16 08/07/2015 BMP, serum [...] The Location Of Their Choice, 08/07/2015 23:06:05 08/07/192016 iron + total iron- russell ng capac [...] The Location Of Their Choice, 11/18/2016 15:23:57 11/19/192017 CBC w/ auto diff abs. NRBC 0.0 [...] Their Choice, 11/18/2016 16:21:40 11/19/19 17 11/18/2016 lipid panel , serum cholesterol, total 216 mg/dL (<200) high Not Available [facility] (Centralized Electronic Ordering - All Locations) Patient Can Go To The Location Of Their Choice, 11/18/2016 16:21:40 11/19/19 17 11/18/2016 lipid panel , serum triglyceride 162 mg/dL (<150) high Not Available [facility] (Centralized Electronic Ordering - All Locations) Patient Can Go To The Location Of Their Choice, 11/18/2016 16:21:40 11/19/19 17 11/18/2016 lipid panel , serum HDL chol 18 [...] The Location Of Their Choice, 11/18/2016 16:21:42 11/19/19 17 11/18/2016 testo stero ne, free, serum testosterone >1500 NG/dL (280-8 00) high Not Available [facility] (Centralized Electronic Ordering - All Locations) Patient Can Go To The Location Of Their Choice, 11/19/2016 15:16:29 11/19/19 17 11/19/2016 testo stero ne, free, serum shbg 5.0 [...] Go To The Location Of Their Choice, [id number] 11/19/2016 15:16:29 12/04/19 17 10/11/2012 MRI, lumba r spine , w/wo contr ast No observ ation record ed. [facility] Not Available 2016 15:12:18 05/16/19 18 05/03/2017 sleep study , diagn ostic * No observ ation record ed. [facility] [address] [place], [address], 05/20/2017 09:49:24 10/12/19 19 10/11/2018 CT, abdom en + pelvi s, w/ contr ast No observ ation record ed. [facility] [address] [place] [address], [address], 10/12/2018 07:13:33 11/10/19 20 11/10/2019 CT, abdom en + pelvi s, w/o contr ast No observ ation record ed. [facility] [address] [place] [address], [address], 11/10/2019 16:13:04 Result Notes None recorded. Problems Name Problem SNOMED Code Status Onset Date Resolution Date Notes Provider Name and Address Organization Details Recorded Time Epigastr ic pain 97787743 Completed 201211/09/2013 RECORDED 03/24/20 13 9:55AM BY ROX HERNANDEZ MA, ANNOTATI ON/ADDEN DUM Dawna Vegas PA-C [address] [facility] [address], [place], [address], [facility] 5 10:13:30 Left lower quadrant pain 625483805 Completed 201111/09/2013 RECORDED 11/28/19 12 2:07PM BY MELODIE SCANLON MA, ANNOTATI ON/ADDEN DUM Dawna Evangelist PERKINS-C [address] [facility] [address], [place], [address], [facility] 5 10:13:30 Mucopuru lent conjunct ivitis 262866736 Completed 201211/09/2013 RECORDED 09/17/19 13 10:18AM BY MELODIE SCANLON MA, ANNOTATI ON/ADDEN DUM Dawna Evangelist PARRAC [address], [place], [address], [facility] 5 10:13:29 Acute sinusiti s 89649945 Completed 201311/09/2013 RECORDED 06/01/19 14 7:53AM BY ELENA VALLADARES MA, ANNOTATI ON/ADDEN DUM MADDIE Gomez, [facility] 7 14:17:11 Harmful pattern of use of alcohol 94556219 Active 2013 MADDIE Gomez, [facility] 6 09:49:25 Drug abuse 35857809 Active 2013 MADDIE Gomez, [facility] 6 09:49:35 Adult health examinat ion Completed 201211/09/2013 RECORDED 09/24/19 13 2:48PM BY MELODIE SCANLON MA, ANNOTATI ON/ADDEN DUM Dawna Evangelist MCCORMACK [address], [place], [address], [facility] 5 10:13:30 Anxiety disorder 708847596 Active 2013 MADDIE Gomez, [facility] 6 09:49:28 Exposure to organism Completed 201111/09/2013 RECORDED 11/28/19 12 2:07PM BY MELODIE SCANLON MA, ANNOTATI ON/ADDEN DUM Dawna Evangelist MCCORMACK [address] [facility] [address], [place], [address], [facility] 5 10:13:30 Cough [id number] Completed 201305/20/2017 IMPRESSI ON: SUSPECT PERTUSSI S. TOO LATE FOR TREATMEN T. ONLY TEST THAT CAN BE DONE AT THIS POINT IS SERUM. CXR TO R/O PNEUMONI A. SPIROMET RY SHOWS NO EVIDENCE OF OBSTRUCT ION SO DOUBT PREDNISO NE WOULD HELP; RECORDED 06/01/19 14 8:45PM BY MADDIE ABRAMS, OFFICE VISIT Melodie baltazar MA null, [facility] 8 09:48:50 Diarrhea [id number] Completed 201111/09/2013 RECORDED 11/28/19 12 2:07PM BY MELODIE SCANLON MA, ANNOTATI ON/ADDEN DUM Dawna PARRAC [address], [place], [address], [facility] 5 10:13:30 Inflamma tory disease of liver 859511418 Completed 201211/09/2013 RECORDED 02/05/20 13 2:54PM BY MELODIE SCANLON MA, ANNOTATI ON/ADDEN DUM Dawna Vegas PA-C [address], [place], [address], [facility] 5 10:13:29 Blood chemistr y outside referenc e range 888050797 Completed 201211/09/2013 RECORDED 02/05/20 13 2:54PM BY MELODIE SCANLON MA, ANNOTATI ON/ADDEN DUM Dawna PARRAC [address], [place], [address], [facility] 5 10:13:30 Follow-u p encounte r Completed 201311/09/2013 RECORDED 05/11/19 14 7:19AM BY MEHNAZ ELIASATI ON/ADDEN DUM Dawna PARRAC [address], [place], [address], [facility] 5 10:13:30 Essentia l hyperten juan 67575621 Completed 200911/09/2013 RECORDED 08/25/19 10 7:44AM BY MELODIE SCANLON MA, ANNOTATI ON/ADDEN DUM Melodie baltazar MA null, [facility] 7 14:17:23 Malaise and fatigue 868056718 Completed 201211/09/2013 RECORDED 09/24/19 13 2:48PM BY MELODIE SCANLON MA, ANNOTATI ON/ADDEN DUM Dawna Vegas PA-C [address] [facility] [address], [place], [address], [facility] 5 10:13:29 Influenz a vaccine needed [id number] 06 Completed 201211/09/2013 RECORDED 03/08/20 13 11:28AM BY MELODIE SCANLON MA, OFFICE VISIT Dawna Vegas PA-C [address] [facility] [address], [place], [address], [facility] 5 10:13:30 Gastroes ophageal reflux disease 368871104 Active 2013 MADDIE Gomez, [facility] 6 09:49:31 Hyperlip idemia 19211789 Active 2013 MADDIE Gomez, [facility] 7 14:17:20 Essentia l hyperten juan 66947743 Active 2013 MADDIE Gomez, [facility] 7 14:17:23 Hypokale prince 67887156 Active 2013 MADDIE Gomez, [facility] 6 09:50:02 Knee pain Active 2013 Melodie baltazar MA null, [facility] 6 09:49:46 Laborato ry procedur e performe d 572958121 Completed 201211/09/2013 RECORDED 02/05/20 13 2:54PM BY MELODIE SCANLON MA, ANNOTATI ON/ADDEN DUM Dawna Evangelist PERKINS-C [address], [place], [address], [facility] 5 10:13:30 Musculos keletal symptom 13910027 Completed 201111/09/2013 STORY: UNCONTRO LLED HTN WITH NEW-ONSE T SIGNIFIC ANT LEFT ARM WEAKNESS OF EXTENSIO N/FLEXIO N AT THE ELBOW.; RECORDED 11/28/19 12 2:07PM BY MELODIE SCANLON MA, ANNOTROSIE ON/ADDEN DUM Dawna Evangelist PERKINS-C [address], [place], [address], [facility] 5 10:13:29 Pain of elbow region 01623188 Completed 201211/09/2013 RECORDED 09/24/19 13 2:48PM BY MELODIE SCANLON MA, ANNOTATI ON/ADDEN DUM Dawna Evangelist PERKINS-C [address], [place], [address], [facility] 5 10:13:29 Shoulder joint pain 857002757 Completed 201211/09/2013 RECORDED 09/24/19 13 2:48PM BY MELODIE SCANLON MA, ANNOTATI ON/ADDEN DUM Dawnawendy PERKINS-C [address], [place], [address], [facility] 5 10:13:29 Lipoma 32753833 Active 2013 Melodie baltazar MA null, [facility] 7 14:17:27 Localize d superfic ial swelling of skin 826969853 Completed 200811/09/2013 RECORDED 12/06/19 09 2:18PM BY MELODIE SCANLON MA, ANNOTATI ON/ADDEN DUM Dawna Vegas PA-C [address] [facility] [address], [place], [address], [facility] 5 10:13:29 Nausea 451577162 Completed 201111/09/2013 RECORDED 11/28/19 12 2:07PM BY MELODIE SCANLON MA, ANNOTATI ON/ADDEN DUM Dawna Vegas PA-C [address] [facility] [address], [place], [address], [facility] 5 10:13:30 Patient status finding 324617369 Completed 201312/26/2015 MADDIE Gomez, [facility] 6 09:49:19 Acute pancreat itis 114564473 Completed 201211/09/2013 RECORDED 02/05/20 13 2:54PM BY MELODIE SCANLON MA, ANNOTATI ON/ADDEN DUM Dawna Vegas PA-C [address] [facility] [address], [place], [address], [facility] 5 10:13:29 Skin sensatio n disturba nce 36186419 Completed 201305/20/2017 MADDIE Gomez, [facility] 8 09:49:12 Psychose xual dysfunct ion associat ed with inhibite d libido 601232921 Active 2013 MADDIE Gomez, [facility] 6 09:50:08 Restless legs 13041538 Active 2013 MADDIE Gomez, [facility] 6 09:49:58 Rhabdomy olysis 152576294 Active 2013 MADDIE Gomez, [facility] 6 09:49:33 Sprain of wrist 09290742 Completed 201211/09/2013 RECORDED 02/05/20 13 2:54PM BY MELODIE SCANLON MA, BOO ON/ADDEN DUM Dawnawendy PERKINS-C [address], [place], [address], [facility] 5 10:13:30 Epidermo id cyst of skin 263311525 Completed 201311/09/2013 IMPRESSI ON: REASSURA NCE. IF BOTHERS HIM, CAN REFER TO GENERAL SURGEON. AT THIS POINT HE DOES NOT WANT TO DO THAT.; RECORDED 05/11/19 14 7:19AM BY BOO ELIAS ON/ADDEN DUM Dawna PERKINS-C [address], [place], [address], [facility] 5 10:13:29 Injury of ulnar nerve 72898974 Completed 199705/20/2017 DATE: 1997; ; RIGHT WRIST MADDIE Gomez, [facility] 8 09:49:09 Verruca vulgaris 37607453 Completed 201111/09/2013 RECORDED 11/28/19 12 2:07PM BY MELODIE SCANLON MA, BOO ON/ADDEN DUM Dawna PERKINS-C [address], [place], [address], [facility] 5 10:13:29 Wheezing 58965178 Completed 201311/09/2013 RECORDED 06/01/19 14 7:53AM BY ELENA VALLADARES MA, BOO ON/ADDEN DUM Dawnawendy PERKINS-C [address], [place], [address], [facility] 5 10:13:29 Epigastr ic pain 16198476 Completed 201212/02/2013 RECORDED 03/24/20 13 9:55AM BY ROX HERNANDEZ MA, ANNOTATI ON/ADDEN DUM Dawna Vegas PA-C [address], [place], [address], [facility] 5 10:13:30 Left lower quadrant pain 689909790 Completed 201112/02/2013 RECORDED 11/28/19 12 2:07PM BY MELODIE SCANLON MA, ANNOTATI ON/ADDEN DUM Dawnaartis Vegas PA-C [address], [place], [address], [facility] 5 10:13:30 Mucopuru lent conjunct ivitis 675305584 Completed 201212/02/2013 RECORDED 09/17/19 13 10:18AM BY MELODIE SCANLON MA, ANNOTATI ON/ADDEN DUM Dawna Vegas NE-C [address], [place], [address], [facility] 5 10:13:29 Acute sinusiti s 59569513 Completed 201312/02/2013 RECORDED 06/01/19 14 7:53AM BY ELENA VALLADARES MA, ANNOTATI ON/ADDEN DUM Melodie baltazar MA [facility], [facility] 7 14:17:11 Adult health examinat ion Completed 201212/02/2013 RECORDED 09/24/19 13 2:48PM BY MELODIE SCANLON MA, ANNOTATI ON/ADDEN DUM Dawna Vegas PA-C [address], [place], [address], [facility] 5 10:13:30 Exposure to organism Completed 201112/02/2013 RECORDED 11/28/19 12 2:07PM BY MELODIE SCANLON MA, BOO ON/ADDEN DUM Dawna Vegas PA-C [address] [facility] [address], [place], [address], [facility] 5 10:13:30 Cough [id number] Completed 201312/02/2013 IMPRESSI ON: SUSPECT PERTUSSI S. TOO LATE FOR TREATMEN T. ONLY TEST THAT CAN BE DONE AT THIS POINT IS SERUM. CXR TO R/O PNEUMONI A. SPIROMET RY SHOWS NO EVIDENCE OF OBSTRUCT ION SO DOUBT PREDNISO NE WOULD HELP; RECORDED 11/06/19 14 8:05AM BY MELODIE SCANLON MA, BOO ON/ADDEN DUM Melodie baltazar MA null, [facility] 8 09:48:50 Diarrhea 57690340 Completed 201112/02/2013 RECORDED 11/28/19 12 2:07PM BY MELODIE SCANLON MA, BOO ON/ADDEN DUM Dawna Vegas PA-C [address] [facility] [address], [place], [address], [facility] 5 10:13:30 Inflamma tory disease of liver 838008402 Completed 201212/02/2013 RECORDED 02/05/20 13 2:54PM BY MELODIE SCANLON MA, ANNOTATI ON/ADDEN DUM Dawna PARRAC [address] [facility] [address], [place], [address], [facility] 5 10:13:29 Blood chemistr y outside referenc e range 204374194 Completed 201212/02/2013 RECORDED 02/05/20 13 2:54PM BY MELODIE SCANLON MA, BOO ON/ADDEN DUM Dawna Vegas PA-C [address], [place], [address], [facility] 5 10:13:30 Follow-u p encounte r Completed 201312/02/2013 RECORDED 05/11/19 14 7:19AM BY MEHNAZ ELIASATI ON/ADDEN DUM [facility] [address] [facility] [address], [place], [address], [facility] 5 10:13:30 Essentia l hyperten juan [id number] Completed 200912/02/2013 RECORDED 08/25/19 10 7:44AM BY MELODIE SCANLON MA, ANNOTATI ON/ADDEN DUM MADDIE Gomez, [facility] 7 14:17:23 Malaise and fatigue 473350980 Completed 201212/02/2013 RECORDED 09/24/19 13 2:48PM BY MELODIE SCANLON MA, ANNOTATI ON/ADDEN DUM [facility] [address] [facility] [address], [place], [address], [facility] 5 10:13:29 Influenz a vaccine needed 30199539726 06 Completed 201212/02/2013 RECORDED 03/08/20 13 11:28AM BY MELODIE SCANLON MA, OFFICE VISIT [facility] [address] [facility] [address], [place], [address], [facility] 5 10:13:30 Flatulen ce, eructati on and gas pain 786594092 Completed 201305/20/2017 MADDIE Gomez, [facility] 8 09:49:18 Laborato ry procedur e performe d 591531946 Completed 201212/02/2013 RECORDED 02/05/20 13 2:54PM BY MELODIE SCANLON MA, ANNOTATI ON/ADDEN DUM Dawna Evangelist PA-C [address], [place], [address], [facility] 5 10:13:30 Musculos keletal symptom 19667651 Completed 201112/02/2013 STORY: UNCONTRO LLED HTN WITH NEW-ONSE T SIGNIFIC ANT LEFT ARM WEAKNESS OF EXTENSIO N/FLEXIO N AT THE ELBOW.; RECORDED 11/28/19 12 2:07PM BY MELODIE SCANLON MA, ANNOTROSIE ON/ADDEN DUM Dawna Evangelist PA-C [address], [place], [address], [facility] 5 10:13:29 Pain of elbow region 50285550 Completed 201212/02/2013 RECORDED 09/24/19 13 2:48PM BY MELODIE SCANLON MA, ANNOTROSIE ON/ADDEN DUM Dawna Evangelist PA-C [address] [facility] [address], [place], [address], [facility] 5 10:13:29 Shoulder joint pain 988474916 Completed 201212/02/2013 RECORDED 09/24/19 13 2:48PM BY MELODIE SCANLON MA, ANNOTATI ON/ADDEN DUM Dawna Evangelist PA-C [address], [place], [address], [facility] 5 10:13:29 Localize d superfic ial swelling of skin 745047518 Completed 200812/02/2013 RECORDED 12/06/19 09 2:18PM BY MELODIE SCANLON MA, ANNOTATI ON/ADDEN DUM Dawna Evangelist PA-C [address] [facility] [address], [place], [address], [facility] 5 10:13:29 Nausea 481899242 Completed 201112/02/2013 RECORDED 11/28/19 12 2:07PM BY MELODIE SCANLON MA, ANNOTATI ON/ADDEN DUM Dawna Vegas PA-C [address], [place], [address], [facility] 5 10:13:30 Acute pancreat itis 648949302 Completed 201212/02/2013 RECORDED 02/05/20 13 2:54PM BY MELODIE SCANLON MA, MEHNAZATI ON/ADDEN DUM Dawna Vegas PA-C [address], [place], [address], [facility] 5 10:13:29 Sprain of wrist 31951522 Completed 201212/02/2013 RECORDED 02/05/20 13 2:54PM BY MELODIE SCANLON MA, BOO ON/ADDEN DUM Dawna Vegas PA-C [address], [place], [address], [facility] 5 10:13:30 Epidermo id cyst of skin 766011397 Completed 201312/02/2013 IMPRESSI ON: REASSURA NCE. IF BOTHERS HIM, CAN REFER TO GENERAL SURGEON. AT THIS POINT HE DOES NOT WANT TO DO THAT.; RECORDED 05/11/19 14 7:19AM BY BOO ELIAS ON/ADDEN DUM Dawna Vegas PA-C [address], [place], [address], [facility] 5 10:13:29 Verruca vulgaris 06479891 Completed 201112/02/2013 RECORDED 11/28/19 12 2:07PM BY MELODIE SCANLON MA, MEHNAZATI ON/ADDEN DUM Dawna Vegas PA-C [address], [place], [address], [facility] 5 10:13:29 Wheezing 32233972 Completed 201312/02/2013 RECORDED 06/01/19 14 7:53AM BY ELENA VALLADARES MA, ANNOTATI ON/ADDEN DUM Dawna Vegas PA-C [address], [place], [address], [facility] 5 10:13:29 Epigastr ic pain 65361731 Completed 201212/03/2013 RECORDED 03/24/20 13 9:55AM BY ROX HERNANDEZ MA, ANNOTATI ON/ADDEN DUM Dawna Vegas PA-C [address], [place], [address], [facility] 5 10:13:30 Left lower quadrant pain 228179527 Completed 201112/03/2013 RECORDED 11/28/19 12 2:07PM BY MELODIE SCANLON MA, ANNOTATI ON/ADDEN DUM Dawna Vegas PA-C [address], [place], [address], [facility] 5 10:13:30 Mucopuru lent conjunct ivitis 152685510 Completed 201212/03/2013 RECORDED 09/17/19 13 10:18AM BY MELODIE SCANLON MA, ANNOTATI ON/ADDEN DUM Dawna Vegas PA-C [address], [place], [address], [facility] 5 10:13:29 Acute sinusiti s 39791539 Completed 201312/03/2013 RECORDED 06/01/19 14 7:53AM BY ELENA VALLADARES MA, ANNOTATI ON/ADDEN DUM Melodie baltazar MA null, [facility] 7 14:17:11 Adult health examinat ion Completed 201212/03/2013 RECORDED 09/24/19 13 2:48PM BY MELODIE SCANLON MA, BOO ON/ADDEN DUM Dawna Vegas PA-C [address], [place], [address], [facility] 5 10:13:30 Exposure to organism Completed 201112/03/2013 RECORDED 11/28/19 12 2:07PM BY MELODIE SCANLON MA, BOO ON/ADDEN DUM Dawna Vegas PA-C [address], [place], [address], [facility] 5 10:13:30 Cough [id number] Completed 201312/03/2013 IMPRESSI ON: SUSPECT PERTUSSI S. TOO LATE FOR TREATMEN T. ONLY TEST THAT CAN BE DONE AT THIS POINT IS SERUM. CXR TO R/O PNEUMONI A. SPIROMET RY SHOWS NO EVIDENCE OF OBSTRUCT ION SO DOUBT PREDNISO NE WOULD HELP; RECORDED 11/06/19 14 8:05AM BY MELODIE SCANLON MA, ANNOTATI ON/ADDEN DUM Melodie baltazar MA null, [facility] 8 09:48:50 Diarrhea 42192086 Completed 201112/03/2013 RECORDED 11/28/19 12 2:07PM BY MELODIE SCANLON MA, BOO ON/ADDEN DUM Dawna PERKINS-C [address], [place], [address], [facility] 5 10:13:30 Inflamma tory disease of liver 769302182 Completed 201212/03/2013 RECORDED 02/05/20 13 2:54PM BY MELODIE SCANLON MA, BOO ON/ADDEN DUM Dawna PERKINS-C [address], [place], [address], [facility] 5 10:13:29 Blood chemistr y outside referenc e range 815727460 Completed 201212/03/2013 RECORDED 02/05/20 13 2:54PM BY MELODIE SCANLON MA, ANNOTATI ON/ADDEN DUM Dawna Vegas PA-C [address], [place], [address], [facility] 5 10:13:30 Follow-u p encounte r Completed 201312/03/2013 RECORDED 05/11/19 14 7:19AM BY JM CAI I, ANNOTATI ON/ADDEN DUM Dawna Vegas NE-C [address] [facility] [address], [place], [address], [facility] 5 10:13:30 Essentia l hyperten juan [id number] Completed 200912/03/2013 RECORDED 08/25/19 10 7:44AM BY MELODIE SCANLON MA, ANNOTATI ON/ADDEN DUM Melodie baltazar MA [facility], [facility] 7 14:17:23 Malaise and fatigue 594848108 Completed 201212/03/2013 RECORDED 09/24/19 13 2:48PM BY MELODIE SCANLON MA, ANNOTATI ON/ADDEN DUM Dawnawendy PERKINS-C [address] [facility] [address], [place], [address], [facility] 5 10:13:29 Influenz a vaccine needed [id number] 06 Completed 201212/03/2013 RECORDED 03/08/20 13 11:28AM BY MELODIE SCANLON MA, OFFICE VISIT Dawna PERKINS-C [address], [place], [address], [facility] 5 10:13:30 Laborato ry procedur e performe d 493720308 Completed 201212/03/2013 RECORDED 02/05/20 13 2:54PM BY MELODIE SCANLON MA, ANNOTATI ON/ADDEN DUM Dawna Evangelist PERKINS-C [address], [place], [address], [facility] 5 10:13:30 Musculos keletal symptom 04095468 Completed 201112/03/2013 STORY: UNCONTRO LLED HTN WITH NEW-ONSE T SIGNIFIC ANT LEFT ARM WEAKNESS OF EXTENSIO N/FLEXIO N AT THE ELBOW.; RECORDED 11/28/19 12 2:07PM BY MELODIE SCANLON MA, ANNOTROSIE ON/ADDEN DUM Dawnawendy PERKINS-C [address] [facility] [address], [place], [address], [facility] 5 10:13:29 Pain of elbow region 50742406 Completed 201212/03/2013 RECORDED 09/24/19 13 2:48PM BY MELODIE SCANLON MA, ANNOTROSIE ON/ADDEN DUM Dawnaartis PERKINS-C [address] [facility] [address], [place], [address], [facility] 5 10:13:29 Shoulder joint pain 492148816 Completed 201212/03/2013 RECORDED 09/24/19 13 2:48PM BY MELODIE SCANLON MA, ANNOTATI ON/ADDEN DUM Dawna Evangelist PERKINS-C [address] [facility] [address], [place], [address], [facility] 5 10:13:29 Localize d superfic ial swelling of skin 068822528 Completed 200812/03/2013 RECORDED 12/06/19 09 2:18PM BY MELODIE SCANLON MA, ANNOTATI ON/ADDEN DUM Dawnaartis [facility]-C [address], [place], [address], [facility] 5 10:13:29 Nausea 652127450 Completed 201112/03/2013 RECORDED 11/28/19 12 2:07PM BY MELODIE SCANLON MA, ANNOTATI ON/ADDEN DUM Dawna Vegas PA-C [address], [place], [address], [facility] 5 10:13:30 Acute pancreat itis 153380242 Completed 201212/03/2013 RECORDED 02/05/20 13 2:54PM BY MELODIE SCANLON MA, BOO ON/ADDEN DUM Dawna [facility] [address], [place], [address], [facility] 5 10:13:29 Sprain of wrist 16228157 Completed 201212/03/2013 RECORDED 02/05/20 13 2:54PM BY MELODIE SCANLON MA, BOO ON/ADDEN DUM Dawna [facility] [address], [place], [address], [facility] 5 10:13:30 Epidermo id cyst of skin 200881879 Completed 201312/03/2013 IMPRESSI ON: REASSURA NCE. IF BOTHERS HIM, CAN REFER TO GENERAL SURGEON. AT THIS POINT HE DOES NOT WANT TO DO THAT.; RECORDED 05/11/19 14 7:19AM BY BOO ELIAS ON/ADDEN DUM Dawna [facility] [address], [place], [address], [facility] 5 10:13:29 Verruca vulgaris 12650608 Completed 201112/03/2013 RECORDED 11/28/19 12 2:07PM BY MELODIE SCANLON MA, ANNOTATI ON/ADDEN DUM Dawna Vegas PA-C [address], [place], [address], [facility] 5 10:13:29 Wheezing 06759600 Completed 201312/03/2013 RECORDED 06/01/19 14 7:53AM BY ELENA VALLADARES MA, ANNOTATI ON/ADDEN DUM Dawna Vegas PA-C [address], [place], [address], [facility] 5 10:13:29 Shoulder tendinit is Active Dawna Vegas PA-C [address] [facility] [address], [place], [address], [facility] 5 10:13:29 Fatigue 64628871 Active Dawna Vegas PA-C [address] [facility] [address], [place], [address], [facility] 5 10:13:29 Degenera tion of lumbar interver tebral disc 64085335 Active 2013 MADDIE Gomez, [facility] 6 09:49:39 Acute sinusiti s 96897669 Completed 01/06/2017 MADDIE Gomez, [facility] 7 14:17:11 Impotenc e Active Dawna Vegas PA-C [address] [facility] [address], [place], [address], [facility] 5 10:13:29 Abdomina l pain 40008098 Completed 01/06/2017 MADDIE Gomez, [facility] 7 14:17:15 Inflamma tion of rotator cuff tendon 281013130 Active Dawna Vegas PA-C [address] [facility] [address], [place], [address], [facility] 5 10:13:29 Lumbago with sciatica 902143758 Active Marvin Lam MD [address], [place], [address], [facility] 5 12:17:43 Anabolic steroids adverse reaction 788068661 Active Marvin Lam MD [address], [place], [address], [facility] 5 12:08:12 Lumbar radiculo azhira 543493359 Active Marvin Lam MD [address], [place], [address], [facility] 6 21:16:15 Insomnia 223578331 Active Marvin Lam MD [address], [place], [address], [facility] 6 21:16:15 Obstruct gila sleep apnea syndrome 48557185 [facility] 09:[facility] Dependen ce on continuo us positive airway pressure ventilat ion 300574390 Active 2017 6-16 cm H2O [facility] 8 09:48:34 Problem Notes None recorded. Procedures Surgical History Date Name Laterality Status Provider Name and Address Organization Details Recorded Time 05/29/19 16 Unlisted procedure shoulder completed Melodie grene MA [facility] 12/26/2015 09:56:11 03/28/20 15 Unlisted procedure shoulder completed Melodie green MA [facility] 12/26/2015 09:56:16 03/07/20 15 Joint Injection completed Marvin Lam MD [address], [place], [address], [facility] 03/07/2015 11:04:20 02/02/20 14 Corticosteroid Injection completed Marvin Lam MD [address] [facility] [address], [place], [address], [facility] 02/03/2014 20:18:14 04/07/20 07 Osteot dsc ant 1vrt sgm lmbr completed Melodie Alcazar-Teo green, [facility] 02/01/2014 13:52:13 Colonoscopy completed Melodie Alcazar-Teo green, [facility] 01/06/2017 14:00:58 Imaging Results None recorded. Procedure Notes None recorded. Medical Equipment None Reported. Allergies Allergen ID Allergen Name Allergen Category Reaction Reaction Severity Criticality Documentation Date Start Date Code Code System Note Provider Name and Address Organization Details Recorded Time 95387 enalapril Not available cough Not available Not available 12/26/2015 2609 RxNorm Marvin Lam MD [address] [address], [place], [address], [facility] 6 10:53:29 Medications [...] 05/31/19 14 2:37PM BY [place] ANNOTATI ON/ADDEN DUM; Not Available Not Available Not Available Veregen 15 % topical ointment 12/25 completed Not Available Not Available Not Available Fluarix Quad 2280-9873 (PF) 60 mcg (15 mcg x 4)/0.5 mL IM syringe 01/06 completed Not Available Not Available Not Available Vitals Date Recorded Body height Body weight Body mass index (BMI) Body temperature Oxygen saturation Oxygen saturation in Arterial blood by Pulse oximetry Heart rate Systolic blood pressure Diastolic blood pressure Provider Name and Address Organization Details Last Updated DateTime 7 185.42 cm 311007. 53 g 35.8 kg/m2 97.4 [degF] 96 % 96 % 80 /min 142 mm[Hg] 86 mm[Hg] Elena Valladares MA [facility] 7 08:42:58 Date Recorded Body height Oxygen saturation Oxygen saturation in Arterial blood by Pulse oximetry Heart rate Body temperature Body mass index (BMI) Body weight Systolic blood pressure Diastolic blood pressure Provider Name and Address Organization Details Last Updated DateTime 6 185.42 cm 100 % 100 % 92 /min 97.2 [degF] 33.5 kg/m2 613366. 24547 g 128 mm[Hg] 88 mm[Hg] Melodie baltazar MA [facility] 6 11:07:43 Date Recorded Body height Body temperature Oxygen saturation Oxygen saturation in Arterial blood by Pulse oximetry Heart rate Body weight Body mass index (BMI) Systolic blood pressure Diastolic blood pressure Provider Name and Address Organization Details Last Updated DateTime 6 185.42 cm 98.1 [degF] 97 % 97 % 100 /min 158126. 15 g 33.4 kg/m2 138 mm[Hg] 90 mm[Hg] Melodie baltazar MA [facility] 6 09:58:33 Date Recorded Body height Body mass index (BMI) Body weight Body temperature Oxygen saturation Oxygen saturation in Arterial blood by Pulse oximetry Heart rate Systolic blood pressure Diastolic blood pressure Provider Name and Address Organization Details Last Updated DateTime 7 185.42 cm 31.8 kg/m2 536814. 76 g 98.1 [degF] 97 % 97 % 108 /min 152 mm[Hg] 76 mm[Hg] [facility] 7 14:14:10 Date Recorded Heart rate Body temperature Oxygen saturation Oxygen saturation in Arterial blood by Pulse oximetry Body height Body weight Body mass index (BMI) Systolic blood pressure Diastolic blood pressure Provider Name and Address Organization Details Last Updated DateTime 5 107 /min 97.4 [degF] 97 % 97 % 185.42 cm 593937. 20313 g 33.8 kg/m2 144 mm[Hg] 94 mm[Hg] Melodie baltazar [facility] 5 09:44:27 Social History Question Answer Notes LastModified by Organizat ion Details LastModified Time Tobacco Smoking Status Never Smoker [facility] 02/01[facility]2014 13:51:48 Do You Have An Advance Directive? No Declined Information not available 04/11/2015 Is Blood Transfusion Acceptable In An Emergency? Yes [email or web address] Information not available 11/23/2014 What Is Your [...] Take Precautions To Prevent Distracted Driving? Yes [email or web address] Information not available 11/23/2014 How Often Do You Need To Have Someone Help You When You Read Instructions, Pamphlets, Or Other Written Material From Your Doctor Or Pharmacy? Sometimes [email or web address] Information not available 11/23/2014 Have You Served In The ? No Information not available 01/06/2017 What Was The Date Of Your Most Recent Tobacco Screening? 01/06/2017 Information not available 11/19/2018 How Many Children Do You Have? 1 Information not available 02/01/2014 Do You Use Protection During Sex? No Information not available 04/11/2015 What Is Your Relationship Status? 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 Information not available 02/01/2014 What is your [...] virus, quadrivalent, preservative 7 completed Heidi mcmahon [facility] 12/03/2016 16:01:55 Influenza, split virus, quadrivalent, preservative 8 completed Alla mcmahon [facility] 01/13/2018 15:22:21 Influenza, split virus, quadrivalent, PF 5 completed Not Available [facility] 05/15/2019 02:22:02 Influenza, split virus, quadrivalent, PF 6 completed Not Available [facility] 05/15/2019 02:22:04 Tdap 6 completed Not Available [facility] 05/15/2019 02:21:45 Influenza, split virus, trivalent, PF 4 completed Not Available [facility] 05/15/2019 02:21:57 Td (adult), 2 Lf tetanus toxoid, preservative free, adsorbed 6 completed Not Available [facility] 11/09/2013 13:23:19 varicella 6 completed Not Available [facility] 11/09/2013 13:23:19 pneumococcal polysaccharide PPV23 3 completed Not Available [facility] 11/09/2013 13:23:19 Influenza, split virus, trivalent, preservative 3 completed Not Available [facility] 11/09/2013 13:23:19 Past Encounters Encounter ID Performer Location Encounter Start Date Encounter Closed Date Diagnosis/Indication Diagnosis SNOMED-CT Code Diagnosis ICD10 Code Diagnosis Note [id number] autoEComm erce [address] [facility] [address] [place] [address] 11/12/2006 00:00:00 [id number] autoEComm erce [address] [facility] [address] [facility] [address] [place] [address] 02/12/2007 00:00:00 [id number] autoEComm erce [address] [facility] [address] [facility] [address] [place] [address] 05/12/2007 00:00:00 [id number] autoEComm erce [address] [facility] [place] [address] 06/16/2007 00:00:00 [id number] autoEComm erce [address] [facility] [address] [place] [address] 01/28/2008 00:00:00 [id number] autoEComm erce [address] [facility] [place] [address] 08/25/2008 00:00:00 [id number] autoEComm erce [address] [facility] [place] [address] 12/05/2008 00:00:00 [id number] autoEComm erce [address] [facility] [place] [address] 05/23/2009 00:00:00 [id number] autoEComm erce [address] [facility] [place] [address] 06/08/2009 00:00:00 [id number] autoEComm erce [address] [facility] [place] [address] 08/24/2009 00:00:00 [id number] autoEComm erce [address] [facility] [place] [address] 11/28/2009 00:00:00 [id number] autoEComm erce [address] [facility] [address] [place] [address] 05/08/2010 00:00:00 [id number] autoEComm erce [address] [facility] [place] [address] 08/04/2012 00:00:00 [id number] autoEComm erce [address] [facility] [place], [place] [address] 09/16/2012 00:00:00 [id number] autoEComm erce [address] [facility] [place], [place] [address] 09/23/2012 00:00:00 [id number] autoEComm erce [address] [facility] [place], [place] [address] 03/08/2013 00:00:00 [id number] autoEComm erce [address] [facility] [place], [place] [address] 03/24/2013 00:00:00 [id number] autoEComm erce [address] [facility] [place], [place] [address] 05/11/2013 00:00:00 [id number] autoEComm erce [address] [facility] [place], [place] [address] 06/01/2013 00:00:00 [id number] Marvin Lam MD Main Office [address] [address] [place] [address] 02/01/2014 13:42:42 02/01/2014 14:48:36 Needs influenza immunization 518115541 Anxiety disorder 216323533 Shoulder tendinitis 482638431 Hyperlipidemia 79566211 Fatigue 80622024 [id number] Marvin Lam MD Main Office [address] [address] [place], [place] [address] 06/22/2014 11:14:24 06/22/2014 12:22:10 Adult health examination 685544884 Essential hypertension 96781650 Restless legs 20357133 Cough 24692524 Acute sinusitis 52824697 Impotence 625511404 [id number] Vicki dueñas MD Main Office [address] [address] [place] [address] 11/23/2014 12:44:46 11/23/2014 13:28:21 Abdominal pain 26583984 ? of resolving pancreatit is due to excessive alcohol use, hx of alcohol induced pancreatit is, pt will get labs, looks well, is hydrated, pain resolved, he knows to abstain from alcohol and return for eval if any return of pain [id number] Marvin Lam MD Main Office [address] [address] [place] [address] 03/07/2015 10:20:59 03/07/2015 10:58:46 Needs influenza immunization 815505630 Z23 Inflammati on of rotator cuff tendon 603760186 M65.812 [id number] Dawna Vegas PA-C Main Office [address] [place] [address] [place] [address] 03/24/2015 09:13:11 03/24/2015 09:40:19 Lumbago with sciatica 092669411 M54.42 Lumbar disc disease exacerbati on L. with sciatica. Start Prednisone taper as directed. Cyclobenza prone if tolerated TID for 5 days and Oxycodone PRN. F/u with PCP if symptoms persist or worsen. [id number] Marvin Lam MD Main Office [address] [place], [place] [address] [address] 04/11/2015 09:37:04 04/11/2015 10:44:16 Degeneration of lumbar intervertebral disc 52714441 M51.36 Anabolic s teroids adverse reaction 281576686 T38.7X5S [facility] use of anabolic steroids. Now on testostero ne replacemen t with Dr. 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 [id number] Marvin Lam MD Main Office [facility] [address] [place] [address] 07/12/2015 10:52:20 07/12/2015 11:59:17 Restless legs 43885508 G25.81 Essential hypertension 37876092 I10 Lumbar radiculopathy 128 357200 M54.16 Insomnia 809777818 G47.0 0 [id number] Marvin Lam MD Main Office [address] [place] [address] [place] [address] 12/26/2015 09:43:17 12/26/2015 10:55:17 Adult health examination 258002748 Z00.00 Essential hypertension 26785381 I10 Needs infl uenza immunization 278485917 Z23 Administra tion of diphtheria, pertussis, and tetanus vaccine 856198414 Z23 [id number] ANTHONY Posey Main Office [address] [place] [address] 05/02/2016 08:26:46 05/02/2016 09:13:28 Snoring 51962430 R06.83 Patient understand s he needs to [...] to his feeling of unrest. Restless legs 99715636 G 25.81 Will increase requip to 3mg [...] in 1 month for recheck. Essential hypertension 05465135 I10 Bp not greatly controlled on current meds, possibilit y of sleep apnea likely a contributi ng factor, I stressed the importance of having sleep study and getting sleep apnea treated. [id number] Marvin Lam MD Main Office [address] [address] [place] [address] 01/06/2017 13:51:55 01/06/2017 15:08:02 Essential hypertension 40820709 I10 Anxiety state 970365239 F41.1 Restless legs 02985456 G 25.81 Major depr essive disorder 125934297 F32.9 Chronic al coholism in remission 216427661 F10.21 Recently stopped drinking Health Concerns Section Related Observation LastModified by Organization Detai ls LastModified Time None Recorded Concern Status LastModified by Organization Details LastModified Time None Recorded Advance Directives Directive N: declined Payers Insurance Date Sequence Insurance Name Policy Number Policy Correia Covered Member ID Correia Member ID Guarantor Name 12/03/2016 1 [facility] - [facility] [id number] Konrad Beckham [id number] Konrad Beckham 02/05/2017 1 [facility] (O) [id number] Konrad Mcdaniel Bhavani [id number] Konrad Bhavani Notes Date Note Type Note [...] have his shoulder fixed by ortho in [facility]. Local orthopedics ([facility]) do not wish to attempt repair. Konrad states that severe pain has been disrupting sleep. He did not have benefit from use steroids by tapering dose. He plans to see [facility] on May 02 for evaluation of lumbar radiculopathy. Presently he is not working ([employer]) because of shoulder problems. 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 Never had sleep test. Now states that the medication is no longer effective. Marvin Lam MD [address], [address], [facility] 07/12/2015 21:16:22 12/26/2015 text/html Hypertension F/UReported bypatient.Associated [...] from Dr. Dacosta. 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 Mansoor mcmahon, [facility] 05/02/2016 13:04:37 01/06/2017 text/html Anxiety/Depressi onRepo [...] refill his RLS meds. Marvin Lam MD [address] [address], [place], [address], [facility] 01/07/2017 08:40:40
== END 2024-10-21 11:34 | disposition home or self-care (01) ==
LOC: HO.HOS 11:02
PROVIDERS: PCP Physician Assistant; Visit Provider Orthopaedic Surgery
DX: Z98.890 Other specified postprocedural states (principal)
CPT/HCPCS: 99024

== ENCOUNTER → 2024-10-21 11:02 | Outpatient (BNVA) | payer OTHER, SELFPAY | PROVIDERS: PCP Physician Assistant; Visit Provider Orthopaedic Surgery | DX: M25.511 Pain in right shoulder (principal); Z98.890 Other specified postprocedural states | CPT/HCPCS: 99212 ==

== ENCOUNTER 2024-11-11 11:03 | Outpatient (AMB) | payer OTHER, SELFPAY ==
--- NOTE | 2024-11-11 11:06 | A.OFFPC_ITS ---
Vital Signs 11/11/24 11:13 Height 6 ft Weight 271 lb 6 oz BMI 36.8 BP 128/78 Blood Pressure Location Rt brachial Respiration 16 Pulse 94 Pulse Source Pulse Oximeter Temp 98.1 F Temp Source Oral Pulse Oximetry (%) 94 Oxygen Delivery Method Room Air Intake Visit Reasons: diabetes follow up Intake Note: Diabetes follow up Wind Tunnel Technician Required: No Allergies No Known Allergies Allergy (Verified 11/11/24 11:11) Medication List - Last Reconciled 11/11/24 by Abbie Ayala PA-C amlodipine 5 mg PO DAILY atorvastatin 40 mg PO DAILY blood-glucose sensor (FreeStyle Giorgio 3 Sensor device) Apply every 14 days As directed to monitor blood glucose celecoxib (Celebrex) 200 mg PO DAILY dextroamphetamine-amphetamine 15 mg ER (Adderall XR) 15 mg PO QAM 30 days magnesium oxide 250 mg PO BID metformin ER 750 mg PO DAILY metoprolol succinate ER 50 mg PO DAILY olmesartan 40 mg PO DAILY omeprazole 40 mg PO DAILY ropinirole 4 mg (2 x 2 mg) PO .nightly sildenafil (Viagra) 100 mg PO DAILY PRN valacyclovir (Valtrex) 500 mg PO DAILY Tobacco use date assessed: 11/11/24 Dental Screening Dental Screen Date: 11/11/24 Did you have a dental visit in the last 12 months?: Yes Did you have a dental problem in the last 6 months where you did not have access to dental care?: No Was dental information given to patient?: Patient has dentist HPI diabetes follow up HPI Details Patient is a 54-year-old male who has a significant past medical history of type 2 diabetes, chronic kidney disease, elevated LFTs, alcohol abuse, history of steroid use, dyslipidemia, hypertension, chronic fatigue, restless legs syndrome presenting today for a follow up. Musculoskeletal: following with ortho s/p rotator cuff repair. Endo: Diabetes is currently managed with metformin 750 mg daily and trulicity 0.75 mg weekly. Last A1c was 7.3 (increased from 6.6). He does notice that nausea with the Trulicity. -jardiance too pricey, januvia expensive CV: Blood pressure in the office is 128/78. He is currently on olmesartan 40 mg , and metoprolol 50 mg and amlodipine 5 mg daily. Cholesterol is managed with atorvastatin 40 mg. Nephro: Avoids NSAIDs generally but recently on celebrex by ortho for shoulder. Follows with Dr. Martínez. stable renal function due in summer to be seen. GI: followed with GI and advised to cut out drinking as LFTs remain elevated. Psych: Doing well with the Adderall. Does find this effective. he does have a history of obstructive sleep apnea was he does not treat. He states that he can not tolerate the mask and will not wear it. Restless leg syndrome is treated with Requip 4 mg nightly. [facility] Medical History Restless leg syndrome ADD (attention deficit disorder) Dyslipidemia CKD (chronic kidney disease) Sleep apnea Diabetes HTN (hypertension) Surgical History History of surgery on arm Hx of repair of rotator cuff History of back surgery Hx of elbow surgery Hx of hernia repair Family History (Updated 09/10/24 @ 14:05 by HUSAM Salvador) Mother Ovarian cancer Social History Housing: House Are you a primary childcare administrator to a significant other at home: No Do you presently have visiting nurse or other home services: No Alcohol intake: current Alcohol intake frequency: a few times a week Patient Tobacco Use Status: Never used Tobacco e-Cigarette/Vaping Use: Never Used Second Hand Smoke Exposure: No service: No Current occupational status: employed 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 Current occupational exposures/hazards: Yes (smoke inhalation ) Cognitive needs: No Hearing needs: No Vision needs: Yes Questionnaire Thrive Questionnaire Date Thrive assessed: 04/29/24 I am a: Patient What is your living situation today?: I have a steady place to live Within the past 12 months, did the food you bought not last and you didn't have the money to get more?: Never true Within the past 12 months, did you worry whether your food would run out before you got money to buy more?: Never true Do you have trouble paying for medicines?: No Do you have trouble getting transportation to medical appointments?: No Do you have trouble paying your heating and electricity bill?: No Do you have trouble taking care of your child, family member or friend?: No Do you have trouble with day-to-day activities such as bathing, preparing meals, shopping, managing finances, etc.?: No Are you currently unemployed and looking for a job?: No Are you interested in more education?: Yes Please select the resources that you would like help with: Education Currently or been in a relationship where the following occur: No concerns reported THRIVE Score: 0 AUDIT C Alcohol Use Questionnaire (AUDIT-C) 1. How often do you have a drink containing alcohol?: 2-3 times a week 2. How many drinks containing alcohol do you have on a typical day when you are drinking?: 5 or 6 3. How often do you have six or more drinks on one occasion?: Monthly Total Score: 7 CAROLINA-7 AMB Questionnaire CAROLINA-7 Date CAROLINA - 7 assessed: 04/29/24 Source: Developed by Drs. Bryce Vazquez, Genny Colin, Mal Rasmussen and colleagues, with an educational dot from [employer]. Physical exam (Primary Care) Tobacco/Smoking Status: Tobacco use Status Tobacco use date assessed 04/29/24 11/11/24 11:07 Patient Tobacco Use Status Never used Tobacco 11/11/24 11:07 e-Cigarette/Vaping Use Never Used 11/11/24 11:07 Thrive Assessment: Date of Thrive Assessment Date Thrive assessed 04/29/24 11/11/24 11:07 Currently or been in a relationship where the following occur: No concerns reported Const Orientation/consciousness: patient oriented x3 HENMT Ears: hearing grossly normal bilaterally Neck Thyroid: Thyroid normal Lymphatic: no lymphadenopathy noted Resp Auscultation: clear to auscultation bilaterally Cardio Rate: regular rate Rhythm: regular rhythm Heart sounds: S1 normal heart sound present and S2 normal heart sound present GI Inspection: Yes normal to inspection Palpation (GI): Soft to palpation and Other GI palpation findings present (nontender, no cva tenderness) Auscultation: normoactive bowel sounds Rectal Exam - Male: Yes deferred Skin General skin exam: no rashes or lesions noted Neuro General: patient oriented x3, gait normal and no focal motor deficits Results Reviewed Results Reviewed: Laboratory Tests 04/29/24 10/07/24 09:04 10:37 Sodium 137 Potassium 4.1 Chloride 101 Carbon Dioxide 24 Anion Gap 16 BUN 17 H Creatinine 1.55 H Estimated GFR 47 Hemoglobin A1c % 7.2 H Magnesium 1.5 L Iron 71 Ferritin 611 H GGT 78 H AST 80 H ALT 64 H Alkaline Phosphatase 126 H Triglycerides 389 H Cholesterol 119 LDL Cholesterol, Calc 14 HDL Cholesterol 28 L TSH 1.11 Urine Creatinine 349.77 Urine Microalbumin 1151.0 Microalb/Creat Ratio 329.0 H Hepatitis A IgG Ab Nonreactive Hep Bs Antigen Negative Hepatitis C Ab (EIA) Nonreactive US/US abdomen comp w elastography IMPRESSION: 1. Hepatic steatosis 2. Liver elastography: Measurements are suggestive of compensated advanced chronic liver disease but need further test for confirmation. Coding Level of Care Code Est Pt Level 4 (95765) Complex EM visit Add On G2211 Diagnoses ADD (attention deficit disorder) F98.8 Hypertension I10 Uncontrolled diabetes mellitus with hyperglycemia E11.65 Elevated LFTs R79.89 CKD stage 3a, GFR 45-59 ml/min N18.31 Hypomagnesemia E83.42 Restless leg syndrome G25.81 Assessment & Plan Assessment & Plan (1) ADD (attention deficit disorder): Code(s): F98.8 - Other specified behavioral and emotional disorders with onset usually occurring in childhood and adolescence Category: Medical Plan: Continue current regimen (2) Hypertension: Code(s): I10 - Essential (primary) hypertension Category: Medical Plan: As above (3) Uncontrolled diabetes mellitus with hyperglycemia: Code(s): E11.65 - Type 2 diabetes mellitus with hyperglycemia Category: Medical Plan: We will switch from Trulicity to Ozempic. Discussed risks and benefits and adverse effects of this medication. Continue the metformin (4) Elevated LFTs: Code(s): R79.89 - Other specified abnormal findings of blood chemistry Category: Medical Plan: We reviewed recent LFTs. He does have an appointment with GI next month. I have ordered a liver ultrasound. advised that he needs to stop drinking. (5) CKD stage 3a, GFR 45-59 ml/min: Code(s): N18.31 - Chronic kidney disease, stage 3a Category: Medical Plan: Stable. We will monitor (6) Hypomagnesemia: Code(s): E83.42 - Hypomagnesemia Category: Medical Plan: Went back to twice a day dosing of the magnesium. (7) Restless leg syndrome: Code(s): G25.81 - Restless legs syndrome Category: Medical Plan: Not as well-controlled as he would like. Has trialed different patient's. We will have him follow up with sleep medicine Orders: Orders US abdomen comp w elastography Today R79.89 - Other specified abnormal findings of blood chemistry Liver Panel Today R79.89 - Other specified abnormal findings of blood chemistry Complete Blood Count Auto Diff Today R79.89 - Other specified abnormal findings of blood chemistry Basic Metabolic Panel Today R79.89 - Other specified abnormal findings of blood chemistry Referrals Sleep Medicine Referral G25.81 - Restless legs syndrome Gastroenterology Referral Z12.11 - Encounter for screening for malignant neoplasm of colon Medications: New escitalopram oxalate (Lexapro) 10 mg PO DAILY 90 tabs 0RF semaglutide (Ozempic) for 4 weeks; then increase to 0.5 mg every week 0.25 mg (0.368 mL) subcut QWEEK 3 mL 3RF
[2024-11-11 11:13] VITALS: BP 128/78; PULSE 94; RESP 16; TEMP 36.7; O2SAT 94; BMI 36.8
--- OUTSIDE RECORDS SUMMARY | 2024-11-11 11:53 | XMS_ITS | Clinical Summary ---
Author Organization [facility] Address [address] [place] [phone] Phone Care Team Providers Care Regulatory Manager Name Role Phone Abbie Ayala PA-C Primary [...] Visit [facility] [address] [phone] Chad Martínez MD [address] [phone] Health Maintenance Due Date Last Done Comments [...] Diabetes: Visual Foot Exam 02/16/2024 Influenza Vaccine (#1) 2024 8, 12/02/2016, 12/26/2015, Additional history exists Pneumococcal Vaccine: Peds ( 0 to 5 Years) and At-Risk Patients (6 to 49 Years) Discontinued 10/13/2012 Insurance [facility] Care Teams Regulatory Manager Relationship Specialty Start Date End Date Abbie Ayala PA-C [address] [place] [address] PCP - General Physician Plisse Machine Operator 05/20/24
--- OUTSIDE RECORDS SUMMARY | 2024-11-11 11:53 | XMS_ITS | Clinical Summary ---
Author Organization [facility] ity Address [address] [place] [address] Care Team Providers Care Black Leather Buffer Name Role Phone Unavailable Primary Care Provider [...] Vaccine (1 - 2023-2 5 season) 2023 Depression Screening 04/28/2024 Influenza Vaccine (#1) 2024 HIB Vaccines Aged Out No longer [...]
--- OUTSIDE RECORDS SUMMARY | 2024-11-11 11:53 | XMS_ITS | Data Portability ---
Author Organization [facility], Main Office Address [address] [place] [address] Care Team Providers Care Rn Hemodialysis Charge Name Role Phone MARVIN LAM Primary Care Provider [phone] [facility] OTHER [phone] [facility] Sleep Medi cine IVETH VEGAS Primary Care Provider [phone] Assessment Encounter Date Assessment Date Assessment LastModified by Organization Details LastModified Time 04/11/2015 04/11/2015 Greater than 50% of time spent counseling patient re comprehensive review of prognosis/plan/ris ks and benefits of current treatment. Office visit was 30 minutes and patient counseled re: management of acute on chronic musculoskeletal back pain as well as ongoing shoulder pain. We reviewed the report from the [place] pharmacy monitoring that shows Konrad has filled #262 pills for narcotics (hydrocodone and oxycodone) over the past 6 weeks. He has gotten scripts from multiple providers here, in the ED, at work comp, and from [facility]. We reviewed concerns about use of opioids [...] sleep medici ne referr al 2016 017 [facility], [address] [place] [address], [id number], 7 11:41:11 sleep medici ne referr al 2016 017 [facility], [address] [place] [address], [address], 7 10:33:10 ophtha lmolog ist referr al 2015 [facility]16 [facility], [address] [place] [address], [address], 7 11:51:20 sleep medici ne referr al 2015 016 [facility], [address] [place] [address], [id number], 6 11:23:29 Procedures None record ed. Surgeries None record ed. Imaging polyso mnogra m - hx restle ss legs, insomn ia, snorin g, not feelig n rested . 2016 017 [facility], [address] [place] [address], [id number], 7 13:18:46 Medication Orders sertra line 100 [...] By Organization Details Last Modified Time 04/11/2015 [id number] Medications were reviewed at this visit and reconciled. Changes in the active medications are reflected in the current medication list and discussed with patient (or caregiver) with instructions for follow up as needed. Printed medication list provided to the patient as part of the visit summary. [email or web address] Not available 04/11/2015 18:12:13 07/12/2015 [id number] restless legs syndrome: care instructions phelmuth Not available 07/12/2015 21:16:16 insomnia: care instructions phelmuth Not available 07/12/2015 21:16:16 high blood pressure: care instructions phelmuth Not available 07/12/2015 21:16:16 learning about high blood pressure phelmuth Not available 07/12/2015 21:16:16 12/26/2015 [id number] high blood pressure: care instructions ckrym Not [...] medication. phelmuth Not available 12/26/2015 13:40:17 05/02/2016 [id number] Call or return for worsening or concerns. jthabet Not available 05/02/2016 09:05:43 I have reviewed the note and agree with the assessment and plan of care. [email or web address] Not available 05/02/2016 13:04:29 01/06/2017 [id number] alcohol counseling* [email or web address] Not available 01/14/2017 11:34:43 Preventing Depression From Coming Back: Care Instructions Not available 01/06/2017 16:13:55 anxiety disorder: care instructions Not available 01/06/2017 16:13:55 high blood pressure: care instructions Not available 01/06/2017 16:13:55 learning about high blood pressure Not available 01/06/2017 16:13:55 Reason for Referral Referring Physician: Marvin sanders, Internal Medicine, Encounter Date: 07/12/2015 Inspector Scales Referral for Adult health examination Referring Physician: Marvin Lam, Internal Medicine, Encounter Date: 12/26/2015 Referring Physician: Mazin Berger, Family Medicine, Encounter Date: 05/02/2016 Referring Physician: Mravin sanders, Internal Medicine, Encounter Date: 01/06/2017 Results Created Date Observation Date Name Description Value Unit Range Abnormal Flag Note LastModifiedBy Organization Detail LastModifiedTime 08/07/19 16 08/07/2015 BMP, serum or plasm a glucose 107 mg/dL (70-99 ) high Not Available [facility] (Centralized Electronic Ordering - All Locations) Patient Can Go To The Location Of Their Choice, [id number] 08/07/2015 22:28:16 08/07/19 16 08/07/2015 BMP, serum [...] Go To The Location Of Their Choice, [id number] 11/19/2016 15:16:29 12/04/19 17 10/11/2012 MRI, lumba r spine , w/wo contr ast No observ ation record ed. [facility] Not Available 2016 15:12:18 05/16/19 18 05/03/2017 sleep study , diagn ostic * No observ ation record ed. [facility] [address] [place], [address], 05/20/2017 09:49:24 10/12/19 19 10/11/2018 CT, abdom en + pelvi s, w/ contr ast No observ ation record ed. [facility] [address] [place] [address], [address], 10/12/2018 07:13:33 11/10/19 20 11/10/2019 CT, abdom en + pelvi s, w/o contr ast No observ ation record ed. [facility] [address] [place] [address], [address], 11/10/2019 16:13:04 Result Notes None recorded. Problems Name Problem SNOMED Code Status Onset Date Resolution Date Notes Provider Name and Address Organization Details Recorded Time Epigastr ic pain 32031108 Completed 201211/09/2013 RECORDED 03/24/20 13 9:55AM BY ROX HERNANDEZ MA, ANNOTATI ON/ADDEN DUM Dawna Vegas PA-C [address] [facility] [address], [place], [address], [facility] 5 10:13:30 Left lower quadrant pain 864006315 Completed 201111/09/2013 RECORDED 11/28/19 12 2:07PM BY MELODIE SCANLON MA, ANNOTATI ON/ADDEN DUM Dawna Evangelist PERKINS-C [address] [facility] [address], [place], [address], [facility] 5 10:13:30 Mucopuru lent conjunct ivitis [id number] Completed 201211/09/2013 RECORDED 09/17/19 13 10:18AM BY MELODIE SCANLON MA, ANNOTATI ON/ADDEN DUM Dawna Evangelist PARRAC [address], [place], [address], [facility] 5 10:13:29 Acute sinusiti s 91053085 Completed 201311/09/2013 RECORDED 06/01/19 14 7:53AM BY ELENA VALLADARES MA, ANNOTATI ON/ADDEN DUM MADDIE Gomez, [facility] 7 14:17:11 Harmful pattern of use of alcohol 53515654 Active 2013 MADDIE Gomez, [facility] 6 09:49:25 Drug abuse 71362293 Active 2013 MADDIE Gomez, [facility] 6 09:49:35 Adult health examinat ion Completed 201211/09/2013 RECORDED 09/24/19 13 2:48PM BY MELODIE SCANLON MA, ANNOTATI ON/ADDEN DUM Dawna Evangelist MCCORMACK [address], [place], [address], [facility] 5 10:13:30 Anxiety disorder 946214251 Active 2013 MADDIE Gomez, [facility] 6 09:49:28 Exposure to organism Completed 201111/09/2013 RECORDED 11/28/19 12 2:07PM BY MELODIE SCANLON MA, ANNOTATI ON/ADDEN DUM Dawna Evangelist MCCORMACK [address] [facility] [address], [place], [address], [facility] 5 10:13:30 Cough [id number] Completed 201305/20/2017 IMPRESSI ON: SUSPECT PERTUSSI S. TOO LATE FOR TREATMEN T. ONLY TEST THAT CAN BE DONE AT THIS POINT IS SERUM. CXR TO R/O PNEUMONI A. SPIROMET RY SHOWS NO EVIDENCE OF OBSTRUCT ION SO DOUBT PREDNISO NE WOULD HELP; RECORDED 06/01/19 14 8:45PM BY MADDIE ABRAMS, OFFICE VISIT Melodie baltazar MA null, [facility] 8 09:48:50 Diarrhea 78381538 Completed 201111/09/2013 RECORDED 11/28/19 12 2:07PM BY MELODIE SCANLON MA, ANNOTATI ON/ADDEN DUM Dawna PARRAC [address], [place], [address], [facility] 5 10:13:30 Inflamma tory disease of liver 918552991 Completed 201211/09/2013 RECORDED 02/05/20 13 2:54PM BY MELODIE SCANLON MA, ANNOTATI ON/ADDEN DUM Dawna Vegas PA-C [address], [place], [address], [facility] 5 10:13:29 Blood chemistr y outside referenc e range 522062956 Completed 201211/09/2013 RECORDED 02/05/20 13 2:54PM BY MELODIE SCANLON MA, ANNOTATI ON/ADDEN DUM Dawna PARRAC [address], [place], [address], [facility] 5 10:13:30 Follow-u p encounte r Completed 201311/09/2013 RECORDED 05/11/19 14 7:19AM BY MEHNAZ ELIASATI ON/ADDEN DUM Dawna PARRAC [address], [place], [address], [facility] 5 10:13:30 Essentia l hyperten juan 39753353 Completed 200911/09/2013 RECORDED 08/25/19 10 7:44AM BY MELODIE SCANLON MA, ANNOTATI ON/ADDEN DUM Melodie baltazar MA null, [facility] 7 14:17:23 Malaise and fatigue 136079819 Completed 201211/09/2013 RECORDED 09/24/19 13 2:48PM BY MELODIE SCANLON MA, ANNOTATI ON/ADDEN DUM Dawna Vegas PA-C [address] [facility] [address], [place], [address], [facility] 5 10:13:29 Influenz a vaccine needed [id number] 06 Completed 201211/09/2013 RECORDED 03/08/20 13 11:28AM BY MELODIE SCANLON MA, OFFICE VISIT Dawna Vegas PA-C [address] [facility] [address], [place], [address], [facility] 5 10:13:30 Gastroes ophageal reflux disease 359622593 Active 2013 MADDIE Gomez, [facility] 6 09:49:31 Hyperlip idemia 37076803 Active 2013 MADDIE Gomez, [facility] 7 14:17:20 Essentia l hyperten juan 51722641 Active 2013 MADDIE Gomez, [facility] 7 14:17:23 Hypokale prnice 87068557 Active 2013 MADDIE Gomez, [facility] 6 09:50:02 Knee pain Active 2013 Melodie baltazar MA null, [facility] 6 09:49:46 Laborato ry procedur e performe d 766470155 Completed 201211/09/2013 RECORDED 02/05/20 13 2:54PM BY MELODIE SCANLON MA, ANNOTATI ON/ADDEN DUM Adwna Evangelist PERKINS-C [address], [place], [address], [facility] 5 10:13:30 Musculos keletal symptom 46772117 Completed 201111/09/2013 STORY: UNCONTRO LLED HTN WITH NEW-ONSE T SIGNIFIC ANT LEFT ARM WEAKNESS OF EXTENSIO N/FLEXIO N AT THE ELBOW.; RECORDED 11/28/19 12 2:07PM BY MELODIE SCANLON MA, ANNOTROSIE ON/ADDEN DUM Dawna Evangelist PERKINS-C [address], [place], [address], [facility] 5 10:13:29 Pain of elbow region 44202478 Completed 201211/09/2013 RECORDED 09/24/19 13 2:48PM BY MELODIE SCANLON MA, ANNOTATI ON/ADDEN DUM Dawna Evangelist PERKINS-C [address], [place], [address], [facility] 5 10:13:29 Shoulder joint pain 677865526 Completed 201211/09/2013 RECORDED 09/24/19 13 2:48PM BY MELODIE SCANLON MA, ANNOTATI ON/ADDEN DUM Dawnawendy PERKINS-C [address], [place], [address], [facility] 5 10:13:29 Lipoma 90761395 Active 2013 Melodie baltazar [place] null, [facility] 7 14:17:27 Localize d superfic ial swelling of skin 460502632 Completed 200811/09/2013 RECORDED 12/06/19 09 2:18PM BY MELODIE SCANLON MA, ANNOTATI ON/ADDEN DUM Dawna Vegas PA-C [address] [facility] [address], [place], [address], [facility] 5 10:13:29 Nausea 775179578 Completed 201111/09/2013 RECORDED 11/28/19 12 2:07PM BY MELODIE SCANLON MA, ANNOTATI ON/ADDEN DUM Dawna Vegas PA-C [address] [facility] [address], [place], [address], [facility] 5 10:13:30 Patient status finding [id number] Completed 201312/26/2015 MADDIE Gomez, [facility] 6 09:49:19 Acute pancreat itis 214622453 Completed 201211/09/2013 RECORDED 02/05/20 13 2:54PM BY MELODIE SCANLON MA, ANNOTATI ON/ADDEN DUM Dawna Vegas PA-C [address] [facility] [address], [place], [address], [facility] 5 10:13:29 Skin sensatio n disturba nce 79315918 Completed 201305/20/2017 MADDIE Gomez, [facility] 8 09:49:12 Psychose xual dysfunct ion associat ed with inhibite d libido 942314751 Active 2013 MADDIE Gomez, [facility] 6 09:50:08 Restless legs 08918073 Active 2013 MADDIE Gomez, [facility] 6 09:49:58 Rhabdomy olysis 121770740 Active 2013 MADDIE Gomez, [facility] 6 09:49:33 Sprain of wrist 42526960 Completed 201211/09/2013 RECORDED 02/05/20 13 2:54PM BY MELODIE SCANLON MA, BOO ON/ADDEN DUM Dawnawendy PERKINS-C [address], [place], [address], [facility] 5 10:13:30 Epidermo id cyst of skin 167068074 Completed 201311/09/2013 IMPRESSI ON: REASSURA NCE. IF BOTHERS HIM, CAN REFER TO GENERAL SURGEON. AT THIS POINT HE DOES NOT WANT TO DO THAT.; RECORDED 05/11/19 14 7:19AM BY BOO ELIAS ON/ADDEN DUM Dawna PERKINS-C [address], [place], [address], [facility] 5 10:13:29 Injury of ulnar nerve 07056212 Completed 199705/20/2017 DATE: 1997; ; RIGHT WRIST MADDIE Gomez, [facility] 8 09:49:09 Verruca vulgaris 26156922 Completed 201111/09/2013 RECORDED 11/28/19 12 2:07PM BY MELODIE SCANLON MA, BOO ON/ADDEN DUM Dawna PERKINS-C [address], [place], [address], [facility] 5 10:13:29 Wheezing 30469006 Completed 201311/09/2013 RECORDED 06/01/19 14 7:53AM BY ELENA VALLADARES MA, BOO ON/ADDEN DUM Dawnawendy PERKINS-C [address], [place], [address], [facility] 5 10:13:29 Epigastr ic pain 43545907 Completed 201212/02/2013 RECORDED 03/24/20 13 9:55AM BY ROX HERNANDEZ MA, ANNOTATI ON/ADDEN DUM Dawna Vegas PA-C [address], [place], [address], [facility] 5 10:13:30 Left lower quadrant pain 755826829 Completed 201112/02/2013 RECORDED 11/28/19 12 2:07PM BY MELODIE SCANLON MA, ANNOTATI ON/ADDEN DUM Dawnaartis Vegas PA-C [address], [place], [address], [facility] 5 10:13:30 Mucopuru lent conjunct ivitis 865150338 Completed 201212/02/2013 RECORDED 09/17/19 13 10:18AM BY MELODIE SCANLON MA, ANNOTATI ON/ADDEN DUM Dawna Vegas FL-C [address], [place], [address], [facility] 5 10:13:29 Acute sinusiti s 19973646 Completed 201312/02/2013 RECORDED 06/01/19 14 7:53AM BY ELENA VALLADARES MA, ANNOTATI ON/ADDEN DUM Melodie baltazar MA [facility], [facility] 7 14:17:11 Adult health examinat ion Completed 201212/02/2013 RECORDED 09/24/19 13 2:48PM BY MELODIE SCANLON MA, ANNOTATI ON/ADDEN DUM Dawna Vegas PA-C [address], [place], [address], [facility] 5 10:13:30 Exposure to organism Completed 201112/02/2013 RECORDED 11/28/19 12 2:07PM BY MELODIE SCANLON MA, BOO ON/ADDEN DUM Dawna Vegas PA-C [address] [facility] [address], [place], [address], [facility] 5 10:13:30 Cough 76599128 Completed 201312/02/2013 IMPRESSI ON: SUSPECT PERTUSSI S. TOO LATE FOR TREATMEN T. ONLY TEST THAT CAN BE DONE AT THIS POINT IS SERUM. CXR TO R/O PNEUMONI A. SPIROMET RY SHOWS NO EVIDENCE OF OBSTRUCT ION SO DOUBT PREDNISO NE WOULD HELP; RECORDED 11/06/19 14 8:05AM BY MELODIE SCANLON MA, BOO ON/ADDEN DUM Melodie baltazar MA null, [facility] 8 09:48:50 Diarrhea 74939050 Completed 201112/02/2013 RECORDED 11/28/19 12 2:07PM BY MELODIE SCANLON MA, BOO ON/ADDEN DUM Dawna Vegas PA-C [address] [facility] [address], [place], [address], [facility] 5 10:13:30 Inflamma tory disease of liver 881372156 Completed 201212/02/2013 RECORDED 02/05/20 13 2:54PM BY MLEODIE SCANLON MA, ANNOTATI ON/ADDEN DUM Dawna PARRAC [address] [facility] [address], [place], [address], [facility] 5 10:13:29 Blood chemistr y outside referenc e range 905110270 Completed 201212/02/2013 RECORDED 02/05/20 13 2:54PM BY MELODIE SCANLON MA, BOO ON/ADDEN DUM Dawna Vegas PA-C [address], [place], [address], [facility] 5 10:13:30 Follow-u p encounte r Completed 201312/02/2013 RECORDED 05/11/19 14 7:19AM BY MEHNAZ ELIASATI ON/[facility] [address] [facility] [address], [place], [address], [facility] 5 10:13:30 Essentia l hyperten juan 10905904 Completed 200912/02/2013 RECORDED 08/25/19 10 7:44AM BY MELODIE SCANLON MA, ANNOTATI ON/ADDEN DUM MADDIE Gomez, [facility] 7 14:17:23 Malaise and fatigue 204976466 Completed 201212/02/2013 RECORDED 09/24/19 13 2:48PM BY MELODIE SCANLON MA, ANNOTATI ON/ADDEN DUM [facility] [address] [facility] [address], [place], [address], [facility] 5 10:13:29 Influenz a vaccine needed 22267788519 06 Completed 201212/02/2013 RECORDED 03/08/20 13 11:28AM BY MELODIE SCANLON MA, OFFICE VISIT [facility] [address] [facility] [address], [place], [address], [facility] 5 10:13:30 Flatulen ce, eructati on and gas pain 535932946 Completed 201305/20/2017 MADDIE Gomez, [facility] 8 09:49:18 Laborato ry procedur e performe d 818396491 Completed 201212/02/2013 RECORDED 02/05/20 13 2:54PM BY MELODIE SCANLON MA, ANNOTATI ON/ADDEN DUM Dawna Evangelist PA-C [address], [place], [address], [facility] 5 10:13:30 Musculos keletal symptom 99694058 Completed 201112/02/2013 STORY: UNCONTRO LLED HTN WITH NEW-ONSE T SIGNIFIC ANT LEFT ARM WEAKNESS OF EXTENSIO N/FLEXIO N AT THE ELBOW.; RECORDED 11/28/19 12 2:07PM BY MELODIE SCANLON MA, ANNOTROSIE ON/ADDEN DUM Dawna Evangelist PA-C [address], [place], [address], [facility] 5 10:13:29 Pain of elbow region 19131722 Completed 201212/02/2013 RECORDED 09/24/19 13 2:48PM BY MELODIE SCANLON MA, ANNOTROSIE ON/ADDEN DUM Dawna Evangelist PA-C [address] [facility] [address], [place], [address], [facility] 5 10:13:29 Shoulder joint pain 487276581 Completed 201212/02/2013 RECORDED 09/24/19 13 2:48PM BY MELODIE SCANLON MA, ANNOTATI ON/ADDEN DUM Dawna Evangelist PA-C [address], [place], [address], [facility] 5 10:13:29 Localize d superfic ial swelling of skin 634843939 Completed 200812/02/2013 RECORDED 12/06/19 09 2:18PM BY MELODIE SCANLON MA, ANNOTATI ON/ADDEN DUM Dawna Evangelist PA-C [address] [facility] [address], [place], [address], [facility] 5 10:13:29 Nausea 034104589 Completed 201112/02/2013 RECORDED 11/28/19 12 2:07PM BY MELODIE SCANLON MA, ANNOTATI ON/ADDEN DUM Dawna Vegas PA-C [address], [place], [address], [facility] 5 10:13:30 Acute pancreat itis 666662109 Completed 201212/02/2013 RECORDED 02/05/20 13 2:54PM BY MELODIE SCANLON MA, MEHNAZATI ON/ADDEN DUM Dawna Vegas PA-C [address], [place], [address], [facility] 5 10:13:29 Sprain of wrist 01048248 Completed 201212/02/2013 RECORDED 02/05/20 13 2:54PM BY MELODIE SCANLON MA, BOO ON/ADDEN DUM Dawna Vegas PA-C [address], [place], [address], [facility] 5 10:13:30 Epidermo id cyst of skin 062174261 Completed 201312/02/2013 IMPRESSI ON: REASSURA NCE. IF BOTHERS HIM, CAN REFER TO GENERAL SURGEON. AT THIS POINT HE DOES NOT WANT TO DO THAT.; RECORDED 05/11/19 14 7:19AM BY BOO ELIAS ON/ADDEN DUM Dawna Vegas PA-C [address], [place], [address], [facility] 5 10:13:29 Verruca vulgaris 83024216 Completed 201112/02/2013 RECORDED 11/28/19 12 2:07PM BY MELODIE SCANLON MA, MEHNAZATI ON/ADDEN DUM Dawna Vegas PA-C [address], [place], [address], [facility] 5 10:13:29 Wheezing 21880709 Completed 201312/02/2013 RECORDED 06/01/19 14 7:53AM BY ELENA VALLADARES MA, ANNOTATI ON/ADDEN DUM Dawna Vegas PA-C [address], [place], [address], [facility] 5 10:13:29 Epigastr ic pain 23329308 Completed 201212/03/2013 RECORDED 03/24/20 13 9:55AM BY ROX HERNANDEZ MA, ANNOTATI ON/ADDEN DUM Dawna Vegas PA-C [address], [place], [address], [facility] 5 10:13:30 Left lower quadrant pain 605763083 Completed 201112/03/2013 RECORDED 11/28/19 12 2:07PM BY MELODIE SCANLON MA, ANNOTATI ON/ADDEN DUM Dawna Vegas PA-C [address], [place], [address], [facility] 5 10:13:30 Mucopuru lent conjunct ivitis 482616080 Completed 201212/03/2013 RECORDED 09/17/19 13 10:18AM BY MELODIE SCANLON MA, ANNOTATI ON/ADDEN DUM Dawna Vegas PA-C [address], [place], [address], [facility] 5 10:13:29 Acute sinusiti s 31115247 Completed 201312/03/2013 RECORDED 06/01/19 14 7:53AM BY ELENA VALLADARES MA, ANNOTATI ON/ADDEN DUM Melodie baltazar MA null, [facility] 7 14:17:11 Adult health examinat ion Completed 201212/03/2013 RECORDED 09/24/19 13 2:48PM BY MELODIE SCANLON MA, BOO ON/ADDEN DUM Dawna Vegas PA-C [address], [place], [address], [facility] 5 10:13:30 Exposure to organism Completed 201112/03/2013 RECORDED 11/28/19 12 2:07PM BY MELODIE SCANLON MA, BOO ON/ADDEN DUM Dawna Vegas PA-C [address], [place], [address], [facility] 5 10:13:30 Cough 06306163 Completed 201312/03/2013 IMPRESSI ON: SUSPECT PERTUSSI S. TOO LATE FOR TREATMEN T. ONLY TEST THAT CAN BE DONE AT THIS POINT IS SERUM. CXR TO R/O PNEUMONI A. SPIROMET RY SHOWS NO EVIDENCE OF OBSTRUCT ION SO DOUBT PREDNISO NE WOULD HELP; RECORDED 11/06/19 14 8:05AM BY MELODIE SCANLON MA, ANNOTATI ON/ADDEN DUM Melodie baltazar MA null, [facility] 8 09:48:50 Diarrhea 63257837 Completed 201112/03/2013 RECORDED 11/28/19 12 2:07PM BY MELODIE SCANLON MA, BOO ON/ADDEN DUM Dawna PERKINS-C [address], [place], [address], [facility] 5 10:13:30 Inflamma tory disease of liver 332638547 Completed 201212/03/2013 RECORDED 02/05/20 13 2:54PM BY MELODIE SCANLON MA, BOO ON/ADDEN DUM Dawna PERKINS-C [address], [place], [address], [facility] 5 10:13:29 Blood chemistr y outside referenc e range 440497403 Completed 201212/03/2013 RECORDED 02/05/20 13 2:54PM BY MELODIE SCANLON MA, ANNOTATI ON/ADDEN DUM Dawna Vegas PA-C [address], [place], [address], [facility] 5 10:13:30 Follow-u p encounte r Completed 201312/03/2013 RECORDED 05/11/19 14 7:19AM BY JM CAI I, ANNOTATI ON/ADDEN DUM Dawna Vegas FL-C [address] [facility] [address], [place], [address], [facility] 5 10:13:30 Essentia l hyperten juan [id number] Completed 200912/03/2013 RECORDED 08/25/19 10 7:44AM BY MELODIE SCANLON MA, ANNOTATI ON/ADDEN DUM Melodie baltazar MA [facility], [facility] 7 14:17:23 Malaise and fatigue 563175192 Completed 201212/03/2013 RECORDED 09/24/19 13 2:48PM BY MELODIE SCANLON MA, ANNOTATI ON/ADDEN DUM Dawnawendy PERKINS-C [address] [facility] [address], [place], [address], [facility] 5 10:13:29 Influenz a vaccine needed 39711060563 06 Completed 201212/03/2013 RECORDED 03/08/20 13 11:28AM BY MELODIE SCANLON MA, OFFICE VISIT Dawna PERKINS-C [address], [place], [address], [facility] 5 10:13:30 Laborato ry procedur e performe d 646356233 Completed 201212/03/2013 RECORDED 02/05/20 13 2:54PM BY MELODIE SCANLON MA, ANNOTATI ON/ADDEN DUM Dawna Evangelist PERKINS-C [address], [place], [address], [facility] 5 10:13:30 Musculos keletal symptom 84181582 Completed 201112/03/2013 STORY: UNCONTRO LLED HTN WITH NEW-ONSE T SIGNIFIC ANT LEFT ARM WEAKNESS OF EXTENSIO N/FLEXIO N AT THE ELBOW.; RECORDED 11/28/19 12 2:07PM BY MELODIE SCANLON MA, ANNOTROSIE ON/ADDEN DUM Dawnawnedy PERKINS-C [address] [facility] [address], [place], [address], [facility] 5 10:13:29 Pain of elbow region 27041048 Completed 201212/03/2013 RECORDED 09/24/19 13 2:48PM BY MELODIE SCANLON MA, ANNOTROSIE ON/ADDEN DUM Dawnaartis PERKINS-C [address] [facility] [address], [place], [address], [facility] 5 10:13:29 Shoulder joint pain 438856609 Completed 201212/03/2013 RECORDED 09/24/19 13 2:48PM BY MELODIE SCANLON MA, ANNOTATI ON/ADDEN DUM Dawna Evangelist PERKINS-C [address] [facility] [address], [place], [address], [facility] 5 10:13:29 Localize d superfic ial swelling of skin 107185436 Completed 200812/03/2013 RECORDED 12/06/19 09 2:18PM BY MELODIE SCANLON MA, ANNOTATI ON/ADDEN DUM Dawnaartis PERKINS-C [address], [place], [address], [facility] 5 10:13:29 Nausea [id number] Completed 201112/03/2013 RECORDED 11/28/19 12 2:07PM BY MELODIE SCANLON MA, ANNOTATI ON/ADDEN DUM Dawna Vegas PA-C [address], [place], [address], [facility] 5 10:13:30 Acute pancreat itis 872295910 Completed 201212/03/2013 RECORDED 02/05/20 13 2:54PM BY MELODIE SCANLON MA, BOO ON/ADDEN DUM Dawna [facility] [address], [place], [address], [facility] 5 10:13:29 Sprain of wrist 52520836 Completed 201212/03/2013 RECORDED 02/05/20 13 2:54PM BY MELODIE SCANLON MA, BOO ON/ADDEN DUM Dwana [facility] [address], [place], [address], [facility] 5 10:13:30 Epidermo id cyst of skin 221655673 Completed 201312/03/2013 IMPRESSI ON: REASSURA NCE. IF BOTHERS HIM, CAN REFER TO GENERAL SURGEON. AT THIS POINT HE DOES NOT WANT TO DO THAT.; RECORDED 05/11/19 14 7:19AM BY BOO ELIAS ON/ADDEN DUM Dawna [facility] [address], [place], [address], [facility] 5 10:13:29 Verruca vulgaris 45430830 Completed 201112/03/2013 RECORDED 11/28/19 12 2:07PM BY MELODIE SCANLON MA, ANNOTATI ON/ADDEN DUM Dawna Vegas PA-C [address], [place], [address], [facility] 5 10:13:29 Wheezing 27560272 Completed 201312/03/2013 RECORDED 06/01/19 14 7:53AM BY ELENA VALLADARES MA, ANNOTATI ON/ADDEN DUM Dawna Vegas PA-C [address], [place], [address], [facility] 5 10:13:29 Shoulder tendinit is Active Dawna Vegas PA-C [address] [facility] [address], [place], [address], [facility] 5 10:13:29 Fatigue 61436663 Active Dawna Vegas PA-C [address] [facility] [address], [place], [address], [facility] 5 10:13:29 Degenera tion of lumbar interver tebral disc 16823877 Active 2013 MADDIE Gomez, [facility] 6 09:49:39 Acute sinusiti s 53392225 Completed 01/06/2017 MADDIE Gomez, [facility] 7 14:17:11 Impotenc e Active Dawna Vegas PA-C [address] [facility] [address], [place], [address], [facility] 5 10:13:29 Abdomina l pain 30951832 Completed 01/06/2017 MADDIE Gomez, [facility] 7 14:17:15 Inflamma tion of rotator cuff tendon 048390893 Active Dawna Vegas PA-C [address] [facility] [address], [place], [address], [facility] 5 10:13:29 Lumbago with sciatica 959058100 Active Marvin Lam MD [address], [place], [address], [facility] 5 12:17:43 Anabolic steroids adverse reaction 444673520 Active Marvin Lam MD [address], [place], [address], [facility] 5 12:08:12 Lumbar radiculo zahira 716623580 Active Marvin Lam MD [address], [place], [address], [facility] 6 21:16:15 Insomnia 544563290 Active Marvin Lam MD [address], [place], [address], [facility] 6 21:16:15 Obstruct gila sleep apnea syndrome 68383488 [facility] 09:47[facility]56 Dependen ce on continuo us positive airway pressure ventilat ion 768954534 Active 2017 6-16 cm H2O [facility] 09:48:34 Problem Notes None recorded. Procedures Surgical History Date Name Laterality Status Provider Name and Address Organization Details Recorded Time 05/29/19 16 Unlisted procedure shoulder completed Melodie green MA [facility] 12/26/2015 09:56:11 03/28/20 15 Unlisted procedure shoulder completed Melodie green MA [facility] 12/26/2015 09:56:16 03/07/20 15 Joint Injection completed Marvin Lam MD [address], [place], [address], [facility] 03/07/2015 11:04:20 02/02/20 14 Corticosteroid Injection completed Marvin Lam MD [address] [facility] [address], [place], [address], [facility] 02/03/2014 20:18:14 04/07/20 07 Osteot dsc ant 1vrt sgm lmbr completed Melodie Alcazar-Teo green, [facility] 02/01/2014 13:52:13 Colonoscopy completed Melodie Alcazar-Teo green, [facility] 01/06/2017 14:00:58 Imaging Results None recorded. Procedure Notes None recorded. Medical Equipment None Reported. Allergies Allergen ID Allergen Name Allergen Category Reaction Reaction Severity Criticality Documentation Date Start Date Code Code System Note Provider Name and Address Organization Details Recorded Time 63099 enalapril Not available cough Not available Not available 12/26/2015 4576 RxNorm Marvin Lam MD [address] [address], [place], [address], [facility] 6 10:53:29 Medications Name Sig Start Date [...] 05/28 completed RECORDED 06/07/19 10 2:17PM BY MARVNI LAM MD, MEDICATI ON AUTO-LUCINA CTIVATIO N; [...] Available Not Available Not Available Fluarix Quad 9682-5096 (PF) 60 mcg (15 mcg x 4)/0.5 mL IM syringe 01/06 completed Not Available Not Available Not Available Vitals Date Recorded Body height Body weight Body mass index (BMI) Body temperature Oxygen saturation Oxygen saturation in Arterial blood by Pulse oximetry Heart rate Systolic And Diastolic Provider Name and Address Organization Details Last Updated DateTime 7 185.42 cm 909164. 53 g 35.8 kg/m2 97.4 [degF] 96 % 96 % 80 /min 142/86 mm[Hg] Elena Valladares MA [facility] 7 08:42:58 Date Recorded Body height Oxygen saturation Oxygen saturation in Arterial blood by Pulse oximetry Heart rate Body temperature Body mass index (BMI) Body weight Systolic And Diastolic Provider Name and Address Organization Details Last Updated DateTime 6 185.42 cm 100 % 100 % 92 /min 97.2 [degF] 33.5 kg/m2 360103. 33117 g 128/88 mm[Hg] Melodie baltazar MA [facility] 6 11:07:43 Date Recorded Body height Body temperature Oxygen saturation Oxygen saturation in Arterial blood by Pulse oximetry Heart rate Body weight Body mass index (BMI) Systolic And Diastolic Provider Name and Address Organization Details Last Updated DateTime 6 185.42 cm 98.1 [degF] 97 % 97 % 100 /min 628577. 15 g 33.4 kg/m2 138/90 mm[Hg] Melodie baltazar MA [facility] 6 09:58:33 Date Recorded Body height Body mass index (BMI) Body weight Body temperature Oxygen saturation Oxygen saturation in Arterial blood by Pulse oximetry Heart rate Systolic And Diastolic Provider Name and Address Organization Details Last Updated DateTime 7 185.42 cm 31.8 kg/m2 694878. 76 g 98.1 [degF] 97 % 97 % 108 /min 152/76 mm[Hg] Melodie baltazar MA [facility] 7 14:14:10 Date Recorded Heart rate Body temperature Oxygen saturation Oxygen saturation in Arterial blood by Pulse oximetry Body height Body weight Body mass index (BMI) Systolic And Diastolic Provider Name and Address Organization Details Last Updated DateTime 5 107 /min 97.4 [degF] 97 % 97 % 185.42 cm 717462. 30646 g 33.8 kg/m2 144/94 mm[Hg] Melodie baltazar MA [facility] 5 09:44:27 Social History Question Answer Notes LastModified by Organizat ion Details LastModified Time Tobacco Smoking Status Never Smoker Melodie Chapman MA [facility] 02/01/2014 13:51:48 Do You Have An Advance Directive? No Declined Information not available 04/11/2015 Is Blood Transfusion Acceptable In An Emergency? Yes [email or web address] Information not available 11/23/2014 What Is Your [...] Take Precautions To Prevent Distracted Driving? Yes [email or web address] Information not available 11/23/2014 How Often Do You Need To Have Someone Help You When You Read Instructions, Pamphlets, Or Other Written Material From Your Doctor Or Pharmacy? Sometimes [email or web address] Information not available 11/23/2014 Have You Served In The ? No Information not available 01/06/2017 What Was The Date Of Your Most Recent Tobacco Screening? 01/06/2017 Information not available 11/19/2018 How Many Children Do You Have? 1 Information not available 02/01/2014 Do You Use Protection During Sex? No Information not available 04/11/2015 What Is Your Relationship Status? 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 Moderate 5x week, cardio, weights Information not available 02/01/2014 Mental Status None recorded. Family History Relationship Description Onset Age of this Age Resolved Age Notes LastModified by Organization Details LastModified Time Father Chronic back pain [email or web address] Not available 09:16:01 Mother Malignant tumor of cervix [email or web address] Not available 2015 10:28:22 Medical History No medical history recorded. Immunizations Vaccine Type Date Status Note Provider Nam e and Address Organization Details Recorded Time Influenza, split virus, quadrivalent, preservative 7 completed Heidi mcmahon [facility] 12/03/2016 16:01:55 Influenza, split virus, quadrivalent, preservative 8 completed Alla mcmahon [facility] 01/13/2018 15:22:21 Influenza, split virus, quadrivalent, PF 5 completed Not Available [facility] 05/15/2019 02:22:02 Influenza, split virus, quadrivalent, PF 6 completed Not Available [facility] 05/15/2019 02:22:04 Tdap 6 completed Not Available [facility] 05/15/2019 02:21:45 Influenza, split virus, trivalent, PF 4 completed Not Available [facility] 05/15/2019 02:21:57 Td (adult), 2 Lf tetanus toxoid, preservative free, adsorbed 6 completed Not Available [facility] 11/09/2013 13:23:19 varicella 6 completed Not Available [facility] 11/09/2013 13:23:19 pneumococcal polysaccharide PPV23 3 completed Not Available [facility] 11/09/2013 13:23:19 Influenza, split virus, trivalent, preservative 3 completed Not Available [facility] 11/09/2013 13:23:19 Past Encounters Encounter ID Performer Location Encounter Start Date Encounter Closed Date Diagnosis/Indication Diagnosis SNOMED-CT Code Diagnosis ICD10 Code Diagnosis Note [id number] autoEComm erce [address] [facility] [place] [address] 11/12/2006 00:00:00 [id number] autoEComm erce [address] [place] [address] 02/12/2007 00:00:00 [id number] [address] er[address] [place] [address] 05/12/2007 00:00:00 [id number] [address] erce [address] [place] [address] 06/16/2007 00:00:00 [id number] autoEComm erce [address] [place] [address] 01/28/2008 00:00:00 [id number] autoEComm erce [address] [place] [address] 08/25/2008 00:00:00 [id number] autoEComm erce [address] [facility] [place] [address] 12/05/2008 00:00:00 [id number] autoEComm erce [address] [facility] [place] [address] 05/23/2009 00:00:00 [id number] autoEComm erce [address] [facility] [place] [address] 06/08/2009 00:00:00 [id number] autoEComm erce [address] [facility] [place] [address] 08/24/2009 00:00:00 [id number] autoEComm erce [address] [facility] [place] [address] 11/28/2009 00:00:00 [id number] autoEComm erce [address] [place] [address] 05/08/2010 00:00:00 [id number] autoEComm erce [address] [facility] [place] [address] 08/04/2012 00:00:00 [id number] autoEComm erce [address] [facility] [place], [place] [address] 09/16/2012 00:00:00 [id number] autoEComm erce [address] [facility] [place], [place] [address] 09/23/2012 00:00:00 [id number] autoEComm erce [address] [facility] [place], [place] [address] 03/08/2013 00:00:00 [id number] autoEComm erce [address] [facility] [place], [place] [address] 03/24/2013 00:00:00 [id number] autoEComm erce [address] [facility] [place], [place] [address] 05/11/2013 00:00:00 [id number] autoEComm erce [address] [facility] [place], [place] [address] 06/01/2013 00:00:00 [id number] Marvin Lam MD Main Office [address] [address] [place], [place] [address] 02/01/2014 13:42:42 02/01/2014 14:48:36 Needs influenza immunization 241966158 Anxiety disorder 810503672 Shoulder tendinitis 697696334 Hyperlipidemia 99633635 Fatigue 84274802 [id number] Marvin Lam MD Main Office [address] [address] [place], [place] [address] 06/22/2014 11:14:24 06/22/2014 12:22:10 Adult health examination 911098818 Essential hypertension 09461450 Restless legs 14014073 Cough 62255979 Acute sinusitis 01696542 Impotence 827651999 [id number] Vicki dueñas MD Main Office [address] [address] [place], [place] [address] 11/23/2014 12:44:46 11/23/2014 13:28:21 Abdominal pain 62226113 ? of resolving pancreatit is due to excessive alcohol use, hx of alcohol induced pancreatit is, pt will get labs, looks well, is hydrated, pain resolved, he knows to abstain from alcohol and return for eval if any return of pain [id number] Marvin Lam MD Main Office [address] [address] [place] [address] 03/07/2015 10:20:59 03/07/2015 10:58:46 Needs influenza immunization 149248470 Z23 Inflammati on of rotator cuff tendon 931595372 M65.812 [id number] Dawna Vegas PA-C Main Office [address] [address] [place] [address] 03/24/2015 09:13:11 03/24/2015 09:40:19 Lumbago with sciatica 446774538 M54.42 Lumbar disc disease exacerbati on L. with sciatica. Start Prednisone taper as directed. Cyclobenza prone if tolerated TID for 5 days and Oxycodone PRN. F/u with PCP if symptoms persist or worsen. [id number] Marvin Lam MD Main Office [address] [address] [place] [address] 04/11/2015 09:37:04 04/11/2015 10:44:16 Degeneration of lumbar intervertebral disc 86980120 M51.36 Anabolic s teroids adverse reaction 685049295 T38.7X5S [facility] use of anabolic steroids. Now on testostero ne replacemen t with Dr. 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 [id number] Marvin Lam MD Main Office [address] [address] [place] [address] 07/12/2015 10:52:20 07/12/2015 11:59:17 Restless legs 35598767 G25.81 Essential hypertension 89096758 I10 Lumbar radiculopathy 128 608398 M54.16 Insomnia 868561450 G47.0 0 [id number] Marvin Lam MD Main Office [address] [address] [place] [address] 12/26/2015 09:43:17 12/26/2015 10:55:17 Adult health examination 120266638 Z00.00 Essential hypertension 42215579 I10 Needs infl uenza immunization 211772822 Z23 Administra tion of diphtheria, pertussis, and tetanus vaccine 650084779 Z23 [id number] ANTHONY Posey Main Office [address] [address] [place] [address] 05/02/2016 08:26:46 05/02/2016 09:13:28 Snoring 04884387 R06.83 Patient understand s he needs to [...] to his feeling of unrest. Restless legs 17745020 G 25.81 Will increase requip to 3mg [...] in 1 month for recheck. Essential hypertension 53214704 I10 Bp not greatly controlled on current meds, possibilit y of sleep apnea likely a contributi ng factor, I stressed the importance of having sleep study and getting sleep apnea treated. [id number] Marvin Lam MD Main Office [address] [facility] [address] [place] [address] 01/06/2017 13:51:55 01/06/2017 15:08:02 Essential hypertension 43819163 I10 Anxiety state 028173654 F41.1 Restless legs 18853829 G 25.81 Major depr essive disorder 330568529 F32.9 Chronic al coholism in remission 712370577 F10.21 Recently stopped drinking Health Concerns Section Related Observation LastModified by Organization Detai ls LastModified Time None Recorded Concern Status LastModified by Organization Details LastModified Time None Recorded Advance Directives Directive N: declined Payers Insurance Date Sequence Insurance Name Policy Number Policy Correia Covered Member ID Correia Member ID Guarantor Name 12/03/2016 1 [facility] - [facility] [id number] 3 Konrad Beckham [id number] Konrad Beckham 02/05/2017 1 [facility] ([facility] [id number] Konrad Beckham [id number] Konrad Bhavani Notes Date Note Type Note [...] have his shoulder fixed by ortho in [facility]. Local orthopedics ([facility]) do not wish to attempt repair. Konrad states that severe pain has been disrupting sleep. He did not have benefit from use steroids by tapering dose. He plans to see [facility] on May 02 for evaluation of lumbar radiculopathy. 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 Marvin Lam MD [address] [address], [place], [address], [facility] 04/17/2015 12:08:27 07/12/2015 text/html Hypertension F/UReported bypatient.Associated [...] awakening in the middle of the night;insomnia: leather lacer awakening;unrefreshing sleep Onset/Timing:chronic; worsening problems over the past 2-3 mos Pain disturbing sleep:chronic shoulder pain and recent rotator cuff surgery Restless leg syndrome:legs feel restless: disturbing sleep;legs feel restless: relieved by movementNotes:Has been using ropininrole for RLS for many years with good effects. Never had sleep test. Now states that the medication is no longer effective. Marvin Lam MD [address], [address], [facility] 07/12/2015 21:16:22 12/26/2015 text/html Hypertension F/UReported bypatient.Associated [...] from Dr. Dacosta. Marvin Lam MD [address], [address], [facility] 12/26/2015 13:42:19 05/02/2016 text/html Hypertension F/UReported bypatient.Associated [...] awakening in the middle of the night;insomnia: leather lacer awakening;unrefreshing sleep Onset/Timing:chronic; worsening problems over the [...] never had a sleep study. Mansoor mcmahon [facility] 05/02/2016 13:04:37 01/06/2017 text/html Anxiety/Depressi onRepo rted [...] anxiety. Discussed options for care at length. Martinal seeing Dr. Dacosta for weight management. Has [...] his RLS meds. Marvin Lam MD [address] [address], [place], [address], [facility] 01/07/2017 08:40:40
== END 2024-11-11 11:42 | disposition home or self-care (01) ==
LOC: HO.HMCFM 11:04
PROVIDERS: PCP Physician Assistant; Visit Provider Physician Assistant
DX: I12.9 Hypertensive chronic kidney disease with stage 1 through stage 4 chronic kidney disease, or unspecified chronic kidney disease (principal); E11.65 Type 2 diabetes mellitus with hyperglycemia; N18.31 Chronic kidney disease, stage 3a; F98.8 Other specified behavioral and emotional disorders with onset usually occurring in childhood and adolescence; R79.89 Other specified abnormal findings of blood chemistry; E83.42 Hypomagnesemia; G25.81 Restless legs syndrome

== ENCOUNTER 2025-01-11 07:59 | Outpatient (REF) | payer OTHER, SELFPAY ==
[2025-01-11 11:44] LABS: MANUAL DIFF FLAG NO
[2025-01-11 11:55] LABS: Hematocrit 45.9 % (42.0-52.0); Hemoglobin 15.8 g/dl (14.0-18.0); Imm Gran Abs Auto 0.03 X10*3/uL (0.00-0.03); Imm Gran Pct Auto 0.5 % (0.0-0.4); Lymphocytes Absolute Auto 1.0 X10*3/uL (1.2-4.9); Mean Corpuscular HGB Conc 34.4 g/dl (31.0-36.0); Mean Corpuscular Hemoglobin 28.3 pg (27.0-33.0); Mean Corpuscular Volume 82.1 fL (80.0-98.0); NRBC Abs Auto 0.000 X10*3/uL (0.0-0.012); NRBC Pct Auto 0.0 /100WBC (0.0-0.2); Platelet Count 153 X10*3/uL (160-400); Red Blood Count 5.59 X10*6/uL (4.60-5.80); White Blood Count 6.0 X10*3/uL (4.8-10.8)
[2025-01-11 12:22] LABS: Alanine Aminotransferase 71 U/L (0-40); Albumin Level 4.7 g/dL (3.5-5.0); Alkaline Phosphatase 111 U/L (39-117); Anion Gap 11 (12-20); Aspartate Amino Transferase 50 U/L (5-37); Blood Urea Nitrogen 16 mg/dL (9-16); Calcium 9.3 mg/dL (8.4-10.2); Carbon Dioxide 28 mmol/L (22-29); Chloride 102 mmol/L (96-108); Estimated Glomerular Filt Rate 48; Potassium 4.4 mmol/L (3.3-5.1); Sodium 137 mmol/L (135-145); Total Protein 7.5 g/dL (6.5-8.0)
[2025-01-11 12:37] LABS: Parathyroid Hormone Intact 69.1 pg/mL (8.7-77.1)
== END 2025-01-11 08:00 | disposition home or self-care (01) ==
LOC: HO.WFDLDS 07:59
PROVIDERS: Internal Medicine Nephrology; Visit Provider Physician Assistant
DX: I12.9 Hypertensive chronic kidney disease with stage 1 through stage 4 chronic kidney disease, or unspecified chronic kidney disease (principal); E11.22 Type 2 diabetes mellitus with diabetic chronic kidney disease; N18.31 Chronic kidney disease, stage 3a; R79.89 Other specified abnormal findings of blood chemistry
CPT/HCPCS: 36415; 80048; 80076; 82306; 83970; 85025

== ENCOUNTER 2025-01-24 09:39 | Outpatient (AMB) | payer OTHER, SELFPAY ==
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
--- OUTSIDE RECORDS SUMMARY | 2025-01-24 10:29 | XMS_ITS | Clinical Summary ---
Author Organization [facility] Address [address] [place] [phone] Phone Care Team Providers Care Community Health Nurse Supervisor Name Role Phone Marvin Lam MD Primary Care Provider [phone] Allergies No known active allergies Medications amLODIPine (NORVASC) 10 MG tabletIndications :hypertension Take 10 mg by mouth daily. Active omeprazole (PRILOSEC) 40 MG capsule Take 40 mg by mouth daily as needed. Active LORazepam (ATIVAN) 1 MG tablet Take 1 mg by mouth as needed for anxiety (SLEEP). Active therapeutic multivitamin tablet Take 1 tablet by mouth daily. Active rOPINIRole (REQUIP) 2 MG tabletIndications :restless leg syndrome Take 2 mg by mouth nightly. Active testosterone cypionate (DEPO-TESTOTERONE ) 100 mg/mL injectionIndicati ons:TAKES FRIDAY Inject 200 mg into the muscle every 7 days. Active sildenafil (VIAGRA) 50 mg tablet Take 50 mg by mouth every 7 days. Active valACYclovir (VALTREX) 1000 MG tablet Take 1,000 mg by mouth daily. Active enalapril (VASOTEC) 10 MG tabletIndications :pt states no longer taking Take 10 mg by mouth daily. Active IBUPROFEN ORAL Take by mouth. Active oxyCODONE 5 MG immediate release tablet Take 1-2 tablets (5-10 mg total) by mouth every 4 (four) hours as needed for moderate pain. 30 tablet 0 6 Active traMADol (ULTRAM) 50 mg tablet Take 1 tablet (50 mg total) by mouth every 6 (six) hours as needed for pain (specific location in comments). 40 tablet 0 6 Active Active Problems Problem Noted Date Diagnosed Date Complete rupture of rotator cuff 05/02/2015 Social History Tobacco Use Types Packs/Day Years Used Date Smoking Tobacco: Never Smokeless Tobacco: Never Alcohol Use Standard Drinks/Week Comments Yes 5 (1 standard drink = 0.6 oz pure alcohol) H/P states Alcohol Abuse pt denies Education Answer Date Recorded Are you interested in more education? Not on lis e 08/23/2022 Are you concerned about learning? Not on file 08/23/2022 No 08/23/2022 No 08/23/2022 Digital Access Answer Date Recorded No 09/23/2022 No 09/23/2022 Reliable internet access at home? Not on file 09/23/2022 Device with a working camera? Not on file Sex and Gender Information Value Date Recorded Sex Assigned at Not on file Legal Sex Male 1:33 PM EST Gender Identity Not on file Sexual Orientation Not on file Last Filed Vital Signs Vital Sign Reading Time Taken Comments Blood Pressure 98/82 06/23/2015 7:15 PM EST Pulse 84 06/23/2015 7:15 PM EST Temperature 36.3 C (97.3 F) 11/15/2015 10:44 AM EDT Respiratory Rate 17 06/23/2015 7:15 PM EST Oxygen Saturation 94% 06/23/2015 7:15 PM EST Inhaled Oxygen Concentration - - Weight 114.8 kg (253 lb) 11/15/2015 10:44 AM EDT Height 185.4 cm (6' 1 ) 11/15/2015 10:44 AM EDT Body Mass Index 33.38 11/15/2015 10:44 AM EDT Plan of Treatment Health Maintenance Due Date Last Done Comments Adult Td,Tdap Booster 1970 CREATININE LEVEL 1970 LIPID PANEL 1970 POTASSIUM LEVEL 1970 DEPRESSION SCREENING 1982 HEPATITIS C SCREENING 1988 HIV ONE-TIME SCREENING (18-6 5 YEARS) 1988 COLOGUARD 09/19/2015 COLONOSCOPY 09/19/2015 COLORECTAL CANCER SCREENING 09/19/2015 FIT TEST 09/19/2015 FOBT 09/19/2015 SIGMOIDOSCOPY 09/19/2015 VIRTUAL COLONOSCOPY 09/19/2015 PNEUMOCOCCAL VACCINES (50+ years) (1 of 1 - PCV) 2020 ZOSTER VACCINES (1 of 2) 2020 INFLUENZA VACCINE (#1) 2024 8, 12/02/2016 COVID-19 VACCINE (3 - 2024-2 6 season) 2024 06/08/2020, 05/09/2020 SMOKING STATUS SCREENING (On ce After 26 Yrs) Completed 08/02/2015 HEPATITIS A VACCINES Aged Out No long er eligible based on patient's age to complete this topic HIB VACCINES Aged Out No longer eligi ble based on patient's age to complete this topic MENINGOCOCCAL VACCINES (ACWY) Aged Out No longer eligible based on patient's age to complete this topic MENINGOCOCCAL VACCINES (B) Aged Out N o longer eligible based on patient's age to complete this topic Medical Devices Implanted Type Area Steam Cleaner Device Identifier Shelf Expiration Date Model / Serial / Lot Port Tobacco Suture 19.1x4.75mm Biocomposite Loop White Black Swivelock C Fibertape - [id number] Implanted:Qty: 1 on 04/20/2015 by Jammie Chaudhry MD at [facility] STANDARD Left: Acromial Process ARTHREX 01/25/2017 [id number] CTT / / [id number] Implant Fixation 19.1x4.75mm Speedbridge Implantable - [id number] Implanted:Qty: 1 on 04/20/2015 by Jammie Chaudhry MD at [facility] Left: Acromial Process ARTHREX 12/26/2016 AR-[id number] S-4 / / [id number] [facility] INDEMNITY [employer] TOTAL CHOICE INDEMNITY [employer] TOTAL CHOICE INDEMNITY [employer] TOTAL CHOICE INDEMNITY [employer] TOTAL CHOICE INDEMNITY [employer] TOTAL CHOICE INDEMNITY [employer] TOTAL CHOICE INDEMNITY [employer] [facility] TOTAL CHOICE INDEMNITY [employer] [facility] TOTAL CHOICE INDEMNITY WORKERS COMPENSATION Care Teams Community Health Nurse Supervisor Relationship Specialty Start Date End Date Marvin Lam MD [address] [place] [phone] PCP - General Internal Medicine 04/03/15 Additional Source Comments The information contained in this document represents components of the legal health record. It is not the complete legal health record.[facility]
--- OUTSIDE RECORDS SUMMARY | 2025-01-24 10:29 | XMS_ITS | Clinical Summary ---
Author Organization [facility] Address [address] [place] [phone] Phone Care Team Providers Care Cocoa Mill Operator Name Role Phone Abbie Ayala PA-C [...] EACH DAY 90 tablet 3 4 Active amLODIPine (NORVASC) 5 MG tablet Take 1 tablet (5 mg total) by mouth 1 (one) time each day 30 tablet 11 4 02/16/20 25 Active Magnesium Oxide -Mg Supplement 250 MG tablet Take 1 tablet by mouth in the morning and 1 tablet in the evening. 4 Active Active Problems Problem Noted Date Diagnosed Date Dyslipidemia 02/16/2024 Type 2 diabetes mellitus wit h diabetic chronic kidney disease 02/16/2024 Hypertensive chronic kidney disease 01/15/2023 Hypertension 12/25/2021 Stage 3a chronic kidney disease 12/25/2021 Proteinuria, not otherwise specified 12/25/2021 Full thickness rotator cuff tear 05/02/2015 01/15/2023 Encounters Date Type Department Care Team Description 11/15/2024 2:45 PM EDT Office Visit [facility] [address] [address] Chad Martínez MD Stage 3a chronic kidney disease (HCC) (Primary Dx); Hypertensive chronic kidney disease; Type 2 diabetes mellitus with diabetic chronic kidney disease (HCC) from Last 3 Months Family History Medical [...] Sign Reading Time Taken Comments Blood Pressure 118/76 11/15/2024 3:10 PM EDT Pulse 88 05/20/2024 9:44 AM EST Temperature - - Respiratory Rate - - Oxygen Saturation 98% 05/20/2024 9:44 AM EST Inhaled Oxygen Concentration - - Weight 122 kg (268 lb 12.8 oz) 11/15/2024 3:10 P M EDT Height 185.4 cm (6' 1 ) 01/15/2023 10:33 AM EDT Body Mass Index 35.46 01/15/2023 10:33 AM EDT Plan of Treatment Upcoming Encounters Date Type Department Care Team (Late st Contact Info) Description 02/15/2025 9:15 AM EDT [facility] [address] [address] [facility] [address] [address] Health Maintenance Due Date Last Done Comments [...] Patients (6 to 49 Years) Discontinued 10/13/2012 Procedures Procedure Name Priority Date/Time Associated Diagnosis Comments VITAMIN D 25 HYDROXY Routine 01/11/2025 11:32 AM EDT Stage 3a chronic kidney disease (HCC) Hypertensive chronic kidney disease Type 2 diabetes mellitus with diabetic chronic kidney disease (HCC) PTH, INTACT (HC) Routine 01/11/2025 11:3 0 AM EDT from Last 3 Months Results * Vitamin D 25 hydroxy (01/11/2025 11:32 AM EDT) Vitamin D, 25-Hydroxy 35.1 >30 ng/mL See order comments Comment: Health Based Reference Values* < 20 ng/mL Deficient 20-30 ng/mL Insufficient > 30 ng/mL Sufficient *David RICH. N Engl J Med. 2007;357:266-280 There is no well-established upper level of normal vitamin D levels. Some laboratories use 50 ng/mL as an upper limit of normal. However, toxicity is patient-dependent and may occur at any level. Careful correlation with the patient's presentation is necessary and, if there is concern for vitamin D toxicity, treatment should be considered irrespective of the serum level. Care must be taken in interpreting Vitamin D results from different laboratories and methodologies. Published data demonstrated that results from patients undergoing hemodialysis may show a negative bias when tested with various automated 25-OH vitamin D assays when compared to LC-MS/MS. When testing samples from patients whose predominant form of Vitamin D is Vitamin D2, such as patients receiving Vitamin D2 supplementation, results that are subtherapeutic should be confirmed with another method such as LC-MS/MS. Blood Venous blood / Unknown 01/11/2025 11:32 AM EDT 01/11/2025 11:32 AM EDT us Chad Martínez MD LAB BLOOD ORDERABLES Final Resu lt ELIN See order comments [place] [address] * PTH, Intact (01/11/2025 11:30 AM EDT) Parathyroid Hormone, Intact 69.1 8.7 - 77.1 pg/mL See order comments 01/11/2025 11:3 0 AM EDT 01/11/2025 11:30 AM EDT us Chad Martínez MD LAB [id number] LICITED RESULTS Final Result ELIN See order comments [place] [address] from Last 3 Months Insurance [facility] [employer] Care Teams Cocoa Mill Operator Relationship Specialty Start Date End Date Abbie Ayala PA-C [address] [place] [address] [place] [phone] PCP - General Physician Frame Operator 05/20/24
--- OUTSIDE RECORDS SUMMARY | 2025-01-24 10:29 | XMS_ITS | Clinical Summary ---
Author Organization [facility] ity Address [address] [place] [address] Care Team Providers Care Driver Education Road Instructor Name Role Phone Unavailable Primary Care Provider [...] 2020 Zoster Vaccines (1 of 2) 2020 Depression Screening 04/28/2024 COVID-19 Vaccine (1 - 2023-2 5 season) 2024 Influenza Vaccine (#1) 2024 RSV Immunization Adult Patie nts (1 - 1-dose 75+ series) 2045 HIB Vaccines Aged Out No longer eligi [...]
== END 2025-01-24 10:27 | disposition home or self-care (01) ==
LOC: HO.HOS 09:39
PROVIDERS: PCP Physician Assistant; Visit Provider Orthopaedic Surgery
DX: Z47.89 Encounter for other orthopedic aftercare (principal); S46.011D Strain of muscle(s) and tendon(s) of the rotator cuff of right shoulder, subsequent encounter; S43.431D Superior glenoid labrum lesion of right shoulder, subsequent encounter
CPT/HCPCS: 99213

== ENCOUNTER 2025-02-14 10:07 | Outpatient (REF) | payer OTHER, SELFPAY ==
[2025-02-14 11:45] LABS: Anion Gap 13 (12-20); Blood Urea Nitrogen 23 mg/dL (9-16); Calcium 9.9 mg/dL (8.4-10.2); Carbon Dioxide 27 mmol/L (22-29); Chloride 102 mmol/L (96-108); Estimated Glomerular Filt Rate 42; Potassium 4.4 mmol/L (3.3-5.1); Sodium 138 mmol/L (135-145)
--- OUTSIDE RECORDS SUMMARY | 2025-02-14 11:47 | XMS_ITS | Clinical Summary ---
Author Organization [facility] ity Address [address] [place] [address] Care Team Providers Care Press Operator Carbon Blocks Name Role Phone Unavailable Primary Care Provider [...]
[2025-02-14 11:48] LABS: Parathyroid Hormone Intact 60.0 pg/mL (8.7-77.1)
--- OUTSIDE RECORDS SUMMARY | 2025-02-14 11:48 | XMS_ITS | Clinical Summary ---
Author Organization [facility] Address [address] [place] [address] Phone Care Team Providers Care Stitcher Special Machine Name Role Phone Marvin Lam MD Primary Care Provider [phone] Allergies No known active allergies Medications amLODIPine [...] - 2024-2 6 season) 2024 06/08/2020, 05/09/2020 RSV VACCINE (1 - 1-dose 75+ series) 2045 SMOKING STATUS SCREENING (On ce After 26 [...] this topic Medical Devices Implanted Type Area Eyeglass Maker Device Identifier Shelf Expiration Date Model / Serial / Lot Gilbert Suture 19.1x4.75mm Biocomposite Loop White Black Swivelock C Fibertape - [id number] Implanted:Qty: 1 on 04/20/2015 by Jammie Chuadhry MD at [facility] STANDARD Left: Acromial Process AR[employer]REX 01/25/2017 AR-2324BC CTT / / [id number] Implant Fixation 19.1x4.75mm Speedbridge Implantable - [id number] Implanted:Qty: 1 on 04/20/2015 by Jammie Chaudhry MD at [facility] Left: Acromial Process ARTHREX 12/26/2016 AR-[id number] S-4 / / [id number] Insurance TOTAL CHOICE INDEMNITY [employer] TOTAL CHOICE INDEMNITY [employer] TOTAL CHOICE INDEMNITY [employer] TOTAL CHOICE INDEMNITY ACTV[employer] TOTAL CHOICE INDEMNITY ACTV[employer] TOTAL CHOICE INDEMNITY ACTV[employer] TOTAL CHOICE [facility]MNITY [facility] TOTAL CHOICE INDEMNITY Member Subscriber Plan / [facility] Name:Konrad Beckham Relation to Subscriber:Self Name:Konrad Beckham Payer ID:[id number] (NA) Type:Indemnity Address: [address] [place] [address] Smile Family [facility] TOTAL CHOICE INDEMNITY Member Subscriber Plan / Payer ([facility]Present) Name:Konrad Beckham Relation to Subscriber:Self Name:Konrad Beckham Payer ID:[id number] (NAIC) Type:Indemnity Address: [address] [place] [address] WORKERS COMPENSATION Care Teams Stitcher Special Machine Relationship Specialty Start Date End Date Marvin Lam MD [address] [place] [phone] PCP - General Internal Medicine 04/03/15 Additional Source Comments The information contained in this document represents components of the legal health record. It is not the complete legal health record.[facility]
[2025-02-14 12:32] LABS: Appearance Urine Clear; Glucose Urine UA 100 mg/dL (Negative); PH 5.5 (5.0-9.0); Specific Gravity - Urine 1.015 (1.005-1.025)
[2025-02-14 12:39] LABS: Creatinine, mg/dL 117.33
[2025-02-14 12:40] LABS: Total Protein Urine Random < 7 mg/dL (<12)
[2025-02-14 14:08] LABS: Creatinine (CrCl) 1.70 mg/dL (0.5-1.4); Total Volume 24 Hour Urine 2275 mL
[2025-02-24 06:52] LABS: BUN 24 mg/dL (7-25); BUN Clearance 39 mL/min (41-68); Urea Nitrogen, Urine 17 g/24 h (6-17)
== END 2025-02-14 10:08 | disposition home or self-care (01) ==
LOC: HO.WFDLDS 10:07
PROVIDERS: Visit Provider Internal Medicine Nephrology
DX: I12.9 Hypertensive chronic kidney disease with stage 1 through stage 4 chronic kidney disease, or unspecified chronic kidney disease (principal); E11.22 Type 2 diabetes mellitus with diabetic chronic kidney disease; N18.31 Chronic kidney disease, stage 3a
CPT/HCPCS: 36415; 80051; 81001; 82306; 82310; 82565; 82570; 82575; 83970; 84156; 84520; 84545

== ENCOUNTER 2025-03-17 09:36 | Outpatient (AMB) | payer OTHER, SELFPAY ==
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
--- OUTSIDE RECORDS SUMMARY | 2025-03-17 13:35 | XMS_ITS | Data Portability ---
Author Organization [facility], Main Office Address [address] [facility] [address] [place] [address] Care Team Providers Care Dye Lab Technician Name Role Phone MARVIN LAM Primary Care Provider [phone] [facility] [phone] [facility] Sleep Medi cine IVETH VEGAS Primary Care Provider [phone] Assessment Encounter Date Assessment Date Assessment LastModified by Organization Details LastModified Time 04/11/2015 04/11/2015 Greater than 50% of time spent counseling patient re comprehensive review of prognosis/plan/ris ks and benefits of current treatment. Office visit was 30 minutes and patient counseled re: management of acute on chronic musculoskeletal back pain as well as ongoing shoulder pain. We reviewed the report from the [place] pharmacy monitoring that shows Konrad has filled #262 pills for narcotics (hydrocodone and oxycodone) over the past 6 weeks. He has gotten scripts from multiple providers here, in the ED, at work comp, and from [facility]. We reviewed concerns about use of opioids [...] sleep medici ne referr al 2016 017 [facility], [address] [place] [address], [address], 7 11:41:11 sleep medici ne referr al 2016 017 [facility], [address] [place] [address], [address], 7 10:33:10 ophtha lmolog ist referr al 2015 016 [facility] Trin[facility] MD, [address] [place] [address], [address], 7 11:51:20 sleep medici ne referr al 2015 016 [facility], [address] [place] [address], [address], 6 11:23:29 Procedures None record ed. Surgeries None record ed. Imaging polyso mnogra m - hx restle ss legs, insomn ia, snorin g, not feelig n rested . 2016 017 [facility], [address] [place] [address], [address], 7 13:18:46 Medication Orders sertra line 100 [...] By Organization Details Last Modified Time 04/11/2015 [id number] Medications were reviewed at this visit and reconciled. Changes in the active medications are reflected in the current medication list and discussed with patient (or caregiver) with instructions for follow up as needed. Printed medication list provided to the patient as part of the visit summary. phelmuth Not available 04/11/2015 18:12:13 07/12/2015 [id number] restless legs syndrome: care instructions phelmuth Not available 07/12/2015 21:16:16 insomnia: care instructions phelmuth Not available 07/12/2015 21:16:16 high blood pressure: care instructions phelmuth Not available 07/12/2015 21:16:16 learning about high blood pressure phelmuth Not available 07/12/2015 21:16:16 12/26/2015 [id number] high blood pressure: care instructions ckrym Not [...] medication. phelmuth Not available 12/26/2015 13:40:17 05/02/2016 [id number] Call or return for worsening or concerns. jthabet Not available 05/02/2016 09:05:43 I have reviewed the note and agree with the assessment and plan of care. mdalessandro Not available 05/02/2016 13:04:29 01/06/2017 [id number] alcohol counseling* [email or web address] Not available 01/14/2017 11:34:43 Preventing Depression From Coming Back: Care Instructions Not available 01/06/2017 16:13:55 anxiety disorder: care instructions Not available 01/06/2017 16:13:55 high blood pressure: care instructions Not available 01/06/2017 16:13:55 learning about high blood pressure Not available 01/06/2017 16:13:55 Reason for Referral Referring Physician: Marvin sanders, Internal Medicine, Encounter Date: 07/12/2015 Welcome Hostess Referral for Adult health examination Referring Physician: [...] Go To The Location Of Their Choice, [id number] 08/07/2015 22:28:16 08/07/19 16 08/07/2015 BMP, serum [...] Go To The Location Of Their Choice, [id number] 11/19/2016 15:16:29 12/04/19 17 10/11/2012 MRI, lumba r spine , w/wo contr ast No observ ation record ed. BARCODE Not Available 2016 15:12:18 05/16/19 18 05/03/2017 sleep study , diagn ostic * No observ ation record ed. [facility] [address] [place], [address], 05/20/2017 09:49:24 10/12/19 19 10/11/2018 CT, abdom en + pelvi s, w/ contr ast No observ ation record ed. [facility] [address] [place] [address], [address], 10/12/2018 07:13:33 11/10/19 20 11/10/2019 CT, abdom en + pelvi s, w/o contr ast No observ ation record ed. [facility] [address] [place], [address], 11/10/2019 16:13:04 Result Notes None recorded. Problems Name Problem SNOMED Code Status Onset Date Resolution Date Notes Provider Name and Address Organization Details Recorded Time Shoulder tendinit is Active Dawna Vegas PA-C [address] [facility] [address], [place], [address], [facility] 5 10:13:29 Fatigue [id number] Active Dawna Vegas PA-C [address] [facility] [address], [place], [address], [facility] 5 10:13:29 Acute sinusiti s 43663395 Completed 01/06/2017 Melodie baltazar [place] null, [facility] 7 14:17:11 Impotenc e Active Dawna Vegas PA-C [address] [facility] [address], [place], [address], [facility] 5 10:13:29 Abdomina l pain 58150126 Completed 01/06/2017 MADDIE Gomez, [facility] 7 14:17:15 Inflamma tion of rotator cuff tendon 702344923 Active Dawna Vegas PA-C [address], [place], [address], [facility] 5 10:13:29 Lumbago with sciatica 305768866 Active Marvin Lam MD [address], [place], [address], [facility] 5 12:17:43 Anabolic steroids adverse reaction 038309706 Active Marvin Lam MD [address], [place], [address], [facility] 5 12:08:12 Lumbar radiculo zahira 575647912 Active Marvin Lam MD [address], [place], [address], [facility] 6 21:16:15 Insomnia 349676802 Active Marvin Lam MD [address], [place], [address], [facility] 6 21:16:15 Injury of ulnar nerve 47995101 Completed 199705/20/2017 DATE: 1997; ; RIGHT WRIST MADDIE Gomez, [facility] 8 09:49:09 Localize d superfic ial swelling of skin 144765429 Completed 200811/09/2013 RECORDED 12/06/19 09 2:18PM BY MELODIE SCANLON MA, ANNOTATI ON/ADDEN DUM Dawna Vegas PA-C [address], [place], [address], [facility] 5 10:13:29 Localize d superfic ial swelling of skin 790325406 Completed 200812/02/2013 RECORDED 12/06/19 09 2:18PM BY MELODIE SCANLON MA, ANNOTATI ON/ADDEN DUM Dawna Evangelist PERKINS-C [address] [facility] [address], [place], [address], [facility] 5 10:13:29 Localize d superfic ial swelling of skin 099553736 Completed 200812/03/2013 RECORDED 12/06/19 09 2:18PM BY MELODIE SCANLON MA, ANNOTATI ON/ADDEN DUM Dawnawendy PERKINS-C [address] [facility] [address], [place], [address], [facility] 5 10:13:29 Essentia l hyperten juan [id number] Completed 200911/09/2013 RECORDED 08/25/19 10 7:44AM BY MELODIE SCANLON MA, ANNOTATI ON/ADDEN DUM Melodie baltazar [place] null, [facility] 7 14:17:23 Essentia l hyperten juan [id number] Completed 200912/02/2013 RECORDED 08/25/19 10 7:44AM BY MELODIE SCANLON MA, ANNOTATI ON/ADDEN DUM Melodie baltazar MA null, [facility] 7 14:17:23 Essentia l hyperten juan [id number] Completed 200912/03/2013 RECORDED 08/25/19 10 7:44AM BY MELODIE SCANLON MA, ANNOTATI ON/ADDEN DUM Melodie baltazar MA null, [facility] 7 14:17:23 Left lower quadrant pain 386555035 Completed 201111/09/2013 RECORDED 11/28/19 12 2:07PM BY MELODIE SCANLON MA, BOO ON/ADDEN DUM Dawna Evangelist PA-C [address], [place], [address], [facility] 5 10:13:30 Exposure to organism Completed 201111/09/2013 RECORDED 11/28/19 12 2:07PM BY MELODIE SCANLON MA, BOO ON/ADDEN DUM Dawna Evangelist PA-C [address], [place], [address], [facility] 5 10:13:30 Diarrhea 99065741 Completed 201111/09/2013 RECORDED 11/28/19 12 2:07PM BY MELODIE SCANLON MA, BOO ON/ADDEN DUM Dawna Evangelist PA-C [address], [place], [address], [facility] 5 10:13:30 Musculos keletal symptom 68583927 Completed 201111/09/2013 STORY: UNCONTRO LLED HTN WITH NEW-ONSE T SIGNIFIC ANT LEFT ARM WEAKNESS OF EXTENSIO N/FLEXIO N AT THE ELBOW.; RECORDED 11/28/19 12 2:07PM BY MELODIE SCANLON MA, BOO ON/ADDEN DUM Dawna Evangelist PERKINS-C [address], [place], [address], [facility] 5 10:13:29 Nausea 076244582 Completed 201111/09/2013 RECORDED 11/28/19 12 2:07PM BY MELODIE SCANLON MA, BOO ON/ADDEN DUM Dawna Evangelist PA-C [address], [place], [address], [facility] 5 10:13:30 Verruca vulgaris 60407102 Completed 201111/09/2013 RECORDED 11/28/19 12 2:07PM BY MELODIE SCANLON MA, ANNOTROSIE ON/ADDEN DUM Dawna Vegas PA-C [address], [place], [address], [facility] 5 10:13:29 Left lower quadrant pain 226941391 Completed 201112/02/2013 RECORDED 11/28/19 12 2:07PM BY MELODIE SCANLON MA, ANNOTROSIE ON/ADDEN DUM Dawna Vegas PA-C [address], [place], [address], [facility] 5 10:13:30 Exposure to organism Completed 201112/02/2013 RECORDED 11/28/19 12 2:07PM BY MELODIE SCANLON MA, BOO ON/ADDEN DUM Dawna Vegas PA-C [address], [place], [address], [facility] 5 10:13:30 Diarrhea 19198588 Completed 201112/02/2013 RECORDED 11/28/19 12 2:07PM BY MELODIE SCANLON MA, ANNOTATI ON/ADDEN DUM Dawna Vegas PA-C [address], [place], [address], [facility] 5 10:13:30 Musculos keletal symptom 28340643 Completed 201112/02/2013 STORY: UNCONTRO LLED HTN WITH NEW-ONSE T SIGNIFIC ANT LEFT ARM WEAKNESS OF EXTENSIO N/FLEXIO N AT THE ELBOW.; RECORDED 11/28/19 12 2:07PM BY MELODIE SCANLON MA, ANNOTROSIE ON/ADDEN DUM Dawna Evangelist PA-C [address], [place], [address], [facility] 5 10:13:29 Nausea 725882739 Completed 201112/02/2013 RECORDED 11/28/19 12 2:07PM BY MELODIE SCANLON MA, ANNOTATI ON/ADDEN DUM Dawna Vegas PA-C [address], [place], [address], [facility] 5 10:13:30 Verruca vulgaris 42383966 Completed 201112/02/2013 RECORDED 11/28/19 12 2:07PM BY MELODIE SCANLON MA, ANNOTATI ON/ADDEN DUM Dawna Vegas PA-C [address], [place], [address], [facility] 5 10:13:29 Left lower quadrant pain 627358290 Completed 201112/03/2013 RECORDED 11/28/19 12 2:07PM BY MELODIE SCANLON MA, ANNOTATI ON/ADDEN DUM Dawna Vegas PA-C [address], [place], [address], [facility] 5 10:13:30 Exposure to organism Completed 201112/03/2013 RECORDED 11/28/19 12 2:07PM BY MELODIE SCANLON MA, ANNOTATI ON/ADDEN DUM Dawna Vegas PA-C [address], [place], [address], [facility] 5 10:13:30 Diarrhea 46217044 Completed 201112/03/2013 RECORDED 11/28/19 12 2:07PM BY MELODIE SCANLON MA, ANNOTATI ON/ADDEN DUM Dawna Vegas PA-C [address], [place], [address], [facility] 5 10:13:30 Musculos keletal symptom 28908454 Completed 201112/03/2013 STORY: UNCONTRO LLED HTN WITH NEW-ONSE T SIGNIFIC ANT LEFT ARM WEAKNESS OF EXTENSIO N/FLEXIO N AT THE ELBOW.; RECORDED 11/28/19 12 2:07PM BY MELODIE SCANLON MA, ANNOTATI ON/ADDEN DUM Dawna Vegas PA-C [address], [place], [address], [facility] 5 10:13:29 Nausea 808155218 Completed 201112/03/2013 RECORDED 11/28/19 12 2:07PM BY MELODIE SCANLON MA, ANNOTATI ON/ADDEN DUM Dawna Vegas PA-C [address], [place], [address], [facility] 5 10:13:30 Verruca vulgaris 93800034 Completed 201112/03/2013 RECORDED 11/28/19 12 2:07PM BY MELODIE SCANLON MA, ANNOTATI ON/ADDEN DUM Dawna Vegas PA-C [address], [place], [address], [facility] 5 10:13:29 Mucopuru lent conjunct ivitis 358378477 Completed 201211/09/2013 RECORDED 09/17/19 13 10:18AM BY MELODIE SCANLON MA, ANNOTATI ON/ADDEN DUM Dawna Vegas PA-C [address], [place], [address], [facility] 5 10:13:29 Mucopuru lent conjunct ivitis 540168217 Completed 201212/02/2013 RECORDED 09/17/19 13 10:18AM BY MELODIE SCANLON MA, ANNOTATI ON/ADDEN DUM Dawna Vegas PA-C [address], [place], [address], [facility] 5 10:13:29 Mucopuru lent conjunct ivitis 013395372 Completed 201212/03/2013 RECORDED 09/17/19 13 10:18AM BY MELODIE SCANLON MA, ANNOTATI ON/ADDEN DUM Dawna Evangelist PA-C [address], [place], [address], [facility] 5 10:13:29 Adult health examinat ion Completed 201211/09/2013 RECORDED 09/24/19 13 2:48PM BY MELODIE SCANLON MA, ANNOTATI ON/ADDEN DUM Dawna Evangelist PERKINS-C [address] [facility] [address], [place], [address], [facility] 5 10:13:30 Malaise and fatigue 757987727 Completed 201211/09/2013 RECORDED 09/24/19 13 2:48PM BY MELODIE SCANLON MA, ANNOTROSIE ON/ADDEN DUM Dawna Evangelist PERKINS-C [address] [facility] [address], [place], [address], [facility] 5 10:13:29 Pain of elbow region 45909906 Completed 201211/09/2013 RECORDED 09/24/19 13 2:48PM BY MELODIE SCANLON MA, ANNOTATI ON/ADDEN DUM Dawna Evangelist PA-C [address], [place], [address], [facility] 5 10:13:29 Shoulder joint pain 178459108 Completed 201211/09/2013 RECORDED 09/24/19 13 2:48PM BY MELODIE SCANLON MA, ANNOTATI ON/ADDEN DUM Dawna Evangelist PERKINS-C [address], [place], [address], [facility] 5 10:13:29 Adult health examinat ion Completed 201212/02/2013 RECORDED 09/24/19 13 2:48PM BY MELODIE SCANLON MA, ANNOTATI ON/ADDEN DUM Dawna Vegas PA-C [address], [place], [address], [facility] 5 10:13:30 Malaise and fatigue 552830162 Completed 201212/02/2013 RECORDED 09/24/19 13 2:48PM BY MELODIE SCANLON MA, ANNOTATI ON/ADDEN DUM Dawna Vegas PA-C [address], [place], [address], [facility] 5 10:13:29 Pain of elbow region 18873589 Completed 201212/02/2013 RECORDED 09/24/19 13 2:48PM BY MELODIE SCANLON MA, ANNOTATI ON/ADDEN DUM Dawna Vegas PA-C [address], [place], [address], [facility] 5 10:13:29 Shoulder joint pain 482343550 Completed 201212/02/2013 RECORDED 09/24/19 13 2:48PM BY MELODIE SCANLON MA, ANNOTATI ON/ADDEN DUM Dawna Vegas PA-C [address], [place], [address], [facility] 5 10:13:29 Adult health examinat ion Completed 201212/03/2013 RECORDED 09/24/19 13 2:48PM BY MELODIE SCANLON MA, ANNOTATI ON/ADDEN DUM Dawna Vegas PA-C [address], [place], [address], [facility] 5 10:13:30 Malaise and fatigue 910272135 Completed 201212/03/2013 RECORDED 09/24/19 13 2:48PM BY MELODIE SCANLON MA, ANNOTATI ON/ADDEN DUM Dawna Vegas PA-C [address], [place], [address], [facility] 5 10:13:29 Pain of elbow region 99076069 Completed 201212/03/2013 RECORDED 09/24/19 13 2:48PM BY MELODIE SCANLON MA, ANNOTATI ON/ADDEN DUM Dawna Vegas PA-C [address], [place], [address], [facility] 5 10:13:29 Shoulder joint pain 412312391 Completed 201212/03/2013 RECORDED 09/24/19 13 2:48PM BY MELODIE SCANLON MA, ANNOTATI ON/ADDEN DUM Dawna Vegas PA-C [address], [place], [address], [facility] 5 10:13:29 Inflamma tory disease of liver 827588693 Completed 201211/09/2013 RECORDED 02/05/20 13 2:54PM BY MELODIE SCANLON MA, ANNOTATI ON/ADDEN DUM Dawna Vegas PA-C [address], [place], [address], [facility] 5 10:13:29 Blood chemistr y outside referenc e range 605528748 Completed 201211/09/2013 RECORDED 02/05/20 13 2:54PM BY MELODIE SCANLON MA, ANNOTATI ON/ADDEN DUM Dawna Vegas PA-C [address], [place], [address], [facility] 5 10:13:30 Laborato ry procedur e performe d 757362516 Completed 201211/09/2013 RECORDED 02/05/20 13 2:54PM BY MELODIE SCANLON MA, ANNOTATI ON/ADDEN DUM Dawna Vegas PA-C [address], [place], [address], [facility] 5 10:13:30 Acute pancreat itis 499419537 Completed 201211/09/2013 RECORDED 02/05/20 13 2:54PM BY MELODIE SCANLON MA, ANNOTATI ON/ADDEN DUM Dawna Vegas PA-C [address], [place], [address], [facility] 5 10:13:29 Sprain of wrist 17004360 Completed 201211/09/2013 RECORDED 02/05/20 13 2:54PM BY MELODIE SCANLON MA, BOO ON/ADDEN DUM Dawna Vegas PA-C [address] [facility] [address], [place], [address], [facility] 5 10:13:30 Inflamma tory disease of liver 718025842 Completed 201212/02/2013 RECORDED 02/05/20 13 2:54PM BY MELODIE SCANLON MA, ANNOTATI ON/ADDEN DUM Dawna Vegas PA-C [address], [place], [address], [facility] 5 10:13:29 Blood chemistr y outside referenc e range 469217147 Completed 201212/02/2013 RECORDED 02/05/20 13 2:54PM BY MELODIE SCANLON MA, ANNOTATI ON/ADDEN DUM Dawna Vegas PA-C [address], [place], [address], [facility] 5 10:13:30 Laborato ry procedur e performe d 383649822 Completed 201212/02/2013 RECORDED 02/05/20 13 2:54PM BY MELODIE SCANLON MA, ANNOTATI ON/ADDEN DUM Dawna Evangelist PERKINS-C [address], [place], [address], [facility] 5 10:13:30 Acute pancreat itis 885134922 Completed 201212/02/2013 RECORDED 02/05/20 13 2:54PM BY MELODIE SCANLON MA, ANNOTROSIE ON/ADDEN DUM Dawna Evangelist PERKINS-C [address] [facility] [address], [place], [address], [facility] 5 10:13:29 Sprain of wrist 23876380 Completed 201212/02/2013 RECORDED 02/05/20 13 2:54PM BY MELODIE SCANLON MA, BOO ON/ADDEN DUM Dawna Evangelist PERKINS-C [address] [facility] [address], [place], [address], [facility] 5 10:13:30 Inflamma tory disease of liver 543677796 Completed 201212/03/2013 RECORDED 02/05/20 13 2:54PM BY MELODIE SCANLON MA, ANNOTATI ON/ADDEN DUM Dawna Evangelist PERKINS-C [address], [place], [address], [facility] 5 10:13:29 Blood chemistr y outside referenc e range 752213518 Completed 201212/03/2013 RECORDED 02/05/20 13 2:54PM BY MELODIE SCANLON MA, ANNOTATI ON/ADDEN DUM Dawna Vegas PA-C [address], [place], [address], [facility] 5 10:13:30 Laborato ry procedur e performe d 420029500 Completed 201212/03/2013 RECORDED 02/05/20 13 2:54PM BY MELODIE SCANLON MA, ANNOTATI ON/ADDEN DUM Dawna Vegas PA-C [address], [place], [address], [facility] 5 10:13:30 Acute pancreat itis 470946508 Completed 201212/03/2013 RECORDED 02/05/20 13 2:54PM BY MELODIE SCANLON MA, ANNOTATI ON/ADDEN DUM Dawnawendy Vegas PA-C [address] [facility] [address], [place], [address], [facility] 5 10:13:29 Sprain of wrist 68032770 Completed 201212/03/2013 RECORDED 02/05/20 13 2:54PM BY MELODIE SCANLON MA, ANNOTATI ON/ADDEN DUM Dawnaartis Vegas AZ-C [address] [facility] [address], [place], [address], [facility] 5 10:13:30 Influenz a vaccine needed [id number] 06 Completed 201211/09/2013 RECORDED 03/08/20 13 11:28AM BY MELODIE SCANLON MA, OFFICE VISIT Dawna PERKINS-C [address] [facility] [address], [place], [address], [facility] 5 10:13:30 Influenz a vaccine needed 03375001016 06 Completed 201212/02/2013 RECORDED 03/08/20 13 11:28AM BY MELODIE SCANLON MA, OFFICE VISIT Dawna PERKINS-C [address], [place], [address], [facility] 5 10:13:30 Influenz a vaccine needed [id number] 06 Completed 201212/03/2013 RECORDED 03/08/20 13 11:28AM BY MELODIE SCANLNO MA, OFFICE VISIT Dawna Vegas PA-C [address], [place], [address], [facility] 5 10:13:30 Epigastr ic pain 98107982 Completed 201211/09/2013 RECORDED 03/24/20 13 9:55AM BY ROX HERNANDEZ MA, ANNOTATI ON/ADDEN DUM Dawna Vegas PA-C [address], [place], [address], [facility] 5 10:13:30 Epigastr ic pain 03273063 Completed 201212/02/2013 RECORDED 03/24/20 13 9:55AM BY ROX HERNANDEZ MA, ANNOTATI ON/ADDEN DUM Dawna Vegas PA-C [address], [place], [address], [facility] 5 10:13:30 Epigastr ic pain 73757121 Completed 201212/03/2013 RECORDED 03/24/20 13 9:55AM BY ROX HERNANDEZ MA, ANNOTATI ON/ADDEN DUM Dawna Vegas PA-C [address], [place], [address], [facility] 5 10:13:30 Follow-u p encounte r Completed 201311/09/2013 RECORDED 05/11/19 14 7:19AM BY JM CAI I, ANNOTATI ON/ADDEN DUM Dawna Vegas PA-C [address], [place], [address], [facility] 5 10:13:30 Epidermo id cyst of skin 335808920 Completed 201311/09/2013 IMPRESSI ON: REASSURA NCE. IF BOTHERS HIM, CAN REFER TO GENERAL SURGEON. AT THIS POINT HE DOES NOT WANT TO DO THAT.; RECORDED 05/11/19 14 7:19AM BY MEHNAZ ELIASATI ON/ADDEN DUM Dawna Vegas PA-C [address], [place], [address], [facility] 5 10:13:29 Follow-u p encounte r Completed 201312/02/2013 RECORDED 05/11/19 14 7:19AM BY MEHNAZ ELIASATI ON/ADDEN DUM Dawna Vegas AZ-C [address], [place], [address], [facility] 5 10:13:30 Epidermo id cyst of skin [id number] Completed 201312/02/2013 IMPRESSI ON: REASSURA NCE. IF BOTHERS HIM, CAN REFER TO GENERAL SURGEON. AT THIS POINT HE DOES NOT WANT TO DO THAT.; RECORDED 05/11/19 14 7:19AM BY BOO ELIAS ON/ADDEN DUM Dawna Vegas [place]-C [address], [place], [address], [facility] 5 10:13:29 Follow-u p encounte r Completed 201312/03/2013 RECORDED 05/11/19 14 7:19AM BY MEHNAZ ELIASATI ON/ADDEN DUM Dawna [facility] [address], [place], [address], [facility] 5 10:13:30 Epidermo id cyst of skin [id number] Completed 201312/03/2013 IMPRESSI ON: REASSURA NCE. IF BOTHERS HIM, CAN REFER TO GENERAL SURGEON. AT THIS POINT HE DOES NOT WANT TO DO THAT.; RECORDED 05/11/19 14 7:19AM BY JM CAI I, ANNOTATI ON/ADDEN DUM Dawna Evangelist MCCORMACK [address] [facility] [address], [facility] [place], [address] , [facility] 5 10:13:29 Acute sinusiti s 34121027 Completed 201311/09/2013 RECORDED 06/01/19 14 7:53AM BY ELENA VALLADARES MA, ANNOTATI ON/ADDEN DUM MADDIE Gomez, [facility] 7 14:17:11 Harmful pattern of use of alcohol 59948420 Active 2013 MADDIE Gomez, [facility] 6 09:49:25 Drug abuse 27951727 Active 2013 MADDIE Gomez, [facility] 6 09:49:35 Cough 52761026 Completed 201305/20/2017 IMPRESSI ON: SUSPECT PERTUSSI S. TOO LATE FOR TREATMEN T. ONLY TEST THAT CAN BE DONE AT THIS POINT IS SERUM. CXR TO R/O PNEUMONI A. SPIROMET RY SHOWS NO EVIDENCE OF OBSTRUCT ION SO DOUBT PREDNISO NE WOULD HELP; RECORDED 06/01/19 14 8:45PM BY MADDIE ABRAMS, OFFICE VISIT MADDIE Gomez, [facility] 8 09:48:50 Hyperlip idemia 39678018 Active 2013 MADDIE Gomez, [facility] 7 14:17:20 Essentia l hyperten juan 34395566 Active 2013 MADDIE Gomez, [facility] 7 14:17:23 Hypokale prince 30742361 Active 2013 MADDIE Gomez, [facility] 6 09:50:02 Lipoma 66451015 Active 2013 MADDIE Gomez, [facility] 7 14:17:27 Skin sensatio n disturba nce 70575233 Completed 201305/20/2017 MADDIE Gomez, [facility] 8 09:49:12 Psychose xual dysfunct ion associat ed with inhibite d libido 185229374 Active 2013 MADDIE Gomez, [facility] 6 09:50:08 Rhabdomy olysis 694464499 Active 2013 MADDIE Gomez, [facility] 6 09:49:33 Wheezing 38891351 Completed 201311/09/2013 RECORDED 06/01/19 14 7:53AM BY ELENA VALLADARES MA, ANNOTATI ON/ADDEN DUM Dawna Vegas PA-C [address], [place], [address], [facility] 5 10:13:29 Acute sinusiti s 83282106 Completed 201312/02/2013 RECORDED 06/01/19 14 7:53AM BY ELENA VALLADARES MA ANNOTATI ON/ADDEN DUM MADDIE Gomez, [facility] 7 14:17:11 Wheezing 58966272 Completed 201312/02/2013 RECORDED 06/01/19 14 7:53AM BY ELENA VALLADARES MA, ANNOTATI ON/ADDEN DUM Dawnawendy Vegas PA-C [address], [place], [address], [facility] 5 10:13:29 Acute sinusiti s 15624564 Completed 201312/03/2013 RECORDED 06/01/19 14 7:53AM BY ELENA VALLADARES MA, ANNOTATI ON/ADDEN DUM MADDIE Gomez, [facility] 7 14:17:11 Wheezing [id number] Completed 201312/03/2013 RECORDED 06/01/19 14 7:53AM BY ELENA VALLADARES MA, ANNOTATI ON/ADDEN DUM Dawnaartis Vegas PA-C [address] [facility] [address], [facility] [place], [address] , [facility] 5 10:13:29 Anxiety disorder 759882035 Active 2013 MADDIE Gomez, [facility] 6 09:49:28 Knee pain Active 2013 MADDIE Gomez, [facility] 6 09:49:46 Patient status finding [id number] Completed 201312/26/2015 MADDIE Gomez, [facility] 6 09:49:19 Restless legs syndrome 69180888 Active 2013 MADDIE Gomez, [facility] 6 09:49:58 Cough 29391172 Completed 201312/02/2013 IMPRESSI ON: SUSPECT PERTUSSI S. TOO LATE FOR TREATMEN T. ONLY TEST THAT CAN BE DONE AT THIS POINT IS SERUM. CXR TO R/O PNEUMONI A. SPIROMET RY SHOWS NO EVIDENCE OF OBSTRUCT ION SO DOUBT PREDNISO NE WOULD HELP; RECORDED 11/06/19 14 8:05AM BY MELODIE SCANLON MA, ANNOTATI ON/ADDEN DUM MADDIE Gomez, [facility] 8 09:48:50 Cough 88834004 Completed 201312/03/2013 IMPRESSI ON: SUSPECT PERTUSSI S. TOO LATE FOR TREATMEN T. ONLY TEST THAT CAN BE DONE AT THIS POINT IS SERUM. CXR TO R/O PNEUMONI A. SPIROMET RY SHOWS NO EVIDENCE OF OBSTRUCT ION SO DOUBT PREDNISO NE WOULD HELP; RECORDED 11/06/19 14 8:05AM BY MELODIE SCANLON MA, ANNOTATI ON/ADDEN DUM MADDIE Gomez, [facility] 8 09:48:50 Degenera tion of lumbar interver tebral disc 05430472 Active 2013 MADDIE Gomez, [facility] 6 09:49:39 Gastroes ophageal reflux disease 975507970 Active 2013 MADDIE Gomez, [facility] 6 09:49:31 Flatulen ce, eructati on and gas pain 446679279 Completed 201305/20/2017 MADDIE Gomez, [facility] 8 09:49:18 Obstruct gila sleep apnea syndrome 77413561 Active 2017 MADDIE Gomez, [facility] 8 09:47:56 Dependen ce on continuo us positive airway pressure ventilat ion 024337724 Active 2017 6-16 cm H2O MADDIE Gomez, [facility] 8 09:48:34 Problem Notes None recorded. Procedures Surgical History Date Name Laterality Status Provider Name and Address Organization Details Recorded Time 05/29/19 16 Unlisted procedure shoulder completed Melodie green MA [facility] 12/26/2015 09:56:11 03/28/20 15 Unlisted procedure shoulder completed Melodie green MA [facility] 12/26/2015 09:56:16 03/07/20 15 Joint Injection completed Marvin Lam MD [address] [address], [place], [address], [facility] 03/07/2015 11:04:20 02/02/20 14 Corticosteroid Injection completed Marvin Lam MD [address] [facility] [address], [place], [address], [facility] 02/03/2014 20:18:14 04/07/20 07 Osteot dsc ant 1vrt sgm lmbr completed Melodie Alcazar-Teo green, [facility] 02/01/2014 13:52:13 Colonoscopy completed Melodie Alcazar-Teo green, [facility] 01/06/2017 14:00:58 Imaging Results None recorded. Procedure Notes None recorded. Medical Equipment None Reported. Allergies Allergen ID Allergen Name Allergen Category Reaction Reaction Severity Criticality Documentation Date Start Date Code Code System Note Provider Name and Address Organization Details Recorded Time 19718 enalapril Not available cough Not available Not available 12/26/2015 1017 RxNorm Marvin Lam MD [address] [address], [place], [address], [facility] 6 10:53:29 Medications Name Sig Start Date [...] 05/31/19 14 2:37PM BY GRANT AVILES ANNOTATI ON/JAISONEN DUM; Not Available Not Available Not Available Veregen 15 % topical ointment 12/25 completed Not Available Not Available Not Available Fluarix Quad 4800-1391 (PF) 60 mcg (15 mcg x 4)/0.5 mL IM syringe 01/06 completed Not Available Not Available Not Available Vitals Date Recorded Body height Body weight Body mass index (BMI) Body temperature Oxygen saturation Heart rate Systolic And Diastolic Provider Name and Address Organization Details Last Updated DateTime 7 185.42 cm 880449. 53 g 35.8 kg/m2 97.4 [degF] 96 % 80 /min 142/86 mm[Hg] Elena Valladares [facility] [place] 7 08:42:58 Date Recorded Body height Oxygen saturation Heart rate Body temperature Body mass index (BMI) Body weight Systolic And Diastolic Provider Name and Address Organization Details Last Updated DateTime 6 185.42 cm 100 % 92 /min 97.2 [degF] 33.5 kg/m2 731375. 52577 g 128/88 mm[Hg] Melodie baltazar MA [facility] [place] 6 11:07:43 Date Recorded Body height Body temperature Oxygen saturation Heart rate Body weight Body mass index (BMI) Systolic And Diastolic Provider Name and Address Organization Details Last Updated DateTime 6 185.42 cm 98.1 [degF] 97 % 100 /min 530911. 15 g 33.4 kg/m2 138/90 mm[Hg] Melodie baltazar MA [facility] 6 09:58:33 Date Recorded Body height Body mass index (BMI) Body weight Body temperature Oxygen saturation Heart rate Systolic And Diastolic Provider Name and Address Organization Details Last Updated DateTime 7 185.42 cm 31.8 kg/m2 251859. 76 g 98.1 [degF] 97 % 108 /min 152/76 mm[Hg] Melodie baltazar MA [facility] 7 14:14:10 Date Recorded Heart rate Body temperature Oxygen saturation Body height Body weight Body mass index (BMI) Systolic And Diastolic Provider Name and Address Organization Details Last Updated DateTime 5 107 /min 97.4 [degF] 97 % 185.42 cm 377733. 75013 g 33.8 kg/m2 144/94 mm[Hg] Melodie baltazar MA [facility] 5 09:44:27 Social History Question Answer Notes LastModified by Organizat ion Details LastModified Time Tobacco Smoking Status Never Smoker Melodie Chapman MA [facility] 02/01/2014 13:51:48 Do You Have An Advance Directive? No Declined Information not available 04/11/2015 Is Blood Transfusion Acceptable In An Emergency? Yes [email or web address] Information not available 11/23/2014 What Is Your [...] Take Precautions To Prevent Distracted Driving? Yes [email or web address] Information not available 11/23/2014 How Often Do You Need To Have Someone Help You When You Read Instructions, Pamphlets, Or Other Written Material From Your Doctor Or Pharmacy? Sometimes [email or web address] Information not available 11/23/2014 Have You Served In The ? No Information not available 01/06/2017 What Was The Date Of Your Most Recent Tobacco Screening? 01/06/2017 Information not available 11/19/2018 How Many Children Do You Have? 1 Information not available 02/01/2014 Do You Use Protection During Sex? No Information not available 04/11/2015 What Is Your Relationship Status? [email or web address] Information not available 11/23/2014 Seat Belts Used [...] 02/01/2014 Are you able to care for yourself independently? 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 Moderate 5x week, cardio, weights Information not available 02/01/2014 Mental Status None recorded. Family History Relationship Description Onset Age of this Age Resolved Age Notes LastModified by Organization Details LastModified Time Father Chronic back pain [email or web address] Not available 09:16:01 Mother Malignant neoplasm of cervix uteri [email or web address] Not available 10:28:22 Medical History No medical history recorded. Immunizations Vaccine Type Date Status Note Provider Nam e and Address Organization Details Recorded Time Influenza, split virus, quadrivalent, preservative 7 completed Heidi mcmahon, [facility] 12/03/2016 16:01:55 Influenza, split virus, quadrivalent, preservative 8 completed Alla mcmahon, [facility] 01/13/2018 15:22:21 Influenza, split virus, quadrivalent, PF 5 completed Not Available [facility] 05/15/2019 02:22:02 Influenza, split virus, quadrivalent, PF 6 completed Not Available [facility] 05/15/2019 02:22:04 Tdap 6 completed Not Available [facility] 05/15/2019 02:21:45 Influenza, split virus, trivalent, PF 4 completed Not Available [facility] 05/15/2019 02:21:57 Td (adult), 2 Lf tetanus toxoid, preservative free, adsorbed 6 completed Not Available [facility] 11/09/2013 13:23:19 varicella 6 completed Not Available [facility] 11/09/2013 13:23:19 pneumococcal polysaccharide PPV23 3 completed Not Available [facility] 11/09/2013 13:23:19 Influenza, split virus, trivalent, preservative 3 completed Not Available [facility] 11/09/2013 13:23:19 Past Encounters Encounter ID Performer Location Encounter Start Date Encounter Closed Date Diagnosis/Indication Diagnosis SNOMED-CT Code Diagnosis ICD10 Code Diagnosis IMO Codes Diagnosis Note [id number] autoEComm erce [address] [facility] [place] [address] 11/12/2006 00:00:00 [id number] autoEComm erce [address] [facility] [place] [address] 02/12/2007 00:00:00 [id number] [address] [place] [address] 05/12/2007 00:00:00 [id number] auto[address]Comm erce [address] [place] [address] 06/16/2007 00:00:00 [id number] auto[facility]Comm erce [address] [place] [address] 01/28/2008 00:00:00 [id number] auto[address]Comm [address]ce [address] [place] [address] 08/25/2008 00:00:00 [id number] auto[facility]Comm erce [address] [place] [address] 12/05/2008 00:00:00 [id number] autoEComm erce [address] [facility] [place] [address] 05/23/2009 00:00:00 [id number] autoEComm erce [address] [facility] [place] [address] 06/08/2009 00:00:00 [id number] autoEComm erce [address] [place] [address] 08/24/2009 00:00:00 [id number] autoEComm erce [address] [facility] [place] [address] 11/28/2009 00:00:00 [id number] autoEComm erce [address] [facility] [facility] [address] [place] [address] 05/08/2010 00:00:00 [id number] autoEComm erce [address] [place] [address] 08/04/2012 00:00:00 [id number] autoEComm erce [address] [place] [address] 09/16/2012 00:00:00 [id number] autoEComm erce [address] [place] [address] 09/23/2012 00:00:00 [id number] autoEComm erce [address] [facility] [place], [place] [address] 03/08/2013 00:00:00 [id number] autoEComm erce [address] [facility] [place], [place] [address] 03/24/2013 00:00:00 [id number] autoEComm erce [address] [facility] [place], [place] [address] 05/11/2013 00:00:00 [id number] autoEComm erce [address] [facility] [place], [place] [address] 06/01/2013 00:00:00 [id number] Marvin Lam MD Main Office [address] [address] [place] [address] 02/01/2014 13:42:42 02/01/2014 14:48:36 Needs influenza immunization 016813905 Anxiety disorder 486868608 Shoulder tendinitis 457543265 Hyperlipidemia 64687206 Fatigue 34369294 [id number] Marvin Lam MD Main Office [address] [address] [place] [address] 06/22/2014 11:14:24 06/22/2014 12:22:10 Adult health examination 978338555 Essential hypertension 31635865 Restless l egs syndrome 50473137 Cough 51364170 Acute sinusitis 15868691 Impotence 921931036 [id number] Vicki dueñas MD Main Office [address] [address] [place] [address] 11/23/2014 12:44:46 11/23/2014 13:28:21 Abdominal pain 98476547 ? of resolving pancreatit is due to excessive alcohol use, hx of alcohol induced pancreatit is, pt will get labs, looks well, is hydrated, pain resolved, he knows to abstain from alcohol and return for eval if any return of pain [id number] Marvin Lam MD Main Office [address] [address] [place] [address] 03/07/2015 10:20:59 03/07/2015 10:58:46 Needs influenza immunization 918375554 Z23 Inflammati on of rotator cuff tendon 006775645 M65.812 [id number] Dawna Vegas PA-C Main Office [address] [address] [place] [address] 03/24/2015 09:13:11 03/24/2015 09:40:19 Lumbago with sciatica 149745814 M54.42 Lumbar disc disease exacerbati on L. with sciatica. Start Prednisone taper as directed. Cyclobenza prone if tolerated TID for 5 days and Oxycodone PRN. F/u with PCP if symptoms persist or worsen. [id number] Marvin Lam MD Main Office [address] [address] [place] [address] 04/11/2015 09:37:04 04/11/2015 10:44:16 Degeneration of lumbar intervertebral disc 51250161 M51.36 Anabolic s teroids adverse reaction 168538177 T38.7X5S Retirement use of anabolic steroids. Now on testostero ne replacemen t with Dr. 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 [id number] Marvin Lam MD Main Office [address] [address] [place] [address] 07/12/2015 10:52:20 07/12/2015 11:59:17 Restless legs syndrome 84502792 G25.81 Essential hypertension 06243892 I10 Lumbar radiculopathy 128 553633 M54.16 Insomnia 306464858 G47.0 0 [id number] Marvin Lam MD Main Office [address] [address] [place] [address] 12/26/2015 09:43:17 12/26/2015 10:55:17 Adult health examination 185350172 Z00.00 Essential hypertension 11801709 I10 Needs infl uenza immunization 512861116 Z23 Administra tion of diphtheria, pertussis, and tetanus vaccine 528409053 Z23 [id number] ANTHONY Posey Main Office [address] [address] [place] [address] 05/02/2016 08:26:46 05/02/2016 09:13:28 Snoring 21902243 R06.83 Patient understand s he needs to [...] factor to his feeling of unrest. Restless l egs syndrome 08176641 G25.81 Will increase requip to 3mg at night, [...] in 1 month for recheck. Essential hypertension 46930010 I10 Bp not greatly controlled on current meds, possibilit y of sleep apnea likely a contributi ng factor, I stressed the importance of having sleep study and getting sleep apnea treated. [id number] Marvin Lam MD Main Office [address] [place] [address] 01/06/2017 13:51:55 01/06/2017 15:08:02 Essential hypertension 14868610 I10 Anxiety state 781904316 F41.1 Restless l egs syndrome 53112456 G25.81 Major depr essive disorder 016390030 F32.9 Chronic al coholism in remission 640483819 F10.21 Recently stopped drinking Health Concerns Section Related Observation LastModified by Organization Detai ls LastModified Time None Recorded Concern Status LastModified by Organization Details LastModified Time None Recorded Advance Directives Directive N: declined Payers Insurance Date Sequence Insurance Name Policy Number Policy Correia Covered Member ID Correia Member ID Guarantor Name 12/03/2016 1 [employer] GIC INDEMNITY PLAN (INDEMNITY) [id number] 3 Konrad Beckham [id number] Konrad Beckham 02/05/2017 1 [employer] PHCS (PPO) [id number] Konrad Beckham [id number] Konrad Beckham Notes Date Note Type Note Provider Name and Address Organization Details Recorded Time 04/11/20 15 text/htm l Pain ManagementReported by PatientROS as noted in the HPI Konrad presents today with concern about severe low back and leg pain. Has had symptoms of severe pain in the left leg starting 3 weeks ago. No obvious injury. Has known prior history of lumbar disc disease. Has had concomitant problems with complex shoulder injury and rotator cuff tear. He is hoping to have his shoulder fixed by ortho in [facility]. Local orthopedics ([facility]) do not wish to attempt repair. Konrad states that severe pain has been disrupting sleep. He did not have benefit from use steroids by tapering dose. He plans to see [facility] on May 02 for evaluation of lumbar radiculopathy. Presently he is not working ([employer]) because of shoulder problems. Marvin Lam MD [address], [address], [facility] 04/17/2015 12:08:27 07/12/19 16 text/htm l Musculoskeletal PainReported by PatientHPIFor location, patient reportspain radiating to the legs leftandpain radiating to the foot leftbut reportslumbar spine. For quality, patient reportsachingandtingling. For severity, patient reportsworsening. For associated symptoms, patient reportstinglingandnumbness of the legs/feetbut reportsno feverandon incontinence. For duration, patient reportspresent for 1-6 months.Seen by [facility] for lumbar radiculopathy. States taht they will not touch me until my shoulder is healed (after rotator cuff repair). Wants me to treat his back and leg pain I have to do something!! Hypertension F/UReported by PatientHPIFor lifestyle, patient reportsnot exercising regularlybut reportslimiting/avoiding salt. For associated symptoms, patient reportsno dizziness,no lightheadedness,no chest pain,no shortness of breath,no palpitations,no edema, andno calf pain with exertion. For medications, patient reportsno side effects from medication.Has not been taking RUBI -- states that pharmacy told him it is not a covered drug. i spoke with pharmacy today, and they do not have record of the script being declined/denied by insurance. Still taking amlodipine. 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 For restless leg syndrome, patient reportslegs feel restless: disturbing sleepandlegs feel restless: relieved by movement. For onset/timing, patient reportschronic(worsening problems over the past 2-3 mos). For pain disturbing sleep, (chronic shoulder pain and recent rotator cuff surgery).Has been using ropininrole for RLS for many years with good effects. Never had sleep test. Now states that the medication is no longer effective.ROS as noted in the HPI Marvin Lam MD [address] [address], [place], [address], [facility] 07/12/2015 21:16:22 12/26/19 16 text/htm l Hypertension F/UReported by PatientHPIFor associated symptoms, patient reportsno dizziness,no lightheadedness, andno chest pain. For lifestyle, patient reportsregular exercise. For medications, patient reportstaking medications as directed,no side effects from medication, andchecks blood pressure at home, range: (greater than 140).Reports that home BP has been good (checking mostly at work). Here for PE visit. Reviewed recent health history of and recommendations for screening. History of use of anabolic steroids for bodybuilding. States that he is now getting only testosterone replacement from Dr. Dacosta. Marvin Lam MD [address] [address], [place], [address], [facility] 12/26/2015 13:42:19 05/02/19 17 text/htm l Hypertension F/UReported by PatientHPIFor lifestyle, patient reportsnot exercising regularlybut reportslimiting/avoiding salt. For associated symptoms, patient reportsno dizziness,no lightheadedness,no chest pain,no shortness of breath,no palpitations,no edema, andno calf pain with exertion. For medications, patient reportsno side effects from medication.He is taking his meds but always a bit high, in 140s/80s, he checks BP at work. 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 For severity, patient reportsdifficulty getting going in the morning. For quality, patient reportsloud snoringandfrequent breathing through the mouth. For restless leg syndrome, patient reportslegs feel restless: disturbing sleepandlegs feel restless: relieved by movement. For prescribed sleep medications, patient reportscurrently taking medication to help sleep. For associated symptoms, patient reportssleep problems for ____ years, sleep problems are getting worse and the patient has problems both getting to sleep and staying asleepandhypertension. For onset/timing, patient reportschronic(worsening problems over the past 1 mos).Has been using ropinirole for RLS for many years with good effects. Never had sleep test. Now states that the medication is no longer effective, he is having diff falling and staying asleep. He states he is also having daytime symptoms as well- of restless legs. He states he has never had a sleep study.ROS as noted in the HPI Mansoor mcmahon [facility] [place] 05/02/2016 13:04:37 01/07/20 17 text/htm l Anxiety/DepressionReported by PatientHPIFor quality, patient reportsmood worse,increased anxiety, andpanic symptoms. For severity, patient reportsinterference with sleepbut reportsdenies suicidal ideations. For context, patient reportsmajor life stressorsandetoh use(ongoing use of testosterone with toxic levels.). For duration, (longstanding anxiety. worse since he quit drinking 2 weeks ago).ROS as noted in the HPI Multiple concerns today. Notes that he had [...] refill his RLS meds. Marvin Lam MD [address] [address], [place], [phone], [facility] [place] [facility] 01/07/2017 08:40:40
--- OUTSIDE RECORDS SUMMARY | 2025-03-17 13:35 | XMS_ITS | Clinical Summary ---
Author Organization [facility] Address [address] [place] [phone] Phone Care Team Providers Care Oil Lease Operator Name Role Phone Abbie Ayala PA-C Primary Care Provider + Allergies No known active allergies Medications atorvastatin (LIPITOR) 40 MG tablet Take 40 mg by mouth 1 (one) time each day Active Metoprolol Succinate 50 MG capsule extended-relea se 24 hour sprinkle Take 50 mg by [...] (one) time each day Active metFORMIN XR (GLUCOPHAGE-XR ) 750 MG 24 hr tablet Take 750 mg by mouth 1 (one) time each day with dinner Do not crush, chew, or split. Active rOPINIRole (REQUIP) 2 MG tablet Take 4 mg by mouth every night Active olmesartan (BENICAR) 40 MG tablet TAKE 1 TABLET(40 MG) BY MOUTH 1 TIME EACH DAY 90 tablet 3 02/02/20 24 Active Magnesium Oxide -Mg Supplement 250 MG tablet Take 1 tablet by mouth in the morning and 1 tablet in the evening. 03/05/20 24 Active Cholecalcifero l (Vitamin D3) 50 MCG (1999 UT) tabletIndicati ons:Essential (primary) hypertension,V itamin D deficiency, not otherwise specified Take 2,000 Units by mouth 1 (one) time each day 30 tablet 11 10/21/20 25 026 Active amLODIPine (NORVASC) 5 MG tablet TAKE 1 TABLET(5 MG) BY MOUTH 1 TIME EACH DAY 30 tablet 11 02/26/20 25 Active amLODIPine (NORVASC) 5 MG tablet Take 1 tablet (5 mg total) by mouth 1 (one) time each day 30 tablet 11 02/16/20 24 025 Discontinued Active Problems Problem Noted Date Diagnosed Date Vitamin D deficiency, not otherwise specified Dyslipidemia 02/16/2024 Type 2 diabetes mellitus wit h diabetic chronic kidney disease 02/16/2024 Hypertensive chronic kidney disease 01/15/2023 Essential (primary) hypertension 12/25/2021 Stage 3a chronic kidney disease 12/25/2021 Proteinuria, not otherwise specified 12/25/2021 Full thickness rotator cuff tear 05/02/2015 01/15/2023 Encounters Date Type Department Care Team Description 02/25/2025 Refill [facility] [address] [phone] Chad Martínez MD 02/17/2025 Orders Only [facility] [address] [phone] Treasure Day ARNP Stage 3a chronic kidney disease (HCC) (Primary Dx) 02/15/2025 9:15 AM EDT Office Visit [facility] [address] [phone] Treasure Day ARNP Stage 3a chronic kidney disease (HCC) (Primary Dx); Essential (primary) hypertension; Vitamin D deficiency, not otherwise specified 02/14/2025 Orders Only [facility] [address] [phone] Chad Martínez MD from Last 3 Months Family History Medical [...] Sign Reading Time Taken Comments Blood Pressure 118/74 02/15/2025 9:05 AM EDT Pulse 99 02/15/2025 9:05 AM EDT Temperature - - Respiratory Rate - - Oxygen Saturation 97% 02/15/2025 9:05 AM EDT Inhaled Oxygen Concentration - - Weight 122 kg (268 lb) 02/15/2025 9:05 AM EDT Height 185.4 cm (6' 1 ) 01/15/2023 10:33 AM EDT Body Mass Index 35.36 01/15/2023 10:33 AM EDT Plan of Treatment Upcoming Encounters Date Type Department Care Team (Late st Contact Info) Description 08/15/2025 2:00 PM EDT Office Visit [facility] [address] [phone] Chad Martínez MD [address] [phone] Health Maintenance Due Date Last Done Comments [...] Procedure Name Priority Date/Time Associated Diagnosis Comments UREA NITROGEN CLEARANCE Routine 02/14/2025 11:28 AM EDT PROTEIN / CREATININE RATIO, URINE Routine 02/14/2025 11:28 AM EDT PROTEIN, URINE 24 HR (MG/24 HR) Routine 02/14/2025 11:28 AM EDT CREATININE CLEARANCE, URINE, 24 HOUR Routine 02/14/2025 11:28 AM EDT URINALYSIS WITH MICROSCOPIC Routine 02/14/2025 11:28 AM EDT VITAMIN D 25 HYDROXY Routine 02/14/2025 11:06 AM EDT PTH, INTACT (HC) Routine 02/14/2025 11:0 6 AM EDT CALCIUM Routine 02/14/2025 11:06 AM EDT CREATININE, BLOOD Routine 02/14/2025 11: 06 AM EDT BUN Routine 02/14/2025 11:06 AM EDT ELECTROLYTE PANEL Routine 02/14/2025 11: 06 AM EDT VITAMIN D 25 HYDROXY Routine 01/11/2025 11:32 AM EDT Stage 3a chronic kidney disease (HCC) Hypertensive chronic kidney disease Type 2 diabetes mellitus with diabetic chronic kidney disease (HCC) PTH, INTACT (HC) Routine 01/11/2025 11:3 0 AM EDT from Last 3 Months Results * (ABNORMAL) Protein, Urine 24 HR (mg/24 Hr) (02/14/2025 11:28 AM EDT) 24 Hr Total Protein <159(H) <150 mg/Day See order comments Protein,mg/24H r Urine 7 mg/dL See order comments 02/14/2025 11:2 8 AM EDT 02/14/2025 11:28 AM EDT Narrative ELIN - 02/14/2025 2:08 PM EDT [id number] 0616 us Chad Martínez MD LAB URINE ORDERABLES Final Resu lt Performing Organization Address [facility] de Phone Number ELIN See order comments [place] [address] * (ABNORMAL) Urea Nitrogen Clearance (02/14/2025 11:28 AM EDT) Urine Volume 2,275 See ord er comments Comment:ML BUN 24 7 - 25 mg/dL See order comments Urea Nitrogen, Urine 24 Hr 17 6 - 17 g/24 h See order comments BUN CLEARANCE 39(A) 41 - 68 mL/min See order comments Comment: THIS TEST WAS PERFORMED AT: [facility] IVETH NEVAREZ MD,PHD 02/14/2025 11:2 8 AM EDT 02/14/2025 11:28 AM EDT Narrative ELIN - 02/24/2025 11:29 AM EDT [id number] 0616 us Chad Martínez MD LAB URINE ORDERABLES Final Resu lt Performing Organization Address [facility] de Phone Number ELIN See order comments [place] [address] * (ABNORMAL) Creatinine clearance, urine, 24 hour (02/14/2025 11:28 AM EDT) Creatine,U,mg/d L 1.70(H) 0.5 - 1.4 mg/dL See order comments Creatinine Clear, Urine 109.0 85 - 125 mL/min See order comments Creatinine in 24 hour Urine 2.7(H) 1.0 - 2.0 G/Day See order comments Creatinine, 24H Ur 117.33 See order comments Urine Volume 24 Hr 2,275 mL See order comments 02/14/2025 11:2 8 AM EDT 02/14/2025 11:28 AM EDT Narrative [place] - 02/14/2025 2:08 PM EDT [id number] 0616 0616 us Chad Martínez MD LAB URINE ORDERABLES Final Resu lt Performing Organization Address City/[facility]/ZIP Co de Phone Number ELIN See order comments [place] [address] * Protein, Total, Random Urine w/Creatinine (Protein/Creat Ratio) (02/14/2025 11:28 AM EDT) Creatinine, Urine 128.79 mg/dL See order comments Protein Urine Random <7 <12 mg/dL See order comments Protein/Creatin ine Ratio, Urine TNP <0.2 See order comments Comment: Unable to calculate urine protein creatinine ratio due to low creatinine or protein result. Unable to calculate urine protein creatinine ratio due to low creatinine or protein result. 02/14/2025 11:2 8 AM EDT 02/14/2025 11:28 AM EDT us Chad Martínez MD LAB URINE ORDERABLES Final Resu lt Performing Organization Address [facility] Co de Phone Number ELIN See order comments [place] [address] * (ABNORMAL) Urinalysis with microscopic (02/14/2025 11:28 AM EDT) Color Urine Yellow See orde r comments Appearance Urine Clear See order comments pH Urine 5.5 5.0 - 9.0 See order comments Glucose Urine 100(A) Negative mg/dL See order comments Blood, Urine Negative Negative See ord er comments Specific [place] Urine 1.015 1.005 - 1.025 See order comments Protein Urine Negative Neg-Trace mg/dL See order comments Ketones, Urine Negative Negative mg/dL See order comments Nitrite, Urine Negative Negative See o rder comments Leukocyte Esterase Urine Negative Negative See order comments RBC, Urine 0-2 0 - 2 /HPF See orde r comments WBC 0-5 0 - 5 /HPF See order comments Squamous Epithelial, Urine 0-2 0 - 2 /HPF See order comments Bacteria, Urine None Seen None Seen See order comments Hyaline Casts, Urine 0-2 0 - 2 /LPF See order comments 02/14/2025 11:2 8 AM EDT 02/14/2025 11:28 AM EDT us Chad Martínez MD LAB URINE ORDERABLES Final Resu lt Performing Organization Address [facility] Co de Phone Number [place] See order comments [place] [address] * (ABNORMAL) Creatinine (02/14/2025 11:06 AM EDT) Creatinine Serum 1.70(H) 0.5 - 1.4 mg/dL See order comments eGFR (Calc) 42 See orde r comments Comment: Chronic Kidney Disease: Estimated GFR < 60 mL/min/1.73m2 Severe Kidney Disease: Estimated GFR < 15 mL/min/1.73m2 02/14/2025 11:0 6 AM EDT 02/14/2025 11:06 AM EDT us Chad Martínez MD LAB BLOOD ORDERABLES Final Resu lt Performing Organization Address [facility] de Phone Number [facility] See order comments [place] [address] * PTH, Intact (02/14/2025 11:06 AM EDT) Only the most recent of2 resultswithin the time period is included. Parathyroid Hormone, Intact 60.0 8.7 - 77.1 pg/mL See order comments 02/14/2025 11:0 6 AM EDT 02/14/2025 11:06 AM EDT us Chad Martínez MD LAB BLOOD ORDERABLES Final Resu lt Performing Organization Address [facility] de Phone Number [place] See order comments [place] [address] * (ABNORMAL) Vitamin D 25 Hydroxy (02/14/2025 11:06 AM EDT) Only the most recent of2 resultswithin the time period is included. Vitamin D, 25-Hydroxy 24.5(L) >30 ng/mL See order comments Comment: Health [...] confirmed with another method such as LC-MS/MS. 02/14/2025 11:0 6 AM EDT 02/14/2025 11:06 AM EDT us Chad Martínez MD LAB BLOOD ORDERABLES Final Resu lt [facility] See order comments [place] [address] * (ABNORMAL) BUN (02/14/2025 11:06 AM EDT) BUN 23(H) 9 - 16 mg/dL See order comments 02/14/2025 11:0 6 AM EDT 02/14/2025 11:06 AM EDT us Chad Martínez MD LAB BLOOD ORDERABLES Final Resu lt [place] See order comments [place] [address] * Calcium (02/14/2025 11:06 AM EDT) Calcium 9.9 8.4 - 10.2 mg/dL See order comments 02/14/2025 11:0 6 AM EDT 02/14/2025 11:06 AM EDT Chad Martínez MD LAB BLOOD ORDERABLES Final Resu lt [place] See order comments [place] [address] * Electrolyte panel (02/14/2025 11:06 AM EDT) Sodium 138 135 - 145 mmol/L See order comments Potassium 4.4 3.3 - 5.1 mmol/L See order comments Chloride 102 96 - 108 mmol/L See order comments Bicarbonate (CO2) 27 22 - 29 mmol/L See order comments Anion Gap 13 12 - 20 See order comments 02/14/2025 11:0 6 AM EDT 02/14/2025 11:06 AM EDT Chad Martínez MD LAB BLOOD ORDERABLES Final Resu lt [place] See order comments [place] [address] from Last 3 Months Insurance Unicare Unicare Care Teams Oil Lease Operator Relationship Specialty Start Date End Date Abbie Ayala PA-C [address] [facility] [address] PCP - General Physician Vice President Biostatistics 05/20/24
--- OUTSIDE RECORDS SUMMARY | 2025-03-17 13:37 | XMS_ITS | Clinical Summary ---
Author Organization [facility] Address [address] [place] [phone] Phone Care Team Providers Care Lamp Stack Developer Name Role Phone Marvin Lam MD Primary Care Provider [phone] Allergies No known active allergies Medications amLODIPine [...] this topic Medical Devices Implanted Type Area Employment Consultant Device Identifier Shelf Expiration Date Model / Serial / Lot [place] Suture 19.1x4.75mm Biocomposite Loop White Black Swivelock C [employer] - [id number] Implanted:Qty: 1 on 04/20/2015 by Jammie Chaudhry MD at [facility] STANDARD Left: Acromial Process [employer] 01/25/2017 [id number] / / [id number] Implant Fixation 19.1x4.75mm Speedbridge Implantable - [id number] Implanted:Qty: 1 on 04/20/2015 by Jammie Chaudhry MD at [facility] Left: Acromial Process [employer] 12/26/2016 [id number] S-4 / / [id number] Insurance TOTAL CHOICE INDEMNITY [employer] TOTAL CHOICE INDEMNITY [employer] TOTAL CHOICE INDEMNITY [employer] TOTAL CHOICE INDEMNITY [employer] TOTAL CHOICE INDEMNITY [employer] TOTAL CHOICE INDEMNITY [employer] TOTAL CHOICE INDEMNITY [facility] [employer] [facility] TOTAL CHOICE INDEMNITY Member Subscriber Plan / [facility] Name:Konrad Beckham Relation to Subscriber:Self Name:Konrad Beckham Payer ID:[id number] (NA) Type:Indemnity Address: [address] [place] [address] [employer] [facility] TOTAL CHOICE INDEMNITY Member Subscriber Plan / Payer ([facility]-Present) Name:Konrad Beckham Relation to Subscriber:Self Name:Konrad Beckham Payer ID:[id number] (NAIC) Type:Indemnity Address: [address] [place] [address] WORKERS COMPENSATION Care Teams Lamp Stack Developer Relationship Specialty Start Date End Date Marvin Lam MD [address] [place] [phone] PCP - General Internal Medicine 04/03/15 Additional Source Comments The information contained in this document represents components of the legal health record. It is not the complete legal health record.[facility]
== END 2025-03-17 10:43 | disposition home or self-care (01) ==
LOC: HO.HOS 09:36
PROVIDERS: PCP Physician Assistant; Visit Provider Orthopaedic Surgery
DX: Z47.89 Encounter for other orthopedic aftercare (principal); Z98.890 Other specified postprocedural states
CPT/HCPCS: 99213